=== PATIENT | male | born 1960 | race African-American/Black ===

== ENCOUNTER → 2017-05-14 | Outpatient (CLI) | payer MEDICAID ==
[2017-05-14 13:55] LABS: BASOPHILS # (AUTO) 0.1 X10^3/uL (0.0-0.1); BASOPHILS % (AUTO) 0.7 % (0.2-1.0); EOSINOPHILS # (AUTO) 0.1 x10^3/uL (0.0-0.2); EOSINOPHILS % (AUTO) 1.3 % (0.9-2.9); HEMATOCRIT 36.1 % (42.0-54.0); HEMOGLOBIN 12.4 g/dL (13.5-18.0); LYMPHOCYTES % (AUTO) 27.2 % (21.0-51.0); MEAN CORPUSCULAR HGB CONC 34.4 g/dL (33.0-35.0); MEAN CORPUSCULAR VOLUME 78.6 fL (80.0-100.0); MONOCYTES # (AUTO) 0.5 x10^3/uL (0.3-0.8); NEUTROPHILS # (AUTO) 4.8 x10^3/uL (2.2-4.8); NEUTROPHILS % (AUTO) 63.8 % (42.0-75.0); PLATELET COUNT 264 X10^3/uL (150.0-450.0); RED BLOOD COUNT 4.59 X10^6/uL (4.7-6.0); RED CELL DISTRIBUTION WIDTH 15.8 % (11.6-16.5); WHITE BLOOD COUNT 7.5 X10^3/uL (3.6-10.0)
--- NOTE | 2017-05-14 21:33 | RAD ---
PA and lateral Chest Indication: COPD Comparison: None available Findings: The trachea is midline. The cardiac silhouette is unremarkable. The lungs are clear without focal i nfiltrate or effusion. Multiple bilateral posterior healed rib fractures are noted. The there is a c hronic AC separation on the left with moderate osteoarthrosis of the right AC joint. IMPRESSION: 1. No acute cardiopulmonary abnormality. Reported By:
== END ==
LOC: LAB 13:17
PROVIDERS: ATTEND Nurse Practitioner Family
DX: Z79.899 Other long term (current) drug therapy (principal); J44.9 Chronic obstructive pulmonary disease, unspecified
CPT/HCPCS: 36415; 71020; 85025

== ENCOUNTER 2017-09-08 12:04 | Inpatient (IN) | payer MEDICAID ==
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
[2017-09-08] MEDS ORDERED: ATIVAN INJ 2 MG VIAL ONE (12:50)
[2017-09-08] MEDS ORDERED: ATIVAN INJ 2 MG VIAL IVP ONE (13:01)
[2017-09-08 13:11] LABS: BASOPHILS % (AUTO) 0.4 % (0.2-1.0); EOSINOPHILS # (AUTO) 0.2 x10^3/uL (0.0-0.2); HEMATOCRIT 38.1 % (42.0-54.0); HEMOGLOBIN 12.8 g/dL (13.5-18.0); LYMPHOCYTES # (AUTO) 2.3 X10^3/uL (1.3-2.9); LYMPHOCYTES % (AUTO) 23.1 % (21.0-51.0); MEAN CORPUSCULAR HEMOGLOBIN 27.7 pg (27.0-34.0); MEAN CORPUSCULAR HGB CONC 33.7 g/dL (33.0-35.0); MEAN CORPUSCULAR VOLUME 82.2 fL (80.0-100.0); MEAN PLATELET VOLUME 9.2 fL (7.4-11.0); MONOCYTES # (AUTO) 0.6 x10^3/uL (0.3-0.8); MONOCYTES % (AUTO) 6.2 % (0.0-13.0); NEUTROPHILS # (AUTO) 6.8 x10^3/uL (2.2-4.8); NEUTROPHILS % (AUTO) 68.3 % (42.0-75.0); PLATELET COUNT 266 X10^3/uL (150.0-450.0); RED BLOOD COUNT 4.64 X10^6/uL (4.7-6.0); RED CELL DISTRIBUTION WIDTH 14.8 % (11.6-16.5)
[2017-09-08 13:15] LABS: BILIRUBIN,URINE NEGATIVE (NEGATIVE); BLOOD/HEMOGLOBIN,URINE 4+ (NEGATIVE); GLUCOSE, URINE 1+ (NEGATIVE); KETONES,URINE 2+ (NEGATIVE); LEUKOCYTE ESTERASE ,URINE 3+ (NEGATIVE); NITRITES,URINE NEGATIVE (NEGATIVE); PROTEIN,URINE 3+ (NEGATIVE); UROBILINOGEN,URINE NORMAL (NORMAL)
[2017-09-08 13:16] LABS: COLOR,URINE YELLOW (YELLOW)
[2017-09-08 13:17] LABS: APPEARANCE,URINE HAZY (CLEAR)
[2017-09-08 13:25] LABS: BACTERIA,URINE 1+ /HPF (NEGATIVE); RBC,URINE TNTC /HPF (NEGATIVE); SQUAMOUS EPITHELIAL CELL,UR RARE /HPF (NEGATIVE)
[2017-09-08 13:26] LABS: YEAST,URINE FEW /HPF (NEGATIVE)
[2017-09-08 13:26] LABS: BLOOD UREA NITROGEN 17 mg/dL (7-18); CALCIUM 9.5 mg/dL (8.5-10.1); CARBON DIOXIDE 23.3 mmol/L (21-32); CHLORIDE 104 mmol/L (98-107); COR NA(FOR HYPERGLY) 145 mmol/L (136-145); CREATININE 1.18 mg/dL (0.70-1.30); SODIUM 143 mmol/L (136-145); TROPONIN I < 0.02 ng/mL (0-1.5); eGFR BLACK RACES > 60 (>60); eGFR NON BLACK RACES > 60 (>60)
--- NOTE | 2017-09-08 13:33 | CT ---
HISTORY: New onset seizure Study: CT head without contrast Comparison: None Technique: Axial noncontrast images with coronal and sagittal reformats. Dose reduction procedures we re used with mA/kv adjusted for body size. Findings: The ventricles are normal in size shape and position. There is some decreased attenuation in the elvira ventricular white matter suggestive of small vessel vascular disease. There is cortical atrophy prese nt. Old CVAs involve the frontal cortices and subcortical white matter bilaterally left greater than right. There is an old CVA in the left occipital region. There is no evidence for visible recent CVA, hemorrhage, mass lesion or extra-axial fluid collection. If acute CVA or extension of the patient's old CVA 's is a strong clinical consideration MRI with diffusion imaging is recommended for further e valuation. IMPRESSION: No acute intracranial abnormality Cortical atrophy Small vessel disease Multiple old infarcts as described above Reported By:
--- NOTE | 2017-09-08 13:34 | RAD ---
Examination: AP chest History: SOB, seizure Comparison 05/14/2017. Continued normal heart size with clear lungs and pleural spaces. Healed bilateral rib fracture deform ities. Small calcification adjacent to the left humeral head. Impression: No acute abnormality involving harder lungs. Healed rib fractures. Correlate for calcific peritendinitis left shoulder. Reported By:
[2017-09-08 13:39] LABS: ALANINE AMINOTRANSFERASE 17 Units/L (12-78); ALBUMIN 4.1 g/dL (3.4-5.0); ALKALINE PHOSPHATASE 89 Units/L (46-116); ASPARTATE AMINO TRANSFERASE 16 Units/L (15-37); CKMB % 0.6 % (<4); CREATINE KINASE 487 Units/L (39-308)
[2017-09-08] MEDS ORDERED: ROCEPHIN VIAL 1 GM 1 GM in NS 100 ML IV + SPIKE MINIBAG* 100 ML IV SCH (15:45)
[2017-09-08] MEDS ORDERED: ROCEPHIN VIAL 1 GM ONE (16:15)
[2017-09-08] MEDS ORDERED: NUBAIN INJ 200 MG VIAL MULTIDOSE ONE (16:16)
[2017-09-08] MEDS ORDERED: NS 100 ML IV 100 ML IV ONE (16:19)
[2017-09-08] MEDS: NS 1000 ML 1,000 ML IV SCH (16:19)
[2017-09-08 16:41] VITALS: BMI 23.6
[2017-09-08 20:06] LABS: CREATINE KINASE MB 3.1 ng/mL (0-4.0); TROPONIN I < 0.02 ng/mL (0-1.5)
[2017-09-08 20:11] LABS: CKMB % 0.3 % (<4); CREATINE KINASE 1149 Units/L (39-308)
[2017-09-09 02:13] LABS: CREATINE KINASE MB 2.8 ng/mL (0-4.0); TROPONIN I < 0.02 ng/mL (0-1.5)
[2017-09-09 02:49] LABS: CKMB % 0.2 % (<4); CREATINE KINASE 1606 Units/L (39-308)
[2017-09-09] MEDS: NS 1000 ML 1,000 ML IV SCH ×2 (04:44→18:22)
[2017-09-09 06:27] LABS: BASOPHILS # (AUTO) 0.1 X10^3/uL (0.0-0.1); BASOPHILS % (AUTO) 0.7 % (0.2-1.0); EOSINOPHILS # (AUTO) 0.2 x10^3/uL (0.0-0.2); HEMATOCRIT 34.1 % (42.0-54.0); HEMOGLOBIN 11.6 g/dL (13.5-18.0); LYMPHOCYTES % (AUTO) 29.7 % (21.0-51.0); MEAN CORPUSCULAR HEMOGLOBIN 27.6 pg (27.0-34.0); MEAN CORPUSCULAR VOLUME 81.2 fL (80.0-100.0); MONOCYTES # (AUTO) 0.7 x10^3/uL (0.3-0.8); MONOCYTES % (AUTO) 7.4 % (0.0-13.0); NEUTROPHILS % (AUTO) 60.2 % (42.0-75.0); PLATELET COUNT 231 X10^3/uL (150.0-450.0); RED CELL DISTRIBUTION WIDTH 14.7 % (11.6-16.5)
[2017-09-09 06:49] LABS: ALANINE AMINOTRANSFERASE 15 Units/L (12-78); ALBUMIN 3.3 g/dL (3.4-5.0); ALKALINE PHOSPHATASE 62 Units/L (46-116); ASPARTATE AMINO TRANSFERASE 17 Units/L (15-37); BLOOD UREA NITROGEN 10 mg/dL (7-18); CALCIUM 8.4 mg/dL (8.5-10.1); CARBON DIOXIDE 27.7 mmol/L (21-32); CHLORIDE 105 mmol/L (98-107); CHOL/HDL RATIO 4.3 (0.0-5.0); CHOLESTEROL 197 mg/dL (0-200); COR NA(FOR HYPERGLY) 144 mmol/L (136-145); CREATININE 0.91 mg/dL (0.70-1.30); HDL CHOLESTEROL 46 mg/dL (40-60); MAGNESIUM 1.6 mg/dL (1.7-2.9); SODIUM 142 mmol/L (136-145); TOTAL PROTEIN 6.8 g/dL (6.4-8.2); TRIGLYCERIDES 139 mg/dL (0-150); eGFR BLACK RACES > 60 (>60); eGFR NON BLACK RACES > 60 (>60)
[2017-09-09] MEDS ORDERED: K-RIDER 10 MEQ/NS 100 ML 10 MEQ/100 ML BAG IV PRN (07:00)
[2017-09-09] MEDS ORDERED: POTASSIUM CHLORIDE LIQ 20 MEQ UDC PO PRN (07:00)
[2017-09-09] MEDS ORDERED: POTASSIUM CHL 60 MEQ/NS 0.45% 500 ML IV PRN (07:00)
[2017-09-09] MEDS ORDERED: POTASSIUM CHL 40 MEQ/NS 0.45% 500 ML IV PRN (07:00)
[2017-09-09] MEDS: MAGNESIUM SULFATE 1 GM/100 mL PREMIX 1 GM/100 ML BAG IV PRN ×2 (07:42→08:36)
[2017-09-09] MEDS: ROCEPHIN IV SCH (10:30)
[2017-09-09] MEDS: D5W IV SCH (10:30)
[2017-09-09] MEDS ORDERED: HumaLOG SC SCH (11:30)
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
--- NOTE | 2017-09-09 13:34 | PCM.PROG ---
Progress Note - Progress Note for Day of Date: 09/09/17 - Subjective Subjective: patient is a 57-year-old black male who was an ER admission after presenting with new onset seizures. Since admission to ICU patient has had no reported seizure activity. Patient is alert and awake this morning. He denies any pain headache or dizziness. Plan to continue electrolyte replacement continue to monitor including neuro checks and cardiac monitoring. We'll consult Dr. Benito neurologist for evaluation of new onset seizure disorder. - Past Medical Family Social History Past Med/Fam/Surg Hx: No changes since H&P Allergies: Allergies No Known Drug Allergies Allergy (Verified 09/08/17 13:00) - Review of Systems ROS: No change since H&P - Vital Signs and I&O's Vital Signs: Temperature 97.9 F Pulse Rate [Apical] 86 Pulse Rate 16 Respiratory Rate 14 Blood Pressure [Right Arm] 170/85 Blood Pressure 156/80 O2 Sat by Pulse Oximetry 95 Intake and Output: Intake & Output 09/07/17 09/08/17 09/09/17 09/10/17 11:59 11:59 11:59 11:59 Intake Total 804 Output Total 1500 Balance -696 - Physical Exam Oriented: Person Eyes: Normal Ear: Normal Nose: Normal Throat: Normal Respiratory: Diminished Cardiovascular: Normal : Normal Auscultation: Bowel Sounds: Normal Tenderness: Normal Skin: Wound (STAGE I ULCERATION TO RIGHT STUMP) Musculoskeletal: Deformity Mood Description: Calm Speech Pattern: Clear - Laboratory and Diagnostics Result Diagrams: 09/09/17 05:30 09/09/17 05:30 Labs: 09/08/17 13:03 Urine,Catheterized Urine Culture - Preliminary Laboratory WBC 10.0 X10^3/uL (3.6-10.0) 09/09/17 05:30 RBC 4.20 X10^6/uL (4.7-6.0) L 09/09/17 05:30 Hgb 11.6 g/dL (13.5-18.0) L 09/09/17 05:30 Hct 34.1 % (42.0-54.0) L 09/09/17 05:30 MCV 81.2 fL (80.0-100.0) 09/09/17 05:30 MCH 27.6 pg (27.0-34.0) 09/09/17 05:30 MCHC 34.0 g/dL (33.0-35.0) 09/09/17 05:30 RDW 14.7 % (11.6-16.5) 09/09/17 05:30 Plt Count 231 X10^3/uL (150.0-450.0) 09/09/17 05:30 MPV 9.0 fL (7.4-11.0) 09/09/17 05:30 Neut % 60.2 % (42.0-75.0) 09/09/17 05:30 Lymph % 29.7 % (21.0-51.0) 09/09/17 05:30 [place] % 7.4 % (0.0-13.0) 09/09/17 05:30 Eos % 2.0 % (0.9-2.9) 09/09/17 05:30 Baso % 0.7 % (0.2-1.0) 09/09/17 05:30 Neut # 6.0 x10^3/uL (2.2-4.8) H 09/09/17 05:30 Lymph # 3.0 X10^3/uL (1.3-2.9) H 09/09/17 05:30 [place] # 0.7 x10^3/uL (0.3-0.8) 09/09/17 05:30 Eos # 0.2 x10^3/uL (0.0-0.2) 09/09/17 05:30 Baso # 0.1 X10^3/uL (0.0-0.1) 09/09/17 05:30 Absolute Nucleated RBC 0.1 /100WBC 09/09/17 05:30 INR Target Range - 09/09/17 05:30 INR 0.94 (0.8-1.3) 09/09/17 05:30 PTT 26.8 SECONDS (22.9-36.5) 09/09/17 05:30 PTT Comment - 09/09/17 05:30 Sodium 142 mmol/L (136-145) 09/09/17 05:30 Corrected Sodium 144 mmol/L (136-145) 09/09/17 05:30 Potassium 3.0 mmol/L (3.5-5.1) L* 09/09/17 05:30 Chloride 105 mmol/L (98-107) 09/09/17 05:30 Carbon Dioxide 27.7 mmol/L (21-32) 09/09/17 05:30 BUN 10 mg/dL (7-18) 09/09/17 05:30 Creatinine 0.91 mg/dL (0.70-1.30) 09/09/17 05:30 Est GFR (MDRD) Af Amer > 60 (>60) 09/09/17 05:30 Est GFR (MDRD) Non-Af > 60 (>60) 09/09/17 05:30 Glucose 180 mg/dL (65-99) H 09/09/17 05:30 POC Glucose (mg/dL) 239 mg/dL (65-99) H 09/09/17 11:17 Calcium 8.4 mg/dL (8.5-10.1) L 09/09/17 05:30 Corrected Calcium 9.0 mg/dL (8.5-10.1) 09/09/17 05:30 Magnesium 1.6 mg/dL (1.7-2.9) L 09/09/17 05:30 Total Bilirubin 0.30 mg/dL (0.2-1.0) 09/09/17 05:30 AST 17 Units/L (15-37) 09/09/17 05:30 ALT 15 Units/L (12-78) 09/09/17 05:30 Alkaline Phosphatase 62 Units/L (46-116) 09/09/17 05:30 Creatine Kinase 1606 Units/L (39-308) H 09/09/17 01:20 CK-MB (CK-2) 2.8 ng/mL (0-4.0) 09/09/17 01:20 CK/CKMB % Calc 0.2 % (<4) 09/09/17 01:20 Troponin I < 0.02 ng/mL (0-1.5) 09/09/17 01:20 Total Protein 6.8 g/dL (6.4-8.2) 09/09/17 05:30 Albumin 3.3 g/dL (3.4-5.0) L 09/09/17 05:30 Globulin 3.5 g/dL (2.5-4.5) 09/09/17 05:30 Albumin/Globulin Ratio 0.9 Ratio (1.1-2.1) L 09/09/17 05:30 Triglycerides 139 mg/dL (0-150) 09/09/17 05:30 Cholesterol 197 mg/dL (0-200) 09/09/17 05:30 LDL Cholesterol, Calc 123 mg/dL (0-100) H 09/09/17 05:30 HDL Cholesterol 46 mg/dL (40-60) 09/09/17 05:30 Cholesterol/HDL Ratio 4.3 (0.0-5.0) 09/09/17 05:30 Specimen Type Catherized urine 09/08/17 13:03 Urine Color Yellow (YELLOW) 09/08/17 13:03 Urine Appearance Hazy (CLEAR) 09/08/17 13:03 Urine pH 5.0 (5.0 - 8.0) 09/08/17 13:03 Ur Specific [place] 1.015 (1.000-1.030) 09/08/17 13:03 Urine Protein 3+ (NEGATIVE) 09/08/17 13:03 Urine Glucose (UA) 1+ (NEGATIVE) 09/08/17 13:03 Urine Ketones 2+ (NEGATIVE) 09/08/17 13:03 Urine Occult Blood 4+ (NEGATIVE) 09/08/17 13:03 Urine Nitrite Negative (NEGATIVE) 09/08/17 13:03 Urine Bilirubin Negative (NEGATIVE) 09/08/17 13:03 Urine Urobilinogen Normal (NORMAL) 09/08/17 13:03 Ur Leukocyte Esterase 3+ (NEGATIVE) 09/08/17 13:03 Urine RBC Tntc /HPF (NEGATIVE) 09/08/17 13:03 Urine WBC Tntc /HPF (NEGATIVE) 09/08/17 13:03 Ur Squamous Epith Cells Rare /HPF (NEGATIVE) 09/08/17 13:03 Urine Bacteria 1+ /HPF (NEGATIVE) 09/08/17 13:03 Urine Yeast Few /HPF (NEGATIVE) 09/08/17 13:03 Ur Culture Indicated? Yes/culture set up 09/08/17 13:03 Urine Opiates Screen Negative (NEG=<300) 09/08/17 13:03 Urine Methadone Screen Negative (NEG=<300) 09/08/17 13:03 Ur Barbiturates Screen Negative (NEG=<200) 09/08/17 13:03 Ur Phencyclidine Scrn Negative (NEG=<25) 09/08/17 13:03 Ur Amphetamines Screen Negative (NEG=<1000) 09/08/17 13:03 U Benzodiazepines Scrn Negative (NEG=<200) 09/08/17 13:03 Urine Cocaine Screen Negative (NEG=<300) 09/08/17 13:03 U Marijuana (THC) Screen Negative (NEG=<50) 09/08/17 13:03 - Plan (1) New onset seizure Status: Acute Plan: CT HEAD ON ADMISSION. CE AND EKG, ELECTROLYTE REPLACEMENT. IV HYDRATION IV ATBX FOR UTI. BLOOD SUGAR MONITORING. NEURO CHECKS, consult neurologist (2) UTI (urinary tract infection) Status: Acute Qualifiers: Urinary tract infection type: site unspecified Hematuria presence: with hematuria Qualified Code(s): N39.0 - Urinary tract infection, site not specified; R31.9 - Hematuria, unspecified; R31.9 - Hematuria, unspecified Plan: continue rocephin, culture pending (3) Hypertension Status: Acute (4) Diabetes Status: Acute
[2017-09-09] MEDS ORDERED: GLUCOPHAGE PO SCH (17:00)
[2017-09-09] MEDS ORDERED: GLUCOPHAGE ONE (17:18)
[2017-09-09] MEDS: HumuLIN R SUBCUT PRN ×2 (17:21→21:26)
[2017-09-09] MEDS: SNACK - Diabetic Appropriate PO SCH (21:27)
[2017-09-10] MEDS: NS 1000 ML 1,000 ML IV SCH ×3 (00:30→21:00)
[2017-09-10] MEDS ORDERED: GLUCOPHAGE ONE ×2 (05:52→17:15)
[2017-09-10 06:15] LABS: BASOPHILS % (AUTO) 0.4 % (0.2-1.0); EOSINOPHILS # (AUTO) 0.3 x10^3/uL (0.0-0.2); EOSINOPHILS % (AUTO) 2.9 % (0.9-2.9); HEMATOCRIT 35.2 % (42.0-54.0); HEMOGLOBIN 11.8 g/dL (13.5-18.0); LYMPHOCYTES # (AUTO) 2.6 X10^3/uL (1.3-2.9); LYMPHOCYTES % (AUTO) 29.8 % (21.0-51.0); MEAN CORPUSCULAR HEMOGLOBIN 27.3 pg (27.0-34.0); MEAN CORPUSCULAR HGB CONC 33.6 g/dL (33.0-35.0); MEAN CORPUSCULAR VOLUME 81.3 fL (80.0-100.0); MEAN PLATELET VOLUME 9.5 fL (7.4-11.0); MONOCYTES # (AUTO) 0.6 x10^3/uL (0.3-0.8); MONOCYTES % (AUTO) 6.4 % (0.0-13.0); NEUTROPHILS # (AUTO) 5.4 x10^3/uL (2.2-4.8); NEUTROPHILS % (AUTO) 60.5 % (42.0-75.0); PLATELET COUNT 243 X10^3/uL (150.0-450.0); RED BLOOD COUNT 4.33 X10^6/uL (4.7-6.0); RED CELL DISTRIBUTION WIDTH 14.7 % (11.6-16.5); WHITE BLOOD COUNT 8.8 X10^3/uL (3.6-10.0)
--- NOTE | 2017-09-10 06:36 | RAD ---
Examination: Portable AP chest History: SOB, seizure Comparison 09/08/2017 Findings: Continued normal heart size with clear lungs and pleural spaces. Left cervical rib incident ally observed. Impression: No interval change or acute abnormality. Reported By:
[2017-09-10 06:39] LABS: ALANINE AMINOTRANSFERASE 15 Units/L (12-78); ALBUMIN 3.3 g/dL (3.4-5.0); ALKALINE PHOSPHATASE 66 Units/L (46-116); ASPARTATE AMINO TRANSFERASE 16 Units/L (15-37); BLOOD UREA NITROGEN 12 mg/dL (7-18); CALCIUM 8.6 mg/dL (8.5-10.1); CARBON DIOXIDE 26.5 mmol/L (21-32); CHLORIDE 104 mmol/L (98-107); COR CA(FOR HYPOALB) 9.2 mg/dL (8.5-10.1); COR NA(FOR HYPERGLY) 142 mmol/L (136-145); CREATININE 0.87 mg/dL (0.70-1.30); SODIUM 140 mmol/L (136-145); TOTAL PROTEIN 6.9 g/dL (6.4-8.2); eGFR BLACK RACES > 60 (>60); eGFR NON BLACK RACES > 60 (>60)
[2017-09-10] MEDS: GLUCOPHAGE PO SCH ×2 (06:39→17:30)
[2017-09-10] MEDS: GLUCOTROL XL PO SCH (09:05)
[2017-09-10] MEDS: D5W IV SCH (09:05)
[2017-09-10] MEDS: ASPIRIN EC 81 MG PO SCH (09:05)
[2017-09-10] MEDS: ROCEPHIN IV SCH (09:05)
[2017-09-10] MEDS: COLACE CAP 100 MG PO SCH ×2 (11:59→21:30)
[2017-09-10] MEDS: HumuLIN R SUBCUT PRN ×3 (11:59→21:30)
--- NOTE | 2017-09-10 13:06 | PCM.PROG ---
Progress Note - Progress Note for Day of Date: 09/10/17 - Subjective Subjective: patient is a 57-year-old black male who was an ER admission after presenting with new onset seizures. Since admission to ICU patient has had no reported seizure activity. Patient is alert and awake this morning. He denies any pain headache or dizziness. Plan to continue electrolyte replacement continue to monitor including neuro checks and cardiac monitoring. Consult Dr. Benito neurologist for evaluation of new onset seizure disorder. Continue Iv atbx therapy for UTI, culture pending - Past Medical Family Social History Past Med/Fam/Surg Hx: No changes since H&P Allergies: Allergies No Known Drug Allergies Allergy (Verified 09/08/17 13:00) - Review of Systems ROS: No change since H&P - Vital Signs and I&O's Vital Signs: Temperature 98.5 F Pulse Rate [Apical] 84 Pulse Rate 16 Respiratory Rate 13 Blood Pressure [Right Arm] 148/83 Blood Pressure 156/80 O2 Sat by Pulse Oximetry 99 Intake and Output: Intake & Output 09/08/17 09/09/17 09/10/17 09/11/17 11:59 11:59 11:59 11:59 Intake Total 2104 2203 Output Total 3000 3910 Balance -896 -1707 - Physical Exam Oriented: Person Eyes: Normal Ear: Normal Nose: Normal Throat: Normal Respiratory: Diminished Cardiovascular: Normal : Normal Auscultation: Bowel Sounds: Normal Tenderness: Normal Skin: Wound (STAGE I ULCERATION TO RIGHT STUMP) Musculoskeletal: Deformity Mood Description: Calm Speech Pattern: Delayed - Laboratory and Diagnostics Result Diagrams: 09/10/17 05:24 09/10/17 05:24 Labs: 09/08/17 13:03 Urine,Catheterized Urine Culture - Preliminary Laboratory WBC 8.8 X10^3/uL (3.6-10.0) 09/10/17 05:24 RBC 4.33 X10^6/uL (4.7-6.0) L 09/10/17 05:24 Hgb 11.8 g/dL (13.5-18.0) L 09/10/17 05:24 Hct 35.2 % (42.0-54.0) L 09/10/17 05:24 MCV 81.3 fL (80.0-100.0) 09/10/17 05:24 MCH 27.3 pg (27.0-34.0) 09/10/17 05:24 MCHC 33.6 g/dL (33.0-35.0) 09/10/17 05:24 RDW 14.7 % (11.6-16.5) 09/10/17 05:24 Plt Count 243 X10^3/uL (150.0-450.0) 09/10/17 05:24 MPV 9.5 fL (7.4-11.0) 09/10/17 05:24 Neut % 60.5 % (42.0-75.0) 09/10/17 05:24 Lymph % 29.8 % (21.0-51.0) 09/10/17 05:24 [place] % 6.4 % (0.0-13.0) 09/10/17 05:24 Eos % 2.9 % (0.9-2.9) 09/10/17 05:24 Baso % 0.4 % (0.2-1.0) 09/10/17 05:24 Neut # 5.4 x10^3/uL (2.2-4.8) H 09/10/17 05:24 Lymph # 2.6 X10^3/uL (1.3-2.9) 09/10/17 05:24 [place] # 0.6 x10^3/uL (0.3-0.8) 09/10/17 05:24 Eos # 0.3 x10^3/uL (0.0-0.2) H 09/10/17 05:24 Baso # 0.0 X10^3/uL (0.0-0.1) 09/10/17 05:24 Absolute Nucleated RBC 0.0 /100WBC 09/10/17 05:24 INR Target Range - 09/09/17 05:30 INR 0.94 (0.8-1.3) 09/09/17 05:30 PTT 26.8 SECONDS (22.9-36.5) 09/09/17 05:30 PTT Comment - 09/09/17 05:30 Sodium 140 mmol/L (136-145) 09/10/17 05:24 Corrected Sodium 142 mmol/L (136-145) 09/10/17 05:24 Potassium 3.4 mmol/L (3.5-5.1) L 09/10/17 05:24 Chloride 104 mmol/L (98-107) 09/10/17 05:24 Carbon Dioxide 26.5 mmol/L (21-32) 09/10/17 05:24 BUN 12 mg/dL (7-18) 09/10/17 05:24 Creatinine 0.87 mg/dL (0.70-1.30) 09/10/17 05:24 Est GFR (MDRD) Af Amer > 60 (>60) 09/10/17 05:24 Est GFR (MDRD) Non-Af > 60 (>60) 09/10/17 05:24 Glucose 202 mg/dL (65-99) H 09/10/17 05:24 POC Glucose (mg/dL) 227 mg/dL (65-99) H 09/10/17 11:33 Calcium 8.6 mg/dL (8.5-10.1) 09/10/17 05:24 Corrected Calcium 9.2 mg/dL (8.5-10.1) 09/10/17 05:24 Magnesium 1.7 mg/dL (1.7-2.9) 09/10/17 05:18 Total Bilirubin 0.30 mg/dL (0.2-1.0) 09/10/17 05:24 AST 16 Units/L (15-37) 09/10/17 05:24 ALT 15 Units/L (12-78) 09/10/17 05:24 Alkaline Phosphatase 66 Units/L (46-116) 09/10/17 05:24 Creatine Kinase 1606 Units/L (39-308) H 09/09/17 01:20 CK-MB (CK-2) 2.8 ng/mL (0-4.0) 09/09/17 01:20 CK/CKMB % Calc 0.2 % (<4) 09/09/17 01:20 Troponin I < 0.02 ng/mL (0-1.5) 09/09/17 01:20 Total Protein 6.9 g/dL (6.4-8.2) 09/10/17 05:24 Albumin 3.3 g/dL (3.4-5.0) L 09/10/17 05:24 Globulin 3.6 g/dL (2.5-4.5) 09/10/17 05:24 Albumin/Globulin Ratio 0.9 Ratio (1.1-2.1) L 09/10/17 05:24 Triglycerides 139 mg/dL (0-150) 09/09/17 05:30 Cholesterol 197 mg/dL (0-200) 09/09/17 05:30 LDL Cholesterol, Calc 123 mg/dL (0-100) H 09/09/17 05:30 HDL Cholesterol 46 mg/dL (40-60) 09/09/17 05:30 Cholesterol/HDL Ratio 4.3 (0.0-5.0) 09/09/17 05:30 Specimen Type Catherized urine 09/08/17 13:03 Urine Color Yellow (YELLOW) 09/08/17 13:03 Urine Appearance Hazy (CLEAR) 09/08/17 13:03 Urine pH 5.0 (5.0 - 8.0) 09/08/17 13:03 Ur Specific [place] 1.015 (1.000-1.030) 09/08/17 13:03 Urine Protein 3+ (NEGATIVE) 09/08/17 13:03 Urine Glucose (UA) 1+ (NEGATIVE) 09/08/17 13:03 Urine Ketones 2+ (NEGATIVE) 09/08/17 13:03 Urine Occult Blood 4+ (NEGATIVE) 09/08/17 13:03 Urine Nitrite Negative (NEGATIVE) 09/08/17 13:03 Urine Bilirubin Negative (NEGATIVE) 09/08/17 13:03 Urine Urobilinogen Normal (NORMAL) 09/08/17 13:03 Ur Leukocyte Esterase 3+ (NEGATIVE) 09/08/17 13:03 Urine RBC Tntc /HPF (NEGATIVE) 09/08/17 13:03 Urine WBC Tntc /HPF (NEGATIVE) 09/08/17 13:03 Ur Squamous Epith Cells Rare /HPF (NEGATIVE) 09/08/17 13:03 Urine Bacteria 1+ /HPF (NEGATIVE) 09/08/17 13:03 Urine Yeast Few /HPF (NEGATIVE) 09/08/17 13:03 Ur Culture Indicated? Yes/culture set up 09/08/17 13:03 Urine Opiates Screen Negative (NEG=<300) 09/08/17 13:03 Urine Methadone Screen Negative (NEG=<300) 09/08/17 13:03 Ur Barbiturates Screen Negative (NEG=<200) 09/08/17 13:03 Ur Phencyclidine Scrn Negative (NEG=<25) 09/08/17 13:03 Ur Amphetamines Screen Negative (NEG=<1000) 09/08/17 13:03 U Benzodiazepines Scrn Negative (NEG=<200) 09/08/17 13:03 Urine Cocaine Screen Negative (NEG=<300) 09/08/17 13:03 U Marijuana (THC) Screen Negative (NEG=<50) 09/08/17 13:03 - Plan (1) New onset seizure Status: Acute Plan: CT HEAD ON ADMISSION. CE AND EKG ON ADMISSION, ELECTROLYTE REPLACEMENT. IV HYDRATION IV ATBX FOR UTI. BLOOD SUGAR MONITORING. NEURO CHECKS, consult neurologist (2) UTI (urinary tract infection) Status: Acute Qualifiers: Urinary tract infection type: site unspecified Hematuria presence: with hematuria Qualified Code(s): N39.0 - Urinary tract infection, site not specified; R31.9 - Hematuria, unspecified; R31.9 - Hematuria, unspecified Plan: continue rocephin, culture pending (3) Hypertension Status: Acute (4) Diabetes Status: Acute
[2017-09-10] MEDS: K-LYTE EFFERVESCENT PO PRN (17:29)
[2017-09-10] MEDS: MAG-OX TAB PO PRN (17:29)
[2017-09-10] MEDS: SNACK - Diabetic Appropriate PO SCH (20:00)
[2017-09-10] MEDS: MILK OF MAGNESIA PO SCH (21:30)
[2017-09-11] MEDS ORDERED: GLUCOPHAGE ONE ×2 (05:52→17:11)
[2017-09-11] MEDS: GLUCOPHAGE PO SCH ×2 (06:22→17:14)
[2017-09-11] MEDS: NS 1000 ML 1,000 ML IV SCH ×3 (06:23→20:30)
[2017-09-11 06:40] LABS: BASOPHILS % (AUTO) 0.6 % (0.2-1.0); EOSINOPHILS # (AUTO) 0.3 x10^3/uL (0.0-0.2); EOSINOPHILS % (AUTO) 3.5 % (0.9-2.9); HEMOGLOBIN 12.5 g/dL (13.5-18.0); LYMPHOCYTES # (AUTO) 2.8 X10^3/uL (1.3-2.9); LYMPHOCYTES % (AUTO) 32.2 % (21.0-51.0); MEAN CORPUSCULAR HEMOGLOBIN 27.5 pg (27.0-34.0); MEAN CORPUSCULAR HGB CONC 33.8 g/dL (33.0-35.0); MEAN CORPUSCULAR VOLUME 81.3 fL (80.0-100.0); MEAN PLATELET VOLUME 8.5 fL (7.4-11.0); MONOCYTES # (AUTO) 0.6 x10^3/uL (0.3-0.8); MONOCYTES % (AUTO) 6.5 % (0.0-13.0); NEUTROPHILS # (AUTO) 4.9 x10^3/uL (2.2-4.8); NEUTROPHILS % (AUTO) 57.2 % (42.0-75.0); PLATELET COUNT 223 X10^3/uL (150.0-450.0); RED BLOOD COUNT 4.55 X10^6/uL (4.7-6.0); RED CELL DISTRIBUTION WIDTH 14.7 % (11.6-16.5); WHITE BLOOD COUNT 8.6 X10^3/uL (3.6-10.0)
[2017-09-11 06:52] LABS: ALANINE AMINOTRANSFERASE 15 Units/L (12-78); ALBUMIN 3.4 g/dL (3.4-5.0); ALKALINE PHOSPHATASE 76 Units/L (46-116); ASPARTATE AMINO TRANSFERASE 14 Units/L (15-37); BLOOD UREA NITROGEN 9 mg/dL (7-18); CARBON DIOXIDE 27.7 mmol/L (21-32); CHLORIDE 105 mmol/L (98-107); COR NA(FOR HYPERGLY) 143 mmol/L (136-145); CREATININE 0.86 mg/dL (0.70-1.30); SODIUM 142 mmol/L (136-145); TOTAL PROTEIN 7.1 g/dL (6.4-8.2); eGFR BLACK RACES > 60 (>60); eGFR NON BLACK RACES > 60 (>60)
[2017-09-11] MEDS: GLUCOTROL XL PO SCH (08:53)
[2017-09-11] MEDS: D5W IV SCH (08:53)
[2017-09-11] MEDS: ROCEPHIN IV SCH (08:53)
[2017-09-11] MEDS: K-LYTE EFFERVESCENT PO PRN (08:54)
[2017-09-11] MEDS: ASPIRIN EC 81 MG PO SCH (08:54)
[2017-09-11] MEDS: MILK OF MAGNESIA PO SCH ×2 (08:54→21:38)
[2017-09-11] MEDS: MAG-OX TAB PO PRN (08:54)
[2017-09-11] MEDS ORDERED: CIPRO IV 400 MG PREMIX* 400 MG/200 ML IV.SOLN. IV SCH (09:00)
[2017-09-11] MEDS: HumuLIN R SUBCUT PRN ×3 (12:42→21:35)
--- NOTE | 2017-09-11 18:58 | PCM.PROG ---
Progress Note - Progress Note for Day of Date: 09/11/17 - Subjective Subjective: patient is a 57-year-old black male who was an ER admission after presenting with new onset seizures. Since admission to ICU patient has had no reported seizure activity. Patient is alert and awake this morning. He denies any pain headache or dizziness. Plan to continue electrolyte replacement continue to monitor including neuro checks and cardiac monitoring. Pt started on iv levaquin for UTI. discussed plans for Dc with pt and family - Past Medical Family Social History Past Med/Fam/Surg Hx: No changes since H&P Allergies: Allergies No Known Drug Allergies Allergy (Verified 09/08/17 13:00) - Review of Systems ROS: No change since H&P - Vital Signs and I&O's Vital Signs: Temperature 98.3 F Pulse Rate [Apical] 94 Pulse Rate 16 Respiratory Rate 22 Blood Pressure [Right Arm] 146/91 Blood Pressure 156/80 O2 Sat by Pulse Oximetry 98 Intake and Output: Intake & Output 09/09/17 09/10/17 09/11/17 09/12/17 11:59 11:59 11:59 11:59 Intake Total 2104 2203 2978 1637 Output Total 3000 3910 5600 2400 [facility] -[phone] - Physical Exam Oriented: Person Eyes: Normal Ear: Normal Nose: Normal Throat: Normal Respiratory: Diminished Cardiovascular: Normal : Normal Auscultation: Bowel Sounds: Normal Tenderness: Normal Skin: Wound (STAGE I ULCERATION TO RIGHT STUMP) Musculoskeletal: Deformity Mood Description: Calm Speech Pattern: Unclear - Laboratory and Diagnostics Result Diagrams: 09/11/17 06:20 09/11/17 06:20 Labs: 09/11/17 11:26 Leg - Left Gram Stain - Final 09/08/17 13:03 Urine,Catheterized Urine Culture - Final Strep Agalactiae - (Group B) Laboratory WBC 8.6 X10^3/uL (3.6-10.0) 09/11/17 06:20 RBC 4.55 X10^6/uL (4.7-6.0) L 09/11/17 06:20 Hgb 12.5 g/dL (13.5-18.0) L 09/11/17 06:20 Hct 37.0 % (42.0-54.0) L 09/11/17 06:20 MCV 81.3 fL (80.0-100.0) 09/11/17 06:20 MCH 27.5 pg (27.0-34.0) 09/11/17 06:20 MCHC 33.8 g/dL (33.0-35.0) 09/11/17 06:20 RDW 14.7 % (11.6-16.5) 09/11/17 06:20 Plt Count 223 X10^3/uL (150.0-450.0) 09/11/17 06:20 MPV 8.5 fL (7.4-11.0) 09/11/17 06:20 Neut % 57.2 % (42.0-75.0) 09/11/17 06:20 Lymph % 32.2 % (21.0-51.0) 09/11/17 06:20 [place] % 6.5 % (0.0-13.0) 09/11/17 06:20 Eos % 3.5 % (0.9-2.9) H 09/11/17 06:20 Baso % 0.6 % (0.2-1.0) 09/11/17 06:20 Neut # 4.9 x10^3/uL (2.2-4.8) H 09/11/17 06:20 Lymph # 2.8 X10^3/uL (1.3-2.9) 09/11/17 06:20 [place] # 0.6 x10^3/uL (0.3-0.8) 09/11/17 06:20 Eos # 0.3 x10^3/uL (0.0-0.2) H 09/11/17 06:20 Baso # 0.0 X10^3/uL (0.0-0.1) 09/11/17 06:20 Absolute Nucleated RBC 0.0 /100WBC 09/11/17 06:20 INR Target Range - 09/09/17 05:30 INR 0.94 (0.8-1.3) 09/09/17 05:30 PTT 26.8 SECONDS (22.9-36.5) 09/09/17 05:30 PTT Comment - 09/09/17 05:30 Sodium 142 mmol/L (136-145) 09/11/17 06:20 Corrected Sodium 143 mmol/L (136-145) 09/11/17 06:20 Potassium 3.6 mmol/L (3.5-5.1) 09/11/17 06:20 Chloride 105 mmol/L (98-107) 09/11/17 06:20 Carbon Dioxide 27.7 mmol/L (21-32) 09/11/17 06:20 BUN 9 mg/dL (7-18) 09/11/17 06:20 Creatinine 0.86 mg/dL (0.70-1.30) 09/11/17 06:20 Est GFR (MDRD) Af Amer > 60 (>60) 09/11/17 06:20 Est GFR (MDRD) Non-Af > 60 (>60) 09/11/17 06:20 Glucose 151 mg/dL (65-99) H 09/11/17 06:20 POC Glucose (mg/dL) 245 mg/dL (65-99) H 09/11/17 16:47 Calcium 9.0 mg/dL (8.5-10.1) 09/11/17 06:20 Corrected Calcium TNP 09/11/17 06:20 Magnesium 1.6 mg/dL (1.7-2.9) L 09/11/17 06:20 Total Bilirubin 0.30 mg/dL (0.2-1.0) 09/11/17 06:20 AST 14 Units/L (15-37) L 09/11/17 06:20 ALT 15 Units/L (12-78) 09/11/17 06:20 Alkaline Phosphatase 76 Units/L (46-116) 09/11/17 06:20 Creatine Kinase 1606 Units/L (39-308) H 09/09/17 01:20 CK-MB (CK-2) 2.8 ng/mL (0-4.0) 09/09/17 01:20 CK/CKMB % Calc 0.2 % (<4) 09/09/17 01:20 Troponin I < 0.02 ng/mL (0-1.5) 09/09/17 01:20 Total Protein 7.1 g/dL (6.4-8.2) 09/11/17 06:20 Albumin 3.4 g/dL (3.4-5.0) 09/11/17 06:20 Globulin 3.7 g/dL (2.5-4.5) 09/11/17 06:20 Albumin/Globulin Ratio 0.9 Ratio (1.1-2.1) L 09/11/17 06:20 Triglycerides 139 mg/dL (0-150) 09/09/17 05:30 Cholesterol 197 mg/dL (0-200) 09/09/17 05:30 LDL Cholesterol, Calc 123 mg/dL (0-100) H 09/09/17 05:30 HDL Cholesterol 46 mg/dL (40-60) 09/09/17 05:30 Cholesterol/HDL Ratio 4.3 (0.0-5.0) 09/09/17 05:30 Specimen Type Catherized urine 09/08/17 13:03 Urine Color Yellow (YELLOW) 09/08/17 13:03 Urine Appearance Hazy (CLEAR) 09/08/17 13:03 Urine pH 5.0 (5.0 - 8.0) 09/08/17 13:03 Ur Specific [place] 1.015 (1.000-1.030) 09/08/17 13:03 Urine Protein 3+ (NEGATIVE) 09/08/17 13:03 Urine Glucose (UA) 1+ (NEGATIVE) 09/08/17 13:03 Urine Ketones 2+ (NEGATIVE) 09/08/17 13:03 Urine Occult Blood 4+ (NEGATIVE) 09/08/17 13:03 Urine Nitrite Negative (NEGATIVE) 09/08/17 13:03 Urine Bilirubin Negative (NEGATIVE) 09/08/17 13:03 Urine Urobilinogen Normal (NORMAL) 09/08/17 13:03 Ur Leukocyte Esterase 3+ (NEGATIVE) 09/08/17 13:03 Urine RBC Tntc /HPF (NEGATIVE) 09/08/17 13:03 Urine WBC Tntc /HPF (NEGATIVE) 09/08/17 13:03 Ur Squamous Epith Cells Rare /HPF (NEGATIVE) 09/08/17 13:03 Urine Bacteria 1+ /HPF (NEGATIVE) 09/08/17 13:03 Urine Yeast Few /HPF (NEGATIVE) 09/08/17 13:03 Ur Culture Indicated? Yes/culture set up 09/08/17 13:03 Urine Opiates Screen Negative (NEG=<300) 09/08/17 13:03 Urine Methadone Screen Negative (NEG=<300) 09/08/17 13:03 Ur Barbiturates Screen Negative (NEG=<200) 09/08/17 13:03 Ur Phencyclidine Scrn Negative (NEG=<25) 09/08/17 13:03 Ur Amphetamines Screen Negative (NEG=<1000) 09/08/17 13:03 U Benzodiazepines Scrn Negative (NEG=<200) 09/08/17 13:03 Urine Cocaine Screen Negative (NEG=<300) 09/08/17 13:03 U Marijuana (THC) Screen Negative (NEG=<50) 09/08/17 13:03 - Plan (1) New onset seizure Status: Acute Plan: CT HEAD ON ADMISSION. CE AND EKG ON ADMISSION, ELECTROLYTE REPLACEMENT. IV HYDRATION IV ATBX FOR UTI. BLOOD SUGAR MONITORING. 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
[2017-09-11] MEDS: SNACK - Diabetic Appropriate PO SCH (20:00)
[2017-09-11] MEDS: LEVAQUIN PREMIX IV 500 MG 500 MG/100 ML BAG IV SCH (21:37)
[2017-09-11] MEDS: COLACE CAP 100 MG PO SCH (21:38)
[2017-09-12] MEDS ORDERED: GLUCOPHAGE ONE (05:29)
[2017-09-12] MEDS: GLUCOPHAGE PO SCH (06:03)
[2017-09-12 06:31] LABS: BASOPHILS # (AUTO) 0.1 X10^3/uL (0.0-0.1); BASOPHILS % (AUTO) 0.7 % (0.2-1.0); EOSINOPHILS # (AUTO) 0.3 x10^3/uL (0.0-0.2); EOSINOPHILS % (AUTO) 3.2 % (0.9-2.9); HEMATOCRIT 35.6 % (42.0-54.0); HEMOGLOBIN 12.1 g/dL (13.5-18.0); LYMPHOCYTES # (AUTO) 2.6 X10^3/uL (1.3-2.9); LYMPHOCYTES % (AUTO) 28.4 % (21.0-51.0); MEAN CORPUSCULAR HEMOGLOBIN 27.7 pg (27.0-34.0); MEAN CORPUSCULAR HGB CONC 34.1 g/dL (33.0-35.0); MEAN CORPUSCULAR VOLUME 81.1 fL (80.0-100.0); MEAN PLATELET VOLUME 9.4 fL (7.4-11.0); MONOCYTES # (AUTO) 0.7 x10^3/uL (0.3-0.8); MONOCYTES % (AUTO) 7.2 % (0.0-13.0); NEUTROPHILS # (AUTO) 5.6 x10^3/uL (2.2-4.8); NEUTROPHILS % (AUTO) 60.5 % (42.0-75.0); PLATELET COUNT 220 X10^3/uL (150.0-450.0); RED BLOOD COUNT 4.39 X10^6/uL (4.7-6.0); RED CELL DISTRIBUTION WIDTH 14.6 % (11.6-16.5); WHITE BLOOD COUNT 9.2 X10^3/uL (3.6-10.0)
[2017-09-12 07:14] LABS: ALANINE AMINOTRANSFERASE 14 Units/L (12-78); ALBUMIN 3.3 g/dL (3.4-5.0); ALKALINE PHOSPHATASE 70 Units/L (46-116); ASPARTATE AMINO TRANSFERASE 13 Units/L (15-37); BLOOD UREA NITROGEN 11 mg/dL (7-18); CALCIUM 8.9 mg/dL (8.5-10.1); CARBON DIOXIDE 26.8 mmol/L (21-32); CHLORIDE 104 mmol/L (98-107); COR CA(FOR HYPOALB) 9.5 mg/dL (8.5-10.1); COR NA(FOR HYPERGLY) 142 mmol/L (136-145); CREATININE 0.91 mg/dL (0.70-1.30); MAGNESIUM 1.5 mg/dL (1.7-2.9); SODIUM 140 mmol/L (136-145); eGFR BLACK RACES > 60 (>60); eGFR NON BLACK RACES > 60 (>60)
[2017-09-12] MEDS: D5W IV SCH (08:40)
[2017-09-12] MEDS: LEVAQUIN PREMIX IV 500 MG 500 MG/100 ML BAG IV SCH (08:40)
[2017-09-12] MEDS: ROCEPHIN IV SCH (08:40)
[2017-09-12] MEDS: MILK OF MAGNESIA PO SCH (08:41)
[2017-09-12] MEDS: ASPIRIN EC 81 MG PO SCH (08:41)
[2017-09-12] MEDS: GLUCOTROL XL PO SCH (08:41)
[2017-09-12] MEDS: HumuLIN R SUBCUT PRN (12:21)
[2017-09-12 14:03] VITALS: BP 151/78
== END 2017-09-12 13:19 | disposition home health service (06) | DRG 690 ==
LOC: ER 12:13 → ICU 15:43 → OBSVTOIN 09-09 08:00
PROVIDERS: ADMIT Internal Medicine; ATTEND Internal Medicine
DX: N39.0 Urinary tract infection, site not specified (principal); G40.89 Other seizures; R94.31 Abnormal electrocardiogram [ECG] [EKG]; I10 Essential (primary) hypertension; E11.65 Type 2 diabetes mellitus with hyperglycemia; R31.9 Hematuria, unspecified; B95.1 Streptococcus, group B, as the cause of diseases classified elsewhere; L89.891 Pressure ulcer of other site, stage 1; E87.8 Other disorders of electrolyte and fluid balance, not elsewhere classified; B95.62 Methicillin resistant Staphylococcus aureus infection as the cause of diseases classified elsewhere
CPT/HCPCS: 36415; 51702; 70450; 71045; 80053; 80061; 80307; 81001; 82550; 82553; 83735; 84132; 84484; 85025; 85610; 85730; 87070; 87075; 87077; 87086; 87088; 87186; 87205; 93005; 93010; 96365; 96374; 99284; A4222; G0378; G0434; J0696; J0744; J1815; J1956; J2060

== ENCOUNTER 2017-10-26 14:08 | Inpatient (IN) | payer MEDICAID ==
--- NOTE | 2017-10-26 14:13 | DR.HYPOGLY ---
HPI - Time Seen Time seen: 14:15 - HPI Comment HPI Comment: HOME HEALTH NURSE CALL EMS TO TRANSPORT PATIENT TO ED. HIS FINGER IS INFECTED AND DRAINING. GLUCOSE IS HIGH, PATIENT SAID HE IS WEAK AND DOING FEEL GOOD. FEVER AT HOME. - Complaint Chief Complaint Doctors Comments: ELEVATED BLOOD GLUCOSE. LEFT 4TH FINFER INFECTED. ON ANTIBIOTICS ALREADY. - Nurses notes reviewed Nurses Notes Review: Yes - Source History Provided: Patient - Mode of Arrival Mode of Arrival: Stretcher - Timing Came on: Suddenly - Duration Duration: Constant Duration: Days - Context [place]: Confused Symptoms: Confusion, Generalized weakness History of: Diabetes - Associated signs and symptoms Associated signs and symptoms: Chest pain PMH - PMH Past Medical History: Arthritis, Diabetes, Hypertension Past Surgical History: Yes Surgical History: Abdominal Surgery, Ortho Surgery - Family History Family Medical History: Diabetes Mellitus, Cancer - Social History Do you use any recreational Drugs:: No ROS - Review of Systems Constitutional: Fever (AT HOME) Eyes: Other (BLINDNESS) ENTM: negative: Ear Pain, Nose Discharge, Nose Congestion, Throat Pain Respiratoy: Non-Productive Cough, Short of Breath. negative: Wheezing, Hemoptysis Cardiovascular: Chest Pain Gastrointestinal/Abdominal: Nausea Genitourinary: Frequency Neurological: Headache, Weakness, Dizziness Musculoskeletal: Muscle Pain, Other (LT AKA, RT BKA) Integumentary: Dryness Hematologic/Lymphatic: No Symptoms Reported Endocrine: Increased Urine. negative: Flushing All Other Systems: Reviewed and Negative PE - Vital Signs Vitals: Temperature 99.8 F Pulse Rate 97 Respiratory Rate 16 Blood Pressure [Right Arm] 151/78 Blood Pressure 144/74 O2 Sat by Pulse Oximetry 98 - General Limitations: Altered Mental Status - Eyes Eye exam: PERRL. negative: Scleral Icterus, Conjunctival Injection Pupils: Regular, Round: Left (LEFT EYE BLINDNESS) Sclera/Conjunctival: Normal Inspection: Bilateral - ENT ENT Exam: Normal Oropharynx, Normal External Ear Exam, TM's Normal Bilaterally Nose Exam: Normal Nose Exam Mouth Exam: Normal Inspection Throat Exam: Normal Inspection - Neck Neck Exam: Trachea Midline - Chest Chest Inspection: Symmetric Chest Wall Rise - Respiratory Respiratory Exam: Respiratory Distress Respiratory Exam: Bilateral Wheezing, Bilateral Rhonchi, Upper Rhonchi, Lower Wheezing, Lower Rhonchi - Cardiovascular Cardiovascular Exam: Regular Rate, Normal Rhythm, Normal Heart Sounds - Abdominal Exam Abdominal Exam: Normal Bowel Sounds, Soft. negative: Tenderness - Extremities Extremities Exam: Other (BKA RT AND AKA LT.) - Back Back Exam: Tenderness - Neurologic Neurological Exam: Alert, Other (CONFUSE.) Speech: Other (SPEECH SLOW) Cranial Nerve Exam: EOM Function (II, III, IV, ): Normal, Gag reflex (XI): Normal - Psychiatric Psychiatric Exam: Anxious - Skin Skin Exam: Dry MDM - Additional information Additional Information Obtained From: Family (INFECTED FINGER, CELLULITIS, INFECTED ARTHRITIS) - Differential diagnosis Differential diagnosis: Sepsis Course - Treatment Treatment: SEE ORDERS - Consultation Consultation Comments: DISCUSS PATIENT WITH DR. SNYDER. HE WILL ADMIT PATIENT. - Education/Counseling Education/Counseling: Patient, Family, Education Educated On: Treatment, Diagnosis ROR - Labs Reviewed Laboratory Results Reviewed?: Yes Result Diagrams: 10/27/17 04:35 10/27/17 04:35 Laboratory: WBC 6.6 X10^3/uL (3.6-10.0) 10/27/17 04:35 RBC 4.08 X10^6/uL (4.7-6.0) L 10/27/17 04:35 Hgb 11.1 g/dL (13.5-18.0) L 10/27/17 04:35 Hct 33.4 % (42.0-54.0) L 10/27/17 04:35 MCV 81.9 fL (80.0-100.0) 10/27/17 04:35 MCH 27.3 pg (27.0-34.0) 10/27/17 04:35 MCHC 33.4 g/dL (33.0-35.0) 10/27/17 04:35 RDW 14.3 % (11.6-16.5) 10/27/17 04:35 Plt Count 216 X10^3/uL (150.0-450.0) 10/27/17 04:35 MPV 8.7 fL (7.4-11.0) 10/27/17 04:35 Neut % 66.1 % (42.0-75.0) 10/27/17 04:35 Lymph % 18.3 % (21.0-51.0) L 10/27/17 04:35 [place] % 9.6 % (0.0-13.0) 10/27/17 04:35 Eos % 5.3 % (0.9-2.9) H 10/27/17 04:35 Baso % 0.7 % (0.2-1.0) 10/27/17 04:35 Neut # 4.3 x10^3/uL (2.2-4.8) 10/27/17 04:35 Lymph # 1.2 X10^3/uL (1.3-2.9) L 10/27/17 04:35 [place] # 0.6 x10^3/uL (0.3-0.8) 10/27/17 04:35 Eos # 0.3 x10^3/uL (0.0-0.2) H 10/27/17 04:35 Baso # 0.0 X10^3/uL (0.0-0.1) 10/27/17 04:35 Absolute Nucleated RBC 0.1 /100WBC 10/27/17 04:35 INR Target Range - 10/27/17 04:35 INR 0.97 (0.8-1.3) 10/27/17 04:35 PTT 29.9 SECONDS (22.9-36.5) 10/27/17 04:35 PTT Comment - 10/27/17 04:35 Sodium 138 mmol/L (136-145) 10/27/17 04:35 Corrected Sodium 141 mmol/L (136-145) 10/27/17 04:35 Potassium 4.1 mmol/L (3.5-5.1) 10/27/17 04:35 Chloride 103 mmol/L (98-107) 10/27/17 04:35 Carbon Dioxide 25.8 mmol/L (21-32) 10/27/17 04:35 BUN 13 mg/dL (7-18) 10/27/17 04:35 Creatinine 1.13 mg/dL (0.70-1.30) 10/27/17 04:35 Est GFR (MDRD) Af Amer > 60 (>60) 10/27/17 04:35 Est GFR (MDRD) Non-Af > 60 (>60) 10/27/17 04:35 Glucose 213 mg/dL (65-99) H 10/27/17 04:35 POC Glucose (mg/dL) 171 mg/dL (65-99) H 10/27/17 05:28 Lactic Acid 2.7 mmol/L (0.4-2.0) H 10/26/17 11:45 Calcium 8.3 mg/dL (8.5-10.1) L 10/27/17 04:35 Corrected Calcium 9.1 mg/dL (8.5-10.1) 10/27/17 04:35 Magnesium 1.5 mg/dL (1.7-2.9) L 10/27/17 04:35 Total Bilirubin 0.20 mg/dL (0.2-1.0) 10/27/17 04:35 AST 12 Units/L (15-37) L 10/27/17 04:35 ALT 14 Units/L (12-78) 10/27/17 04:35 Alkaline Phosphatase 82 Units/L (46-116) 10/27/17 04:35 Creatine Kinase 205 Units/L (39-308) 10/27/17 00:20 CK-MB (CK-2) 1.9 ng/mL (0-4.0) 10/27/17 00:20 CK/CKMB % Calc 0.9 % (<4) 10/27/17 00:20 Troponin I < 0.02 ng/mL (0-1.5) 10/27/17 00:20 C-Reactive Protein 21.50 mg/L (0-3.0) H 10/26/17 11:45 Total Protein 6.9 g/dL (6.4-8.2) 10/27/17 04:35 Albumin 3.0 g/dL (3.4-5.0) L 10/27/17 04:35 Globulin 3.9 g/dL (2.5-4.5) 10/27/17 04:35 Albumin/Globulin Ratio 0.8 Ratio (1.1-2.1) L 10/27/17 04:35 Specimen Type Clean catch urine 10/26/17 14:58 Urine Color Yellow (YELLOW) 10/26/17 14:58 Urine Appearance Clear (CLEAR) 10/26/17 14:58 Urine pH 5.0 (5.0 - 8.0) 10/26/17 14:58 Ur Specific [place] 1.015 (1.000-1.030) 10/26/17 14:58 Urine Protein 1+ (NEGATIVE) 10/26/17 14:58 Urine Glucose (UA) 4+ (NEGATIVE) 10/26/17 14:58 Urine Ketones Negative (NEGATIVE) 10/26/17 14:58 Urine Occult Blood 2+ (NEGATIVE) 10/26/17 14:58 Urine Nitrite Negative (NEGATIVE) 10/26/17 14:58 Urine Bilirubin Negative (NEGATIVE) 10/26/17 14:58 Urine Urobilinogen Normal (NORMAL) 10/26/17 14:58 Ur Leukocyte Esterase Negative (NEGATIVE) 10/26/17 14:58 Urine RBC 0 - 2 /HPF (NONE SEEN) 10/26/17 14:58 Urine WBC None seen /HPF (NONE SEEN) 10/26/17 14:58 Ur Squamous Epith Cells Rare /HPF (NEGATIVE) 10/26/17 14:58 Amorphous Sediment Trace /HPF (NEGATIVE) 10/26/17 14:58 Urine Bacteria Negative /HPF (NEGATIVE) 10/26/17 14:58 Ur Culture Indicated? No/not indicated 10/26/17 14:58 Acetone, Semi-Quant Negative (NEGATIVE) 10/26/17 14:24 - XRAY XRAY Interpreted by: Radiologist XRAY Findings: REPORT DISCUSS WITH PATIENT. - EKG Rhythm: NSR (EKG NOTED.) - Diagnosis Discharge Problem: Cellulitis, Sepsis Septic arthritis Qualifiers: Septic arthritis location: hand Septic arthritis organism: due to unspecified organism Laterality: left Qualified Code(s): M00.9 - Pyogenic arthritis, unspecified - Discharge Plan Disposition: ADMITTED INPATIENT Condition: Stable - Follow ups/Referrals - Instructions
[2017-10-26 14:57] LABS: BASOPHILS # (AUTO) 0.1 X10^3/uL (0.0-0.1); BASOPHILS % (AUTO) 0.8 % (0.2-1.0); EOSINOPHILS # (AUTO) 0.4 x10^3/uL (0.0-0.2); EOSINOPHILS % (AUTO) 4.8 % (0.9-2.9); HEMATOCRIT 36.3 % (42.0-54.0); HEMOGLOBIN 12.1 g/dL (13.5-18.0); LYMPHOCYTES # (AUTO) 2.2 X10^3/uL (1.3-2.9); LYMPHOCYTES % (AUTO) 26.8 % (21.0-51.0); MEAN CORPUSCULAR HEMOGLOBIN 27.2 pg (27.0-34.0); MEAN CORPUSCULAR HGB CONC 33.3 g/dL (33.0-35.0); MEAN CORPUSCULAR VOLUME 81.6 fL (80.0-100.0); MEAN PLATELET VOLUME 8.3 fL (7.4-11.0); MONOCYTES # (AUTO) 0.6 x10^3/uL (0.3-0.8); MONOCYTES % (AUTO) 7.4 % (0.0-13.0); NEUTROPHILS # (AUTO) 4.9 x10^3/uL (2.2-4.8); NEUTROPHILS % (AUTO) 60.2 % (42.0-75.0); PLATELET COUNT 251 X10^3/uL (150.0-450.0); RED BLOOD COUNT 4.45 X10^6/uL (4.7-6.0); RED CELL DISTRIBUTION WIDTH 14.4 % (11.6-16.5); WHITE BLOOD COUNT 8.2 X10^3/uL (3.6-10.0)
[2017-10-26 15:09] LABS: BILIRUBIN,URINE NEGATIVE (NEGATIVE); BLOOD/HEMOGLOBIN,URINE 2+ (NEGATIVE); GLUCOSE, URINE 4+ (NEGATIVE); KETONES,URINE NEGATIVE (NEGATIVE); LEUKOCYTE ESTERASE ,URINE NEGATIVE (NEGATIVE); NITRITES,URINE NEGATIVE (NEGATIVE); PROTEIN,URINE 1+ (NEGATIVE); UROBILINOGEN,URINE NORMAL (NORMAL)
[2017-10-26 15:12] LABS: LACTIC ACID 2.7 mmol/L (0.4-2.0)
[2017-10-26 15:15] LABS: BLOOD UREA NITROGEN 15 mg/dL (7-18); CALCIUM 9.3 mg/dL (8.5-10.1); CARBON DIOXIDE 26.5 mmol/L (21-32); CHLORIDE 101 mmol/L (98-107); COR NA(FOR HYPERGLY) 142 mmol/L (136-145); CREATININE 1.47 mg/dL (0.70-1.30); SODIUM 139 mmol/L (136-145); TROPONIN I < 0.02 ng/mL (0-1.5); eGFR BLACK RACES > 60 (>60); eGFR NON BLACK RACES 53 (>60)
[2017-10-26 15:17] LABS: ALANINE AMINOTRANSFERASE 16 Units/L (12-78); ALBUMIN 3.6 g/dL (3.4-5.0); ALKALINE PHOSPHATASE 91 Units/L (46-116); ASPARTATE AMINO TRANSFERASE 10 Units/L (15-37); CKMB % 0.8 % (<4); CREATINE KINASE 191 Units/L (39-308); CREATINE KINASE MB 1.6 ng/mL (0-4.0); TOTAL PROTEIN 8.1 g/dL (6.4-8.2)
[2017-10-26] MEDS ORDERED: NS 1000 ML 1,000 ML IV ONE (15:21)
[2017-10-26] MEDS ORDERED: NS 1000 ML 1,000 ML ONE (15:25)
--- NOTE | 2017-10-26 15:25 | RAD ---
HISTORY: Shortness of breath Study: Single-view chest Comparison: 09/10/2017 Findings: The trachea is midline. The cardiac silhouette is unremarkable. The lungs are clear without focal i nfiltrate or effusion. The bony thorax is unremarkable. IMPRESSION: 1. No acute cardiopulmonary disease. Reported By:
[2017-10-26 15:26] LABS: APPEARANCE,URINE CLEAR (CLEAR); COLOR,URINE YELLOW (YELLOW)
--- NOTE | 2017-10-26 15:33 | RAD ---
HISTORY: Left hand Study: Three views left hand Comparison: None Findings: No acute cortical disruption or dislocation is identified. The soft tissues appear unremarkable. Th e carpal bones appear aligned without evidence for fracture. IMPRESSION: 1. Negative exam. Reported By:
[2017-10-26 15:35] LABS: AMORPHOUS SEDIMENT,UR TRACE /HPF (NEGATIVE); BACTERIA,URINE NEGATIVE /HPF (NEGATIVE); RBC,URINE 0 - 2 /HPF (NONE SEEN); SQUAMOUS EPITHELIAL CELL,UR RARE /HPF (NEGATIVE)
[2017-10-26] MEDS ORDERED: ZOSYN VIAL 3.375 GM 3.375 GM in NS 100 ML IV + SPIKE MINIBAG* 100 ML IV ONE (15:50)
[2017-10-26] MEDS ORDERED: ZOSYN VIAL 3.375 GM IV ONE (15:59)
[2017-10-26] MEDS ORDERED: NS 100 ML IV + SPIKE MINIBAG* 100 ML IV ONE (15:59)
[2017-10-26] MEDS: VANCOMYCIN HCL 1 GM VIAL 1 GM in D5W 250 ML IV 250 ML IV SCH ×2 (18:32→21:19)
[2017-10-26] MEDS: LEVAQUIN PREMIX IV 750 MG 750 MG/150 ML BAG IV SCH (18:35)
[2017-10-26] MEDS: NS 1000 ML 1,000 ML IV SCH (18:35)
[2017-10-26 19:13] LABS: CKMB % 0.8 % (<4); CREATINE KINASE 233 Units/L (39-308); CREATINE KINASE MB 1.8 ng/mL (0-4.0); TROPONIN I < 0.02 ng/mL (0-1.5)
[2017-10-27 01:31] LABS: CKMB % 0.9 % (<4); CREATINE KINASE 205 Units/L (39-308); CREATINE KINASE MB 1.9 ng/mL (0-4.0); TROPONIN I < 0.02 ng/mL (0-1.5)
[2017-10-27] MEDS: NS 1000 ML 1,000 ML IV SCH ×3 (03:00→17:35)
[2017-10-27 05:25] LABS: BASOPHILS % (AUTO) 0.7 % (0.2-1.0); EOSINOPHILS # (AUTO) 0.3 x10^3/uL (0.0-0.2); EOSINOPHILS % (AUTO) 5.3 % (0.9-2.9); HEMATOCRIT 33.4 % (42.0-54.0); HEMOGLOBIN 11.1 g/dL (13.5-18.0); LYMPHOCYTES # (AUTO) 1.2 X10^3/uL (1.3-2.9); LYMPHOCYTES % (AUTO) 18.3 % (21.0-51.0); MEAN CORPUSCULAR HEMOGLOBIN 27.3 pg (27.0-34.0); MEAN CORPUSCULAR HGB CONC 33.4 g/dL (33.0-35.0); MEAN CORPUSCULAR VOLUME 81.9 fL (80.0-100.0); MEAN PLATELET VOLUME 8.7 fL (7.4-11.0); MONOCYTES # (AUTO) 0.6 x10^3/uL (0.3-0.8); MONOCYTES % (AUTO) 9.6 % (0.0-13.0); NEUTROPHILS # (AUTO) 4.3 x10^3/uL (2.2-4.8); NEUTROPHILS % (AUTO) 66.1 % (42.0-75.0); PLATELET COUNT 216 X10^3/uL (150.0-450.0); RED BLOOD COUNT 4.08 X10^6/uL (4.7-6.0); RED CELL DISTRIBUTION WIDTH 14.3 % (11.6-16.5); WHITE BLOOD COUNT 6.6 X10^3/uL (3.6-10.0)
[2017-10-27 05:31] LABS: ALANINE AMINOTRANSFERASE 14 Units/L (12-78); ALKALINE PHOSPHATASE 82 Units/L (46-116); ASPARTATE AMINO TRANSFERASE 12 Units/L (15-37); BLOOD UREA NITROGEN 13 mg/dL (7-18); CALCIUM 8.3 mg/dL (8.5-10.1); CARBON DIOXIDE 25.8 mmol/L (21-32); CHLORIDE 103 mmol/L (98-107); COR CA(FOR HYPOALB) 9.1 mg/dL (8.5-10.1); COR NA(FOR HYPERGLY) 141 mmol/L (136-145); CREATININE 1.13 mg/dL (0.70-1.30); MAGNESIUM 1.5 mg/dL (1.7-2.9); SODIUM 138 mmol/L (136-145); TOTAL PROTEIN 6.9 g/dL (6.4-8.2); eGFR BLACK RACES > 60 (>60); eGFR NON BLACK RACES > 60 (>60)
[2017-10-27] MEDS: LEVAQUIN PREMIX IV 750 MG 750 MG/150 ML BAG IV SCH (09:18)
[2017-10-27] MEDS: VANCOMYCIN HCL 1 GM VIAL 1 GM in D5W 250 ML IV 250 ML IV SCH ×2 (09:18→21:22)
[2017-10-27] MEDS: MAGNESIUM SULFATE 1 GM/100 mL PREMIX 1 GM/100 ML BAG IV PRN ×2 (12:01→13:53)
[2017-10-27] MEDS: HumuLIN R SUBCUT PRN (12:02)
[2017-10-27] MEDS ORDERED: TYLENOL 325 MG TAB PO PRN (15:35)
[2017-10-27] MEDS ORDERED: MARCAINE 0.25% INJ ONE (16:05)
[2017-10-27] MEDS ORDERED: XYLOCAINE 1 % (PLAIN) ONE (16:05)
[2017-10-27] MEDS ORDERED: BACTROBAN OINT ONE (16:10)
[2017-10-27] MEDS ORDERED: BACITRACIN VIAL ONE (16:10)
--- NOTE | 2017-10-27 16:20 | DR.CONSULT ---
Consult - Consultation for Day of: Date: 10/27/17 - Chief Complaint Chief Complaint: left 4th finger dorsum abscerss. KCO dm, poorly controlled. fever . pt legally blind. draining from the rt hand - Allergies Allergies/Adverse Reactions: Allergies Allergy/AdvReac Type Severity Reaction Status Date / Time No Known Drug Allergies Allergy Verified 09/08/17 13:00 - Past Medical History Past Medical History: Arthritis, Diabetes, Hypertension Additional Medical History: BLINDNESS - Past Surgical History Surgical History: Abdominal Surgery, Ortho Surgery - Family History Family Medical History: Diabetes Mellitus, Cancer - Social History Does patient currently use any type of tobacco product: No Have you used tobacco products in the last 12 months: No Type of Tobacco Use: None How many years tobacco product used: 30 Does any household member use tobacco: No Alcohol Use: None Drug Use: None - Medications Home Medications: Diphenhydramine HCl [Sleep Aid] 25 mg PO Q4HR PRN 10/26/17 [History Confirmed ] Simvastatin 20 mg PO DAILY 10/26/17 [History Confirmed 10/26/17] Sulfamethoxazole/Trimethoprim [Sulfamethoxazole-Tmp Ds Tablet] 1 tab PO BID 12/10 [History Confirmed 10/26/17] - Physical Exam Vital Signs: Temperature 98.1 F Pulse Rate [Right Brachial] 89 Pulse Rate 97 Respiratory Rate 20 Blood Pressure [Right Arm] 151/86 Blood Pressure 144/74 O2 Sat by Pulse Oximetry 100 Musculoskeletal: Left, Hand (swelling redness draining left sorsum 4th finger.xr noraml.) - Plan Plan: I AND D left hand 4th finger.
--- NOTE | 2017-10-27 17:51 | DR.H&P ---
H&P - History & Physical for Day of: H&P Date: 10/26/17 - Chief Complaint Chief Complaint: l 4th finger pain, redness, draining - Allergies Allergies/Adverse Reactions: Allergies Allergy/AdvReac Type Severity Reaction Status Date / Time No Known Drug Allergies Allergy Verified 09/08/17 13:00 - History of Present Illness History of Present Illness: 57 BM ADMITTED FROM ER WITH ABSCESS AND CELLULITIS TO LEFT 4TH FINGER. PT HAS PMH OF DM, HTN, BLINDNESS AND BILATERAL LOWER AMPUATIONS. PT'S SISTER, LACE CUTTER, STATES PT HAS SPIDER BITE OCCURRED ON FRIDAY OF LAST WEEK. PT HAD ABSCESS FORMATION WITH RUPTURE YESTERDAY. PT HAS HAD FEVER PRIOR TO ADMISSION - Past Medical History Past Medical History: Arthritis, Diabetes, Hypertension Additional Medical History: BLINDNESS - Past Surgical History Surgical History: Abdominal Surgery, Ortho Surgery - Family History Family Medical History: Diabetes Mellitus, Cancer - Social History Does patient currently use any type of tobacco product: No Have you used tobacco products in the last 12 months: No Type of Tobacco Use: None How many years tobacco product used: 30 Does any household member use tobacco: No Alcohol Use: None Drug Use: None - Medications Home Medications: Diphenhydramine HCl [Sleep Aid] 25 mg PO Q4HR PRN 10/26/17 [History Confirmed ] Simvastatin 20 mg PO DAILY 10/26/17 [History Confirmed 10/26/17] Sulfamethoxazole/Trimethoprim [Sulfamethoxazole-Tmp Ds Tablet] 1 tab PO BID 12/10 [History Confirmed 10/26/17] - Review of Systems Constitutional: Fever, Chills, Weakness Eyes: No Symptoms Reported ENT: No Symptoms Reported Respiratory: No Symptoms Reported Cardiovascular: No Symptoms Reported Gastrointestinal: Nausea Genitourinary: Frequency Musculoskeletal: Back Pain, Hand Pain Skin: Wound Neurological: No Symptoms Reported - Physical Exam Vital Signs: Temperature 98.1 F Pulse Rate [Right Brachial] 89 Pulse Rate 97 Respiratory Rate 20 Blood Pressure [Right Arm] 151/86 Blood Pressure 144/74 O2 Sat by Pulse Oximetry 100 Oriented: Person Eyes: Other (CHRONIC BLINDNESS) Ear: Normal, Left Throat: Normal Respiratory: RLL Diminished, LLL Diminished Cardiovascular: Normal : Normal Auscultation: Bowel Sounds: Normal Palpation: Normal Tenderness: Normal Skin: Red, Tender, Hot, Wound (LEFT 4TH FINGER) Musculoskeletal: Left, Hand, Deformity Psychiatric: Normal Mood Description: Calm Speech Pattern: Clear, Appropriate - Assessment/Plan (1) Cellulitis Status: Acute Plan: ADMIT, BLOOD AND WOUND CULTURES. IV ATBX, IV HYDRATION. ORTHO CONSULT, PAIN CONTROL. BLOOD SUGAR MONITORING (2) Septic arthritis Qualifiers: Septic arthritis location: hand Septic arthritis organism: due to unspecified organism Laterality: left Qualified Code(s): M00.9 - Pyogenic arthritis, unspecified Status: Acute (3) Diabetes Status: Acute (4) Hypertension Status: Acute
--- NOTE | 2017-10-27 17:58 | PCM.PROG ---
Progress Note - Progress Note for Day of Date: 10/27/17 - Subjective Subjective: 57 BM ADMITTED ONE DAY AGO WITH CELLULITIS WITH ABSCESS FORMATION TO LEFT 4TH FINGER, CONTULTED BY DR HOBBS, PLAN FOR I & D. CONTINUE IV ATBX, PAIN CONTROL. BLOOD PRESSURE AND BLOOD SUGAR MONITORING - Past Medical Family Social History Past Med/Fam/Surg Hx: No changes since H&P Allergies: Allergies No Known Drug Allergies Allergy (Verified 09/08/17 13:00) - Review of Systems ROS: No change since H&P - Vital Signs and I&O's Vital Signs: Temperature 98.1 F Pulse Rate [Right Brachial] 89 Pulse Rate 97 Respiratory Rate 20 Blood Pressure [Right Arm] 151/86 Blood Pressure 144/74 O2 Sat by Pulse Oximetry 100 Intake and Output: Intake & Output 10/25/17 10/26/17 10/27/17 10/28/17 11:59 11:59 11:59 11:59 Intake Total 1035 1396 Output Total 1500 2450 Balance -465 -1054 - Physical Exam Oriented: Person Eyes: Other (CHRONIC BLINDNESS) Ear: Normal, Left Throat: Normal Respiratory: Normal Cardiovascular: Normal : Normal Auscultation: Bowel Sounds: Normal Tenderness: Normal Skin: Red, Tender, Hot, Wound (LEFT 4TH FINGER) Musculoskeletal: Left, Hand, Deformity Psychiatric: Normal Mood Description: Calm Speech Pattern: Clear, Appropriate - Laboratory and Diagnostics Result Diagrams: 10/27/17 04:35 10/27/17 04:35 Labs: 10/27/17 16:46 Finger - Left Ring Gram Stain - Final 10/26/17 11:45 Finger - Left Ring Gram Stain - Final 10/26/17 11:45 Finger - Left Ring Wound Culture - Preliminary Laboratory WBC 6.6 X10^3/uL (3.6-10.0) 10/27/17 04:35 RBC 4.08 X10^6/uL (4.7-6.0) L 10/27/17 04:35 Hgb 11.1 g/dL (13.5-18.0) L 10/27/17 04:35 Hct 33.4 % (42.0-54.0) L 10/27/17 04:35 MCV 81.9 fL (80.0-100.0) 10/27/17 04:35 MCH 27.3 pg (27.0-34.0) 10/27/17 04:35 MCHC 33.4 g/dL (33.0-35.0) 10/27/17 04:35 RDW 14.3 % (11.6-16.5) 10/27/17 04:35 Plt Count 216 X10^3/uL (150.0-450.0) 10/27/17 04:35 MPV 8.7 fL (7.4-11.0) 10/27/17 04:35 Neut % 66.1 % (42.0-75.0) 10/27/17 04:35 Lymph % 18.3 % (21.0-51.0) L 10/27/17 04:35 [place] % 9.6 % (0.0-13.0) 10/27/17 04:35 Eos % 5.3 % (0.9-2.9) H 10/27/17 04:35 Baso % 0.7 % (0.2-1.0) 10/27/17 04:35 Neut # 4.3 x10^3/uL (2.2-4.8) 10/27/17 04:35 Lymph # 1.2 X10^3/uL (1.3-2.9) L 10/27/17 04:35 [place] # 0.6 x10^3/uL (0.3-0.8) 10/27/17 04:35 Eos # 0.3 x10^3/uL (0.0-0.2) H 10/27/17 04:35 Baso # 0.0 X10^3/uL (0.0-0.1) 10/27/17 04:35 Absolute Nucleated RBC 0.1 /100WBC 10/27/17 04:35 INR Target Range - 10/27/17 04:35 INR 0.97 (0.8-1.3) 10/27/17 04:35 PTT 29.9 SECONDS (22.9-36.5) 10/27/17 04:35 PTT Comment - 10/27/17 04:35 Sodium 138 mmol/L (136-145) 10/27/17 04:35 Corrected Sodium 141 mmol/L (136-145) 10/27/17 04:35 Potassium 4.1 mmol/L (3.5-5.1) 10/27/17 04:35 Chloride 103 mmol/L (98-107) 10/27/17 04:35 Carbon Dioxide 25.8 mmol/L (21-32) 10/27/17 04:35 BUN 13 mg/dL (7-18) 10/27/17 04:35 Creatinine 1.13 mg/dL (0.70-1.30) 10/27/17 04:35 Est GFR (MDRD) Af Amer > 60 (>60) 10/27/17 04:35 Est GFR (MDRD) Non-Af > 60 (>60) 10/27/17 04:35 Glucose 213 mg/dL (65-99) H 10/27/17 04:35 POC Glucose (mg/dL) 154 mg/dL (65-99) H 10/27/17 16:53 Lactic Acid 2.7 mmol/L (0.4-2.0) H 10/26/17 11:45 Calcium 8.3 mg/dL (8.5-10.1) L 10/27/17 04:35 Corrected Calcium 9.1 mg/dL (8.5-10.1) 10/27/17 04:35 Magnesium 1.5 mg/dL (1.7-2.9) L 10/27/17 04:35 Total Bilirubin 0.20 mg/dL (0.2-1.0) 10/27/17 04:35 AST 12 Units/L (15-37) L 10/27/17 04:35 ALT 14 Units/L (12-78) 10/27/17 04:35 Alkaline Phosphatase 82 Units/L (46-116) 10/27/17 04:35 Creatine Kinase 205 Units/L (39-308) 10/27/17 00:20 CK-MB (CK-2) 1.9 ng/mL (0-4.0) 10/27/17 00:20 CK/CKMB % Calc 0.9 % (<4) 10/27/17 00:20 Troponin I < 0.02 ng/mL (0-1.5) 10/27/17 00:20 C-Reactive Protein 21.50 mg/L (0-3.0) H 10/26/17 11:45 Total Protein 6.9 g/dL (6.4-8.2) 10/27/17 04:35 Albumin 3.0 g/dL (3.4-5.0) L 10/27/17 04:35 Globulin 3.9 g/dL (2.5-4.5) 10/27/17 04:35 Albumin/Globulin Ratio 0.8 Ratio (1.1-2.1) L 10/27/17 04:35 Specimen Type Clean catch urine 10/26/17 14:58 Urine Color Yellow (YELLOW) 10/26/17 14:58 Urine Appearance Clear (CLEAR) 10/26/17 14:58 Urine pH 5.0 (5.0 - 8.0) 10/26/17 14:58 Ur Specific [place] 1.015 (1.000-1.030) 10/26/17 14:58 Urine Protein 1+ (NEGATIVE) 10/26/17 14:58 Urine Glucose (UA) 4+ (NEGATIVE) 10/26/17 14:58 Urine Ketones Negative (NEGATIVE) 10/26/17 14:58 Urine Occult Blood 2+ (NEGATIVE) 10/26/17 14:58 Urine Nitrite Negative (NEGATIVE) 10/26/17 14:58 Urine Bilirubin Negative (NEGATIVE) 10/26/17 14:58 Urine Urobilinogen Normal (NORMAL) 10/26/17 14:58 Ur Leukocyte Esterase Negative (NEGATIVE) 10/26/17 14:58 Urine RBC 0 - 2 /HPF (NONE SEEN) 10/26/17 14:58 Urine WBC None seen /HPF (NONE SEEN) 10/26/17 14:58 Ur Squamous Epith Cells Rare /HPF (NEGATIVE) 10/26/17 14:58 Amorphous Sediment Trace /HPF (NEGATIVE) 10/26/17 14:58 Urine Bacteria Negative /HPF (NEGATIVE) 10/26/17 14:58 Ur Culture Indicated? No/not indicated 10/26/17 14:58 Acetone, Semi-Quant Negative (NEGATIVE) 10/26/17 14:24 - Plan (1) Cellulitis Status: Acute Plan: BLOOD AND WOUND CULTURES COLLECTED ON ADMISSION. IV ATBX, IV HYDRATION. ORTHO CONSULT, PAIN CONTROL. BLOOD SUGAR MONITORING (2) Septic arthritis Status: Acute Qualifiers: Septic arthritis location: hand Septic arthritis organism: due to unspecified organism Laterality: left Qualified Code(s): M00.9 - Pyogenic arthritis, unspecified (3) Diabetes Status: Acute (4) Hypertension Status: Acute
[2017-10-27] MEDS: LANTUS SC SCH (21:23)
[2017-10-27] MEDS: SNACK - Diabetic Appropriate PO SCH (21:24)
[2017-10-28 05:35] LABS: BASOPHILS # (AUTO) 0.1 X10^3/uL (0.0-0.1); BASOPHILS % (AUTO) 0.7 % (0.2-1.0); EOSINOPHILS # (AUTO) 0.3 x10^3/uL (0.0-0.2); EOSINOPHILS % (AUTO) 4.6 % (0.9-2.9); HEMATOCRIT 34.7 % (42.0-54.0); HEMOGLOBIN 11.6 g/dL (13.5-18.0); LYMPHOCYTES # (AUTO) 1.9 X10^3/uL (1.3-2.9); LYMPHOCYTES % (AUTO) 26.4 % (21.0-51.0); MEAN CORPUSCULAR HEMOGLOBIN 27.2 pg (27.0-34.0); MEAN CORPUSCULAR HGB CONC 33.5 g/dL (33.0-35.0); MEAN CORPUSCULAR VOLUME 81.2 fL (80.0-100.0); MONOCYTES # (AUTO) 0.8 x10^3/uL (0.3-0.8); NEUTROPHILS # (AUTO) 4.2 x10^3/uL (2.2-4.8); NEUTROPHILS % (AUTO) 57.3 % (42.0-75.0); PLATELET COUNT 260 X10^3/uL (150.0-450.0); RED BLOOD COUNT 4.27 X10^6/uL (4.7-6.0); RED CELL DISTRIBUTION WIDTH 14.4 % (11.6-16.5); WHITE BLOOD COUNT 7.3 X10^3/uL (3.6-10.0)
[2017-10-28 05:49] LABS: ALANINE AMINOTRANSFERASE 16 Units/L (12-78); ALBUMIN 3.5 g/dL (3.4-5.0); ALKALINE PHOSPHATASE 82 Units/L (46-116); ASPARTATE AMINO TRANSFERASE 12 Units/L (15-37); BLOOD UREA NITROGEN 12 mg/dL (7-18); CALCIUM 8.7 mg/dL (8.5-10.1); CARBON DIOXIDE 26.1 mmol/L (21-32); CHLORIDE 100 mmol/L (98-107); COR NA(FOR HYPERGLY) 141 mmol/L (136-145); CREATININE 1.15 mg/dL (0.70-1.30); MAGNESIUM 1.8 mg/dL (1.7-2.9); SODIUM 137 mmol/L (136-145); eGFR BLACK RACES > 60 (>60); eGFR NON BLACK RACES > 60 (>60)
[2017-10-28] MEDS: NS 1000 ML 1,000 ML IV SCH ×3 (05:49→20:02)
[2017-10-28] MEDS: HumuLIN R SUBCUT PRN ×2 (05:56→16:28)
[2017-10-28 09:05] LABS: CREATININE 1.15 mg/dL (0.70-1.30); VANCOMYCIN,TROUGH 9.9 ug/mL (15-20)
[2017-10-28] MEDS: ZOCOR TAB 20 MG PO SCH (11:51)
[2017-10-28] MEDS: LEVAQUIN PREMIX IV 750 MG 750 MG/150 ML BAG IV SCH (11:52)
[2017-10-28] MEDS: VANCOMYCIN HCL 1 GM VIAL 1 GM in D5W 250 ML IV 250 ML IV SCH (11:53)
--- NOTE | 2017-10-28 13:34 | PCM.PROG ---
Progress Note - Subjective Subjective: patient is 1st postoperative day LEFT ring finger abscess I and D. He is a known case of diabetes mellitus with complications, bilateral lower below-knee amputation and blindness. History of spider bite leading to abscess. Drained yesterday, mike pus. No signs of septic arthritis of the hand. Culture and sensitivity preliminary growth of coagulase positive staph. Nurse having issues starting in new IV line for him. No fever, dressing socket or excessive pain. - Past Medical Family Social History Past Med/Fam/Surg Hx: No changes since H&P Allergies: Allergies No Known Drug Allergies Allergy (Verified 09/08/17 13:00) - Review of Systems ROS: No change since H&P - Vital Signs and I&O's Vital Signs: Temperature 98.4 F Pulse Rate [Right Brachial] 90 Pulse Rate 97 Respiratory Rate 18 Blood Pressure [Right Arm] 127/74 Blood Pressure 144/74 O2 Sat by Pulse Oximetry 99 Intake and Output: Intake & Output 10/26/17 10/27/17 10/28/17 10/29/17 11:59 11:59 11:59 11:59 Intake Total 1035 2656 Output Total 1500 5175 Balance -465 -1132 - Physical Exam Oriented: Person Eyes: Other (CHRONIC BLINDNESS) Ear: Normal, Left Throat: Normal Respiratory: Normal Cardiovascular: Normal : Normal Auscultation: Bowel Sounds: Normal Tenderness: Normal Skin: Red, Tender, Hot, Wound (LEFT 4TH FINGER) Musculoskeletal: Left, Hand, Deformity Psychiatric: Normal Mood Description: Calm Speech Pattern: Clear, Appropriate - Laboratory and Diagnostics Result Diagrams: 10/28/17 04:30 10/28/17 08:35 Labs: 10/27/17 16:46 Finger - Left Ring Gram Stain - Final 10/27/17 16:46 Finger - Left Ring Wound Culture - Preliminary 10/26/17 11:45 Finger - Left Ring Gram Stain - Final 10/26/17 11:45 Finger - Left Ring Wound Culture - Final Methicillin Resis Staph Aureus 10/26/17 14:55 Blood Blood Culture - Preliminary 10/26/17 11:45 Blood Blood Culture - Preliminary Laboratory WBC 7.3 X10^3/uL (3.6-10.0) 10/28/17 04:30 RBC 4.27 X10^6/uL (4.7-6.0) L 10/28/17 04:30 Hgb 11.6 g/dL (13.5-18.0) L 10/28/17 04:30 Hct 34.7 % (42.0-54.0) L 10/28/17 04:30 MCV 81.2 fL (80.0-100.0) 10/28/17 04:30 MCH 27.2 pg (27.0-34.0) 10/28/17 04:30 MCHC 33.5 g/dL (33.0-35.0) 10/28/17 04:30 RDW 14.4 % (11.6-16.5) 10/28/17 04:30 Plt Count 260 X10^3/uL (150.0-450.0) 10/28/17 04:30 MPV 9.0 fL (7.4-11.0) 10/28/17 04:30 Neut % 57.3 % (42.0-75.0) 10/28/17 04:30 Lymph % 26.4 % (21.0-51.0) 10/28/17 04:30 [place] % 11.0 % (0.0-13.0) 10/28/17 04:30 Eos % 4.6 % (0.9-2.9) H 10/28/17 04:30 Baso % 0.7 % (0.2-1.0) 10/28/17 04:30 Neut # 4.2 x10^3/uL (2.2-4.8) 10/28/17 04:30 Lymph # 1.9 X10^3/uL (1.3-2.9) 10/28/17 04:30 [place] # 0.8 x10^3/uL (0.3-0.8) 10/28/17 04:30 Eos # 0.3 x10^3/uL (0.0-0.2) H 10/28/17 04:30 Baso # 0.1 X10^3/uL (0.0-0.1) 10/28/17 04:30 Absolute Nucleated RBC 0.0 /100WBC 10/28/17 04:30 INR Target Range - 10/27/17 04:35 INR 0.97 (0.8-1.3) 10/27/17 04:35 PTT 29.9 SECONDS (22.9-36.5) 10/27/17 04:35 PTT Comment - 10/27/17 04:35 Sodium 137 mmol/L (136-145) 10/28/17 04:30 Corrected Sodium 141 mmol/L (136-145) 10/28/17 04:30 Potassium 3.9 mmol/L (3.5-5.1) 10/28/17 04:30 Chloride 100 mmol/L (98-107) 10/28/17 04:30 Carbon Dioxide 26.1 mmol/L (21-32) 10/28/17 04:30 BUN 12 mg/dL (7-18) 10/28/17 04:30 Creatinine 1.15 mg/dL (0.70-1.30) 10/28/17 08:35 Est GFR (MDRD) Af Amer > 60 (>60) 10/28/17 04:30 Est GFR (MDRD) Non-Af > 60 (>60) 10/28/17 04:30 Glucose 271 mg/dL (65-99) H 10/28/17 04:30 POC Glucose (mg/dL) 244 mg/dL (65-99) H 10/28/17 11:07 Lactic Acid 2.7 mmol/L (0.4-2.0) H 10/26/17 11:45 Calcium 8.7 mg/dL (8.5-10.1) 10/28/17 04:30 Corrected Calcium TNP 10/28/17 04:30 Magnesium 1.8 mg/dL (1.7-2.9) 10/28/17 04:30 Total Bilirubin 0.20 mg/dL (0.2-1.0) 10/28/17 04:30 AST 12 Units/L (15-37) L 10/28/17 04:30 ALT 16 Units/L (12-78) 10/28/17 04:30 Alkaline Phosphatase 82 Units/L (46-116) 10/28/17 04:30 Creatine Kinase 205 Units/L (39-308) 10/27/17 00:20 CK-MB (CK-2) 1.9 ng/mL (0-4.0) 10/27/17 00:20 CK/CKMB % Calc 0.9 % (<4) 10/27/17 00:20 Troponin I < 0.02 ng/mL (0-1.5) 10/27/17 00:20 C-Reactive Protein 21.50 mg/L (0-3.0) H 10/26/17 11:45 Total Protein 8.0 g/dL (6.4-8.2) 10/28/17 04:30 Albumin 3.5 g/dL (3.4-5.0) 10/28/17 04:30 Globulin 4.5 g/dL (2.5-4.5) 10/28/17 04:30 Albumin/Globulin Ratio 0.8 Ratio (1.1-2.1) L 10/28/17 04:30 Specimen Type Clean catch urine 10/26/17 14:58 Urine Color Yellow (YELLOW) 10/26/17 14:58 Urine Appearance Clear (CLEAR) 10/26/17 14:58 Urine pH 5.0 (5.0 - 8.0) 10/26/17 14:58 Ur Specific [place] 1.015 (1.000-1.030) 10/26/17 14:58 Urine Protein 1+ (NEGATIVE) 10/26/17 14:58 Urine Glucose (UA) 4+ (NEGATIVE) 10/26/17 14:58 Urine Ketones Negative (NEGATIVE) 10/26/17 14:58 Urine Occult Blood 2+ (NEGATIVE) 10/26/17 14:58 Urine Nitrite Negative (NEGATIVE) 10/26/17 14:58 Urine Bilirubin Negative (NEGATIVE) 10/26/17 14:58 Urine Urobilinogen Normal (NORMAL) 10/26/17 14:58 Ur Leukocyte Esterase Negative (NEGATIVE) 10/26/17 14:58 Urine RBC 0 - 2 /HPF (NONE SEEN) 10/26/17 14:58 Urine WBC None seen /HPF (NONE SEEN) 10/26/17 14:58 Ur Squamous Epith Cells Rare /HPF (NEGATIVE) 10/26/17 14:58 Amorphous Sediment Trace /HPF (NEGATIVE) 10/26/17 14:58 Urine Bacteria Negative /HPF (NEGATIVE) 10/26/17 14:58 Ur Culture Indicated? No/not indicated 10/26/17 14:58 Vancomycin Trough 9.9 ug/mL (15-20) L 10/28/17 08:35 Acetone, Semi-Quant Negative (NEGATIVE) 10/26/17 14:24 - Plan (1) Abscess of dorsum of left hand Status: Acute Plan: it has been drained. Currently culture shows coagulase positive staph. Plan #1 dressing change today. #2 start him on by mouth antibiotic, KEFLEX 500 mg every 8. #3 follow-up in my office as advised on Friday. #4 advised to contact my office earlier in case of any issues. #5 follow-up with primary care as advised for his medical care
[2017-10-28] MEDS: BACTRIM DS TAB PO SCH ×2 (16:27→21:25)
[2017-10-28] MEDS: SNACK - Diabetic Appropriate PO SCH (21:00)
[2017-10-28] MEDS: LANTUS SC SCH (21:26)
[2017-10-29] MEDS: NS 1000 ML 1,000 ML IV SCH ×2 (02:05→12:45)
[2017-10-29] MEDS: HumuLIN R SUBCUT PRN ×2 (05:52→12:44)
[2017-10-29 06:46] VITALS: BMI 50.6
[2017-10-29 06:48] LABS: BASOPHILS # (AUTO) 0.1 X10^3/uL (0.0-0.1); BASOPHILS % (AUTO) 0.8 % (0.2-1.0); EOSINOPHILS # (AUTO) 0.4 x10^3/uL (0.0-0.2); EOSINOPHILS % (AUTO) 5.5 % (0.9-2.9); HEMATOCRIT 36.9 % (42.0-54.0); HEMOGLOBIN 12.5 g/dL (13.5-18.0); LYMPHOCYTES # (AUTO) 2.5 X10^3/uL (1.3-2.9); LYMPHOCYTES % (AUTO) 32.4 % (21.0-51.0); MEAN CORPUSCULAR HEMOGLOBIN 27.3 pg (27.0-34.0); MEAN CORPUSCULAR HGB CONC 33.9 g/dL (33.0-35.0); MEAN CORPUSCULAR VOLUME 80.5 fL (80.0-100.0); MEAN PLATELET VOLUME 8.2 fL (7.4-11.0); MONOCYTES # (AUTO) 0.9 x10^3/uL (0.3-0.8); MONOCYTES % (AUTO) 11.4 % (0.0-13.0); NEUTROPHILS # (AUTO) 3.8 x10^3/uL (2.2-4.8); NEUTROPHILS % (AUTO) 49.9 % (42.0-75.0); PLATELET COUNT 259 X10^3/uL (150.0-450.0); RED BLOOD COUNT 4.59 X10^6/uL (4.7-6.0); RED CELL DISTRIBUTION WIDTH 14.2 % (11.6-16.5); WHITE BLOOD COUNT 7.6 X10^3/uL (3.6-10.0)
[2017-10-29 07:01] LABS: ALANINE AMINOTRANSFERASE 17 Units/L (12-78); ALBUMIN 3.6 g/dL (3.4-5.0); ALKALINE PHOSPHATASE 80 Units/L (46-116); ASPARTATE AMINO TRANSFERASE 12 Units/L (15-37); BLOOD UREA NITROGEN 13 mg/dL (7-18); CALCIUM 8.8 mg/dL (8.5-10.1); CARBON DIOXIDE 25.7 mmol/L (21-32); CHLORIDE 99 mmol/L (98-107); COR NA(FOR HYPERGLY) 138 mmol/L (136-145); CREATININE 1.18 mg/dL (0.70-1.30); SODIUM 135 mmol/L (136-145); TOTAL PROTEIN 8.1 g/dL (6.4-8.2); eGFR BLACK RACES > 60 (>60); eGFR NON BLACK RACES > 60 (>60)
[2017-10-29 07:56] VITALS: BP 127/77
[2017-10-29] MEDS: ZOCOR TAB 20 MG PO SCH (09:34)
[2017-10-29] MEDS: BACTRIM DS TAB PO SCH (09:34)
== END 2017-10-29 15:05 | disposition home or self-care (01) | DRG 603 ==
LOC: ER 14:10 → MED/SURG 17:30
PROVIDERS: ADMIT Internal Medicine; ATTEND Internal Medicine
PROC: 0J9K0ZX Drainage of Left Hand Subcutaneous Tissue and Fascia, Open Approach, Diagnostic (ICD-10-PCS; principal; 2017-10-27)
DX: L02.512 Cutaneous abscess of left hand (principal); L03.012 Cellulitis of left finger; M00.9 Pyogenic arthritis, unspecified; R94.31 Abnormal electrocardiogram [ECG] [EKG]; E11.65 Type 2 diabetes mellitus with hyperglycemia; I10 Essential (primary) hypertension; H54.8 Legal blindness, as defined in USA; Z89.512 Acquired absence of left leg below knee; Z89.511 Acquired absence of right leg below knee; N39.0 Urinary tract infection, site not specified
CPT/HCPCS: 36415; 71045; 73130; 80053; 80202; 81001; 82009; 82550; 82553; 82565; 83605; 83735; 84484; 85025; 85610; 85730; 86140; 87040; 87070; 87075; 87077; 87186; 87205; 93005; 93010; 94760; 96365; 96374; 99221; 99284; A4222; S0020; J1815; J1956; J2001; J2543; J3370

== ENCOUNTER 2017-11-09 15:41 | Emergency (ER) | payer MEDICAID ==
[2017-11-09 15:51] VITALS: BP 143/72; BMI 32.3
--- NOTE | 2017-11-09 16:14 | DR.GENAD ---
HPI - PCP Primary Care Physician: KATHY - HPI Comment HPI Comment: PATIENT IS A DIABETIC WITH LEFT MIDDLE FINGER INFECTION, RECENTLY IN HOSPITAL NOW TAKING MEDS AT HOME IS NOTED TO HAVE BLISTER ON LT HAND AND FINGER WHERE BANDAGE WAS APPLIED. NO DRAINAGE. NO INCREASING REDNESS. - Complaint/Symptoms Chief Complaint Doctors Comments: BLISTER LT LAT HAND AND PINKY FINGER AND ALSO BASE LT INDEX FINGER NOTED TODAY. Chief Complaint:: SISTER STATES," VISITING NURSE WITH [facility] TOLD THEM TO COME TO ER DUE TO PT HAVING STAFF IN LEFT HAND AND IT IS CONTAGIOUS AND SPREADING" KATHY FOOD PROCESSING SCIENTIST FOLLOW UP ON FRIDAY AND FOLLOWED UP FRIDAY. BOTH STATED IMPROVMENT. SISTER NOTICED TODAY WHEN DRESSING CAME OFF THAT BLISTERS ARE ON OUTSIDE OF PINKY AND ON OUTSIDE OF FIRST FINGER NUCKLE. - Nurses notes reviewed Nurses Notes Review: Yes - Source History Provided: Patient, Family Member - Mode of Arrival Mode of Arrival: EMS - Timing Onset of Chief Complaint: 11/09/17 Came on: Suddenly - Duration Duration: Constant Duration: Days - Severity Severity: Moderate PMH - PMH Past Medical History: Yes Past Medical History: Angina, Arthritis, COPD, Diabetes, GERD, Hypertension, Seizures Past Surgical History: Yes Surgical History: Ortho Surgery Past Surgical History Comment: LEFT ABOVE KNEE AMPUTATION AND RIGHT BELOW KNEE AMPUTATION - Family History History of Family Medical Conditions: Yes Family Medical History: Diabetes Mellitus, Cancer - Social History Does any household member use tobacco: No Alcohol Use: None Do you use any recreational Drugs:: No Lives With: Family Lives Where: Home - infectious screening In the last 2 months have you had wt loss of >10#?: NO Have you had fever, night sweats or hemotysis?: No Have you traveled outside the country in the last 6 months?: No Isolation: Standard ROS - Review of Systems Constitutional: No Symptoms Reported Eyes: No Symptoms Reported ENTM: No Symptoms Reported Respiratoy: No Symptoms Reported Cardiovascular: No Symptoms Reported Gastrointestinal/Abdominal: No Symptoms Reported Genitourinary: No Symptoms Reported Neurological: No Symptoms Reported Musculoskeletal: Muscle Pain, Other (BILAT AMPUTEE, LAKA AND RBKA.) Integumentary: No Symptoms Reported, Other (BLISTER LAT LT HAND AND FINGER AND BASE LT INDEX FINGER.) Hematologic/Lymphatic: No Symptoms Reported Endocrine: negative: Flushing, Increased Thirst, Increased Urine All Other Systems: Reviewed and Negative PE - Vital Signs Vitals: Pulse Rate 94 Respiratory Rate 22 Blood Pressure [Right Arm] 127/77 Blood Pressure 143/72 O2 Sat by Pulse Oximetry 98 - General Limitations: No Limitations General Appearance: Alert - Head Head Exam: Normal Inspection - Eyes Eye exam: Normal Appearance - ENT ENT Exam: Normal External Ear Exam External Ear Exam: Normal External Inspection TM/Canal Exam: Bilateral Normal Nose Exam: Normal Nose Exam Mouth Exam: Normal Inspection Throat Exam: Normal Inspection - Neck Neck Exam: Trachea Midline - Chest Chest Inspection: Symmetric Chest Wall Rise - Respiratory Respiratory Exam: Normal Lung Sounds Bilat Respiratory Exam: Bilateral Clear to Auscultation - Cardiovascular Cardiovascular Exam: Regular Rate, Normal Rhythm, Normal Heart Sounds - Abdominal Exam Abdominal Exam: Normal Inspection - Extremities Extremities Exam: Tenderness (LT MIDDLE INFECTION THAT IS RESOLVING. BILATERA ABPUTATION/LAKA AND RBKA) - Back Back Exam: Paraspinal Tenderness - Neurologic Neurological Exam: Alert, Oriented X3 - Psychiatric Psychiatric Exam: Normal Affect, Normal Mood - Skin Skin Exam: Erythema, Other (LT HAND BLISTER 2 OF THEN LATERAL LT HAND. ANOTHER SMALL BLISTER ONBASE OF INDEX FINFER.) MDM - Additional Information Additional Information Obtained From: Family - Differential Diagnosis Differential Diagnosis: BLISTER LEFT HAND. FINGER INFECTION LEFT HAND. Course - Treatment Treatment: SEE FLORENTIN. - Education/Counseling Education/Counseling: Patient, Family, Education Educated On: Diagnosis, Needs for Follow Up ROR - Labs Reviewed Laboratory Results Reviewed?: Yes Result Diagrams: 11/09/17 16:40 11/09/17 16:40 Laboratory: WBC 11.0 X10^3/uL (3.6-10.0) H 11/09/17 16:40 RBC 4.43 X10^6/uL (4.7-6.0) L 11/09/17 16:40 Hgb 12.2 g/dL (13.5-18.0) L 11/09/17 16:40 Hct 36.0 % (42.0-54.0) L 11/09/17 16:40 MCV 81.3 fL (80.0-100.0) 11/09/17 16:40 MCH 27.5 pg (27.0-34.0) 11/09/17 16:40 MCHC 33.8 g/dL (33.0-35.0) 11/09/17 16:40 RDW 14.7 % (11.6-16.5) 11/09/17 16:40 Plt Count 289 X10^3/uL (150.0-450.0) 11/09/17 16:40 MPV 8.5 fL (7.4-11.0) 11/09/17 16:40 Neut % (Auto) 63.8 % (42.0-75.0) 11/09/17 16:40 Lymph % (Auto) 25.0 % (21.0-51.0) 11/09/17 16:40 [place] % (Auto) 6.1 % (0.0-13.0) 11/09/17 16:40 Eos % (Auto) 4.4 % (0.9-2.9) H 11/09/17 16:40 Baso % (Auto) 0.7 % (0.2-1.0) 11/09/17 16:40 Neut # (Auto) 7.0 x10^3/uL (2.2-4.8) H 11/09/17 16:40 Lymph # (Auto) 2.7 X10^3/uL (1.3-2.9) 11/09/17 16:40 [place] # (Auto) 0.7 x10^3/uL (0.3-0.8) 11/09/17 16:40 Eos # (Auto) 0.5 x10^3/uL (0.0-0.2) H 11/09/17 16:40 Baso # (Auto) 0.1 X10^3/uL (0.0-0.1) 11/09/17 16:40 Absolute Nucleated RBC 0.0 /100WBC 11/09/17 16:40 Sodium 138 mmol/L (136-145) 11/09/17 16:40 Corrected Sodium 141 mmol/L (136-145) 11/09/17 16:40 Potassium 4.1 mmol/L (3.5-5.1) 11/09/17 16:40 Chloride 100 mmol/L (98-107) 11/09/17 16:40 Carbon Dioxide 28.4 mmol/L (21-32) 11/09/17 16:40 BUN 19 mg/dL (7-18) H 11/09/17 16:40 Creatinine 1.29 mg/dL (0.70-1.30) 11/09/17 16:40 Est GFR (MDRD) Af Amer > 60 (>60) 11/09/17 16:40 Est GFR (MDRD) Non-Af > 60 (>60) 11/09/17 16:40 Glucose 225 mg/dL (65-99) H 11/09/17 16:40 Calcium 8.9 mg/dL (8.5-10.1) 11/09/17 16:40 Corrected Calcium TNP 11/09/17 16:40 Total Bilirubin 0.20 mg/dL (0.2-1.0) 11/09/17 16:40 AST 10 Units/L (15-37) L 11/09/17 16:40 ALT 19 Units/L (12-78) 11/09/17 16:40 Alkaline Phosphatase 101 Units/L (46-116) 11/09/17 16:40 Total Protein 8.2 g/dL (6.4-8.2) 11/09/17 16:40 Albumin 3.9 g/dL (3.4-5.0) 11/09/17 16:40 Globulin 4.3 g/dL (2.5-4.5) 11/09/17 16:40 Albumin/Globulin Ratio 0.9 Ratio (1.1-2.1) L 11/09/17 16:40 - XRAY XRAY Interpreted by: Radiologist XRAY Findings: REPORT DISCUSS WITH PATIENT AND FAMILY. - Diagnosis Discharge Problem: Finger infection Blister of left hand Qualifiers: Encounter type: initial encounter Qualified Code(s): S60.522A - Blister ( nonthermal) of left hand, initial encounter Blister of hand excluding fingers Qualifiers: Encounter type: initial encounter Laterality: left Qualified Code(s): S60.522A - Blister (nonthermal) of left hand, initial encounter - Discharge Plan Disposition: 01 HOME, SELF-CARE Condition: Stable - Follow ups/Referrals Follow ups/Referrals: JAMEE BRENNAN [Primary Care Provider] - 3 days - Instructions Instructions: Blisters, Adult, Fingertip Infection Additional Instructions: RETURN TO ED IF WORSE. CONTINUE WITH MED AT HOME.
--- NOTE | 2017-11-09 16:34 | RAD ---
History: Left hand swelling and infection. Exam: 3 view series of the left hand. Comparison: 10/26/2017. Findings: There is diffuse soft tissue swelling of the left hand without evidence for acute fracture, subluxati on, or dislocation. No unexpected radiopaque foreign bodies are seen in the field of view, either. No other bony or soft tissue injuries / abnormalities are observed. Vascular atherosclerosis observed. First MCP joint osteoarthritis and [id number] IP joint osteoarthritis without erosive features. Old ulnar styloid process fracture also observed. Impression: No lytic bony lesion appreciated to suggest osteomyelitis from radiographically. Soft tis robert swelling and edema of the left hand without evidence for an acute fracture, subluxation, dislocat ion, or radiopaque foreign body. Vascular atherosclerosis observed. First MCP joint osteoarthritis an d [id number] IP joint osteoarthritis without erosive features. Old ulnar styloid process fractu re also observed. Reported By:
[2017-11-09 16:49] LABS: BASOPHILS # (AUTO) 0.1 X10^3/uL (0.0-0.1); BASOPHILS % (AUTO) 0.7 % (0.2-1.0); EOSINOPHILS # (AUTO) 0.5 x10^3/uL (0.0-0.2); EOSINOPHILS % (AUTO) 4.4 % (0.9-2.9); HEMOGLOBIN 12.2 g/dL (13.5-18.0); LYMPHOCYTES # (AUTO) 2.7 X10^3/uL (1.3-2.9); MEAN CORPUSCULAR HEMOGLOBIN 27.5 pg (27.0-34.0); MEAN CORPUSCULAR HGB CONC 33.8 g/dL (33.0-35.0); MEAN CORPUSCULAR VOLUME 81.3 fL (80.0-100.0); MEAN PLATELET VOLUME 8.5 fL (7.4-11.0); MONOCYTES # (AUTO) 0.7 x10^3/uL (0.3-0.8); MONOCYTES % (AUTO) 6.1 % (0.0-13.0); NEUTROPHILS % (AUTO) 63.8 % (42.0-75.0); PLATELET COUNT 289 X10^3/uL (150.0-450.0); RED BLOOD COUNT 4.43 X10^6/uL (4.7-6.0); RED CELL DISTRIBUTION WIDTH 14.7 % (11.6-16.5)
[2017-11-09 17:00] LABS: ALANINE AMINOTRANSFERASE 19 Units/L (12-78); ALBUMIN 3.9 g/dL (3.4-5.0); ALKALINE PHOSPHATASE 101 Units/L (46-116); ASPARTATE AMINO TRANSFERASE 10 Units/L (15-37); BLOOD UREA NITROGEN 19 mg/dL (7-18); CALCIUM 8.9 mg/dL (8.5-10.1); CARBON DIOXIDE 28.4 mmol/L (21-32); CHLORIDE 100 mmol/L (98-107); COR NA(FOR HYPERGLY) 141 mmol/L (136-145); CREATININE 1.29 mg/dL (0.70-1.30); SODIUM 138 mmol/L (136-145); TOTAL PROTEIN 8.2 g/dL (6.4-8.2); eGFR BLACK RACES > 60 (>60); eGFR NON BLACK RACES > 60 (>60)
== END 2017-11-09 17:44 | disposition home or self-care (01) ==
LOC: ER 15:44
DX: S60.522A Blister (nonthermal) of left hand, initial encounter (principal); L08.9 Local infection of the skin and subcutaneous tissue, unspecified; Y33.XXXA Other specified events, undetermined intent, initial encounter
CPT/HCPCS: 36415; 73130; 80053; 85025; 99282; 99283; 99284

== ENCOUNTER 2018-06-08 13:28 | Inpatient (IN) ==
[2018-06-08] MEDS ORDERED: PHARMACY CONSULT - VANCOMYCIN XX SCH (14:00)
--- NOTE | 2018-06-08 14:45 | DR.H&P ---
H&P - History & Physical for Day of: H&P Date: 06/08/18 - Chief Complaint Chief Complaint: RIGHT ELBOW PAIN, REDNESS, SWELLING, FEVER - History of Present Illness History of Present Illness: 57 BM DIRECT ADMIT FROM DR CRENSHAW OFFICE AFTER [place] ESENTING WITH CO RIGHT ELBOW PAIN, REDNESS AND SWELLING, CELLULITIS. PT WAS SEEN IN ER ON 06/07 STARTED ON BACTRIM. PT CO INCREASED PAIN AND SWELLING. PT HAS PMH OF HTN, DM, OA, BLINDNESS, RENAL INSUFFICIENCY. PT ADMITTED FOR TREATMENT OF CELLULITIS. - Past Medical History Past Medical History: Angina, Hypertension, Diabetes, Seizures, COPD, GERD, Arthritis Additional Medical History: BLINDNESS - Past Surgical History Surgical History: Ortho Surgery - Family History Family Medical History: Diabetes Mellitus, Cancer - Social History Does patient currently use any type of tobacco product: No Have you used tobacco products in the last 12 months: No Type of Tobacco Use: None Does any household member use tobacco: No Alcohol Use: None Drug Use: None - Medications Home Medications: No Known Drug Allergies Allergy (Verified 06/07/18 15:20) - Review of Systems Constitutional: Fever Eyes: Vision Change (CHRONIC BLINDNESS) ENT: No Symptoms Reported Respiratory: No Symptoms Reported Cardiovascular: No Symptoms Reported Gastrointestinal: Nausea Genitourinary: No Symptoms Reported Musculoskeletal: Shoulder Pain, Arm Pain Skin: Rash (REDNESS RIGHT ELBOW) Neurological: No Symptoms Reported - Physical Exam Vital Signs: Blood Pressure [Left Arm] 139/77 Blood Pressure [Right Arm] 127/77 Blood Pressure 139/77 Oriented: Normal Eyes: Blurred Vision (CHRONIC BLINDNESS) Ear: Normal Nose: Normal Throat: Normal Respiratory: RLL Diminished, LLL Diminished Cardiovascular: Normal : Normal Auscultation: Bowel Sounds: Normal Palpation: Normal Tenderness: Normal Skin: Red (localized to right elbow), Tender, Hot Musculoskeletal: Right, Elbow, Swelling, Tender, Deformity Psychiatric: Anxiety Affect: Anxious Speech Pattern: Clear, Appropriate - Assessment/Plan (1) Cellulitis Status: Acute Plan: ADMIT, BLOOD CULTURES. IV VANCOMYCIN, BP AND BLOOD SUGAR CONTROL. SSI, CT RIGHT ELBOW. CONFIRM HOME MEDS (2) Joint effusion of elbow Qualifiers: Laterality: right Qualified Code(s): M25.421 - Effusion, right elbow Status: Acute (3) Diabetes Status: Acute (4) Hypertension Status: Acute - Allergies Allergies/Adverse Reactions: Allergies Allergy/AdvReac Type Severity Reaction Status Date / Time No Known Drug Allergies Allergy Verified 06/07/18 15:20
[2018-06-08 14:51] LABS: BASOPHILS # (AUTO) 0.1 X10^3/uL (0.0-0.1); BASOPHILS % (AUTO) 0.6 % (0.2-1.0); EOSINOPHILS # (AUTO) 0.2 x10^3/uL (0.0-0.2); EOSINOPHILS % (AUTO) 1.4 % (0.9-2.9); HEMATOCRIT 32.7 % (42.0-54.0); HEMOGLOBIN 10.9 g/dL (13.5-18.0); LYMPHOCYTES # (AUTO) 2.3 X10^3/uL (1.3-2.9); LYMPHOCYTES % (AUTO) 17.3 % (21.0-51.0); MEAN CORPUSCULAR HEMOGLOBIN 27.4 pg (27.0-34.0); MEAN CORPUSCULAR HGB CONC 33.3 g/dL (33.0-35.0); MEAN CORPUSCULAR VOLUME 82.2 fL (80.0-100.0); MEAN PLATELET VOLUME 7.8 fL (7.4-11.0); MONOCYTES % (AUTO) 7.6 % (0.0-13.0); NEUTROPHILS # (AUTO) 9.7 x10^3/uL (2.2-4.8); NEUTROPHILS % (AUTO) 73.1 % (42.0-75.0); PLATELET COUNT 375 X10^3/uL (150.0-450.0); RED BLOOD COUNT 3.98 X10^6/uL (4.7-6.0); RED CELL DISTRIBUTION WIDTH 14.6 % (11.6-16.5); WHITE BLOOD COUNT 13.3 X10^3/uL (3.6-10.0)
[2018-06-08 15:04] LABS: ALANINE AMINOTRANSFERASE 17 Units/L (12-78); ALBUMIN 3.1 g/dL (3.4-5.0); ALKALINE PHOSPHATASE 125 Units/L (46-116); ASPARTATE AMINO TRANSFERASE 14 Units/L (15-37); BLOOD UREA NITROGEN 14 mg/dL (7-18); CALCIUM 9.5 mg/dL (8.5-10.1); CARBON DIOXIDE 29.6 mmol/L (21-32); CHLORIDE 95 mmol/L (98-107); COR CA(FOR HYPOALB) 10.2 mg/dL (8.5-10.1); COR NA(FOR HYPERGLY) 137 mmol/L (136-145); CREATININE 1.17 mg/dL (0.70-1.30); SODIUM 135 mmol/L (136-145); TOTAL PROTEIN 9.1 g/dL (6.4-8.2); eGFR NON BLACK RACES > 60 (>60)
[2018-06-08 15:42] LABS: ERYTHROCYTE SEDIMENTATION RATE 98 MM/HOUR (0-15)
--- NOTE | 2018-06-08 16:21 | RAD ---
HISTORY: Pain and swelling to right elbow. Study: Portable chest. Comparison: Chest x-ray dated October 26, 2017. Findings: The trachea is midline. The cardiac silhouette is unremarkable. No obvious focal consolidation, ple ural effusion, or pneumothorax. Stable appearance of remote bilateral rib fractures. Remaining osseo us structures appear intact. IMPRESSION: No acute cardiopulmonary disease. Reported By:
[2018-06-08 17:03] VITALS: BMI 24.3
--- NOTE | 2018-06-08 17:04 | CT ---
Indication: Right elbow pain and swelling, questionable cellulitis Exam: CT right elbow without contrast. Technique: Axial spiral images were obtained from the distal humerus through the proximal forearm wit hout contrast. Coronal and sagittal reconstructions were performed. Automated does control was utiliz ed. Findings: The visualized distal humerus is intact. The radius and ulna are intact. No fracture or dis location is seen. There is moderate stranding and edema in the soft tissues around the distal humerus which is more prominent posteriorly extends into the proximal forearm . There is ill-defined hypoden sity posterior to the distal humerus and extending around the elbow posteriorly with the margins not well delineated . There are some punctate air collections scattered in hypodensity. No calcifications are seen in the joint and there is no significant joint effusion. Impression: Limited exam to due to the lack of IV contrast. Moderate cellulitis or edema along the distal humerus extending posteriorly around the elbow with mod erate phlegmonous inflammatory changes posterior to the elbow . There are some punctate air collectio ns scattered in the area which could be due an early abscess vs anaerobic infection or possible recen t surgical I and D of the area . Recommend clinical correlation and surgical follow-up. No acute bony abnormality seen. Reported By:
--- NOTE | 2018-06-08 18:41 | RAD ---
Indication: Line placement Exam: Portable chest Comparison: 06/08/2018 Findings: The heart is normal. The pulmonary vessels are normal. There is a left central line in plac e the tip in the distal superior vena cava. No consolidation or effusion is seen and there is no pneu mothorax. There several old rib fractures bilaterally which are unchanged. Impression: Status post left central line placement in good position . Stable chest with no acute abnormality seen. Reported By:
[2018-06-08] MEDS: PEPCID 20 MG IV PREMIX* 20 MG/50 ML BAG IV SCH (19:06)
[2018-06-08] MEDS: NS 1000 ML 1,000 ML IV SCH (19:06)
[2018-06-08 19:12] LABS: BILIRUBIN,URINE NEGATIVE (NEGATIVE); BLOOD/HEMOGLOBIN,URINE 4+ (NEGATIVE); GLUCOSE, URINE NEGATIVE (NEGATIVE); KETONES,URINE NEGATIVE (NEGATIVE); LEUKOCYTE ESTERASE ,URINE 3+ (NEGATIVE); NITRITES,URINE NEGATIVE (NEGATIVE); PH,URINE 6.5 (5.0 - 8.0); PROTEIN,URINE 2+ (NEGATIVE); UROBILINOGEN,URINE NORMAL (NORMAL)
[2018-06-08 19:19] LABS: APPEARANCE,URINE HAZY (CLEAR); COLOR,URINE YELLOW (YELLOW)
[2018-06-08 19:20] LABS: BACTERIA,URINE 2+ /HPF (NEGATIVE); SQUAMOUS EPITHELIAL CELL,UR RARE /HPF (NEGATIVE); YEAST,URINE MODERATE /HPF (NEGATIVE)
[2018-06-08] MEDS: COLACE CAP 100 MG PO SCH (20:18)
[2018-06-08] MEDS: SNACK - Diabetic Appropriate PO SCH (20:18)
[2018-06-08] MEDS: VANCOMYCIN 1 GRAM PREMIX (ADDVANTAGE) 250 ML IV SCH (20:19)
[2018-06-08] MEDS: HumuLIN R SUBCUT PRN (20:19)
[2018-06-09 05:42] LABS: BASOPHILS % (AUTO) 0.5 % (0.2-1.0); EOSINOPHILS # (AUTO) 0.2 x10^3/uL (0.0-0.2); HEMATOCRIT 31.5 % (42.0-54.0); HEMOGLOBIN 10.5 g/dL (13.5-18.0); LYMPHOCYTES # (AUTO) 1.3 X10^3/uL (1.3-2.9); LYMPHOCYTES % (AUTO) 14.1 % (21.0-51.0); MEAN CORPUSCULAR HEMOGLOBIN 27.2 pg (27.0-34.0); MEAN CORPUSCULAR HGB CONC 33.2 g/dL (33.0-35.0); MEAN CORPUSCULAR VOLUME 81.9 fL (80.0-100.0); MEAN PLATELET VOLUME 8.1 fL (7.4-11.0); MONOCYTES # (AUTO) 0.5 x10^3/uL (0.3-0.8); MONOCYTES % (AUTO) 5.8 % (0.0-13.0); NEUTROPHILS # (AUTO) 7.2 x10^3/uL (2.2-4.8); NEUTROPHILS % (AUTO) 77.6 % (42.0-75.0); PLATELET COUNT 369 X10^3/uL (150.0-450.0); RED BLOOD COUNT 3.84 X10^6/uL (4.7-6.0); RED CELL DISTRIBUTION WIDTH 14.6 % (11.6-16.5); WHITE BLOOD COUNT 9.3 X10^3/uL (3.6-10.0)
[2018-06-09] MEDS: NS 1000 ML 1,000 ML IV SCH ×2 (05:43→18:47)
[2018-06-09] MEDS: HumuLIN R SUBCUT PRN ×4 (05:43→21:10)
[2018-06-09 05:57] LABS: ALANINE AMINOTRANSFERASE 17 Units/L (12-78); ALBUMIN 2.6 g/dL (3.4-5.0); ALKALINE PHOSPHATASE 112 Units/L (46-116); ASPARTATE AMINO TRANSFERASE 16 Units/L (15-37); BLOOD UREA NITROGEN 13 mg/dL (7-18); CARBON DIOXIDE 26.4 mmol/L (21-32); CHLORIDE 101 mmol/L (98-107); COR CA(FOR HYPOALB) 10.1 mg/dL (8.5-10.1); COR NA(FOR HYPERGLY) 140 mmol/L (136-145); SODIUM 137 mmol/L (136-145); eGFR NON BLACK RACES > 60 (>60)
[2018-06-09] MEDS: PEPCID 20 MG IV PREMIX* 20 MG/50 ML BAG IV SCH (09:03)
[2018-06-09] MEDS: VANCOMYCIN 1 GRAM PREMIX (ADDVANTAGE) 250 ML IV SCH ×2 (09:44→21:10)
--- NOTE | 2018-06-09 17:19 | PCM.PROG ---
Progress Note - Progress Note for Day of Date of Exam: 06/09/18 - Subjective Subjective: 57 BM ADMITTED ON 06/08 WITH RIGHT ELBOW CELLULITIS. PT CURRENTLY ON IV VANCOMYCIN, CT SUGGESTS ABSCESS FORMATION, CONSULTED DR PICKERING FOR POSSIBLE I & D. PT CURRENTLY ON PO PAIN CONTROL, WILL REPEAT AM LABS, CONTINUE BS CONTROL - Past Medical Family Social History Past Med/Fam/Surg Hx: No changes since H&P Allergies: Allergies No Known Drug Allergies Allergy (Verified 06/07/18 15:20) - Review of Systems ROS: No change since H&P - Vital Signs and I&O's Vital Signs: Temperature 97.6 F Pulse Rate [Left Brachial] 72 Respiratory Rate 20 Blood Pressure [Left Arm] 133/63 Blood Pressure [Right Arm] 127/77 Blood Pressure 139/77 O2 Sat by Pulse Oximetry 96 Intake and Output: Intake & Output 06/07/18 06/08/18 06/09/18 06/10/18 11:59 11:59 11:59 11:59 Intake Total 950 / 950 740 / 740 Output Total 1400 / 1400 1000 / 1000 Balance -450 / -450 -260 / -260 - Physical Exam Oriented: Normal Eyes: Blurred Vision (CHRONIC BLINDNESS) Ear: Normal Nose: Normal Throat: Normal Respiratory: Diminished Cardiovascular: Normal : Normal Auscultation: Bowel Sounds: Normal Tenderness: Normal Skin: Red (localized to right elbow), Tender, Hot Musculoskeletal: Right, Elbow, Swelling, Tender, Deformity Psychiatric: Anxiety Affect: Anxious Speech Pattern: Delayed - Laboratory and Diagnostics Result Diagrams: 06/09/18 05:05 06/09/18 05:05 Labs: 06/08/18 19:03 Urine,Clean Catch Urine Culture - Preliminary Laboratory WBC 9.3 X10^3/uL (3.6-10.0) 06/09/18 05:05 RBC 3.84 X10^6/uL (4.7-6.0) L 06/09/18 05:05 Hgb 10.5 g/dL (13.5-18.0) L 06/09/18 05:05 Hct 31.5 % (42.0-54.0) L 06/09/18 05:05 MCV 81.9 fL (80.0-100.0) 06/09/18 05:05 MCH 27.2 pg (27.0-34.0) 06/09/18 05:05 MCHC 33.2 g/dL (33.0-35.0) 06/09/18 05:05 RDW 14.6 % (11.6-16.5) 06/09/18 05:05 Plt Count 369 X10^3/uL (150.0-450.0) 06/09/18 05:05 MPV 8.1 fL (7.4-11.0) 06/09/18 05:05 Neut % (Auto) 77.6 % (42.0-75.0) H 06/09/18 05:05 Lymph % (Auto) 14.1 % (21.0-51.0) L 06/09/18 05:05 [place] % (Auto) 5.8 % (0.0-13.0) 06/09/18 05:05 Eos % (Auto) 2.0 % (0.9-2.9) 06/09/18 05:05 Baso % (Auto) 0.5 % (0.2-1.0) 06/09/18 05:05 Neut # (Auto) 7.2 x10^3/uL (2.2-4.8) H 06/09/18 05:05 Lymph # (Auto) 1.3 X10^3/uL (1.3-2.9) 06/09/18 05:05 [place] # (Auto) 0.5 x10^3/uL (0.3-0.8) 06/09/18 05:05 Eos # (Auto) 0.2 x10^3/uL (0.0-0.2) 06/09/18 05:05 Baso # (Auto) 0.0 X10^3/uL (0.0-0.1) 06/09/18 05:05 Absolute Nucleated RBC 0.0 /100WBC 06/09/18 05:05 ESR 98 MM/HOUR (0-15) H 06/08/18 14:37 Sodium 137 mmol/L (136-145) 06/09/18 05:05 Corrected Sodium 140 mmol/L (136-145) 06/09/18 05:05 Potassium 4.3 mmol/L (3.5-5.1) 06/09/18 05:05 Chloride 101 mmol/L (98-107) 06/09/18 05:05 Carbon Dioxide 26.4 mmol/L (21-32) 06/09/18 05:05 BUN 13 mg/dL (7-18) 06/09/18 05:05 Creatinine 1.20 mg/dL (0.70-1.30) 06/09/18 05:05 Est GFR (MDRD) Af Amer > 60 (>60) 06/09/18 05:05 Est GFR (MDRD) Non-Af > 60 (>60) 06/09/18 05:05 Glucose 218 mg/dL (65-99) H 06/09/18 05:05 POC Glucose (mg/dL) 249 mg/dL (65-99) H 06/09/18 16:59 Calcium 9.0 mg/dL (8.5-10.1) 06/09/18 05:05 Corrected Calcium 10.1 mg/dL (8.5-10.1) 06/09/18 05:05 Total Bilirubin 0.30 mg/dL (0.2-1.0) 06/09/18 05:05 AST 16 Units/L (15-37) 06/09/18 05:05 ALT 17 Units/L (12-78) 06/09/18 05:05 Alkaline Phosphatase 112 Units/L (46-116) 06/09/18 05:05 C-Reactive Protein 128.80 mg/L (0-3.0) H 06/08/18 14:37 Total Protein 8.0 g/dL (6.4-8.2) 06/09/18 05:05 Albumin 2.6 g/dL (3.4-5.0) L 06/09/18 05:05 Globulin 5.4 g/dL (2.5-4.5) H 06/09/18 05:05 Albumin/Globulin Ratio 0.5 Ratio (1.1-2.1) L 06/09/18 05:05 Specimen Type Clean catch urine 06/08/18 19:03 Urine Color Yellow (YELLOW) 06/08/18 19:03 Urine Appearance Hazy (CLEAR) 06/08/18 19:03 Urine pH 6.5 (5.0 - 8.0) 06/08/18 19:03 Ur Specific [place] 1.010 (1.000-1.030) 06/08/18 19: Urine Protein 2+ (NEGATIVE) 06/08/18 19: Urine Glucose (UA) Negative (NEGATIVE) 06/08/18 19: Urine Ketones Negative (NEGATIVE) 06/08/18 19: Urine Occult Blood 4+ (NEGATIVE) 06/08/18 19: Urine Nitrite Negative (NEGATIVE) 06/08/18 19: Urine Bilirubin Negative (NEGATIVE) 06/08/18 19: Urine Urobilinogen Normal (NORMAL) 06/08/18 19: Ur Leukocyte Esterase 3+ (NEGATIVE) 06/08/18 19: Urine RBC 5-10 /HPF (NONE SEEN) 06/08/18 19: Urine WBC 30-50 /HPF (NONE SEEN) 06/08/18 19: Ur Squamous Epith Cells Rare /HPF (NEGATIVE) 06/08/18 19: Urine Bacteria 2+ /HPF (NEGATIVE) 06/08/18 19: Urine Yeast Moderate /HPF (NEGATIVE) 06/08/18 19: Ur Culture Indicated? Yes/culture set up 06/08/18 19:03 - Plan (1) Cellulitis Status: Acute Plan: BLOOD CULTURES ON ADMISSION. IV VANCOMYCIN, BP AND BLOOD SUGAR CONTROL. SSI, CT RIGHT ELBOW ON ADMISSION, SURGICAL CONSULT (2) Joint effusion of elbow Status: Acute Qualifiers: Laterality: right Qualified Code(s): M25.421 - Effusion, right elbow (3) Diabetes Status: Acute (4) Hypertension Status: Acute
[2018-06-09] MEDS: ASPIRIN EC 81 MG PO SCH (17:39)
[2018-06-09] MEDS: GLUCOTROL XL PO SCH (17:40)
[2018-06-09] MEDS: SNACK - Diabetic Appropriate PO SCH ×2 (21:00)
[2018-06-09] MEDS: COLACE CAP 100 MG PO SCH (21:10)
--- NOTE | 2018-06-10 05:20 | ED.ABDFE ---
PMH PMH Past Medical History: Angina, Arthritis, COPD, Diabetes, GERD, Hypertension and Seizures Surgical History: Ortho Surgery Family History Family Medical History: Diabetes Mellitus and Cancer Social History Does patient currently use any type of tobacco product: No Have you used tobacco products in the last 12 months: No Type of Tobacco Use: None Does any household member use tobacco: No Alcohol Use: None Do you use any recreational Drugs:: No Lives With: Alone Lives Where: Home infectious screening Have you traveled outside the country in the last 6 months?: No Isolation: Standard PE Vital Signs Vitals: Temperature 98.4 F Pulse Rate [Left Brachial] 86 Respiratory Rate 18 Blood Pressure [Left Arm] 142/76 Blood Pressure [Right Arm] 127/77 Blood Pressure 139/77 O2 Sat by Pulse Oximetry 96 ROR Labs Reviewed Result Diagrams: 06/13/18 05:45 06/13/18 05:45 Laboratory: 06/10/18 13:29 Surgery Gram Stain - Final 06/10/18 13:29 Surgery Wound Culture - Preliminary 06/08/18 15:09 Blood Blood Culture - Preliminary 06/08/18 14:37 Blood Blood Culture - Preliminary 06/08/18 19:03 Urine,Clean Catch Urine Culture - Final WBC 10.6 X10^3/uL (3.6-10.0) H 06/13/18 05:45 RBC 3.56 X10^6/uL (4.7-6.0) L 06/13/18 05:45 Hgb 9.7 g/dL (13.5-18.0) L 06/13/18 05:45 Hct 29.0 % (42.0-54.0) L 06/13/18 05:45 MCV 81.5 fL (80.0-100.0) 06/13/18 05:45 MCH 27.3 pg (27.0-34.0) 06/13/18 05:45 MCHC 33.5 g/dL (33.0-35.0) 06/13/18 05:45 RDW 14.3 % (11.6-16.5) 06/13/18 05:45 Plt Count 427 X10^3/uL (150.0-450.0) 06/13/18 05:45 MPV 7.9 fL (7.4-11.0) 06/13/18 05:45 Neut % (Auto) 61.0 % (42.0-75.0) 06/13/18 05:45 Lymph % (Auto) 29.4 % (21.0-51.0) 06/13/18 05:45 [place] % (Auto) 6.6 % (0.0-13.0) 06/13/18 05:45 Eos % (Auto) 2.4 % (0.9-2.9) 06/13/18 05:45 Baso % (Auto) 0.6 % (0.2-1.0) 06/13/18 05:45 Neut # (Auto) 6.5 x10^3/uL (2.2-4.8) H 06/13/18 05:45 Lymph # (Auto) 3.1 X10^3/uL (1.3-2.9) H 06/13/18 05:45 [place] # (Auto) 0.7 x10^3/uL (0.3-0.8) 06/13/18 05:45 Eos # (Auto) 0.3 x10^3/uL (0.0-0.2) H 06/13/18 05:45 Baso # (Auto) 0.1 X10^3/uL (0.0-0.1) 06/13/18 05:45 Absolute Nucleated RBC 0.0 /100WBC 06/13/18 05:45 ESR 98 MM/HOUR (0-15) H 06/08/18 14:37 Sodium 141 mmol/L (136-145) 06/13/18 05:45 Corrected Sodium 144 mmol/L (136-145) 06/13/18 05:45 Potassium 4.4 mmol/L (3.5-5.1) 06/13/18 05:45 Chloride 103 mmol/L (98-107) 06/13/18 05:45 Carbon Dioxide 28.8 mmol/L (21-32) 06/13/18 05:45 BUN 11 mg/dL (7-18) 06/13/18 05:45 Creatinine 1.03 mg/dL (0.70-1.30) 06/13/18 05:45 Est GFR (MDRD) Af Amer > 60 (>60) 06/13/18 05:45 Est GFR (MDRD) Non-Af > 60 (>60) 06/13/18 05:45 Glucose 224 mg/dL (65-99) H 06/13/18 05:45 POC Glucose (mg/dL) 151 mg/dL (65-99) H 06/13/18 11:26 Uric Acid 4.7 mg/dL (3.5-7.2) 06/09/18 17:29 Calcium 8.7 mg/dL (8.5-10.1) 06/13/18 05:45 Corrected Calcium 9.9 mg/dL (8.5-10.1) 06/13/18 05:45 Total Bilirubin 0.20 mg/dL (0.2-1.0) 06/13/18 05:45 AST 16 Units/L (15-37) 06/13/18 05:45 ALT 22 Units/L (12-78) 06/13/18 05:45 Alkaline Phosphatase 112 Units/L (46-116) 06/13/18 05:45 C-Reactive Protein 128.80 mg/L (0-3.0) H 06/08/18 14:37 Total Protein 8.0 g/dL (6.4-8.2) 06/13/18 05:45 Albumin 2.5 g/dL (3.4-5.0) L 06/13/18 05:45 Globulin 5.5 g/dL (2.5-4.5) H 06/13/18 05:45 Albumin/Globulin Ratio 0.5 Ratio (1.1-2.1) L 06/13/18 05:45 Specimen Type Clean catch urine 06/08/18 19:03 Urine Color Yellow (YELLOW) 06/08/18 19:03 Urine Appearance Hazy (CLEAR) 06/08/18 19:03 Urine pH 6.5 (5.0 - 8.0) 06/08/18 19:03 Ur Specific [place] 1.010 (1.000-1.030) 06/08/18 19:03 Urine Protein 2+ (NEGATIVE) 06/08/18 19:03 Urine Glucose (UA) Negative (NEGATIVE) 06/08/18 19:03 Urine Ketones Negative (NEGATIVE) 06/08/18 19:03 Urine Occult Blood 4+ (NEGATIVE) 06/08/18 19: Urine Nitrite Negative (NEGATIVE) 06/08/18 19:03 Urine Bilirubin Negative (NEGATIVE) 06/08/18 19:03 Urine Urobilinogen Normal (NORMAL) 06/08/18 19:03 Ur Leukocyte Esterase 3+ (NEGATIVE) 06/08/18 19:03 Urine RBC 5-10 /HPF (NONE SEEN) 06/08/18 19:03 Urine WBC 30-50 /HPF (NONE SEEN) 06/08/18 19:03 Ur Squamous Epith Cells Rare /HPF (NEGATIVE) 06/08/18 19:03 Urine Bacteria 2+ /HPF (NEGATIVE) 06/08/18 19:03 Urine Yeast Moderate /HPF (NEGATIVE) 06/08/18 19:03 Ur Culture Indicated? Yes/culture set up 06/08/18 19:03 Vancomycin Trough 14.6 ug/mL (15-20) L 06/12/18 05:33 EKG Rhythm: Afib Block: 1
[2018-06-10 06:20] LABS: BASOPHILS # (AUTO) 0.1 X10^3/uL (0.0-0.1); BASOPHILS % (AUTO) 0.7 % (0.2-1.0); EOSINOPHILS # (AUTO) 0.3 x10^3/uL (0.0-0.2); EOSINOPHILS % (AUTO) 2.4 % (0.9-2.9); HEMATOCRIT 31.2 % (42.0-54.0); HEMOGLOBIN 10.3 g/dL (13.5-18.0); LYMPHOCYTES # (AUTO) 2.5 X10^3/uL (1.3-2.9); LYMPHOCYTES % (AUTO) 21.6 % (21.0-51.0); MEAN CORPUSCULAR HEMOGLOBIN 27.3 pg (27.0-34.0); MEAN CORPUSCULAR VOLUME 82.8 fL (80.0-100.0); MEAN PLATELET VOLUME 8.2 fL (7.4-11.0); MONOCYTES # (AUTO) 0.9 x10^3/uL (0.3-0.8); MONOCYTES % (AUTO) 7.3 % (0.0-13.0); PLATELET COUNT 396 X10^3/uL (150.0-450.0); RED BLOOD COUNT 3.77 X10^6/uL (4.7-6.0); RED CELL DISTRIBUTION WIDTH 14.1 % (11.6-16.5); WHITE BLOOD COUNT 11.8 X10^3/uL (3.6-10.0)
[2018-06-10 06:47] LABS: ALANINE AMINOTRANSFERASE 17 Units/L (12-78); ALBUMIN 2.6 g/dL (3.4-5.0); ALKALINE PHOSPHATASE 110 Units/L (46-116); ASPARTATE AMINO TRANSFERASE 15 Units/L (15-37); BLOOD UREA NITROGEN 12 mg/dL (7-18); CALCIUM 9.5 mg/dL (8.5-10.1); CARBON DIOXIDE 28.1 mmol/L (21-32); CHLORIDE 105 mmol/L (98-107); COR CA(FOR HYPOALB) 10.6 mg/dL (8.5-10.1); COR NA(FOR HYPERGLY) 145 mmol/L (136-145); CREATININE 1.28 mg/dL (0.70-1.30); SODIUM 144 mmol/L (136-145); TOTAL PROTEIN 8.1 g/dL (6.4-8.2); eGFR NON BLACK RACES > 60 (>60)
[2018-06-10] MEDS ORDERED: PHARMACY COMMENT IV NR (08:30)
[2018-06-10] MEDS: GLUCOTROL XL PO SCH ×2 (09:16→17:29)
[2018-06-10] MEDS: ASPIRIN EC 81 MG PO SCH (09:16)
[2018-06-10] MEDS: PEPCID 20 MG IV PREMIX* 20 MG/50 ML BAG IV SCH (09:17)
[2018-06-10] MEDS: ZOCOR TAB 20 MG PO SCH (09:21)
[2018-06-10 09:23] LABS: CREATININE 1.01 mg/dL (0.70-1.30); VANCOMYCIN,TROUGH 11.8 ug/mL (15-20)
[2018-06-10] MEDS: VANCOMYCIN 1 GRAM PREMIX (ADDVANTAGE) 250 ML IV SCH ×2 (11:07→20:15)
[2018-06-10] MEDS ORDERED: BACITRACIN VIAL ONE (12:16)
[2018-06-10] MEDS ORDERED: NS 1000 ML 1,000 ML ONE (12:20)
[2018-06-10] MEDS ORDERED: XYLOCAINE 2 % (PLAIN) ONE (12:21)
[2018-06-10] MEDS ORDERED: FENTANYL INJ 100 mcg ONE (12:21)
--- NOTE | 2018-06-10 13:45 | PCM.PROG ---
Progress Note - Progress Note for Day of Date of Exam: 06/10/18 - Subjective Subjective: 57 BM ADMITTED ON 06/08 WITH RIGHT ELBOW CELLULITIS. PT CURRENTLY ON IV VANCOMYCIN, CT SUGGESTS ABSCESS FORMATION, CONSULTED DR PICKERING FOR I & D, NPO FOR PROCEDURE THIS AM. PT HAD DIFFUSE LOCALIZED REDNESS TO RIGHT ELBOW WITH TENDERNESS AND LIMITED MOBILITY. PT CURRENTLY ON PO PAIN CONTROL, WILL REPEAT AM LABS, CONTINUE BS CONTROL - Past Medical Family Social History Past Med/Fam/Surg Hx: No changes since H&P Allergies: Allergies No Known Drug Allergies Allergy (Verified 06/07/18 15:20) - Review of Systems ROS: No change since H&P - Vital Signs and I&O's Vital Signs: Temperature 98.9 F Pulse Rate [Left Brachial] 93 Respiratory Rate 18 Blood Pressure [Left Arm] 119/73 Blood Pressure [Right Arm] 127/77 Blood Pressure 139/77 O2 Sat by Pulse Oximetry 94 Intake and Output: Intake & Output 06/08/18 06/09/18 06/10/18 06/11/18 11:59 11:59 11:59 11:59 Intake Total 950 / 950 2455 / 2455 350 / 350 Output Total 1400 / 1400 2500 / 2500 300 / 300 Balance -450 / -450 -45 / -45 50 / 50 - Physical Exam Oriented: Normal Eyes: Blurred Vision (CHRONIC BLINDNESS) Ear: Normal Nose: Normal Throat: Normal Respiratory: Diminished Cardiovascular: Normal : Normal Auscultation: Bowel Sounds: Normal Tenderness: Normal Skin: Red (localized to right elbow), Tender, Hot Musculoskeletal: Right, Elbow, Swelling, Tender, Deformity Psychiatric: Anxiety Affect: Anxious Speech Pattern: Delayed - Laboratory and Diagnostics Result Diagrams: 06/10/18 05:56 06/10/18 08:43 Labs: 06/08/18 15:09 Blood Blood Culture - Preliminary 06/08/18 14:37 Blood Blood Culture - Preliminary 06/08/18 19:03 Urine,Clean Catch Urine Culture - Final Laboratory WBC 11.8 X10^3/uL (3.6-10.0) H 06/10/18 05:56 RBC 3.77 X10^6/uL (4.7-6.0) L 06/10/18 05:56 Hgb 10.3 g/dL (13.5-18.0) L 06/10/18 05:56 Hct 31.2 % (42.0-54.0) L 06/10/18 05:56 MCV 82.8 fL (80.0-100.0) 06/10/18 05:56 MCH 27.3 pg (27.0-34.0) 06/10/18 05:56 MCHC 33.0 g/dL (33.0-35.0) 06/10/18 05:56 RDW 14.1 % (11.6-16.5) 06/10/18 05:56 Plt Count 396 X10^3/uL (150.0-450.0) 06/10/18 05:56 MPV 8.2 fL (7.4-11.0) 06/10/18 05:56 Neut % (Auto) 68.0 % (42.0-75.0) 06/10/18 05:56 Lymph % (Auto) 21.6 % (21.0-51.0) 06/10/18 05:56 [place] % (Auto) 7.3 % (0.0-13.0) 06/10/18 05:56 Eos % (Auto) 2.4 % (0.9-2.9) 06/10/18 05:56 Baso % (Auto) 0.7 % (0.2-1.0) 06/10/18 05:56 Neut # (Auto) 8.0 x10^3/uL (2.2-4.8) H 06/10/18 05:56 Lymph # (Auto) 2.5 X10^3/uL (1.3-2.9) 06/10/18 05:56 [place] # (Auto) 0.9 x10^3/uL (0.3-0.8) H 06/10/18 05:56 Eos # (Auto) 0.3 x10^3/uL (0.0-0.2) H 06/10/18 05:56 Baso # (Auto) 0.1 X10^3/uL (0.0-0.1) 06/10/18 05:56 Absolute Nucleated RBC 0.1 /100WBC 06/10/18 05:56 ESR 98 MM/HOUR (0-15) H 06/08/18 14:37 Sodium 144 mmol/L (136-145) 06/10/18 05:56 Corrected Sodium 145 mmol/L (136-145) 06/10/18 05:56 Potassium 5.2 mmol/L (3.5-5.1) H 06/10/18 05:56 Chloride 105 mmol/L (98-107) 06/10/18 05:56 Carbon Dioxide 28.1 mmol/L (21-32) 06/10/18 05:56 BUN 12 mg/dL (7-18) 06/10/18 05:56 Creatinine 1.01 mg/dL (0.70-1.30) 06/10/18 08:43 Est GFR (MDRD) Af Amer > 60 (>60) 06/10/18 05:56 Est GFR (MDRD) Non-Af > 60 (>60) 06/10/18 05:56 Glucose 135 mg/dL (65-99) H 06/10/18 05:56 POC Glucose (mg/dL) 188 mg/dL (65-99) H 06/10/18 11:28 Uric Acid 4.7 mg/dL (3.5-7.2) 06/09/18 17:29 Calcium 9.5 mg/dL (8.5-10.1) 06/10/18 05:56 Corrected Calcium 10.6 mg/dL (8.5-10.1) H 06/10/18 05:56 Total Bilirubin 0.30 mg/dL (0.2-1.0) 06/10/18 05:56 AST 15 Units/L (15-37) 06/10/18 05:56 ALT 17 Units/L (12-78) 06/10/18 05:56 Alkaline Phosphatase 110 Units/L (46-116) 06/10/18 05:56 C-Reactive Protein 128.80 mg/L (0-3.0) H 06/08/18 14:37 Total Protein 8.1 g/dL (6.4-8.2) 06/10/18 05:56 Albumin 2.6 g/dL (3.4-5.0) L 06/10/18 05:56 Globulin 5.5 g/dL (2.5-4.5) H 06/10/18 05:56 Albumin/Globulin Ratio 0.5 Ratio (1.1-2.1) L 06/10/18 05:56 Specimen Type Clean catch urine 06/08/18 19:03 Urine Color Yellow (YELLOW) 06/08/18 19: Urine Appearance Hazy (CLEAR) 06/08/18 19:03 Urine pH 6.5 (5.0 - 8.0) 06/08/18 19:03 Ur Specific [place] 1.010 (1.000-1.030) 06/08/18 19:03 Urine Protein 2+ (NEGATIVE) 06/08/18 19: Urine Glucose (UA) Negative (NEGATIVE) 06/08/18 19: Urine Ketones Negative (NEGATIVE) 06/08/18 19:03 Urine Occult Blood 4+ (NEGATIVE) 06/08/18 19: Urine Nitrite Negative (NEGATIVE) 06/08/18 19: Urine Bilirubin Negative (NEGATIVE) 06/08/18 19: Urine Urobilinogen Normal (NORMAL) 06/08/18 19:03 Ur Leukocyte Esterase 3+ (NEGATIVE) 06/08/18 19:03 Urine RBC 5-10 /HPF (NONE SEEN) 06/08/18 19:03 Urine WBC 30-50 /HPF (NONE SEEN) 06/08/18 19:03 Ur Squamous Epith Cells Rare /HPF (NEGATIVE) 06/08/18 19:03 Urine Bacteria 2+ /HPF (NEGATIVE) 06/08/18 19:03 Urine Yeast Moderate /HPF (NEGATIVE) 06/08/18 19:03 Ur Culture Indicated? Yes/culture set up 06/08/18 19:03 Vancomycin Trough 11.8 ug/mL (15-20) L 06/10/18 08:43 - Plan (1) Cellulitis Status: Acute Plan: BLOOD CULTURES ON ADMISSION. IV VANCOMYCIN, BP AND BLOOD SUGAR CONTROL. SSI, CT RIGHT ELBOW ON ADMISSION, SURGICAL CONSULT (2) Joint effusion of elbow Status: Acute Qualifiers: Laterality: right Qualified Code(s): M25.421 - Effusion, right elbow (3) Diabetes Status: Acute (4) Hypertension Status: Acute
[2018-06-10] MEDS ORDERED: DIPRIVAN VIAL ONE (16:04)
[2018-06-10] MEDS ORDERED: VERSED ONE (16:04)
[2018-06-10] MEDS: HumuLIN R SUBCUT PRN ×2 (17:25→21:49)
[2018-06-10] MEDS: COLACE CAP 100 MG PO SCH (20:15)
[2018-06-10] MEDS: SNACK - Diabetic Appropriate PO SCH ×2 (21:48)
[2018-06-11] MEDS: HumuLIN R SUBCUT PRN ×3 (05:54→23:05)
[2018-06-11 06:26] LABS: BASOPHILS % (AUTO) 0.4 % (0.2-1.0); EOSINOPHILS # (AUTO) 0.2 x10^3/uL (0.0-0.2); EOSINOPHILS % (AUTO) 2.4 % (0.9-2.9); HEMATOCRIT 30.5 % (42.0-54.0); HEMOGLOBIN 10.2 g/dL (13.5-18.0); LYMPHOCYTES # (AUTO) 2.1 X10^3/uL (1.3-2.9); LYMPHOCYTES % (AUTO) 22.5 % (21.0-51.0); MEAN CORPUSCULAR HEMOGLOBIN 27.4 pg (27.0-34.0); MEAN CORPUSCULAR HGB CONC 33.4 g/dL (33.0-35.0); MEAN CORPUSCULAR VOLUME 82.2 fL (80.0-100.0); MEAN PLATELET VOLUME 8.2 fL (7.4-11.0); MONOCYTES # (AUTO) 0.6 x10^3/uL (0.3-0.8); NEUTROPHILS # (AUTO) 6.5 x10^3/uL (2.2-4.8); NEUTROPHILS % (AUTO) 68.7 % (42.0-75.0); PLATELET COUNT 430 X10^3/uL (150.0-450.0); RED BLOOD COUNT 3.71 X10^6/uL (4.7-6.0); RED CELL DISTRIBUTION WIDTH 14.5 % (11.6-16.5); WHITE BLOOD COUNT 9.4 X10^3/uL (3.6-10.0)
[2018-06-11 06:32] LABS: ALANINE AMINOTRANSFERASE 19 Units/L (12-78); ALBUMIN 2.5 g/dL (3.4-5.0); ALKALINE PHOSPHATASE 109 Units/L (46-116); ASPARTATE AMINO TRANSFERASE 15 Units/L (15-37); BLOOD UREA NITROGEN 9 mg/dL (7-18); CHLORIDE 102 mmol/L (98-107); COR CA(FOR HYPOALB) 10.2 mg/dL (8.5-10.1); COR NA(FOR HYPERGLY) 140 mmol/L (136-145); CREATININE 0.99 mg/dL (0.70-1.30); SODIUM 138 mmol/L (136-145); TOTAL PROTEIN 8.1 g/dL (6.4-8.2); eGFR NON BLACK RACES > 60 (>60)
[2018-06-11] MEDS: VANCOMYCIN 1 GRAM PREMIX (ADDVANTAGE) 250 ML IV SCH ×2 (08:19→20:15)
[2018-06-11] MEDS: PEPCID 20 MG IV PREMIX* 20 MG/50 ML BAG IV SCH (08:19)
[2018-06-11] MEDS: ZOCOR TAB 20 MG PO SCH (08:21)
[2018-06-11] MEDS: ASPIRIN EC 81 MG PO SCH (08:21)
[2018-06-11] MEDS: GLUCOTROL XL PO SCH (08:21)
[2018-06-11] MEDS: PERCOCET TAB 5/325 MG PO PRN ×2 (09:57→20:15)
[2018-06-11] MEDS: NS 1000 ML 1,000 ML IV SCH ×2 (11:41)
[2018-06-11] MEDS: SNACK - Diabetic Appropriate PO SCH ×2 (20:00)
[2018-06-11] MEDS: COLACE CAP 100 MG PO SCH (20:16)
[2018-06-11] MEDS ORDERED: PHARMACY COMMENT IV NR (20:30)
[2018-06-12] MEDS: NS 1000 ML 1,000 ML IV SCH ×3 (04:10→17:43)
[2018-06-12] MEDS: HumuLIN R SUBCUT PRN ×4 (05:52→22:00)
[2018-06-12 05:53] LABS: BASOPHILS # (AUTO) 0.1 X10^3/uL (0.0-0.1); BASOPHILS % (AUTO) 0.7 % (0.2-1.0); EOSINOPHILS # (AUTO) 0.3 x10^3/uL (0.0-0.2); EOSINOPHILS % (AUTO) 2.7 % (0.9-2.9); HEMATOCRIT 29.8 % (42.0-54.0); LYMPHOCYTES # (AUTO) 2.2 X10^3/uL (1.3-2.9); LYMPHOCYTES % (AUTO) 21.8 % (21.0-51.0); MEAN CORPUSCULAR HEMOGLOBIN 27.7 pg (27.0-34.0); MEAN CORPUSCULAR HGB CONC 33.6 g/dL (33.0-35.0); MEAN CORPUSCULAR VOLUME 82.2 fL (80.0-100.0); MEAN PLATELET VOLUME 7.8 fL (7.4-11.0); MONOCYTES # (AUTO) 0.6 x10^3/uL (0.3-0.8); MONOCYTES % (AUTO) 6.2 % (0.0-13.0); NEUTROPHILS # (AUTO) 6.9 x10^3/uL (2.2-4.8); NEUTROPHILS % (AUTO) 68.6 % (42.0-75.0); PLATELET COUNT 423 X10^3/uL (150.0-450.0); RED BLOOD COUNT 3.63 X10^6/uL (4.7-6.0); RED CELL DISTRIBUTION WIDTH 14.3 % (11.6-16.5)
[2018-06-12 05:58] LABS: CREATININE 1.07 mg/dL (0.70-1.30); VANCOMYCIN,TROUGH 14.6 ug/mL (15-20)
[2018-06-12 06:05] LABS: ALANINE AMINOTRANSFERASE 19 Units/L (12-78); ALBUMIN 2.5 g/dL (3.4-5.0); ALKALINE PHOSPHATASE 107 Units/L (46-116); ASPARTATE AMINO TRANSFERASE 14 Units/L (15-37); BLOOD UREA NITROGEN 11 mg/dL (7-18); CALCIUM 8.6 mg/dL (8.5-10.1); CARBON DIOXIDE 27.7 mmol/L (21-32); CHLORIDE 103 mmol/L (98-107); COR CA(FOR HYPOALB) 9.8 mg/dL (8.5-10.1); COR NA(FOR HYPERGLY) 142 mmol/L (136-145); SODIUM 140 mmol/L (136-145); eGFR NON BLACK RACES > 60 (>60)
[2018-06-12] MEDS: PERCOCET TAB 5/325 MG PO PRN ×2 (07:33→20:45)
[2018-06-12] MEDS: GLUCOTROL XL PO SCH (09:13)
[2018-06-12] MEDS: PEPCID 20 MG IV PREMIX* 20 MG/50 ML BAG IV SCH (09:13)
[2018-06-12] MEDS: VANCOMYCIN 1 GRAM PREMIX (ADDVANTAGE) 250 ML IV SCH ×2 (09:13→22:00)
[2018-06-12] MEDS: ZOCOR TAB 20 MG PO SCH (09:13)
[2018-06-12] MEDS: ASPIRIN EC 81 MG PO SCH (09:13)
--- NOTE | 2018-06-12 10:38 | DR.PROGNOT ---
Hospital Progress Notes - Progress Note for Day of: Progress Note Date: 06/12/18 - Chief Complaint Chief Complaint: minimal drainage from incision site . pain is less ,. last culture : Gm+ Cocci - Past Medical Family Social History Past Med/Fam/Surg Hx: No changes since H&P Allergies: Allergies No Known Drug Allergies Allergy (Verified 06/07/18 15:20) - Review Of Systems ROS: No change since H&P - Vital Signs Vital Signs: Temperature 98.6 F Pulse Rate [Left Brachial] 92 Respiratory Rate 18 Blood Pressure [Left Arm] 134/71 Blood Pressure [Right Arm] 127/77 Blood Pressure 139/77 O2 Sat by Pulse Oximetry 99 - Physical Exam Oriented: Normal Eyes: Blurred Vision (CHRONIC BLINDNESS) Ear: Normal Nose: Normal Throat: Normal Respiratory: Diminished Cardiovascular: Normal : Normal GI:Auscultation: Normal GI:Palpation: Normal GI: Tenderness: Normal Skin: Red (moderate erythema to Rt elbow and mild cellulitis ..distal pulses + ), Tender, Hot Musculoskeletal: Right, Elbow, Swelling, Tender, Deformity Psychiatric: Anxiety Affect: Anxious Speech Pattern: Delayed - Laboratory and Diagnostics Result Diagrams: 06/12/18 05:33 06/12/18 05:33 Labs: 06/10/18 13:29 Surgery Gram Stain - Final 06/10/18 13:29 Surgery Wound Culture - Preliminary 06/08/18 15:09 Blood Blood Culture - Preliminary 06/08/18 14:37 Blood Blood Culture - Preliminary 06/08/18 19:03 Urine,Clean Catch Urine Culture - Final Laboratory WBC 10.0 X10^3/uL (3.6-10.0) 06/12/18 05:33 RBC 3.63 X10^6/uL (4.7-6.0) L 06/12/18 05:33 Hgb 10.0 g/dL (13.5-18.0) L 06/12/18 05:33 Hct 29.8 % (42.0-54.0) L 06/12/18 05:33 MCV 82.2 fL (80.0-100.0) 06/12/18 05:33 MCH 27.7 pg (27.0-34.0) 06/12/18 05:33 MCHC 33.6 g/dL (33.0-35.0) 06/12/18 05:33 RDW 14.3 % (11.6-16.5) 06/12/18 05:33 Plt Count 423 X10^3/uL (150.0-450.0) 06/12/18 05:33 MPV 7.8 fL (7.4-11.0) 06/12/18 05:33 Neut % (Auto) 68.6 % (42.0-75.0) 06/12/18 05:33 Lymph % (Auto) 21.8 % (21.0-51.0) 06/12/18 05:33 [place] % (Auto) 6.2 % (0.0-13.0) 06/12/18 05:33 Eos % (Auto) 2.7 % (0.9-2.9) 06/12/18 05:33 Baso % (Auto) 0.7 % (0.2-1.0) 06/12/18 05:33 Neut # (Auto) 6.9 x10^3/uL (2.2-4.8) H 06/12/18 05:33 Lymph # (Auto) 2.2 X10^3/uL (1.3-2.9) 06/12/18 05:33 [place] # (Auto) 0.6 x10^3/uL (0.3-0.8) 06/12/18 05:33 Eos # (Auto) 0.3 x10^3/uL (0.0-0.2) H 06/12/18 05:33 Baso # (Auto) 0.1 X10^3/uL (0.0-0.1) 06/12/18 05:33 Absolute Nucleated RBC 0.0 /100WBC 06/12/18 05:33 ESR 98 MM/HOUR (0-15) H 06/08/18 14:37 Sodium 140 mmol/L (136-145) 06/12/18 05:33 Corrected Sodium 142 mmol/L (136-145) 06/12/18 05:33 Potassium 4.4 mmol/L (3.5-5.1) 06/12/18 05:33 Chloride 103 mmol/L (98-107) 06/12/18 05:33 Carbon Dioxide 27.7 mmol/L (21-32) 06/12/18 05:33 BUN 11 mg/dL (7-18) 06/12/18 05:33 Creatinine 1.10 mg/dL (0.70-1.30) 06/12/18 05:33 Est GFR (MDRD) Af Amer > 60 (>60) 06/12/18 05:33 Est GFR (MDRD) Non-Af > 60 (>60) 06/12/18 05:33 Glucose 175 mg/dL (65-99) H 06/12/18 05:33 POC Glucose (mg/dL) 170 mg/dL (65-99) H 06/12/18 05:38 Uric Acid 4.7 mg/dL (3.5-7.2) 06/09/18 17:29 Calcium 8.6 mg/dL (8.5-10.1) 06/12/18 05:33 Corrected Calcium 9.8 mg/dL (8.5-10.1) 06/12/18 05:33 Total Bilirubin 0.20 mg/dL (0.2-1.0) 06/12/18 05:33 AST 14 Units/L (15-37) L 06/12/18 05:33 ALT 19 Units/L (12-78) 06/12/18 05:33 Alkaline Phosphatase 107 Units/L (46-116) 06/12/18 05:33 C-Reactive Protein 128.80 mg/L (0-3.0) H 06/08/18 14:37 Total Protein 8.0 g/dL (6.4-8.2) 06/12/18 05:33 Albumin 2.5 g/dL (3.4-5.0) L 06/12/18 05:33 Globulin 5.5 g/dL (2.5-4.5) H 06/12/18 05:33 Albumin/Globulin Ratio 0.5 Ratio (1.1-2.1) L 06/12/18 05:33 Specimen Type Clean catch urine 06/08/18 19:03 Urine Color Yellow (YELLOW) 06/08/18 19:03 Urine Appearance Hazy (CLEAR) 06/08/18 19:03 Urine pH 6.5 (5.0 - 8.0) 06/08/18 19:03 Ur Specific [place] 1.010 (1.000-1.030) 06/08/18 19:03 Urine Protein 2+ (NEGATIVE) 06/08/18 19:03 Urine Glucose (UA) Negative (NEGATIVE) 06/08/18 19:03 Urine Ketones Negative (NEGATIVE) 06/08/18 19:03 Urine Occult Blood 4+ (NEGATIVE) 06/08/18 19:03 Urine Nitrite Negative (NEGATIVE) 06/08/18 19:03 Urine Bilirubin Negative (NEGATIVE) 06/08/18 19:03 Urine Urobilinogen Normal (NORMAL) 06/08/18 19:03 Ur Leukocyte Esterase 3+ (NEGATIVE) 06/08/18 19:03 Urine RBC 5-10 /HPF (NONE SEEN) 06/08/18 19:03 Urine WBC 30-50 /HPF (NONE SEEN) 06/08/18 19:03 Ur Squamous Epith Cells Rare /HPF (NEGATIVE) 06/08/18 19:03 Urine Bacteria 2+ /HPF (NEGATIVE) 06/08/18 19:03 Urine Yeast Moderate /HPF (NEGATIVE) 06/08/18 19:03 Ur Culture Indicated? Yes/culture set up 06/08/18 19:03 Vancomycin Trough 14.6 ug/mL (15-20) L 06/12/18 05:33 - Assessment and Plan 1: abscess with cellulitis Rt elbow . DM.. same local care , IV ATB pending final C&S and Diabetic control..
--- NOTE | 2018-06-12 13:57 | PCM.PROG ---
Progress Note - Progress Note for Day of Date of Exam: 06/11/18 - Subjective Subjective: 57 BM ADMITTED ON 06/08 WITH RIGHT ELBOW CELLULITIS. PT CURRENTLY ON IV VANCOMYCIN, CT SUGGESTS ABSCESS FORMATION, CONSULTED DR PIKCERING FOR I & D ON 06/10. CULTURE PENDING PT CURRENTLY ON PO PAIN CONTROL, WILL REPEAT AM LABS, CONTINUE BS CONTROL - Past Medical Family Social History Past Med/Fam/Surg Hx: No changes since H&P Allergies: Allergies No Known Drug Allergies Allergy (Verified 06/07/18 15:20) - Review of Systems ROS: No change since H&P - Vital Signs and I&O's Vital Signs: Temperature 97.7 F Pulse Rate [Left Brachial] 79 Respiratory Rate 18 Blood Pressure [Left Arm] 134/68 Blood Pressure [Right Arm] 127/77 Blood Pressure 139/77 O2 Sat by Pulse Oximetry 94 Intake and Output: Intake & Output 06/10/18 06/11/18 06/12/18 06/13/18 11:59 11:59 11:59 11:59 Intake Total 2455 / 2455 910 / 910 1920 / 1920 Output Total 2500 / 2500 2024 / 2024 2475 / 2475 Balance -45 / -45 -1115 / -1115 -555 / -555 - Physical Exam Oriented: Normal Eyes: Blurred Vision (CHRONIC BLINDNESS) Ear: Normal Nose: Normal Throat: Normal Respiratory: Diminished Cardiovascular: Normal : Normal Auscultation: Bowel Sounds: Normal Tenderness: Normal Skin: Red (moderate erythema to Rt elbow and mild cellulitis ..distal pulses + ), Tender, Hot Musculoskeletal: Right, Elbow, Swelling, Tender, Deformity Psychiatric: Anxiety Affect: Anxious Speech Pattern: Delayed - Laboratory and Diagnostics Result Diagrams: 06/12/18 05:33 06/12/18 05:33 Labs: 06/10/18 13:29 Surgery Gram Stain - Final 06/10/18 13:29 Surgery Wound Culture - Preliminary 06/08/18 15:09 Blood Blood Culture - Preliminary 06/08/18 14:37 Blood Blood Culture - Preliminary 06/08/18 19:03 Urine,Clean Catch Urine Culture - Final Laboratory WBC 10.0 X10^3/uL (3.6-10.0) 06/12/18 05:33 RBC 3.63 X10^6/uL (4.7-6.0) L 06/12/18 05:33 Hgb 10.0 g/dL (13.5-18.0) L 06/12/18 05:33 Hct 29.8 % (42.0-54.0) L 06/12/18 05:33 MCV 82.2 fL (80.0-100.0) 06/12/18 05:33 MCH 27.7 pg (27.0-34.0) 06/12/18 05:33 MCHC 33.6 g/dL (33.0-35.0) 06/12/18 05:33 RDW 14.3 % (11.6-16.5) 06/12/18 05:33 Plt Count 423 X10^3/uL (150.0-450.0) 06/12/18 05:33 MPV 7.8 fL (7.4-11.0) 06/12/18 05:33 Neut % (Auto) 68.6 % (42.0-75.0) 06/12/18 05:33 Lymph % (Auto) 21.8 % (21.0-51.0) 06/12/18 05:33 [place] % (Auto) 6.2 % (0.0-13.0) 06/12/18 05:33 Eos % (Auto) 2.7 % (0.9-2.9) 06/12/18 05:33 Baso % (Auto) 0.7 % (0.2-1.0) 06/12/18 05:33 Neut # (Auto) 6.9 x10^3/uL (2.2-4.8) H 06/12/18 05:33 Lymph # (Auto) 2.2 X10^3/uL (1.3-2.9) 06/12/18 05:33 [place] # (Auto) 0.6 x10^3/uL (0.3-0.8) 06/12/18 05:33 Eos # (Auto) 0.3 x10^3/uL (0.0-0.2) H 06/12/18 05:33 Baso # (Auto) 0.1 X10^3/uL (0.0-0.1) 06/12/18 05:33 Absolute Nucleated RBC 0.0 /100WBC 06/12/18 05:33 ESR 98 MM/HOUR (0-15) H 06/08/18 14:37 Sodium 140 mmol/L (136-145) 06/12/18 05:33 Corrected Sodium 142 mmol/L (136-145) 06/12/18 05:33 Potassium 4.4 mmol/L (3.5-5.1) 06/12/18 05:33 Chloride 103 mmol/L (98-107) 06/12/18 05:33 Carbon Dioxide 27.7 mmol/L (21-32) 06/12/18 05:33 BUN 11 mg/dL (7-18) 06/12/18 05:33 Creatinine 1.10 mg/dL (0.70-1.30) 06/12/18 05:33 Est GFR (MDRD) Af Amer > 60 (>60) 06/12/18 05:33 Est GFR (MDRD) Non-Af > 60 (>60) 06/12/18 05:33 Glucose 175 mg/dL (65-99) H 06/12/18 05:33 POC Glucose (mg/dL) 291 mg/dL (65-99) H 06/12/18 11:42 Uric Acid 4.7 mg/dL (3.5-7.2) 06/09/18 17:29 Calcium 8.6 mg/dL (8.5-10.1) 06/12/18 05:33 Corrected Calcium 9.8 mg/dL (8.5-10.1) 06/12/18 05:33 Total Bilirubin 0.20 mg/dL (0.2-1.0) 06/12/18 05:33 AST 14 Units/L (15-37) L 06/12/18 05:33 ALT 19 Units/L (12-78) 06/12/18 05:33 Alkaline Phosphatase 107 Units/L (46-116) 06/12/18 05:33 C-Reactive Protein 128.80 mg/L (0-3.0) H 06/08/18 14:37 Total Protein 8.0 g/dL (6.4-8.2) 06/12/18 05:33 Albumin 2.5 g/dL (3.4-5.0) L 06/12/18 05:33 Globulin 5.5 g/dL (2.5-4.5) H 06/12/18 05:33 Albumin/Globulin Ratio 0.5 Ratio (1.1-2.1) L 06/12/18 05:33 Specimen Type Clean catch urine 06/08/18 19:03 Urine Color Yellow (YELLOW) 06/08/18 19:03 Urine Appearance Hazy (CLEAR) 06/08/18 19:03 Urine pH 6.5 (5.0 - 8.0) 06/08/18 19:03 Ur Specific [place] 1.010 (1.000-1.030) 06/08/18 19:03 Urine Protein 2+ (NEGATIVE) 06/08/18 19:03 Urine Glucose (UA) Negative (NEGATIVE) 06/08/18 19: Urine Ketones Negative (NEGATIVE) 06/08/18 19: Urine Occult Blood 4+ (NEGATIVE) 06/08/18 19:03 Urine Nitrite Negative (NEGATIVE) 06/08/18 19:03 Urine Bilirubin Negative (NEGATIVE) 06/08/18 19: Urine Urobilinogen Normal (NORMAL) 06/08/18 19:03 Ur Leukocyte Esterase 3+ (NEGATIVE) 06/08/18 19:03 Urine RBC 5-10 /HPF (NONE SEEN) 06/08/18 19:03 Urine WBC 30-50 /HPF (NONE SEEN) 06/08/18 19:03 Ur Squamous Epith Cells Rare /HPF (NEGATIVE) 06/08/18 19:03 Urine Bacteria 2+ /HPF (NEGATIVE) 06/08/18 19:03 Urine Yeast Moderate /HPF (NEGATIVE) 06/08/18 19:03 Ur Culture Indicated? Yes/culture set up 06/08/18 19: Vancomycin Trough 14.6 ug/mL (15-20) L 06/12/18 05:33 - Plan (1) Cellulitis Status: Acute Plan: BLOOD CULTURES ON ADMISSION. IV VANCOMYCIN, BP AND BLOOD SUGAR CONTROL. SSI, CT RIGHT ELBOW ON ADMISSION, POST OP WOUND CARE (2) Joint effusion of elbow Status: Acute Qualifiers: Laterality: right Qualified Code(s): M25.421 - Effusion, right elbow (3) Diabetes Status: Acute (4) Hypertension Status: Acute
--- NOTE | 2018-06-12 13:59 | PCM.PROG ---
Progress Note - Progress Note for Day of Date of Exam: 06/12/18 - Subjective Subjective: 57 BM ADMITTED ON 06/08 WITH RIGHT ELBOW CELLULITIS. PT CURRENTLY ON IV VANCOMYCIN, CT SUGGESTS ABSCESS FORMATION, CONSULTED DR PICKERING FOR I & D ON 06/10. CULTURE +MRSA. PT CURRENTLY ON PO PAIN CONTROL, WILL REPEAT AM LABS, CONTINUE BS CONTROL - Past Medical Family Social History Past Med/Fam/Surg Hx: No changes since H&P Allergies: Allergies No Known Drug Allergies Allergy (Verified 06/07/18 15:20) - Review of Systems ROS: No change since H&P - Vital Signs and I&O's Vital Signs: Temperature 97.7 F Pulse Rate [Left Brachial] 79 Respiratory Rate 18 Blood Pressure [Left Arm] 134/68 Blood Pressure [Right Arm] 127/77 Blood Pressure 139/77 O2 Sat by Pulse Oximetry 94 Intake and Output: Intake & Output 06/10/18 06/11/18 06/12/18 06/13/18 11:59 11:59 11:59 11:59 Intake Total 2455 / 2455 910 / 910 1920 / 1920 Output Total 2500 / 2500 2024 / 2024 2475 / 2475 Balance -45 / -45 -1115 / -1115 -555 / -555 - Physical Exam Oriented: Normal Eyes: Blurred Vision (CHRONIC BLINDNESS) Ear: Normal Nose: Normal Throat: Normal Respiratory: Diminished Cardiovascular: Normal : Normal Auscultation: Bowel Sounds: Normal Tenderness: Normal Skin: Red (moderate erythema to Rt elbow and mild cellulitis ..distal pulses + ), Tender, Hot Musculoskeletal: Right, Elbow, Swelling, Tender, Deformity Psychiatric: Anxiety Affect: Anxious Speech Pattern: Delayed - Laboratory and Diagnostics Result Diagrams: 06/12/18 05:33 06/12/18 05:33 Labs: 06/10/18 13:29 Surgery Gram Stain - Final 06/10/18 13:29 Surgery Wound Culture - Preliminary 06/08/18 15:09 Blood Blood Culture - Preliminary 06/08/18 14:37 Blood Blood Culture - Preliminary 06/08/18 19:03 Urine,Clean Catch Urine Culture - Final Laboratory WBC 10.0 X10^3/uL (3.6-10.0) 06/12/18 05:33 RBC 3.63 X10^6/uL (4.7-6.0) L 06/12/18 05:33 Hgb 10.0 g/dL (13.5-18.0) L 06/12/18 05:33 Hct 29.8 % (42.0-54.0) L 06/12/18 05:33 MCV 82.2 fL (80.0-100.0) 06/12/18 05:33 MCH 27.7 pg (27.0-34.0) 06/12/18 05:33 MCHC 33.6 g/dL (33.0-35.0) 06/12/18 05:33 RDW 14.3 % (11.6-16.5) 06/12/18 05:33 Plt Count 423 X10^3/uL (150.0-450.0) 06/12/18 05:33 MPV 7.8 fL (7.4-11.0) 06/12/18 05:33 Neut % (Auto) 68.6 % (42.0-75.0) 06/12/18 05:33 Lymph % (Auto) 21.8 % (21.0-51.0) 06/12/18 05:33 [place] % (Auto) 6.2 % (0.0-13.0) 06/12/18 05:33 Eos % (Auto) 2.7 % (0.9-2.9) 06/12/18 05:33 Baso % (Auto) 0.7 % (0.2-1.0) 06/12/18 05:33 Neut # (Auto) 6.9 x10^3/uL (2.2-4.8) H 06/12/18 05:33 Lymph # (Auto) 2.2 X10^3/uL (1.3-2.9) 06/12/18 05:33 [place] # (Auto) 0.6 x10^3/uL (0.3-0.8) 06/12/18 05:33 Eos # (Auto) 0.3 x10^3/uL (0.0-0.2) H 06/12/18 05:33 Baso # (Auto) 0.1 X10^3/uL (0.0-0.1) 06/12/18 05:33 Absolute Nucleated RBC 0.0 /100WBC 06/12/18 05:33 ESR 98 MM/HOUR (0-15) H 06/08/18 14:37 Sodium 140 mmol/L (136-145) 06/12/18 05:33 Corrected Sodium 142 mmol/L (136-145) 06/12/18 05:33 Potassium 4.4 mmol/L (3.5-5.1) 06/12/18 05:33 Chloride 103 mmol/L (98-107) 06/12/18 05:33 Carbon Dioxide 27.7 mmol/L (21-32) 06/12/18 05:33 BUN 11 mg/dL (7-18) 06/12/18 05:33 Creatinine 1.10 mg/dL (0.70-1.30) 06/12/18 05:33 Est GFR (MDRD) Af Amer > 60 (>60) 06/12/18 05:33 Est GFR (MDRD) Non-Af > 60 (>60) 06/12/18 05:33 Glucose 175 mg/dL (65-99) H 06/12/18 05:33 POC Glucose (mg/dL) 291 mg/dL (65-99) H 06/12/18 11:42 Uric Acid 4.7 mg/dL (3.5-7.2) 06/09/18 17:29 Calcium 8.6 mg/dL (8.5-10.1) 06/12/18 05:33 Corrected Calcium 9.8 mg/dL (8.5-10.1) 06/12/18 05:33 Total Bilirubin 0.20 mg/dL (0.2-1.0) 06/12/18 05:33 AST 14 Units/L (15-37) L 06/12/18 05:33 ALT 19 Units/L (12-78) 06/12/18 05:33 Alkaline Phosphatase 107 Units/L (46-116) 06/12/18 05:33 C-Reactive Protein 128.80 mg/L (0-3.0) H 06/08/18 14:37 Total Protein 8.0 g/dL (6.4-8.2) 06/12/18 05:33 Albumin 2.5 g/dL (3.4-5.0) L 06/12/18 05:33 Globulin 5.5 g/dL (2.5-4.5) H 06/12/18 05:33 Albumin/Globulin Ratio 0.5 Ratio (1.1-2.1) L 06/12/18 05:33 Specimen Type Clean catch urine 06/08/18 19:03 Urine Color Yellow (YELLOW) 06/08/18 19: Urine Appearance Hazy (CLEAR) 06/08/18 19:03 Urine pH 6.5 (5.0 - 8.0) 06/08/18 19:03 Ur Specific [place] 1.010 (1.000-1.030) 06/08/18 19:03 Urine Protein 2+ (NEGATIVE) 06/08/18 19: Urine Glucose (UA) Negative (NEGATIVE) 06/08/18 19: Urine Ketones Negative (NEGATIVE) 06/08/18 19: Urine Occult Blood 4+ (NEGATIVE) 06/08/18 19: Urine Nitrite Negative (NEGATIVE) 06/08/18 19: Urine Bilirubin Negative (NEGATIVE) 06/08/18 19: Urine Urobilinogen Normal (NORMAL) 06/08/18 19: Ur Leukocyte Esterase 3+ (NEGATIVE) 06/08/18 19:03 Urine RBC 5-10 /HPF (NONE SEEN) 06/08/18 19:03 Urine WBC 30-50 /HPF (NONE SEEN) 06/08/18 19:03 Ur Squamous Epith Cells Rare /HPF (NEGATIVE) 06/08/18 19:03 Urine Bacteria 2+ /HPF (NEGATIVE) 06/08/18 19:03 Urine Yeast Moderate /HPF (NEGATIVE) 06/08/18 19:03 Ur Culture Indicated? Yes/culture set up 06/08/18 19: Vancomycin Trough 14.6 ug/mL (15-20) L 06/12/18 05:33 - Plan (1) Cellulitis Status: Acute Plan: BLOOD CULTURES ON ADMISSION. IV VANCOMYCIN, BP AND BLOOD SUGAR CONTROL. SSI, CT RIGHT ELBOW ON ADMISSION, POST OP WOUND CARE. MRSA POSITIVE WOUND CULTURE, CONTRACT PRECAUTIONS (2) Joint effusion of elbow Status: Acute Qualifiers: Laterality: right Qualified Code(s): M25.421 - Effusion, right elbow (3) Diabetes Status: Acute (4) Hypertension Status: Acute
[2018-06-12] MEDS: DIFLUCAN PO SCH (15:17)
[2018-06-12] MEDS: COLACE CAP 100 MG PO SCH (20:45)
[2018-06-12] MEDS: SNACK - Diabetic Appropriate PO SCH ×2 (21:00→23:13)
[2018-06-13 06:36] LABS: BASOPHILS # (AUTO) 0.1 X10^3/uL (0.0-0.1); BASOPHILS % (AUTO) 0.6 % (0.2-1.0); EOSINOPHILS # (AUTO) 0.3 x10^3/uL (0.0-0.2); EOSINOPHILS % (AUTO) 2.4 % (0.9-2.9); HEMOGLOBIN 9.7 g/dL (13.5-18.0); LYMPHOCYTES # (AUTO) 3.1 X10^3/uL (1.3-2.9); LYMPHOCYTES % (AUTO) 29.4 % (21.0-51.0); MEAN CORPUSCULAR HEMOGLOBIN 27.3 pg (27.0-34.0); MEAN CORPUSCULAR HGB CONC 33.5 g/dL (33.0-35.0); MEAN CORPUSCULAR VOLUME 81.5 fL (80.0-100.0); MEAN PLATELET VOLUME 7.9 fL (7.4-11.0); MONOCYTES # (AUTO) 0.7 x10^3/uL (0.3-0.8); MONOCYTES % (AUTO) 6.6 % (0.0-13.0); NEUTROPHILS # (AUTO) 6.5 x10^3/uL (2.2-4.8); PLATELET COUNT 427 X10^3/uL (150.0-450.0); RED BLOOD COUNT 3.56 X10^6/uL (4.7-6.0); RED CELL DISTRIBUTION WIDTH 14.3 % (11.6-16.5); WHITE BLOOD COUNT 10.6 X10^3/uL (3.6-10.0)
[2018-06-13] MEDS: NS 1000 ML 1,000 ML IV SCH ×2 (07:01→19:30)
[2018-06-13] MEDS: HumuLIN R SUBCUT PRN ×2 (07:01→17:27)
[2018-06-13 07:06] LABS: ALANINE AMINOTRANSFERASE 22 Units/L (12-78); ALBUMIN 2.5 g/dL (3.4-5.0); ALKALINE PHOSPHATASE 112 Units/L (46-116); ASPARTATE AMINO TRANSFERASE 16 Units/L (15-37); BLOOD UREA NITROGEN 11 mg/dL (7-18); CALCIUM 8.7 mg/dL (8.5-10.1); CARBON DIOXIDE 28.8 mmol/L (21-32); CHLORIDE 103 mmol/L (98-107); COR CA(FOR HYPOALB) 9.9 mg/dL (8.5-10.1); COR NA(FOR HYPERGLY) 144 mmol/L (136-145); CREATININE 1.03 mg/dL (0.70-1.30); SODIUM 141 mmol/L (136-145); eGFR NON BLACK RACES > 60 (>60)
[2018-06-13] MEDS: PEPCID 20 MG IV PREMIX* 20 MG/50 ML BAG IV SCH (09:56)
[2018-06-13] MEDS: VANCOMYCIN 1 GRAM PREMIX (ADDVANTAGE) 250 ML IV SCH ×2 (09:56→22:17)
[2018-06-13] MEDS: ASPIRIN EC 81 MG PO SCH (09:57)
[2018-06-13] MEDS: GLUCOTROL XL PO SCH (09:57)
[2018-06-13] MEDS: ZOCOR TAB 20 MG PO SCH (09:57)
[2018-06-13] MEDS: DIFLUCAN PO SCH (09:57)
[2018-06-13] MEDS: LEVEMIR SC SCH ×2 (13:59→22:16)
[2018-06-13 19:30] LABS: CREATININE 1.1 mg/dL (0.70-1.30); VANCOMYCIN,TROUGH 14.1 ug/mL (15-20)
[2018-06-13] MEDS: SNACK - Diabetic Appropriate PO SCH (22:17)
[2018-06-13] MEDS: COLACE CAP 100 MG PO SCH (22:17)
[2018-06-14 06:24] LABS: BASOPHILS # (AUTO) 0.1 X10^3/uL (0.0-0.1); BASOPHILS % (AUTO) 0.6 % (0.2-1.0); EOSINOPHILS # (AUTO) 0.2 x10^3/uL (0.0-0.2); EOSINOPHILS % (AUTO) 2.5 % (0.9-2.9); HEMATOCRIT 28.7 % (42.0-54.0); HEMOGLOBIN 9.9 g/dL (13.5-18.0); LYMPHOCYTES # (AUTO) 2.4 X10^3/uL (1.3-2.9); LYMPHOCYTES % (AUTO) 26.5 % (21.0-51.0); MEAN CORPUSCULAR HEMOGLOBIN 27.8 pg (27.0-34.0); MEAN CORPUSCULAR HGB CONC 34.5 g/dL (33.0-35.0); MEAN CORPUSCULAR VOLUME 80.5 fL (80.0-100.0); MEAN PLATELET VOLUME 7.6 fL (7.4-11.0); MONOCYTES # (AUTO) 0.5 x10^3/uL (0.3-0.8); MONOCYTES % (AUTO) 5.7 % (0.0-13.0); NEUTROPHILS # (AUTO) 5.9 x10^3/uL (2.2-4.8); NEUTROPHILS % (AUTO) 64.7 % (42.0-75.0); PLATELET COUNT 449 X10^3/uL (150.0-450.0); RED BLOOD COUNT 3.56 X10^6/uL (4.7-6.0); RED CELL DISTRIBUTION WIDTH 14.3 % (11.6-16.5)
[2018-06-14 06:41] LABS: ASPARTATE AMINO TRANSFERASE 15 Units/L (15-37); CHLORIDE 103 mmol/L (98-107); TOTAL PROTEIN 8.1 g/dL (6.4-8.2); eGFR NON BLACK RACES > 60 (>60)
[2018-06-14] MEDS: NS 1000 ML 1,000 ML IV SCH ×3 (06:53→17:01)
[2018-06-14 07:06] LABS: ALANINE AMINOTRANSFERASE 22 Units/L (12-78); ALBUMIN 2.6 g/dL (3.4-5.0); ALKALINE PHOSPHATASE 99 Units/L (46-116); BLOOD UREA NITROGEN 12 mg/dL (7-18); CALCIUM 8.8 mg/dL (8.5-10.1); CARBON DIOXIDE 26.4 mmol/L (21-32); COR CA(FOR HYPOALB) 9.9 mg/dL (8.5-10.1); COR NA(FOR HYPERGLY) 141 mmol/L (136-145); CREATININE 1.12 mg/dL (0.70-1.30); SODIUM 140 mmol/L (136-145)
[2018-06-14] MEDS: PEPCID 20 MG IV PREMIX* 20 MG/50 ML BAG IV SCH (08:08)
[2018-06-14] MEDS: DIFLUCAN PO SCH (08:10)
[2018-06-14] MEDS: GLUCOTROL XL PO SCH (08:10)
[2018-06-14] MEDS: VANCOMYCIN 1 GRAM PREMIX (ADDVANTAGE) 250 ML IV SCH ×2 (08:10→21:27)
[2018-06-14] MEDS: ASPIRIN EC 81 MG PO SCH (08:10)
[2018-06-14] MEDS: LEVEMIR SC SCH ×2 (08:11→21:27)
[2018-06-14] MEDS: ZOCOR TAB 20 MG PO SCH (08:11)
--- NOTE | 2018-06-14 19:04 | PCM.PROG ---
Progress Note - Progress Note for Day of Date of Exam: 06/13/18 - Subjective Subjective: 57 BM ADMITTED ON 06/08 WITH RIGHT ELBOW CELLULITIS. HE CONTINUES WITH EDEMA AND WARMTH TO THE RIGHT ELBOW TODAY. CT SUGGESTS ABSCESS FORMATION. I&D. CULTURES +MRSA. BLOOD GLUCOSE HAS BEEN ELEVATED, RUNNING IN THE HIGH 200S. PT CURRENTLY ON VANCOMYCIN 1GM IV Q12H, PO PAIN CONTROL. WE WILL ADD LEVEMIR 10 UNITS SC BID. OTHERWISE, WE WILL REPEAT AM LABS AND CONTINUE TO MONITOR - Past Medical Family Social History Past Med/Fam/Surg Hx: No changes since H&P Allergies: Allergies No Known Drug Allergies Allergy (Verified 06/07/18 15:20) - Review of Systems ROS: No change since H&P - Vital Signs and I&O's Vital Signs: Temperature 98.6 F Pulse Rate [Left Brachial] 83 Respiratory Rate 20 Blood Pressure [Left Arm] 153/70 Blood Pressure [Right Arm] 127/77 Blood Pressure 139/77 O2 Sat by Pulse Oximetry 99 Intake and Output: Intake & Output 06/12/18 06/13/18 06/14/18 06/15/18 11:59 11:59 11:59 11:59 Intake Total 1920 / 1920 1300 / 1300 2820 / 2820 700 / 700 Output Total 2475 / 2475 1025 / 1025 3575 / 3575 Balance -555 / -555 275 / 275 -755 / -755 700 / 700 - Physical Exam Oriented: Normal Eyes: Blurred Vision (CHRONIC BLINDNESS) Ear: Normal Nose: Normal Throat: Normal Respiratory: Diminished Cardiovascular: Normal : Normal Auscultation: Bowel Sounds: Normal Palpation: Normal Tenderness: Normal Skin: Red (moderate erythema to Rt elbow and mild cellulitis ..distal pulses + ), Tender, Hot Musculoskeletal: Right, Elbow, Swelling, Tender, Deformity Psychiatric: Anxiety Affect: Anxious Speech Pattern: Delayed - Laboratory and Diagnostics Result Diagrams: 06/14/18 06:08 06/14/18 06:08 Labs: 06/08/18 15:09 Blood Blood Culture - Final 06/08/18 14:37 Blood Blood Culture - Final 06/10/18 13:29 Surgery Gram Stain - Final 06/10/18 13:29 Surgery Wound Culture - Final Methicillin Resis Staph Aureus 06/08/18 19:03 Urine,Clean Catch Urine Culture - Final Laboratory WBC 9.0 X10^3/uL (3.6-10.0) 06/14/18 06:08 RBC 3.56 X10^6/uL (4.7-6.0) L 06/14/18 06:08 Hgb 9.9 g/dL (13.5-18.0) L 06/14/18 06:08 Hct 28.7 % (42.0-54.0) L 06/14/18 06:08 MCV 80.5 fL (80.0-100.0) 06/14/18 06:08 MCH 27.8 pg (27.0-34.0) 06/14/18 06:08 MCHC 34.5 g/dL (33.0-35.0) 06/14/18 06:08 RDW 14.3 % (11.6-16.5) 06/14/18 06:08 Plt Count 449 X10^3/uL (150.0-450.0) 06/14/18 06:08 MPV 7.6 fL (7.4-11.0) 06/14/18 06:08 Neut % (Auto) 64.7 % (42.0-75.0) 06/14/18 06:08 Lymph % (Auto) 26.5 % (21.0-51.0) 06/14/18 06:08 [place] % (Auto) 5.7 % (0.0-13.0) 06/14/18 06:08 Eos % (Auto) 2.5 % (0.9-2.9) 06/14/18 06:08 Baso % (Auto) 0.6 % (0.2-1.0) 06/14/18 06:08 Neut # (Auto) 5.9 x10^3/uL (2.2-4.8) H 06/14/18 06:08 Lymph # (Auto) 2.4 X10^3/uL (1.3-2.9) 06/14/18 06:08 [place] # (Auto) 0.5 x10^3/uL (0.3-0.8) 06/14/18 06:08 Eos # (Auto) 0.2 x10^3/uL (0.0-0.2) 06/14/18 06:08 Baso # (Auto) 0.1 X10^3/uL (0.0-0.1) 06/14/18 06:08 Absolute Nucleated RBC 0.0 /100WBC 06/14/18 06:08 ESR 98 MM/HOUR (0-15) H 06/08/18 14:37 Sodium 140 mmol/L (136-145) 06/14/18 06:08 Corrected Sodium 141 mmol/L (136-145) 06/14/18 06:08 Potassium 3.6 mmol/L (3.5-5.1) 06/14/18 06:08 Chloride 103 mmol/L (98-107) 06/14/18 06:08 Carbon Dioxide 26.4 mmol/L (21-32) 06/14/18 06:08 BUN 12 mg/dL (7-18) 06/14/18 06:08 Creatinine 1.12 mg/dL (0.70-1.30) 06/14/18 06:08 Est GFR (MDRD) Af Amer > 60 (>60) 06/14/18 06:08 Est GFR (MDRD) Non-Af > 60 (>60) 06/14/18 06:08 Glucose 155 mg/dL (65-99) H 06/14/18 06:08 POC Glucose (mg/dL) 219 mg/dL (65-99) H 06/14/18 16:39 Uric Acid 4.7 mg/dL (3.5-7.2) 06/09/18 17:29 Calcium 8.8 mg/dL (8.5-10.1) 06/14/18 06:08 Corrected Calcium 9.9 mg/dL (8.5-10.1) 06/14/18 06:08 Total Bilirubin 0.20 mg/dL (0.2-1.0) 06/14/18 06:08 AST 15 Units/L (15-37) 06/14/18 06:08 ALT 22 Units/L (12-78) 06/14/18 06:08 Alkaline Phosphatase 99 Units/L (46-116) 06/14/18 06:08 C-Reactive Protein 128.80 mg/L (0-3.0) H 06/08/18 14:37 Total Protein 8.1 g/dL (6.4-8.2) 06/14/18 06:08 Albumin 2.6 g/dL (3.4-5.0) L 06/14/18 06:08 Globulin 5.5 g/dL (2.5-4.5) H 06/14/18 06:08 Albumin/Globulin Ratio 0.5 Ratio (1.1-2.1) L 06/14/18 06:08 Specimen Type Clean catch urine 06/08/18 19:03 Urine Color Yellow (YELLOW) 06/08/18 19: Urine Appearance Hazy (CLEAR) 06/08/18 19:03 Urine pH 6.5 (5.0 - 8.0) 06/08/18 19:03 Ur Specific [place] 1.010 (1.000-1.030) 06/08/18 19:03 Urine Protein 2+ (NEGATIVE) 06/08/18 19:03 Urine Glucose (UA) Negative (NEGATIVE) 06/08/18 19:03 Urine Ketones Negative (NEGATIVE) 06/08/18 19:03 Urine Occult Blood 4+ (NEGATIVE) 06/08/18 19:03 Urine Nitrite Negative (NEGATIVE) 06/08/18 19:03 Urine Bilirubin Negative (NEGATIVE) 06/08/18 19:03 Urine Urobilinogen Normal (NORMAL) 06/08/18 19:03 Ur Leukocyte Esterase 3+ (NEGATIVE) 06/08/18 19:03 Urine RBC 5-10 /HPF (NONE SEEN) 06/08/18 19:03 Urine WBC 30-50 /HPF (NONE SEEN) 06/08/18 19:03 Ur Squamous Epith Cells Rare /HPF (NEGATIVE) 06/08/18 19:03 Urine Bacteria 2+ /HPF (NEGATIVE) 06/08/18 19:03 Urine Yeast Moderate /HPF (NEGATIVE) 06/08/18 19:03 Ur Culture Indicated? Yes/culture set up 06/08/18 19:03 Vancomycin Trough 14.1 ug/mL (15-20) L 06/13/18 19:10
--- NOTE | 2018-06-14 20:35 | DR.PROGNOT ---
Hospital Progress Notes - Progress Note for Day of: Progress Note Date: 06/14/18 - Chief Complaint Chief Complaint: minimal drainage from incision site . pain is less ,. last culture : MRSA - Past Medical Family Social History Past Med/Fam/Surg Hx: No changes since H&P Allergies: Allergies No Known Drug Allergies Allergy (Verified 06/07/18 15:20) - Review Of Systems ROS: No change since H&P - Vital Signs Vital Signs: Temperature 98.6 F Pulse Rate [Left Brachial] 83 Respiratory Rate 20 Blood Pressure [Left Arm] 153/70 Blood Pressure [Right Arm] 127/77 Blood Pressure 139/77 O2 Sat by Pulse Oximetry 99 - Physical Exam Oriented: Normal Eyes: Blurred Vision (CHRONIC BLINDNESS) Ear: Normal Nose: Normal Throat: Normal Respiratory: Diminished Cardiovascular: Normal : Normal GI:Auscultation: Normal GI:Palpation: Normal GI: Tenderness: Normal Skin: Red (moderate erythema to Rt elbow and mild cellulitis ..distal pulses + ), Tender, Hot Musculoskeletal: Right, Elbow, Swelling, Tender, Deformity Psychiatric: Anxiety Affect: Anxious Speech Pattern: Delayed - Laboratory and Diagnostics Result Diagrams: 06/14/18 06:08 06/14/18 06:08 Labs: 06/08/18 15:09 Blood Blood Culture - Final 06/08/18 14:37 Blood Blood Culture - Final 06/10/18 13:29 Surgery Gram Stain - Final 06/10/18 13:29 Surgery Wound Culture - Final Methicillin Resis Staph Aureus 06/08/18 19:03 Urine,Clean Catch Urine Culture - Final Laboratory WBC 9.0 X10^3/uL (3.6-10.0) 06/14/18 06:08 RBC 3.56 X10^6/uL (4.7-6.0) L 06/14/18 06:08 Hgb 9.9 g/dL (13.5-18.0) L 06/14/18 06:08 Hct 28.7 % (42.0-54.0) L 06/14/18 06:08 MCV 80.5 fL (80.0-100.0) 06/14/18 06:08 MCH 27.8 pg (27.0-34.0) 06/14/18 06:08 MCHC 34.5 g/dL (33.0-35.0) 06/14/18 06:08 RDW 14.3 % (11.6-16.5) 06/14/18 06:08 Plt Count 449 X10^3/uL (150.0-450.0) 06/14/18 06:08 MPV 7.6 fL (7.4-11.0) 06/14/18 06:08 Neut % (Auto) 64.7 % (42.0-75.0) 06/14/18 06:08 Lymph % (Auto) 26.5 % (21.0-51.0) 06/14/18 06:08 [place] % (Auto) 5.7 % (0.0-13.0) 06/14/18 06:08 Eos % (Auto) 2.5 % (0.9-2.9) 06/14/18 06:08 Baso % (Auto) 0.6 % (0.2-1.0) 06/14/18 06:08 Neut # (Auto) 5.9 x10^3/uL (2.2-4.8) H 06/14/18 06:08 Lymph # (Auto) 2.4 X10^3/uL (1.3-2.9) 06/14/18 06:08 [place] # (Auto) 0.5 x10^3/uL (0.3-0.8) 06/14/18 06:08 Eos # (Auto) 0.2 x10^3/uL (0.0-0.2) 06/14/18 06:08 Baso # (Auto) 0.1 X10^3/uL (0.0-0.1) 06/14/18 06:08 Absolute Nucleated RBC 0.0 /100WBC 06/14/18 06:08 ESR 98 MM/HOUR (0-15) H 06/08/18 14:37 Sodium 140 mmol/L (136-145) 06/14/18 06:08 Corrected Sodium 141 mmol/L (136-145) 06/14/18 06:08 Potassium 3.6 mmol/L (3.5-5.1) 06/14/18 06:08 Chloride 103 mmol/L (98-107) 06/14/18 06:08 Carbon Dioxide 26.4 mmol/L (21-32) 06/14/18 06:08 BUN 12 mg/dL (7-18) 06/14/18 06:08 Creatinine 1.12 mg/dL (0.70-1.30) 06/14/18 06:08 Est GFR (MDRD) Af Amer > 60 (>60) 06/14/18 06:08 Est GFR (MDRD) Non-Af > 60 (>60) 06/14/18 06:08 Glucose 155 mg/dL (65-99) H 06/14/18 06:08 POC Glucose (mg/dL) 222 mg/dL (65-99) H 06/14/18 20:11 Uric Acid 4.7 mg/dL (3.5-7.2) 06/09/18 17:29 Calcium 8.8 mg/dL (8.5-10.1) 06/14/18 06:08 Corrected Calcium 9.9 mg/dL (8.5-10.1) 06/14/18 06:08 Total Bilirubin 0.20 mg/dL (0.2-1.0) 06/14/18 06:08 AST 15 Units/L (15-37) 06/14/18 06:08 ALT 22 Units/L (12-78) 06/14/18 06:08 Alkaline Phosphatase 99 Units/L (46-116) 06/14/18 06:08 C-Reactive Protein 128.80 mg/L (0-3.0) H 06/08/18 14:37 Total Protein 8.1 g/dL (6.4-8.2) 06/14/18 06:08 Albumin 2.6 g/dL (3.4-5.0) L 06/14/18 06:08 Globulin 5.5 g/dL (2.5-4.5) H 06/14/18 06:08 Albumin/Globulin Ratio 0.5 Ratio (1.1-2.1) L 06/14/18 06:08 Specimen Type Clean catch urine 06/08/18 19:03 Urine Color Yellow (YELLOW) 06/08/18 19:03 Urine Appearance Hazy (CLEAR) 06/08/18 19:03 Urine pH 6.5 (5.0 - 8.0) 06/08/18 19:03 Ur Specific [place] 1.010 (1.000-1.030) 06/08/18 19:03 Urine Protein 2+ (NEGATIVE) 06/08/18 19:03 Urine Glucose (UA) Negative (NEGATIVE) 06/08/18 19:03 Urine Ketones Negative (NEGATIVE) 06/08/18 19:03 Urine Occult Blood 4+ (NEGATIVE) 06/08/18 19:03 Urine Nitrite Negative (NEGATIVE) 06/08/18 19:03 Urine Bilirubin Negative (NEGATIVE) 06/08/18 19:03 Urine Urobilinogen Normal (NORMAL) 06/08/18 19:03 Ur Leukocyte Esterase 3+ (NEGATIVE) 06/08/18 19:03 Urine RBC 5-10 /HPF (NONE SEEN) 06/08/18 19:03 Urine WBC 30-50 /HPF (NONE SEEN) 06/08/18 19:03 Ur Squamous Epith Cells Rare /HPF (NEGATIVE) 06/08/18 19:03 Urine Bacteria 2+ /HPF (NEGATIVE) 06/08/18 19:03 Urine Yeast Moderate /HPF (NEGATIVE) 06/08/18 19:03 Ur Culture Indicated? Yes/culture set up 06/08/18 19:03 Vancomycin Trough 14.1 ug/mL (15-20) L 06/13/18 19:10 - Assessment and Plan 1: abscess with cellulitis Rt elbow .s/p drainage.. DM.. same local care , IV ATB. could be discharged on clindamycin and will follow in the office ..
--- NOTE | 2018-06-14 20:54 | PCM.PROG ---
Progress Note - Progress Note for Day of Date of Exam: 06/14/18 - Subjective Subjective: 57 BM ADMITTED ON 06/08 WITH RIGHT ELBOW CELLULITIS. HE CONTINUES WITH EDEMA, ERYTHEMA, AND WARMTH TO THE RIGHT ELBOW TODAY. CT SUGGESTS ABSCESS FORMATION. I&D WAS PERFORMED BY ON THE DAY OF ADMISSION. CULTURES +MRSA. BLOOD GLUCOSE HAS BEEN IMPROVING SINCE ADDING THE LEVEMIR YESTERDAY. PT CURRENTLY ON VANCOMYCIN 1GM IV Q12H, PO PAIN CONTROL. TODAY, WE WILL CONTINUE WITH IV ANTIBIOTICS AND WOUND CARE. OTHERWISE, WE WILL REPEAT AM LABS AND CONTINUE TO MONITOR - Past Medical Family Social History Past Med/Fam/Surg Hx: No changes since H&P Allergies: Allergies No Known Drug Allergies Allergy (Verified 06/07/18 15:20) - Review of Systems ROS: No change since H&P - Vital Signs and I&O's Vital Signs: Temperature 98.6 F Pulse Rate [Left Brachial] 83 Respiratory Rate 20 Blood Pressure [Left Arm] 153/70 Blood Pressure [Right Arm] 127/77 Blood Pressure 139/77 O2 Sat by Pulse Oximetry 99 Intake and Output: Intake & Output 06/12/18 06/13/18 06/14/18 06/15/18 11:59 11:59 11:59 11:59 Intake Total 1920 / 1920 1300 / 1300 2820 / 2820 700 / 700 Output Total 2475 / 2475 1025 / 1025 3575 / 3575 Balance -555 / -555 275 / 275 -755 / -755 700 / 700 - Physical Exam Oriented: Normal Eyes: Blurred Vision (CHRONIC BLINDNESS) Ear: Normal Nose: Normal Throat: Normal Respiratory: Diminished Cardiovascular: Normal : Normal Auscultation: Bowel Sounds: Normal Tenderness: Normal Skin: Red (moderate erythema to Rt elbow and mild cellulitis ..distal pulses + ), Tender, Hot Musculoskeletal: Right, Elbow, Swelling, Tender, Deformity Psychiatric: Anxiety Affect: Anxious Speech Pattern: Delayed - Laboratory and Diagnostics Result Diagrams: 06/14/18 06:08 06/14/18 06:08 Labs: 06/08/18 15:09 Blood Blood Culture - Final 06/08/18 14:37 Blood Blood Culture - Final 06/10/18 13:29 Surgery Gram Stain - Final 06/10/18 13:29 Surgery Wound Culture - Final Methicillin Resis Staph Aureus 06/08/18 19:03 Urine,Clean Catch Urine Culture - Final Laboratory WBC 9.0 X10^3/uL (3.6-10.0) 06/14/18 06:08 RBC 3.56 X10^6/uL (4.7-6.0) L 06/14/18 06:08 Hgb 9.9 g/dL (13.5-18.0) L 06/14/18 06:08 Hct 28.7 % (42.0-54.0) L 06/14/18 06:08 MCV 80.5 fL (80.0-100.0) 06/14/18 06:08 MCH 27.8 pg (27.0-34.0) 06/14/18 06:08 MCHC 34.5 g/dL (33.0-35.0) 06/14/18 06:08 RDW 14.3 % (11.6-16.5) 06/14/18 06:08 Plt Count 449 X10^3/uL (150.0-450.0) 06/14/18 06:08 MPV 7.6 fL (7.4-11.0) 06/14/18 06:08 Neut % (Auto) 64.7 % (42.0-75.0) 06/14/18 06:08 Lymph % (Auto) 26.5 % (21.0-51.0) 06/14/18 06:08 [place] % (Auto) 5.7 % (0.0-13.0) 06/14/18 06:08 Eos % (Auto) 2.5 % (0.9-2.9) 06/14/18 06:08 Baso % (Auto) 0.6 % (0.2-1.0) 06/14/18 06:08 Neut # (Auto) 5.9 x10^3/uL (2.2-4.8) H 06/14/18 06:08 Lymph # (Auto) 2.4 X10^3/uL (1.3-2.9) 06/14/18 06:08 [place] # (Auto) 0.5 x10^3/uL (0.3-0.8) 06/14/18 06:08 Eos # (Auto) 0.2 x10^3/uL (0.0-0.2) 06/14/18 06:08 Baso # (Auto) 0.1 X10^3/uL (0.0-0.1) 06/14/18 06:08 Absolute Nucleated RBC 0.0 /100WBC 06/14/18 06:08 ESR 98 MM/HOUR (0-15) H 06/08/18 14:37 Sodium 140 mmol/L (136-145) 06/14/18 06:08 Corrected Sodium 141 mmol/L (136-145) 06/14/18 06:08 Potassium 3.6 mmol/L (3.5-5.1) 06/14/18 06:08 Chloride 103 mmol/L (98-107) 06/14/18 06:08 Carbon Dioxide 26.4 mmol/L (21-32) 06/14/18 06:08 BUN 12 mg/dL (7-18) 06/14/18 06:08 Creatinine 1.12 mg/dL (0.70-1.30) 06/14/18 06:08 Est GFR (MDRD) Af Amer > 60 (>60) 06/14/18 06:08 Est GFR (MDRD) Non-Af > 60 (>60) 06/14/18 06:08 Glucose 155 mg/dL (65-99) H 06/14/18 06:08 POC Glucose (mg/dL) 222 mg/dL (65-99) H 06/14/18 20:11 Uric Acid 4.7 mg/dL (3.5-7.2) 06/09/18 17:29 Calcium 8.8 mg/dL (8.5-10.1) 06/14/18 06:08 Corrected Calcium 9.9 mg/dL (8.5-10.1) 06/14/18 06:08 Total Bilirubin 0.20 mg/dL (0.2-1.0) 06/14/18 06:08 AST 15 Units/L (15-37) 06/14/18 06:08 ALT 22 Units/L (12-78) 06/14/18 06:08 Alkaline Phosphatase 99 Units/L (46-116) 06/14/18 06:08 C-Reactive Protein 128.80 mg/L (0-3.0) H 06/08/18 14:37 Total Protein 8.1 g/dL (6.4-8.2) 06/14/18 06:08 Albumin 2.6 g/dL (3.4-5.0) L 06/14/18 06:08 Globulin 5.5 g/dL (2.5-4.5) H 06/14/18 06:08 Albumin/Globulin Ratio 0.5 Ratio (1.1-2.1) L 06/14/18 06:08 Specimen Type Clean catch urine 06/08/18 19:03 Urine Color Yellow (YELLOW) 06/08/18 19:03 Urine Appearance Hazy (CLEAR) 06/08/18 19:03 Urine pH 6.5 (5.0 - 8.0) 06/08/18 19:03 Ur Specific [place] 1.010 (1.000-1.030) 06/08/18 19:03 Urine Protein 2+ (NEGATIVE) 06/08/18 19:03 Urine Glucose (UA) Negative (NEGATIVE) 06/08/18 19:03 Urine Ketones Negative (NEGATIVE) 06/08/18 19:03 Urine Occult Blood 4+ (NEGATIVE) 06/08/18 19:03 Urine Nitrite Negative (NEGATIVE) 06/08/18 19:03 Urine Bilirubin Negative (NEGATIVE) 06/08/18 19:03 Urine Urobilinogen Normal (NORMAL) 06/08/18 19:03 Ur Leukocyte Esterase 3+ (NEGATIVE) 06/08/18 19:03 Urine RBC 5-10 /HPF (NONE SEEN) 06/08/18 19:03 Urine WBC 30-50 /HPF (NONE SEEN) 06/08/18 19:03 Ur Squamous Epith Cells Rare /HPF (NEGATIVE) 06/08/18 19:03 Urine Bacteria 2+ /HPF (NEGATIVE) 06/08/18 19:03 Urine Yeast Moderate /HPF (NEGATIVE) 06/08/18 19:03 Ur Culture Indicated? Yes/culture set up 06/08/18 19:03 Vancomycin Trough 14.1 ug/mL (15-20) L 06/13/18 19:10
[2018-06-14] MEDS: COLACE CAP 100 MG PO SCH (21:27)
[2018-06-14] MEDS: SNACK - Diabetic Appropriate PO SCH (21:28)
[2018-06-15 06:16] LABS: BASOPHILS # (AUTO) 0.1 X10^3/uL (0.0-0.1); BASOPHILS % (AUTO) 0.6 % (0.2-1.0); EOSINOPHILS # (AUTO) 0.2 x10^3/uL (0.0-0.2); EOSINOPHILS % (AUTO) 2.1 % (0.9-2.9); HEMATOCRIT 28.8 % (42.0-54.0); HEMOGLOBIN 9.9 g/dL (13.5-18.0); LYMPHOCYTES # (AUTO) 2.1 X10^3/uL (1.3-2.9); LYMPHOCYTES % (AUTO) 23.1 % (21.0-51.0); MEAN CORPUSCULAR HEMOGLOBIN 27.5 pg (27.0-34.0); MEAN CORPUSCULAR HGB CONC 34.3 g/dL (33.0-35.0); MEAN CORPUSCULAR VOLUME 80.1 fL (80.0-100.0); MEAN PLATELET VOLUME 7.8 fL (7.4-11.0); MONOCYTES # (AUTO) 0.5 x10^3/uL (0.3-0.8); MONOCYTES % (AUTO) 5.3 % (0.0-13.0); NEUTROPHILS # (AUTO) 6.4 x10^3/uL (2.2-4.8); NEUTROPHILS % (AUTO) 68.9 % (42.0-75.0); PLATELET COUNT 470 X10^3/uL (150.0-450.0); RED CELL DISTRIBUTION WIDTH 14.3 % (11.6-16.5); WHITE BLOOD COUNT 9.2 X10^3/uL (3.6-10.0)
[2018-06-15 06:37] LABS: ALANINE AMINOTRANSFERASE 22 Units/L (12-78); ALBUMIN 2.6 g/dL (3.4-5.0); ALKALINE PHOSPHATASE 94 Units/L (46-116); ASPARTATE AMINO TRANSFERASE 16 Units/L (15-37); BLOOD UREA NITROGEN 13 mg/dL (7-18); CALCIUM 8.6 mg/dL (8.5-10.1); CARBON DIOXIDE 26.6 mmol/L (21-32); CHLORIDE 102 mmol/L (98-107); COR CA(FOR HYPOALB) 9.7 mg/dL (8.5-10.1); COR NA(FOR HYPERGLY) 141 mmol/L (136-145); CREATININE 0.96 mg/dL (0.70-1.30); SODIUM 140 mmol/L (136-145); TOTAL PROTEIN 7.9 g/dL (6.4-8.2); eGFR NON BLACK RACES > 60 (>60)
[2018-06-15] MEDS ORDERED: POTASSIUM CHL 60 MEQ/NS 0.45% 500 ML IV PRN (06:44)
[2018-06-15] MEDS ORDERED: POTASSIUM CHL 40 MEQ/NS 0.45% 500 ML IV PRN (06:44)
[2018-06-15] MEDS ORDERED: MICRO K EXTEN CAP 10 MEQ PO PRN (06:44)
[2018-06-15] MEDS ORDERED: K-RIDER 10 MEQ/NS 100 ML 10 MEQ/100 ML BAG IV PRN (06:44)
[2018-06-15] MEDS ORDERED: POTASSIUM CHLORIDE LIQ 20 MEQ UDC PO PRN (06:44)
[2018-06-15] MEDS ORDERED: K-DUR TAB 20 MEQ PO PRN (06:44)
[2018-06-15] MEDS ORDERED: KLOR-CON PO PRN (06:44)
[2018-06-15] MEDS ORDERED: MAGNESIUM SULFATE 1 GRAM/100 mL PREMIX 1 GM/100 ML BAG IV PRN (06:45)
[2018-06-15] MEDS: GLUCOTROL XL PO SCH (09:09)
[2018-06-15] MEDS: ZOCOR TAB 20 MG PO SCH (09:09)
[2018-06-15] MEDS: PEPCID 20 MG IV PREMIX* 20 MG/50 ML BAG IV SCH (09:09)
[2018-06-15] MEDS: DIFLUCAN PO SCH (09:09)
[2018-06-15] MEDS: ASPIRIN EC 81 MG PO SCH (09:10)
[2018-06-15] MEDS: LEVEMIR SC SCH (09:15)
--- NOTE | 2018-06-15 09:19 | RAD ---
Four views of the right elbow Indication: Right elbow pain with history of abscess. Comparison: Radiographs of the right elbow done June 07, 2018. Findings/conclusion: The right elbow shows no fracture, malalignment or joint effusion. There is no e vidence of septic arthritis. There is swelling over the olecranon bursa which could represent soft ti ssue fluid or hematoma. No soft tissue gas is seen. There is minimal degenerative changes at the radi al capitellar articulation. Reported By:
[2018-06-15] MEDS: VANCOMYCIN 1 GRAM PREMIX (ADDVANTAGE) 250 ML IV SCH (11:31)
[2018-06-15] MEDS: HumuLIN R SUBCUT PRN (11:44)
[2018-06-15 14:05] VITALS: BP 117/62
== END 2018-06-15 16:10 | disposition home or self-care (01) | DRG 603 ==
LOC: MED/SURG
PROVIDERS: ADMIT Internal Medicine; ATTEND Internal Medicine
DX: R79.82 Elevated C-reactive protein (CRP); M25.521 Pain in right elbow; J44.9 Chronic obstructive pulmonary disease, unspecified; R26.89 Other abnormalities of gait and mobility; M19.90 Unspecified osteoarthritis, unspecified site; I10 Essential (primary) hypertension; K21.9 Gastro-esophageal reflux disease without esophagitis; L03.113 Cellulitis of right upper limb; H54.7 Unspecified visual loss; I73.89 Other specified peripheral vascular diseases; M25.421 Effusion, right elbow; E11.65 Type 2 diabetes mellitus with hyperglycemia; L02.413 Cutaneous abscess of right upper limb; L08.0 Pyoderma; B95.62 Methicillin resistant Staphylococcus aureus infection as the cause of diseases classified elsewhere
CPT/HCPCS: 20610; 36415; 71010; 71045; 73070; 73200; 80053; 80202; 81001; 82565; 83735; 84550; 85025; 85652; 86140; 87040; 87070; 87075; 87077; 87086; 87186; 87205; 96365; 96372; 97110; 97163; 97166; 97530; 97535; 99282; 99283; A4222; S0028; G0378; J0696; J1815; J2175; J2250; J2704; J3010; J3370; J7030

== ENCOUNTER 2018-07-13 18:55 | Inpatient (IN) ==
--- NOTE | 2018-07-13 19:11 | DR.SEIZA ---
HPI Time Seen Time Seen by Provider: 07/13/18 19:08 HPI Comment HPI Comment: PATIENT HAD SEIZURE AT HOME. HISTORY OF SEIZURE IN THE PAST. NOT ON MEDICATION. HE IS A DIABETIC , GLUCOSE WAS 140. Complaints Chief Complaint Doctors Comments: SEIZURE. Reviewed Nurses Notes Reviewed: Yes Source History Provided: Family Member Mode of Arrival Mode of Arrival: EMS Duration Since Onset: Since Onset Duration: Minutes Quality Quality: Tonic-clonic Location Location: Generalized Context Prior to Seizure:: Normal During Seizure: LOC Immediately After Seizure: Confusion History of:: Seizure Disorder Medication Compliance: N/A Associated Signs and Symptoms Associated Signs and Symptoms:: None Other History Other History: HISTORY OF DM, CAD AND COPD. PMH PMH Past Medical History: Angina, Arthritis, COPD, Diabetes, GERD, Hypertension and Seizures Surgical History: Ortho Surgery Family History Family Medical History: Diabetes Mellitus and Cancer Social History Do you use any recreational Drugs:: No ROS Review of Systems Constitutional: Weakness and Fatigue Eyes: Photophobia and Other (LEGALLY BLIND.) ENTM: No Symptoms Reported Respiratoy: Short of Breath; negative Orthopnea Cardiovascular: No Symptoms Reported Gastrointestinal/Abdominal: No Symptoms Reported Genitourinary: No Symptoms Reported Neurological: No Symptoms Reported PE Vital Signs Vitals: Temperature 98.7 F Pulse Rate [Brachial] 89 Pulse Rate 109 Respiratory Rate 18 Blood Pressure [Left Arm] 117/62 Blood Pressure [Right Arm] 117/65 Blood Pressure 160/79 O2 Sat by Pulse Oximetry 100 General Limitations: Altered Mental Status General Appearance: Alert Head Head Exam: Atraumatic Head Exam Physical: Other (NONE REPORTED.) Eyes Eye exam: Other (LIGALLY BLIND.); negative Scleral Icterus and Conjunctival Injection ENT ENT Exam: Normal Exam Mouth Exam: Normal Inspection Neck Neck Exam: Normal Inspection Chest Chest Inspection: Symmetric Chest Wall Rise Respiratory Respiratory Exam: Normal Lung Sounds Bilat Respiratory Exam: Bilateral: Wheezing and Bilateral: Rhonchi and Lower: Wheezing and Lower: Rhonchi Cardiovascular Cardiovascular Exam: Regular Rate and Normal Rhythm Abdominal Exam Abdominal Exam: Normal Bowel Sounds and Soft; negative Tenderness Extremities Extremities Exam: Normal Inspection Back Back Exam: Normal Inspection Neurologic Neurological Exam: Other (CONFUSE, POST ICTAL.); negative Motor Sensory Deficit Patient Oriented To: Person; negative Place and Time Speech: negative Fluid Speech Cranial Nerve Exam: Gag reflex (XI): Normal Psychiatric Psychiatric Exam: Flat Affect Skin Skin Exam: Dry MDM Additional Information Obtained Additional Information Obtained From: Family Differential Diagnosis Seizure due to:: CVA/TIA, Hypoclacemia, Hypoglycemia, Hyponatremia, Hypoxemia and Mass lesion Differential Diagnosis Comment: UTI, PNEUMONIA, SEIZURE DISORDER. COURSE Treatment Treatment: SEE ORDERS. Consultation Consultation Comments: DISCUSS PATIENT WITH DR. SNYDER. HE WILL ADMIT PATIENT. Education/Counseling Education/Counseling: Patient and Family Educated On: Diagnosis ROR Labs Reviewed Laboratory Results Reviewed?: Yes Result Diagrams: 07/13/18 19:08 07/13/18 19:08 Laboratory: WBC 8.7 X10^3/uL (3.6-10.0) 07/13/18 19:08 RBC 4.23 X10^6/uL (4.7-6.0) L 07/13/18 19:08 Hgb 11.6 g/dL (13.5-18.0) L 07/13/18 19:08 Hct 34.3 % (42.0-54.0) L 07/13/18 19:08 MCV 81.0 fL (80.0-100.0) 07/13/18 19:08 MCH 27.4 pg (27.0-34.0) 07/13/18 19:08 MCHC 33.8 g/dL (33.0-35.0) 07/13/18 19:08 RDW 15.0 % (11.6-16.5) 07/13/18 19:08 Plt Count 266 X10^3/uL (150.0-450.0) 07/13/18 19:08 MPV 8.0 fL (7.4-11.0) 07/13/18 19:08 Neut % (Auto) 56.1 % (42.0-75.0) 07/13/18 19:08 Lymph % (Auto) 34.7 % (21.0-51.0) 07/13/18 19:08 [place] % (Auto) 6.4 % (0.0-13.0) 07/13/18 19:08 Eos % (Auto) 2.1 % (0.9-2.9) 07/13/18 19:08 Baso % (Auto) 0.7 % (0.2-1.0) 07/13/18 19:08 Neut # (Auto) 4.9 x10^3/uL (2.2-4.8) H 07/13/18 19:08 Lymph # (Auto) 3.0 X10^3/uL (1.3-2.9) H 07/13/18 19:08 [place] # (Auto) 0.6 x10^3/uL (0.3-0.8) 07/13/18 19:08 Eos # (Auto) 0.2 x10^3/uL (0.0-0.2) 07/13/18 19:08 Baso # (Auto) 0.1 X10^3/uL (0.0-0.1) 07/13/18 19:08 Absolute Nucleated RBC 0.0 /100WBC 07/13/18 19:08 Sodium 124 mmol/L (136-145) L* 07/13/18 19:08 Corrected Sodium 125 mmol/L (136-145) L 07/13/18 19:08 Potassium 3.3 mmol/L (3.5-5.1) L 07/13/18 19:08 Chloride 87 mmol/L (98-107) L 07/13/18 19:08 Carbon Dioxide 19.8 mmol/L (21-32) L 07/13/18 19:08 BUN 9 mg/dL (7-18) 07/13/18 19:08 Creatinine 0.95 mg/dL (0.70-1.30) 07/13/18 19:08 Est GFR (MDRD) Af Amer > 60 (>60) 07/13/18 19:08 Est GFR (MDRD) Non-Af > 60 (>60) 07/13/18 19:08 Glucose 134 mg/dL (65-99) H 07/13/18 19:08 Calcium 8.7 mg/dL (8.5-10.1) 07/13/18 19:08 Corrected Calcium TNP 07/13/18 19:08 Magnesium 1.7 mg/dL (1.7-2.9) 07/13/18 19:08 Total Bilirubin 0.30 mg/dL (0.2-1.0) 07/13/18 19:08 AST 14 Units/L (15-37) L 07/13/18 19:08 ALT 18 Units/L (12-78) 07/13/18 19:08 Alkaline Phosphatase 83 Units/L (46-116) 07/13/18 19:08 Total Protein 8.7 g/dL (6.4-8.2) H 07/13/18 19:08 Albumin 4.0 g/dL (3.4-5.0) 07/13/18 19:08 Globulin 4.7 g/dL (2.5-4.5) H 07/13/18 19:08 Albumin/Globulin Ratio 0.9 Ratio (1.1-2.1) L 07/13/18 19:08 Specimen Type Catherized urine 07/13/18 23:59 Urine Color Pale yellow (YELLOW) 07/13/18 23:59 Urine Appearance Clear (CLEAR) 07/13/18 23:59 Urine pH 7.0 (5.0 - 8.0) 07/13/18 23:59 Ur Specific [place] 1.000 (1.000-1.030) 07/13/18 23:59 Urine Protein 1+ (NEGATIVE) 07/13/18 23:59 Urine Glucose (UA) Negative (NEGATIVE) 07/13/18 23:59 Urine Ketones Negative (NEGATIVE) 07/13/18 23:59 Urine Occult Blood 3+ (NEGATIVE) 07/13/18 23:59 Urine Nitrite Negative (NEGATIVE) 07/13/18 23:59 Urine Bilirubin Negative (NEGATIVE) 07/13/18 23:59 Urine Urobilinogen Normal (NORMAL) 07/13/18 23:59 Ur Leukocyte Esterase 1+ (NEGATIVE) 07/13/18 23:59 Urine RBC 5-10 /HPF (NONE SEEN) 07/13/18 23:59 Urine WBC 0-2 /HPF (NONE SEEN) 07/13/18 23:59 Ur Squamous Epith Cells Rare /HPF (NEGATIVE) 07/13/18 23:59 Amorphous Sediment 1+ /HPF (NEGATIVE) 07/13/18 20:15 Urine Bacteria Negative /HPF (NEGATIVE) 07/13/18 23:59 Urine Yeast Moderate /HPF (NEGATIVE) 07/13/18 23:59 Ur Culture Indicated? Yes/culture set up 07/13/18 23:59 XRAY XRAY Interpreted by: Radiologist XRAY Findings: REPORT DISCUSS WITH FAMILY. Diagnosis Discharge Problem: Seizure, Acute hyponatremia Altered mental state Qualifiers: Altered mental status type: transient alteration of awareness Qualified Code(s): R40.4 - Transient alteration of awareness UTI (urinary tract infection) Qualifiers: Urinary tract infection type: site unspecified Hematuria presence: with hematuria Qualified Code(s): N39.0 - Urinary tract infection, site not specified
[2018-07-13 20:17] LABS: BASOPHILS # (AUTO) 0.1 X10^3/uL (0.0-0.1); BASOPHILS % (AUTO) 0.7 % (0.2-1.0); EOSINOPHILS # (AUTO) 0.2 x10^3/uL (0.0-0.2); EOSINOPHILS % (AUTO) 2.1 % (0.9-2.9); HEMATOCRIT 34.3 % (42.0-54.0); HEMOGLOBIN 11.6 g/dL (13.5-18.0); LYMPHOCYTES % (AUTO) 34.7 % (21.0-51.0); MEAN CORPUSCULAR HEMOGLOBIN 27.4 pg (27.0-34.0); MEAN CORPUSCULAR HGB CONC 33.8 g/dL (33.0-35.0); MONOCYTES # (AUTO) 0.6 x10^3/uL (0.3-0.8); MONOCYTES % (AUTO) 6.4 % (0.0-13.0); NEUTROPHILS # (AUTO) 4.9 x10^3/uL (2.2-4.8); NEUTROPHILS % (AUTO) 56.1 % (42.0-75.0); PLATELET COUNT 266 X10^3/uL (150.0-450.0); RED BLOOD COUNT 4.23 X10^6/uL (4.7-6.0); WHITE BLOOD COUNT 8.7 X10^3/uL (3.6-10.0)
[2018-07-13 20:18] LABS: BLOOD UREA NITROGEN 9 mg/dL (7-18); CALCIUM 8.7 mg/dL (8.5-10.1); CARBON DIOXIDE 19.8 mmol/L (21-32); CHLORIDE 87 mmol/L (98-107); COR NA(FOR HYPERGLY) 125 mmol/L (136-145); CREATININE 0.95 mg/dL (0.70-1.30); eGFR NON BLACK RACES > 60 (>60)
[2018-07-13 20:25] LABS: ALANINE AMINOTRANSFERASE 18 Units/L (12-78); ALKALINE PHOSPHATASE 83 Units/L (46-116); ASPARTATE AMINO TRANSFERASE 14 Units/L (15-37); MAGNESIUM 1.7 mg/dL (1.7-2.9); TOTAL PROTEIN 8.7 g/dL (6.4-8.2)
[2018-07-13 20:26] LABS: BILIRUBIN,URINE NEGATIVE (NEGATIVE); BLOOD/HEMOGLOBIN,URINE 4+ (NEGATIVE); GLUCOSE, URINE NEGATIVE (NEGATIVE); KETONES,URINE NEGATIVE (NEGATIVE); LEUKOCYTE ESTERASE ,URINE 2+ (NEGATIVE); NITRITES,URINE NEGATIVE (NEGATIVE); PROTEIN,URINE 2+ (NEGATIVE); UROBILINOGEN,URINE NORMAL (NORMAL)
[2018-07-13 20:28] LABS: SODIUM 124 mmol/L (136-145)
[2018-07-13 20:33] LABS: APPEARANCE,URINE SLIGHTLY HAZY (CLEAR); COLOR,URINE PALE YELLOW (YELLOW)
[2018-07-13 20:34] LABS: AMORPHOUS SEDIMENT,UR 1+ /HPF (NEGATIVE); BACTERIA,URINE TRACE /HPF (NEGATIVE); SQUAMOUS EPITHELIAL CELL,UR FEW /HPF (NEGATIVE)
--- NOTE | 2018-07-13 21:06 | CT ---
HISTORY: Seizure activity Study: CT brain without contrast Comparison: 09/08/2017 Technique: Multiple axial images of the brain were obtained without administration of IV contrast. Dose reduction techniques including Automated Exposure Control (AEC) and adjustment of mA and kV were utilized. Findings: There is chronic encephalomalacia in the bilateral frontal lobes and bilateral occipital lobes compatible with remote infarctions. There is cerebral volume loss and nonspecific white matter hypoattenuation likely related to chronic microvascular ischemic changes. No evidence of acute hemorrhage, midline shift, mass effect or abnormal extra-axial fluid collection. Enlargement of the ventricles and cortical sulci is stable and commensurate with volume loss. The soft tissues and osseous structures are unremarkable. The visualized paranasal sinuses are clear. IMPRESSION: 1. Chronic bilateral infarctions, cerebral volume loss and microvascular ischemic changes without significant interval change or new intracranial abnormality. Reported By:
[2018-07-13] MEDS ORDERED: NS + KCL 20 MEQ/L 1,000 ML IV ONE (23:36)
[2018-07-13] MEDS: NS + KCL 20 MEQ/L 1,000 ML IV SCH (23:37)
[2018-07-13] MEDS ORDERED: ROCEPHIN VIAL 1 GRAM ONE (23:57)
[2018-07-13] MEDS ORDERED: ROCEPHIN VIAL 1 GRAM IM SCH (23:59)
[2018-07-14 00:11] LABS: BILIRUBIN,URINE NEGATIVE (NEGATIVE); BLOOD/HEMOGLOBIN,URINE 3+ (NEGATIVE); GLUCOSE, URINE NEGATIVE (NEGATIVE); KETONES,URINE NEGATIVE (NEGATIVE); LEUKOCYTE ESTERASE ,URINE 1+ (NEGATIVE); NITRITES,URINE NEGATIVE (NEGATIVE); PROTEIN,URINE 1+ (NEGATIVE); UROBILINOGEN,URINE NORMAL (NORMAL)
[2018-07-14] MEDS ORDERED: ROCEPHIN VIAL 1 GRAM IVP SCH (00:15)
[2018-07-14 00:17] LABS: APPEARANCE,URINE CLEAR (CLEAR); BACTERIA,URINE NEGATIVE /HPF (NEGATIVE); COLOR,URINE PALE YELLOW (YELLOW); SQUAMOUS EPITHELIAL CELL,UR RARE /HPF (NEGATIVE); YEAST,URINE MODERATE /HPF (NEGATIVE)
[2018-07-14] MEDS ORDERED: KEPPRA TAB 500 MG ONE (01:28)
[2018-07-14 01:32] VITALS: BMI 25.2
[2018-07-14 05:40] LABS: BASOPHILS % (AUTO) 0.5 % (0.2-1.0); EOSINOPHILS # (AUTO) 0.1 x10^3/uL (0.0-0.2); EOSINOPHILS % (AUTO) 1.1 % (0.9-2.9); HEMOGLOBIN 10.9 g/dL (13.5-18.0); LYMPHOCYTES # (AUTO) 2.4 X10^3/uL (1.3-2.9); LYMPHOCYTES % (AUTO) 25.2 % (21.0-51.0); MEAN CORPUSCULAR HEMOGLOBIN 26.9 pg (27.0-34.0); MEAN CORPUSCULAR HGB CONC 34.2 g/dL (33.0-35.0); MEAN CORPUSCULAR VOLUME 78.7 fL (80.0-100.0); MEAN PLATELET VOLUME 7.9 fL (7.4-11.0); MONOCYTES # (AUTO) 0.8 x10^3/uL (0.3-0.8); NEUTROPHILS # (AUTO) 6.2 x10^3/uL (2.2-4.8); NEUTROPHILS % (AUTO) 65.2 % (42.0-75.0); PLATELET COUNT 248 X10^3/uL (150.0-450.0); RED BLOOD COUNT 4.06 X10^6/uL (4.7-6.0); RED CELL DISTRIBUTION WIDTH 15.8 % (11.6-16.5); WHITE BLOOD COUNT 9.5 X10^3/uL (3.6-10.0)
[2018-07-14 05:53] LABS: ALANINE AMINOTRANSFERASE 16 Units/L (12-78); ALBUMIN 3.4 g/dL (3.4-5.0); ALKALINE PHOSPHATASE 65 Units/L (46-116); ASPARTATE AMINO TRANSFERASE 16 Units/L (15-37); BLOOD UREA NITROGEN 7 mg/dL (7-18); CALCIUM 8.6 mg/dL (8.5-10.1); CARBON DIOXIDE 24.7 mmol/L (21-32); CHLORIDE 95 mmol/L (98-107); CREATININE 0.81 mg/dL (0.70-1.30); SODIUM 131 mmol/L (136-145); TOTAL PROTEIN 7.6 g/dL (6.4-8.2); eGFR NON BLACK RACES > 60 (>60)
[2018-07-14] MEDS: NS + KCL 20 MEQ/L 1,000 ML IV SCH ×2 (06:19→16:21)
[2018-07-14 07:01] LABS: CKMB % 0.5 % (<4); CREATINE KINASE 858 Units/L (39-308); TROPONIN I < 0.02 ng/mL (0-1.5)
[2018-07-14 07:03] LABS: CREATINE KINASE MB 4.2 ng/mL (0-4.0)
[2018-07-14] MEDS: ROCEPHIN VIAL 1 GRAM IVP SCH (09:36)
[2018-07-14 11:49] LABS: CKMB % 0.5 % (<4); CREATINE KINASE 887 Units/L (39-308); TROPONIN I < 0.02 ng/mL (0-1.5)
[2018-07-14 11:53] LABS: CREATINE KINASE MB 4.1 ng/mL (0-4.0)
--- NOTE | 2018-07-14 12:57 | DR.H&P ---
H&P - History & Physical for Day of: H&P Date: 07/13/18 - Chief Complaint Chief Complaint: SEIZURE - History of Present Illness History of Present Illness: 57 BM ER ADMISSION AFTER PRESENTING WITH EMS STATING PT HAD SEIZURE ACTIVITY AND AMS. PT HAS PMH OF DM, BS WAS NORMAL PER CAREGIVER, PT'S SISTER. PT HAD CT HEAD IN ER WITHOUT ACUTE FINDINGS, HYPONATREMIA, NA 124 AND HYPOKELEMIA. PT ADMITTED FOR TREATMENT OF ACUTE SEIZRE ACTIVITY, DEHYDR ATION, ELCTROLYTE IMBALANCE - Past Medical History Past Medical History: Angina, Hypertension, Diabetes, Seizures, COPD, GERD, Arthritis Additional Medical History: BLINDNESS - Past Surgical History Surgical History: Ortho Surgery - Family History Family Medical History: Diabetes Mellitus, Cancer - Social History Does patient currently use any type of tobacco product: No Have you used tobacco products in the last 12 months: No Type of Tobacco Use: Cigarettes How many years tobacco product used: 40 Does any household member use tobacco: No Alcohol Use: None Drug Use: None - Medications Home Medications: No Known Drug Allergies Allergy (Verified 06/07/18 15:20) CONTINUE taking the following medications simvastatin 10 mg PO DAILY 07/13/18 [History] - Review of Systems Constitutional: Chills, Weakness Eyes: No Symptoms Reported ENT: No Symptoms Reported Respiratory: No Symptoms Reported Cardiovascular: No Symptoms Reported Gastrointestinal: No Symptoms Reported Genitourinary: Incontinence Musculoskeletal: No Symptoms Reported Skin: No Symptoms Reported Neurological: Weakness, Confusion, Seizures - Physical Exam Vital Signs: Temperature 97.8 F Pulse Rate [Right Brachial] 78 Pulse Rate [Left Brachial] 83 Pulse Rate [Brachial] 85 Pulse Rate 109 Respiratory Rate 18 Blood Pressure [Left Arm] 109/56 Blood Pressure [Right Arm] 133/65 Blood Pressure 160/79 O2 Sat by Pulse Oximetry 100 Oriented: Other (SLOW TO RESPOND) Eyes: Blurred Vision (CHRONIC BLINDINESS) Ear: Normal Nose: Normal Throat: Dry Respiratory: RLL Diminished, LLL Diminished Cardiovascular: Tachycardia. negative: Edema Palpation: Normal Tenderness: Normal Skin: Decreased [place]urg[place] Musculoskeletal: Deformity, Motor Deficit, Sensory Deficit Psychiatric: Normal Speech Pattern: Delayed - Assessment/Plan (1) Hyponatremia Status: Acute (2) UTI (urinary tract infection) Qualifiers: Urinary tract infection type: site unspecified Hematuria presence: with hematuria Qualified Code(s): N39.0 - Urinary tract infection, site not specified; R31.9 - Hematuria, unspecified; R31.9 - Hematuria, unspecified Status: Acute Plan: ADMIT, IV ATBX. ADMISSION LABS, AM CBC CMP. SEIZURE PRECAUTIONS, IV HYDRATION. STRICT I& OS (3) New onset seizure Status: Acute Plan: CT HEAD ON ADMISSION, SEIZURE PRECAUTION, TREAT ELECTROLYTE IMBALANCE (4) Hypertension Status: Acute (5) Diabetes Status: Acute - Allergies Allergies/Adverse Reactions: Allergies Allergy/AdvReac Type Severity Reaction Status Date / Time No Known Drug Allergies Allergy Verified 06/07/18 15:20
--- NOTE | 2018-07-14 13:11 | PCM.PROG ---
Progress Note - Progress Note for Day of Date of Exam: 07/14/18 - Subjective Subjective: 57 BM ER ADMISSION ON 07/13 WITH NEW ONSET SEIZURE ACTIVITY, CT HEAD ON ADMISSION WITHOUT ACUTE FINDINGS. PT HAD NA 124 SUSPECTED CAUSE OF SEIZURE ACTIVITY. PT NA IMPROVING AT 131 THIS AM. PT AWAKE AND RESPONDING. PT HAD UTI ON ADMISSION WITH CULTURE PENDING, PT CURRENTLY ON IV ROCEPHIN. WILL CONTINUE GENTLE HYDRATION, ELECTROLYTE REPLACEMENT, RESUME HOME MEDICATION, SSI COVERAGE. REPEAT AM LABS - Past Medical Family Social History Past Med/Fam/Surg Hx: No changes since H&P Allergies: Allergies No Known Drug Allergies Allergy (Verified 06/07/18 15:20) - Review of Systems ROS: No change since H&P - Vital Signs and I&O's Vital Signs: Temperature 97.8 F Pulse Rate [Right Brachial] 78 Pulse Rate [Left Brachial] 83 Pulse Rate [Brachial] 85 Pulse Rate 109 Respiratory Rate 18 Blood Pressure [Left Arm] 109/56 Blood Pressure [Right Arm] 133/65 Blood Pressure 160/79 O2 Sat by Pulse Oximetry 100 Intake and Output: Intake & Output 07/12/18 07/13/18 07/14/18 07/15/18 11:59 11:59 11:59 11:59 Intake Total 474 / 474 Output Total 850 / 850 Balance -376 / -376 - Physical Exam Oriented: Person Eyes: Blurred Vision (CHRONIC BLINDINESS) Ear: Normal Nose: Normal Throat: Dry Respiratory: Diminished Cardiovascular: Tachycardia. negative: Edema Tenderness: Normal Skin: Decreased Turgur Musculoskeletal: Deformity (BILATERAL LE AMPUTATION), Motor Deficit, Sensory Deficit Psychiatric: Normal Mood Description: Calm Speech Pattern: Delayed - Laboratory and Diagnostics Result Diagrams: 07/14/18 05:15 07/14/18 05:15 Labs: Laboratory WBC 9.5 X10^3/uL (3.6-10.0) 07/14/18 05:15 RBC 4.06 X10^6/uL (4.7-6.0) L 07/14/18 05:15 Hgb 10.9 g/dL (13.5-18.0) L 07/14/18 05:15 Hct 32.0 % (42.0-54.0) L 07/14/18 05:15 MCV 78.7 fL (80.0-100.0) L 07/14/18 05:15 MCH 26.9 pg (27.0-34.0) L 07/14/18 05:15 MCHC 34.2 g/dL (33.0-35.0) 07/14/18 05:15 RDW 15.8 % (11.6-16.5) 07/14/18 05:15 Plt Count 248 X10^3/uL (150.0-450.0) 07/14/18 05:15 MPV 7.9 fL (7.4-11.0) 07/14/18 05:15 Neut % (Auto) 65.2 % (42.0-75.0) 07/14/18 05:15 Lymph % (Auto) 25.2 % (21.0-51.0) 07/14/18 05:15 [place] % (Auto) 8.0 % (0.0-13.0) 07/14/18 05:15 Eos % (Auto) 1.1 % (0.9-2.9) 07/14/18 05:15 Baso % (Auto) 0.5 % (0.2-1.0) 07/14/18 05:15 Neut # (Auto) 6.2 x10^3/uL (2.2-4.8) H 07/14/18 05:15 Lymph # (Auto) 2.4 X10^3/uL (1.3-2.9) 07/14/18 05:15 [place] # (Auto) 0.8 x10^3/uL (0.3-0.8) 07/14/18 05:15 Eos # (Auto) 0.1 x10^3/uL (0.0-0.2) 07/14/18 05:15 Baso # (Auto) 0.0 X10^3/uL (0.0-0.1) 07/14/18 05:15 Absolute Nucleated RBC 0.1 /100WBC 07/14/18 05:15 Sodium 131 mmol/L (136-145) L 07/14/18 05:15 Corrected Sodium TNP 07/14/18 05:15 Potassium 4.0 mmol/L (3.5-5.1) 07/14/18 05:15 Chloride 95 mmol/L (98-107) L 07/14/18 05:15 Carbon Dioxide 24.7 mmol/L (21-32) 07/14/18 05:15 BUN 7 mg/dL (7-18) 07/14/18 05:15 Creatinine 0.81 mg/dL (0.70-1.30) 07/14/18 05:15 Est GFR (MDRD) Af Amer > 60 (>60) 07/14/18 05:15 Est GFR (MDRD) Non-Af > 60 (>60) 07/14/18 05:15 Glucose 107 mg/dL (65-99) H 07/14/18 05:15 POC Glucose (mg/dL) 145 mg/dL (65-99) H 07/14/18 11:34 Calcium 8.6 mg/dL (8.5-10.1) 07/14/18 05:15 Corrected Calcium TNP 07/14/18 05:15 Magnesium 1.7 mg/dL (1.7-2.9) 07/13/18 19:08 Total Bilirubin 0.30 mg/dL (0.2-1.0) 07/14/18 05:15 AST 16 Units/L (15-37) 07/14/18 05:15 ALT 16 Units/L (12-78) 07/14/18 05:15 Alkaline Phosphatase 65 Units/L (46-116) 07/14/18 05:15 Creatine Kinase 887 Units/L (39-308) H 07/14/18 11:02 CK-MB (CK-2) 4.1 ng/mL (0-4.0) H 07/14/18 11:02 CK/CKMB % Calc 0.5 % (<4) 07/14/18 11:02 Troponin I < 0.02 ng/mL (0-1.5) 07/14/18 11:02 Total Protein 7.6 g/dL (6.4-8.2) 07/14/18 05:15 Albumin 3.4 g/dL (3.4-5.0) 07/14/18 05:15 Globulin 4.2 g/dL (2.5-4.5) 07/14/18 05:15 Albumin/Globulin Ratio 0.8 Ratio (1.1-2.1) L 07/14/18 05:15 Specimen Type Catherized urine 07/13/18 23:59 Urine Color Pale yellow (YELLOW) 07/13/18 23:59 Urine Appearance Clear (CLEAR) 07/13/18 23:59 Urine pH 7.0 (5.0 - 8.0) 07/13/18 23:59 Ur Specific [place] 1.000 (1.000-1.030) 07/13/18 23:59 Urine Protein 1+ (NEGATIVE) 07/13/18 23:59 Urine Glucose (UA) Negative (NEGATIVE) 07/13/18 23:59 Urine Ketones Negative (NEGATIVE) 07/13/18 23:59 Urine Occult Blood 3+ (NEGATIVE) 07/13/18 23:59 Urine Nitrite Negative (NEGATIVE) 07/13/18 23:59 Urine Bilirubin Negative (NEGATIVE) 07/13/18 23:59 Urine Urobilinogen Normal (NORMAL) 07/13/18 23:59 Ur Leukocyte Esterase 1+ (NEGATIVE) 07/13/18 23:59 Urine RBC 5-10 /HPF (NONE SEEN) 07/13/18 23:59 Urine WBC 0-2 /HPF (NONE SEEN) 07/13/18 23:59 Ur Squamous Epith Cells Rare /HPF (NEGATIVE) 07/13/18 23:59 Amorphous Sediment 1+ /HPF (NEGATIVE) 07/13/18 20:15 Urine Bacteria Negative /HPF (NEGATIVE) 07/13/18 23:59 Urine Yeast Moderate /HPF (NEGATIVE) 07/13/18 23:59 Ur Culture Indicated? Yes/culture set up 07/13/18 23:59 - Plan (1) Hyponatremia Status: Acute Plan: CONTINUE GENTLE IV HYDRATION I & OS. BP MONITORING (2) UTI (urinary tract infection) Status: Acute Qualifiers: Urinary tract infection type: site unspecified Hematuria presence: with hematuria Qualified Code(s): N39.0 - Urinary tract infection, site not specified; R31.9 - Hematuria, unspecified; R31.9 - Hematuria, unspecified Plan: AM LABS. SEIZURE PRECAUTIONS, IV HYDRATION. STRICT I& OS (3) New onset seizure Status: Acute Plan: CT HEAD ON ADMISSION, SEIZURE PRECAUTION, TREAT ELECTROLYTE IMBALANCE (4) Hypertension Status: Acute (5) Diabetes Status: Acute
[2018-07-14] MEDS: GLUCOTROL XL PO SCH (13:51)
[2018-07-14 18:13] LABS: CKMB % 0.4 % (<4); CREATINE KINASE 970 Units/L (39-308); TROPONIN I < 0.02 ng/mL (0-1.5)
[2018-07-14 18:16] LABS: CREATINE KINASE MB 4.3 ng/mL (0-4.0)
[2018-07-14] MEDS ORDERED: SNACK - Diabetic Appropriate PO SCH (20:00)
[2018-07-14] MEDS: SNACK - Diabetic Appropriate PO SCH (21:30)
[2018-07-14] MEDS: KEPPRA TAB 500 MG PO SCH (21:45)
[2018-07-14] MEDS: HumuLIN R SUBCUT PRN (21:46)
[2018-07-14] MEDS ORDERED: KEPPRA TAB 500 MG PO SCH (23:47)
[2018-07-15] MEDS: NS + KCL 20 MEQ/L 1,000 ML IV SCH ×5 (00:05→22:05)
[2018-07-15 05:34] LABS: BASOPHILS # (AUTO) 0.1 X10^3/uL (0.0-0.1); BASOPHILS % (AUTO) 0.9 % (0.2-1.0); EOSINOPHILS # (AUTO) 0.2 x10^3/uL (0.0-0.2); EOSINOPHILS % (AUTO) 2.3 % (0.9-2.9); HEMOGLOBIN 10.9 g/dL (13.5-18.0); LYMPHOCYTES # (AUTO) 2.3 X10^3/uL (1.3-2.9); LYMPHOCYTES % (AUTO) 28.5 % (21.0-51.0); MEAN CORPUSCULAR HEMOGLOBIN 27.3 pg (27.0-34.0); MEAN CORPUSCULAR HGB CONC 34.1 g/dL (33.0-35.0); MEAN CORPUSCULAR VOLUME 80.1 fL (80.0-100.0); MEAN PLATELET VOLUME 7.8 fL (7.4-11.0); MONOCYTES # (AUTO) 0.5 x10^3/uL (0.3-0.8); MONOCYTES % (AUTO) 6.3 % (0.0-13.0); NEUTROPHILS # (AUTO) 4.9 x10^3/uL (2.2-4.8); PLATELET COUNT 248 X10^3/uL (150.0-450.0); RED CELL DISTRIBUTION WIDTH 16.2 % (11.6-16.5); WHITE BLOOD COUNT 7.9 X10^3/uL (3.6-10.0)
[2018-07-15 05:49] LABS: ALANINE AMINOTRANSFERASE 18 Units/L (12-78); ALBUMIN 3.2 g/dL (3.4-5.0); ALKALINE PHOSPHATASE 71 Units/L (46-116); ASPARTATE AMINO TRANSFERASE 21 Units/L (15-37); BLOOD UREA NITROGEN 9 mg/dL (7-18); CALCIUM 8.4 mg/dL (8.5-10.1); CARBON DIOXIDE 22.4 mmol/L (21-32); CHLORIDE 104 mmol/L (98-107); COR NA(FOR HYPERGLY) 138 mmol/L (136-145); CREATININE 0.79 mg/dL (0.70-1.30); SODIUM 137 mmol/L (136-145); TOTAL PROTEIN 7.5 g/dL (6.4-8.2); eGFR NON BLACK RACES > 60 (>60)
[2018-07-15] MEDS: HumuLIN R SUBCUT PRN ×2 (06:00→22:00)
[2018-07-15] MEDS: ASPIRIN EC 81 MG PO SCH (08:11)
[2018-07-15] MEDS: ROCEPHIN VIAL 1 GRAM IVP SCH (08:11)
[2018-07-15] MEDS: GLUCOTROL XL PO SCH (08:11)
[2018-07-15] MEDS: ZOCOR TAB 10 MG PO SCH (08:11)
[2018-07-15] MEDS: KEPPRA TAB 500 MG PO SCH ×2 (08:12→21:07)
--- NOTE | 2018-07-15 17:05 | PCM.PROG ---
Progress Note - Progress Note for Day of Date of Exam: 07/15/18 - Subjective Subjective: 57 BM ER ADMISSION ON 07/13 WITH NEW ONSET SEIZURE ACTIVITY, CT HEAD ON ADMISSION WITHOUT ACUTE FINDINGS. PT NA IMPROVING AT 137 THIS AM. PT AWAKE AND RESPONDING. PT HAD UTI ON ADMISSION WITH CULTURE PENDING, PT CURRENTLY ON IV ROCEPHIN. WILL CONTINUE GENTLE HYDRATION, ELECTROLYTE REPLACEMENT, ELEVATED CPK DOWN TO 736, SSI COVERAGE. REPEAT AM LABS - Past Medical Family Social History Past Med/Fam/Surg Hx: No changes since H&P Allergies: Allergies No Known Drug Allergies Allergy (Verified 06/07/18 15:20) - Review of Systems ROS: No change since H&P - Vital Signs and I&O's Vital Signs: Temperature 97.7 F Pulse Rate [Right Brachial] 86 Pulse Rate [Left Brachial] 92 Pulse Rate [Brachial] 85 Pulse Rate 109 Respiratory Rate 18 Blood Pressure [Left Arm] 142/68 Blood Pressure [Right Arm] 139/83 Blood Pressure 160/79 O2 Sat by Pulse Oximetry 100 Intake and Output: Intake & Output 07/13/18 07/14/18 07/15/18 07/16/18 11:59 11:59 11:59 11:59 Intake Total 474 / 474 4171 / 4171 680 / 680 Output Total 850 / 850 3950 / 3950 600 / 600 Balance -376 / -376 221 / 221 80 / 80 - Physical Exam Oriented: Person Eyes: Blurred Vision (CHRONIC BLINDINESS) Ear: Normal Nose: Normal Throat: Dry Respiratory: Diminished Cardiovascular: Tachycardia. negative: Edema Tenderness: Normal Skin: Decreased Turgur Musculoskeletal: Deformity (BILATERAL LE AMPUTATION), Motor Deficit, Sensory Deficit Psychiatric: Normal Mood Description: Calm Speech Pattern: Clear, Appropriate - Laboratory and Diagnostics Result Diagrams: 07/15/18 05:11 07/15/18 05:11 Labs: 07/13/18 23:59 Urine,Catheterized Urine Culture - Preliminary Laboratory WBC 7.9 X10^3/uL (3.6-10.0) 07/15/18 05:11 RBC 4.00 X10^6/uL (4.7-6.0) L 07/15/18 05:11 Hgb 10.9 g/dL (13.5-18.0) L 07/15/18 05:11 Hct 32.0 % (42.0-54.0) L 07/15/18 05:11 MCV 80.1 fL (80.0-100.0) 07/15/18 05:11 MCH 27.3 pg (27.0-34.0) 07/15/18 05:11 MCHC 34.1 g/dL (33.0-35.0) 07/15/18 05:11 RDW 16.2 % (11.6-16.5) 07/15/18 05:11 Plt Count 248 X10^3/uL (150.0-450.0) 07/15/18 05:11 MPV 7.8 fL (7.4-11.0) 07/15/18 05:11 Neut % (Auto) 62.0 % (42.0-75.0) 07/15/18 05:11 Lymph % (Auto) 28.5 % (21.0-51.0) 07/15/18 05:11 [place] % (Auto) 6.3 % (0.0-13.0) 07/15/18 05:11 Eos % (Auto) 2.3 % (0.9-2.9) 07/15/18 05:11 Baso % (Auto) 0.9 % (0.2-1.0) 07/15/18 05:11 Neut # (Auto) 4.9 x10^3/uL (2.2-4.8) H 07/15/18 05:11 Lymph # (Auto) 2.3 X10^3/uL (1.3-2.9) 07/15/18 05:11 [place] # (Auto) 0.5 x10^3/uL (0.3-0.8) 07/15/18 05:11 Eos # (Auto) 0.2 x10^3/uL (0.0-0.2) 07/15/18 05:11 Baso # (Auto) 0.1 X10^3/uL (0.0-0.1) 07/15/18 05:11 Absolute Nucleated RBC 0.1 /100WBC 07/15/18 05:11 Sodium 137 mmol/L (136-145) 07/15/18 05:11 Corrected Sodium 138 mmol/L (136-145) 07/15/18 05:11 Potassium 4.4 mmol/L (3.5-5.1) 07/15/18 05:11 Chloride 104 mmol/L (98-107) 07/15/18 05:11 Carbon Dioxide 22.4 mmol/L (21-32) 07/15/18 05:11 BUN 9 mg/dL (7-18) 07/15/18 05:11 Creatinine 0.79 mg/dL (0.70-1.30) 07/15/18 05:11 Est GFR (MDRD) Af Amer > 60 (>60) 07/15/18 05:11 Est GFR (MDRD) Non-Af > 60 (>60) 07/15/18 05:11 Glucose 154 mg/dL (65-99) H 07/15/18 05:11 POC Glucose (mg/dL) 131 mg/dL (65-99) H 07/15/18 16:26 Calcium 8.4 mg/dL (8.5-10.1) L 07/15/18 05:11 Corrected Calcium 9.0 mg/dL (8.5-10.1) 07/15/18 05:11 Magnesium 1.7 mg/dL (1.7-2.9) 07/13/18 19:08 Total Bilirubin 0.20 mg/dL (0.2-1.0) 07/15/18 05:11 AST 21 Units/L (15-37) 07/15/18 05:11 ALT 18 Units/L (12-78) 07/15/18 05:11 Alkaline Phosphatase 71 Units/L (46-116) 07/15/18 05:11 Creatine Kinase 736 Units/L (39-308) H 07/15/18 13:15 CK-MB (CK-2) 4.3 ng/mL (0-4.0) H* 07/14/18 17:20 CK/CKMB % Calc 0.4 % (<4) 07/14/18 17:20 Troponin I < 0.02 ng/mL (0-1.5) 07/14/18 17:20 Total Protein 7.5 g/dL (6.4-8.2) 07/15/18 05:11 Albumin 3.2 g/dL (3.4-5.0) L 07/15/18 05:11 Globulin 4.3 g/dL (2.5-4.5) 07/15/18 05:11 Albumin/Globulin Ratio 0.7 Ratio (1.1-2.1) L 07/15/18 05:11 Specimen Type Catherized urine 07/13/18 23:59 Urine Color Pale yellow (YELLOW) 07/13/18 23:59 Urine Appearance Clear (CLEAR) 07/13/18 23:59 Urine pH 7.0 (5.0 - 8.0) 07/13/18 23:59 Ur Specific [place] 1.000 (1.000-1.030) 07/13/18 23:59 Urine Protein 1+ (NEGATIVE) 07/13/18 23:59 Urine Glucose (UA) Negative (NEGATIVE) 07/13/18 23:59 Urine Ketones Negative (NEGATIVE) 07/13/18 23:59 Urine Occult Blood 3+ (NEGATIVE) 07/13/18 23:59 Urine Nitrite Negative (NEGATIVE) 07/13/18 23:59 Urine Bilirubin Negative (NEGATIVE) 07/13/18 23:59 Urine Urobilinogen Normal (NORMAL) 07/13/18 23:59 Ur Leukocyte Esterase 1+ (NEGATIVE) 07/13/18 23:59 Urine RBC 5-10 /HPF (NONE SEEN) 07/13/18 23:59 Urine WBC 0-2 /HPF (NONE SEEN) 07/13/18 23:59 Ur Squamous Epith Cells Rare /HPF (NEGATIVE) 07/13/18 23:59 Amorphous Sediment 1+ /HPF (NEGATIVE) 07/13/18 20:15 Urine Bacteria Negative /HPF (NEGATIVE) 07/13/18 23:59 Urine Yeast Moderate /HPF (NEGATIVE) 07/13/18 23:59 Ur Culture Indicated? Yes/culture set up 07/13/18 23:59 - Plan (1) Hyponatremia Status: Acute Plan: CONTINUE GENTLE IV HYDRATION I & OS. BP MONITORING (2) UTI (urinary tract infection) Status: Acute Qualifiers: Urinary tract infection type: site unspecified Hematuria presence: with hematuria Qualified Code(s): N39.0 - Urinary tract infection, site not specified; R31.9 - Hematuria, unspecified; R31.9 - Hematuria, unspecified Plan: AM LABS. SEIZURE PRECAUTIONS, IV HYDRATION. STRICT I& OS. IV ROCEPHIN, UC NEGATIVE (3) New onset seizure Status: Acute Plan: CT HEAD ON ADMISSION, SEIZURE PRECAUTION, TREAT ELECTROLYTE IMBALANCE (4) Hypertension Status: Acute (5) Diabetes Status: Acute (6) Rhabdomyolysis Status: Acute Plan: REPEAT AM CPK, GENTLE HYDRATE
[2018-07-15] MEDS: SNACK - Diabetic Appropriate PO SCH (21:00)
[2018-07-16] MEDS: NS + KCL 20 MEQ/L 1,000 ML IV SCH ×2 (05:50→11:55)
[2018-07-16 05:53] LABS: BASOPHILS # (AUTO) 0.1 X10^3/uL (0.0-0.1); BASOPHILS % (AUTO) 0.8 % (0.2-1.0); EOSINOPHILS # (AUTO) 0.2 x10^3/uL (0.0-0.2); EOSINOPHILS % (AUTO) 2.9 % (0.9-2.9); HEMOGLOBIN 11.2 g/dL (13.5-18.0); LYMPHOCYTES # (AUTO) 2.9 X10^3/uL (1.3-2.9); LYMPHOCYTES % (AUTO) 34.4 % (21.0-51.0); MEAN CORPUSCULAR HEMOGLOBIN 27.2 pg (27.0-34.0); MEAN CORPUSCULAR HGB CONC 33.9 g/dL (33.0-35.0); MEAN CORPUSCULAR VOLUME 80.5 fL (80.0-100.0); MEAN PLATELET VOLUME 7.9 fL (7.4-11.0); MONOCYTES # (AUTO) 0.4 x10^3/uL (0.3-0.8); MONOCYTES % (AUTO) 5.3 % (0.0-13.0); NEUTROPHILS # (AUTO) 4.8 x10^3/uL (2.2-4.8); NEUTROPHILS % (AUTO) 56.6 % (42.0-75.0); PLATELET COUNT 271 X10^3/uL (150.0-450.0); WHITE BLOOD COUNT 8.4 X10^3/uL (3.6-10.0)
[2018-07-16 06:04] LABS: ALANINE AMINOTRANSFERASE 21 Units/L (12-78); ALBUMIN 3.4 g/dL (3.4-5.0); ALKALINE PHOSPHATASE 78 Units/L (46-116); ASPARTATE AMINO TRANSFERASE 20 Units/L (15-37); BLOOD UREA NITROGEN 9 mg/dL (7-18); CALCIUM 8.7 mg/dL (8.5-10.1); CARBON DIOXIDE 23.7 mmol/L (21-32); CHLORIDE 102 mmol/L (98-107); COR NA(FOR HYPERGLY) 138 mmol/L (136-145); CREATINE KINASE 582 Units/L (39-308); CREATININE 0.83 mg/dL (0.70-1.30); SODIUM 137 mmol/L (136-145); TOTAL PROTEIN 7.6 g/dL (6.4-8.2); eGFR NON BLACK RACES > 60 (>60)
[2018-07-16 06:15] LABS: BAND NEUTROPHILS % 1 % (0-10); PLATELET MORPHOLOGY COMMENT NORMAL (NORMAL)
[2018-07-16] MEDS: ROCEPHIN VIAL 1 GRAM IVP SCH (09:25)
[2018-07-16] MEDS: ZOCOR TAB 10 MG PO SCH (09:25)
[2018-07-16] MEDS: KEPPRA TAB 500 MG PO SCH (09:25)
[2018-07-16] MEDS: GLUCOTROL XL PO SCH (09:25)
[2018-07-16] MEDS: ASPIRIN EC 81 MG PO SCH (09:25)
[2018-07-16] MEDS: HumuLIN R SUBCUT PRN (11:56)
[2018-07-16 12:14] VITALS: BP 158/81
== END 2018-07-16 15:00 | disposition home or self-care (01) | DRG 101 ==
LOC: ER 18:56 → MED/SURG 23:41
PROVIDERS: ADMIT Internal Medicine; ATTEND Internal Medicine
DX: K21.9 Gastro-esophageal reflux disease without esophagitis; M62.82 Rhabdomyolysis; N39.0 Urinary tract infection, site not specified; R73.09 Other abnormal glucose; J44.9 Chronic obstructive pulmonary disease, unspecified; E87.1 Hypo-osmolality and hyponatremia; E86.0 Dehydration; E87.8 Other disorders of electrolyte and fluid balance, not elsewhere classified; I10 Essential (primary) hypertension; Z89.9 Acquired absence of limb, unspecified; R26.89 Other abnormalities of gait and mobility; R06.02 Shortness of breath; G40.89 Other seizures; R40.4 Transient alteration of awareness
CPT/HCPCS: 36415; 51701; 70450; 80053; 81001; 82550; 82553; 83735; 84484; 85025; 87086; 93005; 93010; 94760; 96365; 96374; 97163; 97167; 97530; 97535; 99238; 99283; 99284; J0696; J1815

== ENCOUNTER 2018-10-20 16:01 | Observation (INO) ==
--- NOTE | 2018-10-20 16:31 | RAD ---
HISTORY: Mental status change Study: Single view chest Comparison: 06/08/2018 Findings: Left CVL has been removed. No infiltrate, effusion or pneumothorax identified. The cardiac and mediastinal contours are within normal limits. There are stable chronic bilateral posterior rib deformities. IMPRESSION: 1. No acute cardiopulmonary abnormality. Reported By:
[2018-10-20 16:56] LABS: BASOPHILS # (AUTO) 0.1 X10^3/uL (0.0-0.1); BASOPHILS % (AUTO) 0.6 % (0.2-1.0); EOSINOPHILS % (AUTO) 0.3 % (0.9-2.9); HEMATOCRIT 35.8 % (42.0-54.0); HEMOGLOBIN 12.2 g/dL (13.5-18.0); LYMPHOCYTES # (AUTO) 2.1 X10^3/uL (1.3-2.9); LYMPHOCYTES % (AUTO) 21.2 % (21.0-51.0); MEAN CORPUSCULAR HEMOGLOBIN 27.6 pg (27.0-34.0); MEAN CORPUSCULAR VOLUME 81.2 fL (80.0-100.0); MEAN PLATELET VOLUME 7.4 fL (7.4-11.0); MONOCYTES # (AUTO) 0.6 x10^3/uL (0.3-0.8); MONOCYTES % (AUTO) 6.3 % (0.0-13.0); NEUTROPHILS % (AUTO) 71.6 % (42.0-75.0); PLATELET COUNT 289 X10^3/uL (150.0-450.0); RED BLOOD COUNT 4.41 X10^6/uL (4.7-6.0); RED CELL DISTRIBUTION WIDTH 14.9 % (11.6-16.5); WHITE BLOOD COUNT 9.8 X10^3/uL (3.6-10.0)
--- NOTE | 2018-10-20 16:58 | CT ---
HEAD CT WITHOUT IV CONTRAST CLINICAL INDICATION: Fall 2 hr ago TECHNIQUE: Axial CT images from skull base to vertex without IV contrast.Dose reduction techniques including Automated Exposure Control (AEC) and adjustment of mA and kV were utlized. COMPARISON: 07/13/2018 FINDINGS: Extensive bilateral encephalomalacia which has not changed significantly since prior. Diffuse patchy and confluent white matter hypoattenuation with associated volume loss . There is no evidence of acute infarction, intracranial hemorrhage, mass or mass effect, or abnormal extra-axial collection. The density of the larger dural venous sinuses is normal. Age-related, ex-vacuo dilatation of the ventricles and sulci. The skull base and calvarium are normal. The included paranasal sinuses and mastoid air cells are predominantly clear. IMPRESSION: 1. No acute intracranial abnormality. 2. 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 Reported By:
[2018-10-20 17:01] LABS: ALANINE AMINOTRANSFERASE 25 Units/L (12-78); ALBUMIN 3.9 g/dL (3.4-5.0); ALKALINE PHOSPHATASE 91 Units/L (46-116); ASPARTATE AMINO TRANSFERASE 13 Units/L (15-37); BLOOD UREA NITROGEN 15 mg/dL (7-18); CALCIUM 9.6 mg/dL (8.5-10.1); CARBON DIOXIDE 27.2 mmol/L (21-32); CHLORIDE 101 mmol/L (98-107); COR NA(FOR HYPERGLY) 140 mmol/L (136-145); CREATININE 1.02 mg/dL (0.70-1.30); SODIUM 138 mmol/L (136-145); eGFR NON BLACK RACES > 60 (>60)
--- NOTE | 2018-10-20 17:16 | DR.WEAKNES ---
HPI Time Seen Time Seen by Provider: 10/20/18 16:05 Primary Care Physician Primary Care Physician: JAMEE BRENNAN Complaints Chief Complaint Doctors Comments: He was brought into the ED via EMS with staff stating he has decreased level of alertness/responsiveness. He was found on the floor next to his wheelchair. Duration of fall or change in mentation is not ascertainable. The EMS crew states he was found by his visiting home Health Nurse and the that his family states he fell 2 hrs. prior to EMS arrival. We were unable to reach family members during his stay here in the ED. Thus it is unclear for how long he had been on the floor. Chief Complaint:: EMS STATED THAT PATIENT HAD FELL 2 HOURS AGO AND FOUND HIM LAYING IN THE FLOOR BESIDE HIS WHEELCHAIR. HOME HEALTH NURSE CAME INTO THE HOME AND CALLED 911. THEY STATED THAT PATIENT IS NOT TALKING AND RESPONISVE LIKE USUALLY. HE IS BLIND AND HAS A ABOVE THE KNEE AMPUTATION ON LEFT AND BELOW THE KNEE AMPUTATION ON THE RIGHT SIDE. EMS ALSO STATED THAT PATIENT SEEMS TO BE FAVORING HIS RIGHT SIDE BUT WILL FOLLOW COMMANDS WHEN ASKED TO HOLD BOTH ARMS UP. Source History Provided: EMS Mode of Arrival Mode of Arrival: EMS Timing Onset of Chief Complaint: 10/20/18 Symptom Onset: Unknown Context Stroke Symptoms: Aphasia and Acute confusion PMH PMH Past Medical History: Yes Past Medical History: Angina, Arthritis, COPD, Dementia, Diabetes, GERD, Hypertension and Seizures Past Surgical History: Yes Surgical History: Ortho Surgery Family History History of Family Medical Conditions: Yes Family Medical History: Diabetes Mellitus and Cancer Social History Do you use any recreational Drugs:: No infectious screening In the last 2 months have you had wt loss of >10#?: NO Have you had fever, night sweats or hemotysis?: No Have you traveled outside the country in the last 6 months?: No ROS Review of Systems Constitutional: No Symptoms Reported Neurological: Other (decreased LOC) PE Vital Signs Vitals: Temperature 97.3 F Pulse Rate [Right Brachial] 87 Pulse Rate 101 Respiratory Rate 20 Blood Pressure [Left Arm] 128/77 Blood Pressure [Right Arm] 127/75 Blood Pressure 137/78 O2 Sat by Pulse Oximetry 100 General Limitations: No Limitations General Appearance: Lethargic; negative In No Apparent Distress, Appears Intoxicated, Anxious, Obtunded, In Distress, Obese and Cachectic Head Head Exam: Normal Inspection Eyes Eye exam: Normal Appearance and Other (blind in eyes ) ENT ENT Exam: Normal Oropharynx and Mucous Membranes Moist Neck Neck Exam: Normal Inspection, Full ROM and Trachea Midline Chest Chest Inspection: Normal Inspection and Symmetric Chest Wall Rise Respiratory Respiratory Exam: Normal Lung Sounds Bilat Cardiovascular Cardiovascular Exam: Regular Rate, Normal Rhythm, +S1 and +S2 Abdominal Exam Abdominal Exam: Normal Inspection, Normal Bowel Sounds and Soft Extremities Extremities Exam: Other (s/p Lt. AKA and a Rt. BKA) Neurologic Neurological Exam: Other (His NIHSS was at 9 during his evaluation. He arouses to minor stimulation, he is Aphasic, he no facial asymmetry,with regards to motor drift of his upper exts., there is some drift but the exts. do not hit the bed (giving him a score of 1 in each arm). lower extremity motor drift, he scores 2 each.) Patient Oriented To: Person (self) Speech: Expressive Aphasia Cerebellar Function: Finger to Nose: Left Abnormal and Right Abnormal Skin Skin Exam: Warm, Dry and Normal Color COURSE Reevaluation 1st: Unchanged Consultation Consultation Comments: I spoke with Dr. Virgen, on-call Neurologist at [facility] in [place], [place] (For Neuro Telemetry) but because duration of mental status change is unclear and by this time going by him being down for 2 hrs. at the minimum we are now over 3 hrs. time frame coupled with the fact that we could not reach any family member to consent, the recommendation was to not administer tPA. Education/Counseling Education/Counseling: Patient, Education and Counseling Educated On: Treatment, Diagnosis, Prognosis and Needs for Follow Up ROR Labs Reviewed Laboratory Results Reviewed?: Yes Result Diagrams: 10/20/18 16:51 10/20/18 16:32 Laboratory: WBC 9.8 X10^3/uL (3.6-10.0) 10/20/18 16:51 RBC 4.41 X10^6/uL (4.7-6.0) L 10/20/18 16:51 Hgb 12.2 g/dL (13.5-18.0) L 10/20/18 16:51 Hct 35.8 % (42.0-54.0) L 10/20/18 16:51 MCV 81.2 fL (80.0-100.0) 10/20/18 16:51 MCH 27.6 pg (27.0-34.0) 10/20/18 16:51 MCHC 34.0 g/dL (33.0-35.0) 10/20/18 16:51 RDW 14.9 % (11.6-16.5) 10/20/18 16:51 Plt Count 289 X10^3/uL (150.0-450.0) 10/20/18 16:51 MPV 7.4 fL (7.4-11.0) 10/20/18 16:51 Neut % (Auto) 71.6 % (42.0-75.0) 10/20/18 16:51 Lymph % (Auto) 21.2 % (21.0-51.0) 10/20/18 16:51 [place] % (Auto) 6.3 % (0.0-13.0) 10/20/18 16:51 Eos % (Auto) 0.3 % (0.9-2.9) L 10/20/18 16:51 Baso % (Auto) 0.6 % (0.2-1.0) 10/20/18 16:51 Neut # (Auto) 7.0 x10^3/uL (2.2-4.8) H 10/20/18 16:51 Lymph # (Auto) 2.1 X10^3/uL (1.3-2.9) 10/20/18 16:51 [place] # (Auto) 0.6 x10^3/uL (0.3-0.8) 10/20/18 16:51 Eos # (Auto) 0.0 x10^3/uL (0.0-0.2) 10/20/18 16:51 Baso # (Auto) 0.1 X10^3/uL (0.0-0.1) 10/20/18 16:51 Absolute Nucleated RBC 0.0 /100WBC 10/20/18 16:51 INR Target Range - 10/20/18 16:32 INR 0.90 (0.8-1.3) 10/20/18 16:32 APTT 26.9 SECONDS (22.9-36.5) 10/20/18 16:32 PTT Comment - 10/20/18 16:32 Sodium 138 mmol/L (136-145) 10/20/18 16:32 Corrected Sodium 140 mmol/L (136-145) 10/20/18 16:32 Potassium 3.7 mmol/L (3.5-5.1) 10/20/18 16:32 Chloride 101 mmol/L (98-107) 10/20/18 16:32 Carbon Dioxide 27.2 mmol/L (21-32) 10/20/18 16:32 BUN 15 mg/dL (7-18) 10/20/18 16:32 Creatinine 1.02 mg/dL (0.70-1.30) 10/20/18 16:32 Est GFR (MDRD) Af Amer > 60 (>60) 10/20/18 16:32 Est GFR (MDRD) Non-Af > 60 (>60) 10/20/18 16:32 Glucose 194 mg/dL (65-99) H 10/20/18 16:32 POC Glucose (mg/dL) 187 mg/dL (65-99) H 10/20/18 20:15 Calcium 9.6 mg/dL (8.5-10.1) 10/20/18 16:32 Corrected Calcium TNP 10/20/18 16:32 Total Bilirubin 0.30 mg/dL (0.2-1.0) 10/20/18 16:32 AST 13 Units/L (15-37) L 10/20/18 16:32 ALT 25 Units/L (12-78) 10/20/18 16:32 Alkaline Phosphatase 91 Units/L (46-116) 10/20/18 16:32 Total Protein 8.0 g/dL (6.4-8.2) 10/20/18 16:32 Albumin 3.9 g/dL (3.4-5.0) 10/20/18 16:32 Globulin 4.1 g/dL (2.5-4.5) 10/20/18 16:32 Albumin/Globulin Ratio 1.0 Ratio (1.1-2.1) L 10/20/18 16:32 Specimen Type Catherized urine 10/20/18 22:35 Urine Color Pale yellow (YELLOW) 10/20/18 22:35 Urine Appearance Clear (CLEAR) 10/20/18 22:35 Urine pH 7.0 (5.0 - 8.0) 10/20/18 22:35 Ur Specific [place] 1.010 (1.000-1.030) 10/20/18 22:35 Urine Protein 1+ (NEGATIVE) 10/20/18 22:35 Urine Glucose (UA) 3+ (NEGATIVE) 10/20/18 22:35 Urine Ketones Negative (NEGATIVE) 10/20/18 22:35 Urine Occult Blood 2+ (NEGATIVE) 10/20/18 22:35 Urine Nitrite Negative (NEGATIVE) 10/20/18 22:35 Urine Bilirubin Negative (NEGATIVE) 10/20/18 22:35 Urine Urobilinogen Normal (NORMAL) 10/20/18 22:35 Ur Leukocyte Esterase 3+ (NEGATIVE) 10/20/18 22:35 Urine RBC 3-5 /HPF (NONE SEEN) 10/20/18 22:35 Urine WBC Tntc /HPF (NONE SEEN) 10/20/18 22:35 Ur Squamous Epith Cells Negative /HPF (NEGATIVE) 10/20/18 22:35 Urine Bacteria Negative /HPF (NEGATIVE) 10/20/18 22:35 Urine Yeast Rare /HPF (NEGATIVE) 10/20/18 22:35 Ur Culture Indicated? Yes/culture set up 10/20/18 22:35 Other Results Comments: Radiologist report on CT Brain w/o: no acute intracranial abnormality. Severe age advanced encephalomacia and microangiopathic disease. XRAY XRAY Interpreted by: Self XRAY Findings: NAD Diagnosis Discharge Problem: Ischemic cerebrovascular accident (CVA), Benign essential HTN Diabetes mellitus Qualifiers: Diabetes mellitus type: type 2 Diabetes mellitus fci insulin use: with fci use Diabetes mellitus complication status: with circulatory complication Diabetes mellitus complication detail: with other circulatory complications Qualified Code(s): E11.59 - Type 2 diabetes mellitus with other circulatory complications
[2018-10-20] MEDS ORDERED: HumaLOG SC PRN (18:51)
[2018-10-20] MEDS ORDERED: PROTONIX TAB 40 MG PO ONE (18:51)
[2018-10-20 19:48] VITALS: BMI 24.5
[2018-10-20] MEDS: SNACK - Diabetic Appropriate PO SCH (20:00)
[2018-10-20] MEDS ORDERED: GLUCOPHAGE ONE (20:13)
[2018-10-20] MEDS: GLUCOPHAGE PO SCH (21:30)
[2018-10-20] MEDS: ZOCOR TAB 10 MG PO SCH (21:30)
[2018-10-20] MEDS: ELIQUIS PO SCH (21:30)
[2018-10-20 23:07] LABS: BILIRUBIN,URINE NEGATIVE (NEGATIVE); BLOOD/HEMOGLOBIN,URINE 2+ (NEGATIVE); GLUCOSE, URINE 3+ (NEGATIVE); KETONES,URINE NEGATIVE (NEGATIVE); LEUKOCYTE ESTERASE ,URINE 3+ (NEGATIVE); NITRITES,URINE NEGATIVE (NEGATIVE); PROTEIN,URINE 1+ (NEGATIVE); UROBILINOGEN,URINE NORMAL (NORMAL)
[2018-10-20 23:22] LABS: APPEARANCE,URINE CLEAR (CLEAR); COLOR,URINE PALE YELLOW (YELLOW)
[2018-10-20 23:23] LABS: BACTERIA,URINE NEGATIVE /HPF (NEGATIVE); SQUAMOUS EPITHELIAL CELL,UR NEGATIVE /HPF (NEGATIVE); YEAST,URINE RARE /HPF (NEGATIVE)
[2018-10-21 05:34] LABS: BASOPHILS # (AUTO) 0.1 X10^3/uL (0.0-0.1); BASOPHILS % (AUTO) 0.7 % (0.2-1.0); EOSINOPHILS # (AUTO) 0.2 x10^3/uL (0.0-0.2); EOSINOPHILS % (AUTO) 1.8 % (0.9-2.9); LYMPHOCYTES # (AUTO) 3.1 X10^3/uL (1.3-2.9); LYMPHOCYTES % (AUTO) 33.9 % (21.0-51.0); MEAN CORPUSCULAR HEMOGLOBIN 27.9 pg (27.0-34.0); MEAN CORPUSCULAR HGB CONC 34.1 g/dL (33.0-35.0); MEAN CORPUSCULAR VOLUME 81.9 fL (80.0-100.0); MEAN PLATELET VOLUME 7.7 fL (7.4-11.0); MONOCYTES # (AUTO) 0.7 x10^3/uL (0.3-0.8); MONOCYTES % (AUTO) 7.1 % (0.0-13.0); NEUTROPHILS # (AUTO) 5.2 x10^3/uL (2.2-4.8); NEUTROPHILS % (AUTO) 56.5 % (42.0-75.0); PLATELET COUNT 273 X10^3/uL (150.0-450.0); RED BLOOD COUNT 4.28 X10^6/uL (4.7-6.0); RED CELL DISTRIBUTION WIDTH 14.9 % (11.6-16.5); WHITE BLOOD COUNT 9.2 X10^3/uL (3.6-10.0)
[2018-10-21 05:39] LABS: HEMOGLOBIN A1C 7.9 %
[2018-10-21 05:48] LABS: ALANINE AMINOTRANSFERASE 21 Units/L (12-78); ALBUMIN 3.5 g/dL (3.4-5.0); ALKALINE PHOSPHATASE 81 Units/L (46-116); ASPARTATE AMINO TRANSFERASE 15 Units/L (15-37); BLOOD UREA NITROGEN 15 mg/dL (7-18); CALCIUM 9.3 mg/dL (8.5-10.1); CARBON DIOXIDE 26.4 mmol/L (21-32); CHLORIDE 101 mmol/L (98-107); COR NA(FOR HYPERGLY) 140 mmol/L (136-145); CREATININE 1.01 mg/dL (0.70-1.30); SODIUM 138 mmol/L (136-145); TOTAL PROTEIN 7.5 g/dL (6.4-8.2); eGFR NON BLACK RACES > 60 (>60)
[2018-10-21] MEDS: HumuLIN R SUBCUT PRN ×2 (05:53→12:19)
[2018-10-21] MEDS ORDERED: GLUCOPHAGE ONE ×2 (07:58→20:02)
[2018-10-21] MEDS: ASPIRIN EC 81 MG PO SCH (08:04)
[2018-10-21] MEDS: GLUCOPHAGE PO SCH ×2 (08:04→20:13)
[2018-10-21] MEDS: GLUCOTROL XL PO SCH (08:04)
[2018-10-21] MEDS: ELIQUIS PO SCH ×2 (08:04→20:13)
--- NOTE | 2018-10-21 08:13 | DR.H&P ---
H&P - History & Physical for Day of: H&P Date: 10/20/18 - Chief Complaint Chief Complaint: weakness, ams - History of Present Illness History of Present Illness: 58 BM ER ADMISSION AFTER PRESENTING WITH EMS, HOME HEALTH AID STATES SHE FOUND HIM ON FLOOR, SUSPECTED HE FELL FROM WHEELCHAIR. FAMILY STATES HE HAS BEEN ON FLOOR FOR 2 HOURS. PT IS CRYING WITH NO VERBAL RESPONSE, SEVERE WEAKNESS. PTHAS PMH OF DM, HTN, OA, BIALTERAL LOWER EXTREMITY AMPUTATION, COPD, BLINDNESS, BPH. PT HAD CT HEAD IN ER, ADMITTED FOR TREATMENT OF AMS, WEAKNESS R/O CVA AND SEPSIS - Past Medical History Past Medical History: Angina, Hypertension, Diabetes, Dementia, Seizures, COPD, GERD, Arthritis Additional Medical History: BLINDNESS - Past Surgical History Surgical History: Ortho Surgery - Family History Family Medical History: Diabetes Mellitus, Cancer - Social History Does patient currently use any type of tobacco product: No Have you used tobacco products in the last 12 months: No Type of Tobacco Use: None Does any household member use tobacco: No Alcohol Use: None Drug Use: None - Medications Home Medications: No Known Drug Allergies Allergy (Verified 06/07/18 15:20) CONTINUE taking the following medications metformin 1,000 mg PO BID 10/20/18 [History] - Review of Systems Constitutional: Weakness Eyes: Other (CHORNIC BLINDNESS BILATERALLY) ENT: No Symptoms Reported Respiratory: Shortness of Breath Cardiovascular: No Symptoms Reported Gastrointestinal: No Symptoms Reported Genitourinary: Incontinence Musculoskeletal: Back Pain Neurological: Weakness, Incoordination, Confusion - Physical Exam Vital Signs: Temperature 98.1 F Pulse Rate [Right Brachial] 94 Pulse Rate 101 Respiratory Rate 20 Blood Pressure [Left Arm] 128/77 Blood Pressure [Right Arm] 136/86 Blood Pressure 137/78 O2 Sat by Pulse Oximetry 100 Oriented: Other (TURNS HEAD TO VOICE) Eyes: Other (CHRONIC VISUAL IMPAIRMENT) Ear: Normal Nose: Normal Throat: Dry Respiratory: RML Diminished, RLL Diminished, LML Diminished, LLL Diminished Cardiovascular: Normal. negative: Edema Palpation: Normal Tenderness: Normal Skin: Decreased Turgur Musculoskeletal: Right, Left, Leg, Deformity, Motor Deficit (BILATERAL UPPER EXTREMITY WEAKNESS) Mood Description: Sad Speech Pattern: Aphasic - Assessment/Plan (1) Altered mental state Status: Acute Plan: ADMIT, CT HEAD ON ADMISSION. EKG AND CXR ON ADMISSION, BS AND BP CONTROL. GENTLE IV HYDRATION, VERIFY HOME MEDICATION. NEURO CHECKS, BC X 2. UA AND UC (2) Weakness Status: Acute (3) Fall Status: Acute (4) Hypertension Status: Acute (5) Diabetes Status: Acute (6) Ischemic cerebrovascular accident (CVA) Status: Acute - Allergies Allergies/Adverse Reactions: Allergies Allergy/AdvReac Type Severity Reaction Status Date / Time No Known Drug Allergies Allergy Verified 06/07/18 15:20
[2018-10-21] MEDS ORDERED: LANTUS SC SCH (09:00)
[2018-10-21 09:35] LABS: CKMB % 1.1 % (<4); CREATINE KINASE 303 Units/L (39-308); CREATINE KINASE MB 3.3 ng/mL (0-4.0); TROPONIN I < 0.02 ng/mL (0-1.5)
--- NOTE | 2018-10-21 11:58 | PCM.PROG ---
Progress Note - Progress Note for Day of Date of Exam: 10/21/18 - Subjective Subjective: 58 BM ER ADMISSION ON 10/20 WITH WEAKNESS AND AMS. PT HAD CT HEAD IN ER WITHOUT ACUTE FINDINGS. PT UA +FOR UTI, UC PENDING. BLOOD CULTURES ORDERED THIS AM. BP AND BS STABLE. PT CONTINUES TO HAVE APHAGIA THIS AM. ROCEPHIN IV, UC PENDING, PT /OT CONSULT - Past Medical Family Social History Past Med/Fam/Surg Hx: No changes since H&P Allergies: Allergies No Known Drug Allergies Allergy (Verified 06/07/18 15:20) - Review of Systems ROS: No change since H&P - Vital Signs and I&O's Vital Signs: Temperature 98.1 F Pulse Rate [Right Brachial] 86 Pulse Rate 101 Respiratory Rate 18 Blood Pressure [Left Arm] 128/77 Blood Pressure [Right Arm] 123/69 Blood Pressure 137/78 O2 Sat by Pulse Oximetry 99 Intake and Output: Intake & Output 10/18/18 10/19/18 10/20/18 10/21/18 11:59 11:59 11:59 11:59 Intake Total 720 / 720 Output Total 300 / 300 Balance 420 / 420 - Physical Exam Oriented: Other (TURNS HEAD TO VOICE) Eyes: Other (CHRONIC VISUAL IMPAIRMENT) Ear: Normal Nose: Normal Throat: Dry Respiratory: Diminished Cardiovascular: Normal. negative: Edema Tenderness: Normal Skin: Decreased Turgur Musculoskeletal: Right, Left, Leg, Deformity, Motor Deficit (BILATERAL UPPER EXTREMITY WEAKNESS) Mood Description: Calm Speech Pattern: Delayed - Laboratory and Diagnostics Result Diagrams: 10/21/18 05:03 10/21/18 05:03 Labs: Laboratory WBC 9.2 X10^3/uL (3.6-10.0) 10/21/18 05:03 RBC 4.28 X10^6/uL (4.7-6.0) L 10/21/18 05:03 Hgb 12.0 g/dL (13.5-18.0) L 10/21/18 05:03 Hct 35.0 % (42.0-54.0) L 10/21/18 05:03 MCV 81.9 fL (80.0-100.0) 10/21/18 05:03 MCH 27.9 pg (27.0-34.0) 10/21/18 05:03 MCHC 34.1 g/dL (33.0-35.0) 10/21/18 05:03 RDW 14.9 % (11.6-16.5) 10/21/18 05:03 Plt Count 273 X10^3/uL (150.0-450.0) 10/21/18 05:03 MPV 7.7 fL (7.4-11.0) 10/21/18 05:03 Neut % (Auto) 56.5 % (42.0-75.0) 10/21/18 05:03 Lymph % (Auto) 33.9 % (21.0-51.0) 10/21/18 05:03 [place] % (Auto) 7.1 % (0.0-13.0) 10/21/18 05:03 Eos % (Auto) 1.8 % (0.9-2.9) 10/21/18 05:03 Baso % (Auto) 0.7 % (0.2-1.0) 10/21/18 05:03 Neut # (Auto) 5.2 x10^3/uL (2.2-4.8) H 10/21/18 05:03 Lymph # (Auto) 3.1 X10^3/uL (1.3-2.9) H 10/21/18 05:03 [place] # (Auto) 0.7 x10^3/uL (0.3-0.8) 10/21/18 05:03 Eos # (Auto) 0.2 x10^3/uL (0.0-0.2) 10/21/18 05:03 Baso # (Auto) 0.1 X10^3/uL (0.0-0.1) 10/21/18 05:03 Absolute Nucleated RBC 0.0 /100WBC 10/21/18 05:03 INR Target Range - 10/20/18 16:32 INR 0.90 (0.8-1.3) 10/20/18 16:32 APTT 26.9 SECONDS (22.9-36.5) 10/20/18 16:32 PTT Comment - 10/20/18 16:32 Sodium 138 mmol/L (136-145) 10/21/18 05:03 Corrected Sodium 140 mmol/L (136-145) 10/21/18 05:03 Potassium 3.8 mmol/L (3.5-5.1) 10/21/18 05:03 Chloride 101 mmol/L (98-107) 10/21/18 05:03 Carbon Dioxide 26.4 mmol/L (21-32) 10/21/18 05:03 BUN 15 mg/dL (7-18) 10/21/18 05:03 Creatinine 1.01 mg/dL (0.70-1.30) 10/21/18 05:03 Est GFR (MDRD) Af Amer > 60 (>60) 10/21/18 05:03 Est GFR (MDRD) Non-Af > 60 (>60) 10/21/18 05:03 Glucose 178 mg/dL (65-99) H 10/21/18 05:03 POC Glucose (mg/dL) 194 mg/dL (65-99) H 10/21/18 11:39 Hemoglobin A1c 7.9 % 10/21/18 05:03 Calcium 9.3 mg/dL (8.5-10.1) 10/21/18 05:03 Corrected Calcium TNP 10/21/18 05:03 Total Bilirubin 0.30 mg/dL (0.2-1.0) 10/21/18 05:03 AST 15 Units/L (15-37) 10/21/18 05:03 ALT 21 Units/L (12-78) 10/21/18 05:03 Alkaline Phosphatase 81 Units/L (46-116) 10/21/18 05:03 Creatine Kinase 303 Units/L (39-308) 10/21/18 08:40 CK-MB (CK-2) 3.3 ng/mL (0-4.0) 10/21/18 08:40 CK/CKMB % Calc 1.1 % (<4) 10/21/18 08:40 Troponin I < 0.02 ng/mL (0-1.5) 10/21/18 08:40 Total Protein 7.5 g/dL (6.4-8.2) 10/21/18 05:03 Albumin 3.5 g/dL (3.4-5.0) 10/21/18 05:03 Globulin 4.0 g/dL (2.5-4.5) 10/21/18 05:03 Albumin/Globulin Ratio 0.9 Ratio (1.1-2.1) L 10/21/18 05:03 Specimen Type Catherized urine 10/20/18 22:35 Urine Color Pale yellow (YELLOW) 10/20/18 22:35 Urine Appearance Clear (CLEAR) 10/20/18 22:35 Urine pH 7.0 (5.0 - 8.0) 10/20/18 22:35 Ur Specific [place] 1.010 (1.000-1.030) 10/20/18 22:35 Urine Protein 1+ (NEGATIVE) 10/20/18 22:35 Urine Glucose (UA) 3+ (NEGATIVE) 10/20/18 22:35 Urine Ketones Negative (NEGATIVE) 10/20/18 22:35 Urine Occult Blood 2+ (NEGATIVE) 10/20/18 22:35 Urine Nitrite Negative (NEGATIVE) 10/20/18 22:35 Urine Bilirubin Negative (NEGATIVE) 10/20/18 22:35 Urine Urobilinogen Normal (NORMAL) 10/20/18 22:35 Ur Leukocyte Esterase 3+ (NEGATIVE) 10/20/18 22:35 Urine RBC 3-5 /HPF (NONE SEEN) 10/20/18 22:35 Urine WBC Tntc /HPF (NONE SEEN) 10/20/18 22:35 Ur Squamous Epith Cells Negative /HPF (NEGATIVE) 10/20/18 22:35 Urine Bacteria Negative /HPF (NEGATIVE) 10/20/18 22:35 Urine Yeast Rare /HPF (NEGATIVE) 10/20/18 22:35 Ur Culture Indicated? Yes/culture set up 10/20/18 22:35 - Plan (1) Altered mental state Status: Acute Plan: CT HEAD ON ADMISSION. EKG AND CXR ON ADMISSION, BS AND BP CONTROL. GENTLE IV HYDRATION, VERIFY HOME MEDICATION. NEURO CHECKS, BC X 2. UA AND UC (2) Weakness Status: Acute (3) Fall Status: Acute (4) Hypertension Status: Acute (5) Diabetes Status: Acute (6) Ischemic cerebrovascular accident (CVA) Status: Acute (7) UTI (urinary tract infection) Status: Acute Qualifiers: Urinary tract infection type: site unspecified Hematuria presence: with hematuria Qualified Code(s): N39.0 - Urinary tract infection, site not specified; R31.9 - Hematuria, unspecified; R31.9 - Hematuria, unspecified Plan: ROCEPHIN, UC PENDING
[2018-10-21] MEDS: ROCEPHIN VIAL 1 GRAM IVP SCH (12:19)
[2018-10-21 15:37] LABS: CKMB % 1.2 % (<4); CREATINE KINASE 243 Units/L (39-308); CREATINE KINASE MB 2.9 ng/mL (0-4.0); TROPONIN I < 0.02 ng/mL (0-1.5)
[2018-10-21] MEDS: SNACK - Diabetic Appropriate PO SCH (20:12)
[2018-10-21] MEDS: ZOCOR TAB 10 MG PO SCH (20:13)
[2018-10-21 20:43] LABS: CKMB % 1.3 % (<4); CREATINE KINASE 216 Units/L (39-308); CREATINE KINASE MB 2.7 ng/mL (0-4.0); TROPONIN I < 0.02 ng/mL (0-1.5)
[2018-10-22 06:09] LABS: BASOPHILS # (AUTO) 0.1 X10^3/uL (0.0-0.1); BASOPHILS % (AUTO) 0.8 % (0.2-1.0); EOSINOPHILS # (AUTO) 0.2 x10^3/uL (0.0-0.2); EOSINOPHILS % (AUTO) 1.9 % (0.9-2.9); HEMATOCRIT 36.2 % (42.0-54.0); HEMOGLOBIN 12.1 g/dL (13.5-18.0); LYMPHOCYTES # (AUTO) 2.4 X10^3/uL (1.3-2.9); LYMPHOCYTES % (AUTO) 24.7 % (21.0-51.0); MEAN CORPUSCULAR HEMOGLOBIN 27.7 pg (27.0-34.0); MEAN CORPUSCULAR HGB CONC 33.4 g/dL (33.0-35.0); MEAN PLATELET VOLUME 7.9 fL (7.4-11.0); MONOCYTES # (AUTO) 0.6 x10^3/uL (0.3-0.8); MONOCYTES % (AUTO) 6.4 % (0.0-13.0); NEUTROPHILS # (AUTO) 6.5 x10^3/uL (2.2-4.8); NEUTROPHILS % (AUTO) 66.2 % (42.0-75.0); PLATELET COUNT 288 X10^3/uL (150.0-450.0); RED BLOOD COUNT 4.36 X10^6/uL (4.7-6.0); RED CELL DISTRIBUTION WIDTH 15.1 % (11.6-16.5); WHITE BLOOD COUNT 9.8 X10^3/uL (3.6-10.0)
[2018-10-22 06:45] LABS: ALANINE AMINOTRANSFERASE 22 Units/L (12-78); ALBUMIN 3.5 g/dL (3.4-5.0); ALKALINE PHOSPHATASE 83 Units/L (46-116); ASPARTATE AMINO TRANSFERASE 14 Units/L (15-37); BLOOD UREA NITROGEN 16 mg/dL (7-18); CALCIUM 9.5 mg/dL (8.5-10.1); CHLORIDE 104 mmol/L (98-107); COR NA(FOR HYPERGLY) 141 mmol/L (136-145); CREATININE 1.29 mg/dL (0.70-1.30); SODIUM 140 mmol/L (136-145); TOTAL PROTEIN 7.6 g/dL (6.4-8.2); eGFR NON BLACK RACES > 60 (>60)
[2018-10-22] MEDS ORDERED: GLUCOPHAGE ONE (08:12)
[2018-10-22] MEDS: GLUCOPHAGE PO SCH (08:56)
[2018-10-22] MEDS: ROCEPHIN VIAL 1 GRAM IVP SCH (08:57)
[2018-10-22] MEDS: GLUCOTROL XL PO SCH (08:57)
[2018-10-22] MEDS: ASPIRIN EC 81 MG PO SCH (08:57)
--- NOTE | 2018-10-22 10:41 | VAS ---
HISTORY: Suspected carotid stenosis. Prior history of COPD, diabetes and hypertension. Study: Bilateral carotid Doppler ultrasound Comparison: No priors Technique: Grayscale, color and duplex Doppler evaluation of the cervical carotid arteries is provided. Findings: Carotid and vertebral arteries flow cephalad in the neck. Mild atherosclerotic calcification is seen in the left proximal ICA. Peak systolic arterial velocity in the right ICA is 56.2 centimeters/second. Peak systolic arterial velocity in the left ICA is 61.7 centimeters/second. ICA/CCA ratios are as follows: On the right 0.65 and on the left 0.66. IMPRESSION: Less than 50% carotid stenosis bilaterally. Reported By:
[2018-10-22 12:14] VITALS: BP 145/80
== END 2018-10-22 16:15 | disposition home or self-care (01) ==
LOC: MED/SURG 16:03 → ER 16:03 → MED/SURG 18:32
PROVIDERS: ADMIT Internal Medicine; ATTEND Internal Medicine
DX: R94.31 Abnormal electrocardiogram [ECG] [EKG]; N39.0 Urinary tract infection, site not specified; G93.89 Other specified disorders of brain; M19.90 Unspecified osteoarthritis, unspecified site; E11.65 Type 2 diabetes mellitus with hyperglycemia; R41.82 Altered mental status, unspecified; R53.1 Weakness; R13.11 Dysphagia, oral phase; G45.8 Other transient cerebral ischemic attacks and related syndromes; W05.0XXA Fall from non-moving wheelchair, initial encounter; Z89.612 Acquired absence of left leg above knee; J44.9 Chronic obstructive pulmonary disease, unspecified; R31.9 Hematuria, unspecified; I10 Essential (primary) hypertension; Y92.9 Unspecified place or not applicable; R26.89 Other abnormalities of gait and mobility; Z89.511 Acquired absence of right leg below knee
CPT/HCPCS: 36415; 70450; 71010; 71045; 80053; 81001; 82550; 82553; 83036; 84484; 85025; 85610; 85730; 87040; 87086; 92610; 93005; 93880; 96365; 96372; 96374; 97112; 97161; 97166; 97535; 99284; G0378; J0696; J1815

== ENCOUNTER 2018-10-31 09:39 | Inpatient (IN) ==
[2018-10-31] MEDS ORDERED: ATIVAN INJ 2 MG VIAL ONE (09:43)
[2018-10-31] MEDS ORDERED: ATIVAN INJ 2 MG VIAL IVP STA (09:54)
[2018-10-31] MEDS ORDERED: NS 1000 ML 1,000 ML IV SCH (10:00)
[2018-10-31 10:02] LABS: BASOPHILS # (AUTO) 0.2 X10^3/uL (0.0-0.1); BASOPHILS % (AUTO) 0.8 % (0.2-1.0); EOSINOPHILS # (AUTO) 0.3 x10^3/uL (0.0-0.2); EOSINOPHILS % (AUTO) 1.6 % (0.9-2.9); HEMATOCRIT 37.7 % (42.0-54.0); HEMOGLOBIN 12.4 g/dL (13.5-18.0); LYMPHOCYTES # (AUTO) 6.3 X10^3/uL (1.3-2.9); LYMPHOCYTES % (AUTO) 34.5 % (21.0-51.0); MEAN CORPUSCULAR HEMOGLOBIN 27.4 pg (27.0-34.0); MEAN CORPUSCULAR HGB CONC 32.9 g/dL (33.0-35.0); MEAN CORPUSCULAR VOLUME 83.3 fL (80.0-100.0); MEAN PLATELET VOLUME 8.1 fL (7.4-11.0); MONOCYTES # (AUTO) 1.2 x10^3/uL (0.3-0.8); MONOCYTES % (AUTO) 6.4 % (0.0-13.0); NEUTROPHILS # (AUTO) 10.4 x10^3/uL (2.2-4.8); NEUTROPHILS % (AUTO) 56.7 % (42.0-75.0); PLATELET COUNT 330 X10^3/uL (150.0-450.0); RED BLOOD COUNT 4.53 X10^6/uL (4.7-6.0); RED CELL DISTRIBUTION WIDTH 14.7 % (11.6-16.5); WHITE BLOOD COUNT 18.4 X10^3/uL (3.6-10.0)
--- NOTE | 2018-10-31 10:06 | DR.GENAD ---
HPI - Complaint/Symptoms Chief Complaint Doctors Comments: EMS states they were called for an unresponsive patient but when they got there he was seizuring for about ten minutes as related by family members. EMS states his oxygen saturation was 70 and they put him on a non-rebreather and his oxygen came up. States they gave him 2mg Versed IM because they were unable to get an IV and his seizures improved and stopped but came back. Sister states he has had seizures in the past but he is not taking any medicines for seizures. States he was admitted recently with UTI and is taking antibiotics but she do not know the name. 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 States he just movee her two years ago from [place] and he was on drugs and doing crack cocaine. States he drank in the past. State he got up this morning and went to the bathroom and came back and got into the bed and started having seizures. EMS states his glucose was 245. Sister denies any recent trauma and states he lives in his wheel chair. States he takes metformin and she gives him 10 units of insulin as needed. - Nurses notes reviewed Nurses Notes Review: Yes - Source History Provided: Family Member, EMS - Mode of Arrival Mode of Arrival: EMS - Timing Came on: Suddenly - Duration Duration: Constant How lon Duration: Minutes - Location Location: seizure - Severity Severity: Severe - Modifying Factors Worsens:: nothing Improves:: nothing PMH - PMH Past Medical History: Angina, Hypertension, Diabetes, Dementia, Seizures, COPD, GERD, Arthritis Past Surgical History: Yes Surgical History: Ortho Surgery - Family History Family Medical History: Diabetes Mellitus, Cancer - Social History Do you use any recreational Drugs:: No ROS - Review of Systems Constitutional: No Symptoms Reported Eyes: No Symptoms Reported. negative: Blurred Vision (blind right eye) ENTM: No Symptoms Reported Respiratoy: No Symptoms Reported. negative: See HPI, Productive Cough, Non- Productive Cough, Moist Cough, Dry Cough, Hacking Cough, Barking Cough, Brassy Cough, Orthopnea, Short of Breath, Stridor, Wheezing, Hemoptysis, Other Cardiovascular: No Symptoms Reported. negative: See HPI, Chest Pain, Edema, Palpitations, Syncope, Cyanosis, Skin Mottling, Other Gastrointestinal/Abdominal: No Symptoms Reported Genitourinary: No Symptoms Reported Neurological: No Symptoms Reported, Seizure, Problems Walking (bilateral amputee) Musculoskeletal: No Symptoms Reported Integumentary: No Symptoms Reported Hematologic/Lymphatic: No Symptoms Reported. negative: See HPI, Anemia, Blood Clots, Easy Bleeding, Easy Bruising, Swollen Glands, Lymphadenopathy, Other Endocrine: No Symptoms Reported Psychiatric: No Symptoms Reported. negative: See HPI, Anxiety, Depression, Hallucinations, Excessive crying, Suicidal, Other PE - General Limitations: Altered Mental Status General Appearance: Other (unresponsive; active seizure left side face) - Head Head Exam: Normal Inspection, Atraumatic, Normocephalic - Eyes Eye exam: Normal Appearance. negative: PERRL (right eye with blind mature cataract; left with corneal opacity), EOMI, Scleral Icterus, Conjunctival Injection, Nystagmus, Miosis, Mydrasis, Periorbital Swelling, Periorbital Tenderness, Other - ENT ENT Exam: Normal Exam, Normal Oropharynx (patient endentulous), Normal External Ear Exam, Mucous Membranes Moist, TM's Normal Bilaterally External Ear Exam: Normal External Inspection TM/Canal Exam: Bilateral Normal Nose Exam: Normal Nose Exam Mouth Exam: Normal Inspection. negative: Drooling (patient edentulous), Trismus, Lip Swelling, Tongue Elevation, Tongue Swelling, Laceration, Other Throat Exam: Normal Inspection - Neck Neck Exam: Normal Inspection, Full ROM, Trachea Midline. negative: Tenderness, Meningismus, Lymphadenopathy, Thyromegaly, Other - Chest Chest Inspection: Normal Inspection, Symmetric Chest Wall Rise - Respiratory Respiratory Exam: Normal Lung Sounds Bilat Respiratory Exam: Bilateral Clear to Auscultation - Cardiovascular Cardiovascular Exam: Regular Rate, Normal Rhythm, Normal Heart Sounds, Systolic Murmur - Abdominal Exam Abdominal Exam: Normal Inspection, Normal Bowel Sounds, Soft (healed surgical scar) Abdominal Tenderness: negative: RUQ, RLQ, LUQ, LLQ, Epigastrium, Suprapubic, Diffuse, Mild, Moderate, Severe, Other - Extremities Extremities Exam: negative: Normal Inspection (bilateral lower leg amputee), Full ROM (patient unresponsive) - Back Back Exam: Normal Inspection, Full ROM - Neurologic Neurological Exam: negative: Alert (unresponsive), Oriented X3 (unresponsive; left facial seizure), CN II-XII Intact (unable to evaluate), Normal Gait ( bilateral amputee) - Psychiatric Psychiatric Exam: negative: Normal Affect (patient unresponsive) - Skin Skin Exam: Warm, Dry, Intact, Normal Color - Vital Signs Vitals: Temperature 100.1 F Pulse Rate [Right Radial] 104 Pulse Rate 117 Respiratory Rate 20 Blood Pressure [Left Arm] 125/63 Blood Pressure [Right Arm] 145/80 Blood Pressure 132/65 O2 Sat by Pulse Oximetry 92 Course - Consultation Called: 12:08 Call Returned: 12:08 (Dr. Lyles to admit) - Education/Counseling Education/Counseling: Family Educated On: Treatment, Diagnosis, Needs for Follow Up ROR - Labs Reviewed Laboratory Results Reviewed?: Yes (All labs and x-ray results reviewed and discussed with family) Result Diagrams: 10/31/18 09:45 10/31/18 09:53 - XRAY XRAY Interpreted by: Radiologist (CT head: Left cerebellar hemisphere new infarct from previous CT. Multiple chronic bilateral infarcts. Severe white matter disease.) XRAY Findings: CXR: No acute cardiopulmonary changes noted. - EKG Rate: 113 [place]: Normal Rhythm: NSR, ST Block: None Hypertrophy: None ST: Nonsp - Labs Reviewed Laboratory: WBC 18.4 X10^3/uL (3.6-10.0) H 10/31/18 09:45 RBC 4.53 X10^6/uL (4.7-6.0) L 10/31/18 09:45 Hgb 12.4 g/dL (13.5-18.0) L 10/31/18 09:45 Hct 37.7 % (42.0-54.0) L 10/31/18 09:45 MCV 83.3 fL (80.0-100.0) 10/31/18 09:45 MCH 27.4 pg (27.0-34.0) 10/31/18 09:45 MCHC 32.9 g/dL (33.0-35.0) L 10/31/18 09:45 RDW 14.7 % (11.6-16.5) 10/31/18 09:45 Plt Count 330 X10^3/uL (150.0-450.0) 10/31/18 09:45 MPV 8.1 fL (7.4-11.0) 10/31/18 09:45 Neut % (Auto) 56.7 % (42.0-75.0) 10/31/18 09:45 Lymph % (Auto) 34.5 % (21.0-51.0) 10/31/18 09:45 [place] % (Auto) 6.4 % (0.0-13.0) 10/31/18 09:45 Eos % (Auto) 1.6 % (0.9-2.9) 10/31/18 09:45 Baso % (Auto) 0.8 % (0.2-1.0) 10/31/18 09:45 Neut # (Auto) 10.4 x10^3/uL (2.2-4.8) H 10/31/18 09:45 Lymph # (Auto) 6.3 X10^3/uL (1.3-2.9) H 10/31/18 09:45 [place] # (Auto) 1.2 x10^3/uL (0.3-0.8) H 10/31/18 09:45 Eos # (Auto) 0.3 x10^3/uL (0.0-0.2) H 10/31/18 09:45 Baso # (Auto) 0.2 X10^3/uL (0.0-0.1) H 10/31/18 09:45 Absolute Nucleated RBC 0.0 /100WBC 10/31/18 09:45 INR Target Range - 10/31/18 09:45 INR 1.00 (0.8-1.3) 10/31/18 09:45 APTT 27.9 SECONDS (22.9-36.5) 10/31/18 09:45 PTT Comment - 10/31/18 09:45 Sodium 136 mmol/L (136-145) 10/31/18 09:53 Corrected Sodium 140 mmol/L (136-145) 10/31/18 09:53 Potassium 3.9 mmol/L (3.5-5.1) 10/31/18 09:53 Chloride 97 mmol/L (98-107) L 10/31/18 09:53 Carbon Dioxide 17.1 mmol/L (21-32) L 10/31/18 09:53 BUN 15 mg/dL (7-18) 10/31/18 09:53 Creatinine 1.48 mg/dL (0.70-1.30) H 10/31/18 09:53 Est GFR (MDRD) Af Amer > 60 (>60) 10/31/18 09:53 Est GFR (MDRD) Non-Af 52 (>60) L 10/31/18 09:53 Glucose 281 mg/dL (65-99) H 10/31/18 09:53 Lactic Acid 7.8 mmol/L (0.4-2.0) H 10/31/18 09:53 Calcium 9.3 mg/dL (8.5-10.1) 10/31/18 09:53 Corrected Calcium TNP 10/31/18 09:53 Magnesium 2.0 mg/dL (1.7-2.9) 10/31/18 09:53 Total Bilirubin 0.30 mg/dL (0.2-1.0) 10/31/18 09:53 AST 18 Units/L (15-37) 10/31/18 09:53 ALT 21 Units/L (12-78) 10/31/18 09:53 Alkaline Phosphatase 93 Units/L (46-116) 10/31/18 09:53 Creatine Kinase 447 Units/L (39-308) H 10/31/18 09:53 CK-MB (CK-2) 3.9 ng/mL (0-4.0) 10/31/18 09:53 CK/CKMB % Calc 0.9 % (<4) 10/31/18 09:53 Troponin I < 0.02 ng/mL (0-1.5) 10/31/18 09:53 Total Protein 8.2 g/dL (6.4-8.2) 10/31/18 09:53 Albumin 3.9 g/dL (3.4-5.0) 10/31/18 09:53 Globulin 4.3 g/dL (2.5-4.5) 10/31/18 09:53 Albumin/Globulin Ratio 0.9 Ratio (1.1-2.1) L 10/31/18 09:53 Specimen Type Catherized urine 10/31/18 09:56 Urine Color Yellow (YELLOW) 10/31/18 09:56 Urine Appearance Clear (CLEAR) 10/31/18 09:56 Urine pH 5.0 (5.0 - 8.0) 10/31/18 09:56 Ur Specific [place] 1.025 (1.000-1.030) 10/31/18 09:56 Urine Protein 3+ (NEGATIVE) 10/31/18 09:56 Urine Glucose (UA) 3+ (NEGATIVE) 10/31/18 09:56 Urine Ketones 1+ (NEGATIVE) 10/31/18 09:56 Urine Occult Blood 5+ (NEGATIVE) 10/31/18 09:56 Urine Nitrite Negative (NEGATIVE) 10/31/18 09:56 Urine Bilirubin Negative (NEGATIVE) 10/31/18 09:56 Urine Urobilinogen Normal (NORMAL) 10/31/18 09:56 Ur Leukocyte Esterase 1+ (NEGATIVE) 10/31/18 09:56 Urine RBC 3-5 /HPF (NONE SEEN) 10/31/18 09:56 Urine WBC 5-10 /HPF (NONE SEEN) 10/31/18 09:56 Ur Squamous Epith Cells Rare /HPF (NEGATIVE) 10/31/18 09:56 Amorphous Sediment Trace /HPF (NEGATIVE) 10/31/18 09:56 Urine Bacteria Negative /HPF (NEGATIVE) 10/31/18 09:56 Hyaline Casts Few /LPF (NEGATIVE) 10/31/18 09:56 Ur Culture Indicated? Yes/culture set up 10/31/18 09:56 Urine Opiates Screen Negative (NEG=<300) 10/31/18 09:56 Urine Methadone Screen Negative (NEG=<300) 10/31/18 09:56 Ur Barbiturates Screen Negative (NEG=<200) 10/31/18 09:56 Ur Phencyclidine Scrn Negative (NEG=<25) 10/31/18 09:56 Ur Amphetamines Screen Negative (NEG=<1000) 10/31/18 09:56 U Benzodiazepines Scrn Negative (NEG=<200) 10/31/18 09:56 Urine Cocaine Screen Negative (NEG=<300) 10/31/18 09:56 U Marijuana (THC) Screen Negative (NEG=<50) 10/31/18 09:56 - Diagnosis Discharge Problem: Seizure disorder, SIRS (systemic inflammatory response syndrome), New cerebellar infarct, Diabetes mellitus, Metabolic acidosis Urinary tract infection Qualifiers: Encounter type: initial encounter - Discharge Plan Disposition: ADMITTED INPATIENT Condition: Stable - Follow ups/Referrals Follow ups/Referrals: CARLOS SNYDER [Primary Care Provider] - 3 days - Instructions
[2018-10-31 10:12] LABS: BILIRUBIN,URINE NEGATIVE (NEGATIVE); BLOOD/HEMOGLOBIN,URINE 5+ (NEGATIVE); GLUCOSE, URINE 3+ (NEGATIVE); KETONES,URINE 1+ (NEGATIVE); LEUKOCYTE ESTERASE ,URINE 1+ (NEGATIVE); NITRITES,URINE NEGATIVE (NEGATIVE); PROTEIN,URINE 3+ (NEGATIVE); UROBILINOGEN,URINE NORMAL (NORMAL)
[2018-10-31 10:14] LABS: APPEARANCE,URINE CLEAR (CLEAR); COLOR,URINE YELLOW (YELLOW)
--- NOTE | 2018-10-31 10:19 | RAD ---
Examination: Portable AP chest History: Chest pain Comparison 10/20/2018 Findings: Continued normal heart size with no evidence for acute pulmonary infiltrate or pleural effusion. Healed rib fractures. No definite pneumothorax. Impression: No interval change or acute abnormality demonstrated. Reported By:
[2018-10-31 10:30] LABS: SQUAMOUS EPITHELIAL CELL,UR RARE /HPF (NEGATIVE)
[2018-10-31 10:31] LABS: AMORPHOUS SEDIMENT,UR TRACE /HPF (NEGATIVE); BACTERIA,URINE NEGATIVE /HPF (NEGATIVE); HYALINE CASTS, URINE FEW /LPF (NEGATIVE)
[2018-10-31] MEDS ORDERED: ROCEPHIN VIAL 1 GRAM IVP ONE ×2 (10:41→11:01)
[2018-10-31] MEDS ORDERED: ROCEPHIN VIAL 1 GRAM ONE ×2 (10:42→11:00)
[2018-10-31 10:47] LABS: ALANINE AMINOTRANSFERASE 21 Units/L (12-78); ALBUMIN 3.9 g/dL (3.4-5.0); ALKALINE PHOSPHATASE 93 Units/L (46-116); ASPARTATE AMINO TRANSFERASE 18 Units/L (15-37); BLOOD UREA NITROGEN 15 mg/dL (7-18); CALCIUM 9.3 mg/dL (8.5-10.1); CKMB % 0.9 % (<4); COR NA(FOR HYPERGLY) 140 mmol/L (136-145); CREATINE KINASE 447 Units/L (39-308); CREATINE KINASE MB 3.9 ng/mL (0-4.0); SODIUM 136 mmol/L (136-145); TOTAL PROTEIN 8.2 g/dL (6.4-8.2); TROPONIN I < 0.02 ng/mL (0-1.5)
[2018-10-31] MEDS ORDERED: CEREBYX INJ IVP ONE (10:48)
[2018-10-31] MEDS ORDERED: NS 100 ML IV 100 ML IV ONE ×2 (10:48→12:02)
--- NOTE | 2018-10-31 10:48 | CT ---
HISTORY: Seizure. Study: CT brain without contrast Comparison: 10/20/2018 Technique: Multiple axial images of the brain were obtained from the skull base to the vertex without administration of IV contrast. Automated exposure control (AEC) was utilized to adjust the MA and/or kV according to patient size. Findings: There is no acute intracranial hemorrhage. There is a new infarct within the left cerebellar hemisphere not seen on previous CT. This is demonstrated on series 4, image 9. There are multiple chronic infarcts including left parietal lobe, left frontal lobe, right frontal lobe, right parietal lobe. Hypodensities in the periventricular subcortical and deep white matter are again noted which are nonspecific but consistent with severe chronic microangiopathic ischemic white matter disease. No mass or mass effect. No abnormal extra-axial fluid collection. There is a generalized prominence of the ventricles, sulci, and cisterns compatible with advanced generalized volume loss. The bilateral mastoid air cells and included paranasal sinuses are predominantly clear. There is no acute osseous abnormality. IMPRESSION: 1. Left cerebellar hemisphere which was not demonstrated on previous CT.. Multiple chronic bilateral infarcts are also noted. Severe white matter disease noted. Consider correlation with MRI of the brain if there is concern for acute ischemia. Reported By:
[2018-10-31 10:49] LABS: eGFR NON BLACK RACES 52 (>60)
[2018-10-31] MEDS ORDERED: CEREBYX INJ ONE (10:49)
[2018-10-31 10:50] LABS: CARBON DIOXIDE 17.1 mmol/L (21-32); CHLORIDE 97 mmol/L (98-107); CREATININE 1.48 mg/dL (0.70-1.30)
[2018-10-31 10:52] LABS: LACTIC ACID 7.8 mmol/L (0.4-2.0)
[2018-10-31] MEDS ORDERED: VANCOMYCIN HCL 1 GM VIAL 1 G in D5W 250 ML IV 250 ML IV ONE (11:01)
[2018-10-31] MEDS ORDERED: TOBRAMYCIN SULFATE 80 MG in NS 100 ML IV 100 ML IV ONE (11:07)
[2018-10-31] MEDS ORDERED: TOBRAMYCIN SULFATE ONE (12:02)
[2018-10-31] MEDS ORDERED: VANCOMYCIN HCL 1 GM VIAL ONE (13:10)
[2018-10-31] MEDS ORDERED: NS 250 ML IV 250 ML IV ONE (13:10)
[2018-10-31 14:11] LABS: LACTIC ACID 1.5 mmol/L (0.4-2.0)
[2018-10-31 14:23] LABS: CKMB % 0.5 % (<4); CREATINE KINASE MB 3.7 ng/mL (0-4.0); TROPONIN I 0.03 ng/mL (0-1.5)
[2018-10-31 14:55] VITALS: BMI 24.3
[2018-10-31] MEDS: KEPPRA TAB 500 MG PO SCH ×3 (15:00→21:00)
[2018-10-31] MEDS: ZOSYN VIAL 3.375 GRAMS 3.375 G in NS 100 ML IV + SPIKE MINIBAG* 100 ML IV SCH ×2 (15:10→22:20)
[2018-10-31] MEDS: NS 1000 ML 1,000 ML IV SCH ×2 (15:35→22:21)
[2018-10-31] MEDS: HumuLIN R SC PRN (16:01)
[2018-10-31 19:52] LABS: LACTIC ACID 0.9 mmol/L (0.4-2.0)
[2018-10-31 20:02] LABS: TROPONIN I 0.06 ng/mL (0-1.5)
[2018-10-31 20:03] LABS: CKMB % 0.3 % (<4)
[2018-11-01 03:01] LABS: LACTIC ACID 0.6 mmol/L (0.4-2.0)
[2018-11-01 03:08] LABS: CREATINE KINASE MB 3.1 ng/mL (0-4.0); TROPONIN I 0.06 ng/mL (0-1.5)
[2018-11-01 03:10] LABS: CKMB % 0.2 % (<4)
[2018-11-01] MEDS: ZOSYN VIAL 3.375 GRAMS 3.375 G in NS 100 ML IV + SPIKE MINIBAG* 100 ML IV SCH ×3 (05:45→21:12)
[2018-11-01] MEDS: NS 1000 ML 1,000 ML IV SCH ×3 (05:45→21:18)
[2018-11-01 08:26] LABS: BASOPHILS # (AUTO) 0.1 X10^3/uL (0.0-0.1); BASOPHILS % (AUTO) 0.7 % (0.2-1.0); EOSINOPHILS # (AUTO) 0.1 x10^3/uL (0.0-0.2); EOSINOPHILS % (AUTO) 0.6 % (0.9-2.9); HEMATOCRIT 34.2 % (42.0-54.0); HEMOGLOBIN 11.6 g/dL (13.5-18.0); LYMPHOCYTES # (AUTO) 1.5 X10^3/uL (1.3-2.9); LYMPHOCYTES % (AUTO) 17.5 % (21.0-51.0); MEAN CORPUSCULAR HEMOGLOBIN 27.7 pg (27.0-34.0); MEAN CORPUSCULAR VOLUME 81.3 fL (80.0-100.0); MEAN PLATELET VOLUME 8.3 fL (7.4-11.0); MONOCYTES # (AUTO) 0.4 x10^3/uL (0.3-0.8); MONOCYTES % (AUTO) 4.5 % (0.0-13.0); NEUTROPHILS # (AUTO) 6.4 x10^3/uL (2.2-4.8); NEUTROPHILS % (AUTO) 76.7 % (42.0-75.0); PLATELET COUNT 259 X10^3/uL (150.0-450.0); RED CELL DISTRIBUTION WIDTH 15.3 % (11.6-16.5); WHITE BLOOD COUNT 8.4 X10^3/uL (3.6-10.0)
[2018-11-01 08:33] LABS: ALANINE AMINOTRANSFERASE 15 Units/L (12-78); ALBUMIN 3.1 g/dL (3.4-5.0); ALKALINE PHOSPHATASE 73 Units/L (46-116); ASPARTATE AMINO TRANSFERASE 19 Units/L (15-37); BLOOD UREA NITROGEN 9 mg/dL (7-18); CALCIUM 8.4 mg/dL (8.5-10.1); CARBON DIOXIDE 26.4 mmol/L (21-32); CHLORIDE 107 mmol/L (98-107); COR CA(FOR HYPOALB) 9.1 mg/dL (8.5-10.1); COR NA(FOR HYPERGLY) 143 mmol/L (136-145); CREATININE 1.21 mg/dL (0.70-1.30); SODIUM 142 mmol/L (136-145); TOTAL PROTEIN 6.8 g/dL (6.4-8.2); eGFR NON BLACK RACES > 60 (>60)
[2018-11-01] MEDS: KEPPRA TAB 500 MG PO SCH ×2 (08:49→20:05)
[2018-11-01] MEDS: ATIVAN INJ 2 MG VIAL IVP SCH ×3 (14:22→21:12)
[2018-11-01] MEDS ORDERED: MICRO K EXTEN CAP 10 MEQ PO PRN (19:17)
[2018-11-01] MEDS ORDERED: POTASSIUM CHL 60 MEQ/NS 0.45% 500 ML IV PRN (19:17)
[2018-11-01] MEDS ORDERED: K-RIDER 10 MEQ/NS 100 ML 10 MEQ/100 ML BAG IV PRN (19:17)
[2018-11-01] MEDS ORDERED: POTASSIUM CHLORIDE LIQ 20 MEQ UDC PO PRN (19:17)
[2018-11-01] MEDS ORDERED: POTASSIUM CHL 40 MEQ/NS 0.45% 500 ML IV PRN (19:17)
[2018-11-01] MEDS ORDERED: K-DUR TAB 20 MEQ PO PRN (19:17)
[2018-11-01] MEDS ORDERED: KLOR-CON PO PRN (19:17)
[2018-11-01] MEDS: MAGNESIUM SULFATE 1 GRAM/100 mL PREMIX 1 GM/100 ML BAG IV PRN ×2 (19:56→21:11)
[2018-11-01] MEDS: HumuLIN R SC PRN (21:42)
[2018-11-02] MEDS: NS 1000 ML 1,000 ML IV SCH ×5 (00:32→21:36)
[2018-11-02] MEDS: ZOSYN VIAL 3.375 GRAMS 3.375 G in NS 100 ML IV + SPIKE MINIBAG* 100 ML IV SCH ×3 (05:13→21:37)
[2018-11-02 05:21] LABS: BASOPHILS # (AUTO) 0.1 X10^3/uL (0.0-0.1); BASOPHILS % (AUTO) 0.9 % (0.2-1.0); EOSINOPHILS # (AUTO) 0.2 x10^3/uL (0.0-0.2); EOSINOPHILS % (AUTO) 2.9 % (0.9-2.9); HEMATOCRIT 34.5 % (42.0-54.0); HEMOGLOBIN 11.8 g/dL (13.5-18.0); LYMPHOCYTES # (AUTO) 1.7 X10^3/uL (1.3-2.9); LYMPHOCYTES % (AUTO) 24.3 % (21.0-51.0); MEAN CORPUSCULAR HEMOGLOBIN 27.2 pg (27.0-34.0); MEAN CORPUSCULAR HGB CONC 34.1 g/dL (33.0-35.0); MEAN CORPUSCULAR VOLUME 79.8 fL (80.0-100.0); MEAN PLATELET VOLUME 7.8 fL (7.4-11.0); MONOCYTES # (AUTO) 0.4 x10^3/uL (0.3-0.8); MONOCYTES % (AUTO) 6.4 % (0.0-13.0); NEUTROPHILS # (AUTO) 4.5 x10^3/uL (2.2-4.8); NEUTROPHILS % (AUTO) 65.5 % (42.0-75.0); PLATELET COUNT 242 X10^3/uL (150.0-450.0); RED BLOOD COUNT 4.32 X10^6/uL (4.7-6.0); RED CELL DISTRIBUTION WIDTH 14.7 % (11.6-16.5); WHITE BLOOD COUNT 6.8 X10^3/uL (3.6-10.0)
[2018-11-02 05:34] LABS: ALANINE AMINOTRANSFERASE 17 Units/L (12-78); ALBUMIN 3.2 g/dL (3.4-5.0); ALKALINE PHOSPHATASE 73 Units/L (46-116); ASPARTATE AMINO TRANSFERASE 24 Units/L (15-37); BLOOD UREA NITROGEN 7 mg/dL (7-18); CALCIUM 8.7 mg/dL (8.5-10.1); CARBON DIOXIDE 26.8 mmol/L (21-32); CHLORIDE 105 mmol/L (98-107); COR CA(FOR HYPOALB) 9.3 mg/dL (8.5-10.1); COR NA(FOR HYPERGLY) 141 mmol/L (136-145); CREATININE 1.05 mg/dL (0.70-1.30); MAGNESIUM 2.4 mg/dL (1.7-2.9); SODIUM 140 mmol/L (136-145); TOTAL PROTEIN 7.2 g/dL (6.4-8.2); eGFR NON BLACK RACES > 60 (>60)
[2018-11-02] MEDS: ATIVAN INJ 2 MG VIAL IVP SCH (08:40)
[2018-11-02] MEDS: KEPPRA TAB 500 MG PO SCH ×2 (08:40→20:04)
[2018-11-02] MEDS ORDERED: ATIVAN INJ 2 MG VIAL IVP PRN (09:29)
[2018-11-02] MEDS: HumuLIN R SC PRN ×3 (10:58→20:04)
--- NOTE | 2018-11-02 17:34 | PCM.PROG ---
Progress Note - Progress Note for Day of Date of Exam: 11/02/18 - Subjective Subjective: 58BM ER ADMISSION ON 10/31 WITH SEIZURE ACTIVITY, PT WAS SEEN IN ER AND ADMISSION FOR TREATMENT OF POSSIBLE UTI/SEPSIS. PT HAS BEEN ON ORAL ANTIBIOTICS AT HOME FOR UTI WBC 18K ON ADMISSION, PT CURRENTLY ON IV ZOSYN WITH QBC 6.8 THIS AM. PT BUN 7 CREAT 1.05 THIS AM. PT ON POTASSIUM REPLACEMENT AND ORAL KEPPRA, SCHEDULED ATIVAN CHANGED TO PRN SEIZURE ACTIVITY DUE TO CONTINUED DAYTIME SEDATION. PT POCKETING FOOD AND CONTINUES TO BE APHASIC. - Past Medical Family Social History Past Med/Fam/Surg Hx: No changes since H&P Allergies: Allergies No Known Drug Allergies Allergy (Verified 06/07/18 15:20) - Review of Systems ROS: No change since H&P - Vital Signs and I&O's Vital Signs: Temperature 98.0 F Pulse Rate [Right Radial] 96 Pulse Rate 85 Respiratory Rate 18 Blood Pressure [Left Arm] 107/57 Blood Pressure [Right Arm] 99/57 Blood Pressure 143/92 O2 Sat by Pulse Oximetry 100 Intake and Output: Intake & Output 10/31/18 11/01/18 11/02/18 11/03/18 10:59 11:59 11:59 11:59 Intake Total 4509 / 4509 1510 / 1510 Output Total 3300 / 3300 1500 / 1500 Balance 1209 / 1209 - Physical Exam Oriented: Person Eyes: Blurred Vision (CHRONIC VISION IMPAIRMENT) Ear: Normal Nose: Normal Throat: Normal Respiratory: Diminished Cardiovascular: Normal : Normal Palpation: Normal Tenderness: Normal Skin: Normal Musculoskeletal: Right, Left, Leg, Deformity Mood Description: Calm Affect: Flat Speech Pattern: Aphasic - Laboratory and Diagnostics Result Diagrams: 11/02/18 04:50 11/02/18 04:50 Labs: 10/31/18 10:57 Blood Blood Culture - Preliminary 10/31/18 10:23 Blood Blood Culture - Preliminary 10/31/18 09:56 Urine,Catheterized Urine Culture - Final Laboratory WBC 6.8 X10^3/uL (3.6-10.0) 11/02/18 04:50 RBC 4.32 X10^6/uL (4.7-6.0) L 11/02/18 04:50 Hgb 11.8 g/dL (13.5-18.0) L 11/02/18 04:50 Hct 34.5 % (42.0-54.0) L 11/02/18 04:50 MCV 79.8 fL (80.0-100.0) L 11/02/18 04:50 MCH 27.2 pg (27.0-34.0) 11/02/18 04:50 MCHC 34.1 g/dL (33.0-35.0) 11/02/18 04:50 RDW 14.7 % (11.6-16.5) 11/02/18 04:50 Plt Count 242 X10^3/uL (150.0-450.0) 11/02/18 04:50 MPV 7.8 fL (7.4-11.0) 11/02/18 04:50 Neut % (Auto) 65.5 % (42.0-75.0) 11/02/18 04:50 Lymph % (Auto) 24.3 % (21.0-51.0) 11/02/18 04:50 [place] % (Auto) 6.4 % (0.0-13.0) 11/02/18 04:50 Eos % (Auto) 2.9 % (0.9-2.9) 11/02/18 04:50 Baso % (Auto) 0.9 % (0.2-1.0) 11/02/18 04:50 Neut # (Auto) 4.5 x10^3/uL (2.2-4.8) 11/02/18 04:50 Lymph # (Auto) 1.7 X10^3/uL (1.3-2.9) 11/02/18 04:50 [place] # (Auto) 0.4 x10^3/uL (0.3-0.8) 11/02/18 04:50 Eos # (Auto) 0.2 x10^3/uL (0.0-0.2) 11/02/18 04:50 Baso # (Auto) 0.1 X10^3/uL (0.0-0.1) 11/02/18 04:50 Absolute Nucleated RBC 0.1 /100WBC 11/02/18 04:50 INR Target Range - 10/31/18 09:45 INR 1.00 (0.8-1.3) 10/31/18 09:45 APTT 27.9 SECONDS (22.9-36.5) 10/31/18 09:45 PTT Comment - 10/31/18 09:45 Sodium 140 mmol/L (136-145) 11/02/18 04:50 Corrected Sodium 141 mmol/L (136-145) 11/02/18 04:50 Potassium 3.8 mmol/L (3.5-5.1) 11/02/18 04:50 Chloride 105 mmol/L (98-107) 11/02/18 04:50 Carbon Dioxide 26.8 mmol/L (21-32) 11/02/18 04:50 BUN 7 mg/dL (7-18) 11/02/18 04:50 Creatinine 1.05 mg/dL (0.70-1.30) 11/02/18 04:50 Est GFR (MDRD) Af Amer > 60 (>60) 11/02/18 04:50 Est GFR (MDRD) Non-Af > 60 (>60) 11/02/18 04:50 Glucose 159 mg/dL (65-99) H 11/02/18 04:50 POC Glucose (mg/dL) 213 mg/dL (65-99) H 11/02/18 16:29 Lactic Acid 0.6 mmol/L (0.4-2.0) 11/01/18 08:00 Calcium 8.7 mg/dL (8.5-10.1) 11/02/18 04:50 Corrected Calcium 9.3 mg/dL (8.5-10.1) 11/02/18 04:50 Phosphorus 3.6 mg/dL (2.6-4.7) 10/31/18 13:45 Magnesium 2.4 mg/dL (1.7-2.9) 11/02/18 04:50 Total Bilirubin 0.40 mg/dL (0.2-1.0) 11/02/18 04:50 AST 24 Units/L (15-37) 11/02/18 04:50 ALT 17 Units/L (12-78) 11/02/18 04:50 Alkaline Phosphatase 73 Units/L (46-116) 11/02/18 04:50 Creatine Kinase 1724 Units/L (39-308) H 11/01/18 01:35 CK-MB (CK-2) 3.1 ng/mL (0-4.0) 11/01/18 01:35 CK/CKMB % Calc 0.2 % (<4) 11/01/18 01:35 Troponin I 0.06 ng/mL (0-1.5) 11/01/18 01:35 Total Protein 7.2 g/dL (6.4-8.2) 11/02/18 04:50 Albumin 3.2 g/dL (3.4-5.0) L 11/02/18 04:50 Globulin 4.0 g/dL (2.5-4.5) 11/02/18 04:50 Albumin/Globulin Ratio 0.8 Ratio (1.1-2.1) L 11/02/18 04:50 Specimen Type Catherized urine 10/31/18 09:56 Urine Color Yellow (YELLOW) 10/31/18 09:56 Urine Appearance Clear (CLEAR) 10/31/18 09:56 Urine pH 5.0 (5.0 - 8.0) 10/31/18 09:56 Ur Specific [place] 1.025 (1.000-1.030) 10/31/18 09:56 Urine Protein 3+ (NEGATIVE) 10/31/18 09:56 Urine Glucose (UA) 3+ (NEGATIVE) 10/31/18 09:56 Urine Ketones 1+ (NEGATIVE) 10/31/18 09:56 Urine Occult Blood 5+ (NEGATIVE) 10/31/18 09:56 Urine Nitrite Negative (NEGATIVE) 10/31/18 09:56 Urine Bilirubin Negative (NEGATIVE) 10/31/18 09:56 Urine Urobilinogen Normal (NORMAL) 10/31/18 09:56 Ur Leukocyte Esterase 1+ (NEGATIVE) 10/31/18 09:56 Urine RBC 3-5 /HPF (NONE SEEN) 10/31/18 09:56 Urine WBC 5-10 /HPF (NONE SEEN) 10/31/18 09:56 Ur Squamous Epith Cells Rare /HPF (NEGATIVE) 10/31/18 09:56 Amorphous Sediment Trace /HPF (NEGATIVE) 10/31/18 09:56 Urine Bacteria Negative /HPF (NEGATIVE) 10/31/18 09:56 Hyaline Casts Few /LPF (NEGATIVE) 10/31/18 09:56 Ur Culture Indicated? Yes/culture set up 10/31/18 09:56 Urine Opiates Screen Negative (NEG=<300) 10/31/18 09:56 Urine Methadone Screen Negative (NEG=<300) 10/31/18 09:56 Ur Barbiturates Screen Negative (NEG=<200) 10/31/18 09:56 Ur Phencyclidine Scrn Negative (NEG=<25) 10/31/18 09:56 Ur Amphetamines Screen Negative (NEG=<1000) 10/31/18 09:56 U Benzodiazepines Scrn Negative (NEG=<200) 10/31/18 09:56 Urine Cocaine Screen Negative (NEG=<300) 10/31/18 09:56 U Marijuana (THC) Screen Negative (NEG=<50) 10/31/18 09:56 - Plan (1) UTI (urinary tract infection) Status: Acute Qualifiers: Urinary tract infection type: site unspecified Hematuria presence: with hematuria Qualified Code(s): N39.0 - Urinary tract infection, site not specified; R31.9 - Hematuria, unspecified; R31.9 - Hematuria, unspecified Plan: CONTINUE IV ATBX THERAPY, URINE CULTURE PENDING AND BLOOD CULTURES WITH NO GROWTH AT THIS TIME. RECOMMEND [facility] PLACEMENT TO FAMILY AND CASE MANAGEMENT CONSULT, PT HAS HAD INCREASED GENERAL HEALTH DECLINE OVER PAST 6- 8WEEKS. AM LABS, ELECTROLYTE REPLACEMENT, BS CONTROL, PT/OT (2) New onset seizure Status: Acute Plan: CT HEAD ON ADMISSION. COLE (3) Hypertension Status: Acute (4) Diabetes Status: Acute (5) Weakness Status: Acute
[2018-11-02] MEDS: SNACK - Diabetic Appropriate PO SCH (19:48)
[2018-11-03] MEDS ORDERED: TYLENOL 325 MG TAB PO ONE (00:17)
[2018-11-03] MEDS ORDERED: TYLENOL 325 MG TAB PO PRN (00:20)
[2018-11-03 05:23] LABS: BASOPHILS # (AUTO) 0.1 X10^3/uL (0.0-0.1); BASOPHILS % (AUTO) 0.7 % (0.2-1.0); EOSINOPHILS # (AUTO) 0.3 x10^3/uL (0.0-0.2); EOSINOPHILS % (AUTO) 3.5 % (0.9-2.9); HEMATOCRIT 32.4 % (42.0-54.0); HEMOGLOBIN 11.3 g/dL (13.5-18.0); LYMPHOCYTES # (AUTO) 2.7 X10^3/uL (1.3-2.9); LYMPHOCYTES % (AUTO) 35.5 % (21.0-51.0); MEAN CORPUSCULAR HEMOGLOBIN 27.7 pg (27.0-34.0); MEAN CORPUSCULAR HGB CONC 34.8 g/dL (33.0-35.0); MEAN CORPUSCULAR VOLUME 79.4 fL (80.0-100.0); MEAN PLATELET VOLUME 8.2 fL (7.4-11.0); MONOCYTES # (AUTO) 0.5 x10^3/uL (0.3-0.8); MONOCYTES % (AUTO) 7.1 % (0.0-13.0); NEUTROPHILS % (AUTO) 53.2 % (42.0-75.0); PLATELET COUNT 256 X10^3/uL (150.0-450.0); RED BLOOD COUNT 4.08 X10^6/uL (4.7-6.0); RED CELL DISTRIBUTION WIDTH 14.7 % (11.6-16.5); WHITE BLOOD COUNT 7.5 X10^3/uL (3.6-10.0)
[2018-11-03] MEDS: NS 1000 ML 1,000 ML IV SCH ×5 (05:28→23:43)
[2018-11-03] MEDS: ZOSYN VIAL 3.375 GRAMS 3.375 G in NS 100 ML IV + SPIKE MINIBAG* 100 ML IV SCH ×3 (05:28→21:03)
[2018-11-03] MEDS: HumuLIN R SC PRN ×4 (05:29→20:59)
[2018-11-03 05:45] LABS: ALANINE AMINOTRANSFERASE 17 Units/L (12-78); ALBUMIN 3.2 g/dL (3.4-5.0); ALKALINE PHOSPHATASE 73 Units/L (46-116); ASPARTATE AMINO TRANSFERASE 20 Units/L (15-37); BLOOD UREA NITROGEN 8 mg/dL (7-18); CALCIUM 8.8 mg/dL (8.5-10.1); CARBON DIOXIDE 24.8 mmol/L (21-32); CHLORIDE 107 mmol/L (98-107); COR CA(FOR HYPOALB) 9.4 mg/dL (8.5-10.1); COR NA(FOR HYPERGLY) 142 mmol/L (136-145); CREATININE 1.08 mg/dL (0.70-1.30); SODIUM 140 mmol/L (136-145); eGFR NON BLACK RACES > 60 (>60)
--- NOTE | 2018-11-03 06:51 | RAD ---
HISTORY: Cough, congestion Study: Chest AP portable Comparison: 10/31/2018 Findings: The heart is within normal limits in size. The bo are normal. The lungs are free of acute infiltrates. No pleural effusions are identified. The bony thorax is unremarkable. IMPRESSION: Lungs clear Reported By:
[2018-11-03] MEDS: KEPPRA TAB 500 MG PO SCH ×2 (07:59→20:52)
[2018-11-03] MEDS: MILK OF MAGNESIA PO SCH ×2 (08:30→20:52)
--- NOTE | 2018-11-03 09:33 | PCM.PROG ---
Progress Note - Progress Note for Day of Date of Exam: 11/03/18 - Subjective Subjective: 57BM ER ADMISSION ON 10/31 WITH SEIZURE ACTIVITY, PT WAS SEEN IN ER AND ADMISSION FOR TREATMENT OF POSSIBLE UTI/SEPSIS. PT HAS BEEN ON ORAL ANTIBIOTICS AT HOME FOR UTI WBC 18K ON ADMISSION, PT CURRENTLY ON IV ZOSYN WITH QBC 6.7 THIS AM.PT ON ORAL KEPPRA, SCHEDULED ATIVAN CHANGED TO PRN SEIZURE ACTIVITY DUE TO CONTINUED DAYTIME SEDATION. PT POCKETING FOOD AND CONTINUES TO BE APHASIC. PT DID RESPOND TO QUESTION WHEN IS YOUR BIRTHDAY "AUGUST". DENIES ANY PAIN. DISCUSSED WITH FAMILY [facility] PLACEMENT. - Past Medical Family Social History Past Med/Fam/Surg Hx: No changes since H&P Allergies: Allergies No Known Drug Allergies Allergy (Verified 06/07/18 15:20) - Review of Systems ROS: No change since H&P - Vital Signs and I&O's Vital Signs: Temperature 98.5 F Pulse Rate [Right Radial] 96 Pulse Rate 90 Respiratory Rate 17 Blood Pressure [Left Arm] 107/57 Blood Pressure [Right Arm] 99/57 Blood Pressure 144/77 O2 Sat by Pulse Oximetry 100 Intake and Output: Intake & Output 10/31/18 11/01/18 11/02/18 11/03/18 10:59 11:59 11:59 11:59 Intake Total 4509 / 4509 4188 / 4188 Output Total 3300 / 3300 4550 / 4550 Balance 1209 / 1209 -362 / -362 - Physical Exam Oriented: Person Eyes: Blurred Vision (CHRONIC VISION IMPAIRMENT) Ear: Normal Nose: Normal Throat: Normal Respiratory: Diminished Cardiovascular: Normal : Normal Tenderness: Normal Skin: Normal Musculoskeletal: Right, Left, Leg, Deformity Mood Description: Calm Affect: Flat Speech Pattern: Unclear - Laboratory and Diagnostics Result Diagrams: 11/03/18 04:45 11/03/18 04:45 Labs: 10/31/18 10:57 Blood Blood Culture - Preliminary 10/31/18 10:23 Blood Blood Culture - Preliminary 10/31/18 09:56 Urine,Catheterized Urine Culture - Final Laboratory WBC 7.5 X10^3/uL (3.6-10.0) 11/03/18 04:45 RBC 4.08 X10^6/uL (4.7-6.0) L 11/03/18 04:45 Hgb 11.3 g/dL (13.5-18.0) L 11/03/18 04:45 Hct 32.4 % (42.0-54.0) L 11/03/18 04:45 MCV 79.4 fL (80.0-100.0) L 11/03/18 04:45 MCH 27.7 pg (27.0-34.0) 11/03/18 04:45 MCHC 34.8 g/dL (33.0-35.0) 11/03/18 04:45 RDW 14.7 % (11.6-16.5) 11/03/18 04:45 Plt Count 256 X10^3/uL (150.0-450.0) 11/03/18 04:45 MPV 8.2 fL (7.4-11.0) 11/03/18 04:45 Neut % (Auto) 53.2 % (42.0-75.0) 11/03/18 04:45 Lymph % (Auto) 35.5 % (21.0-51.0) 11/03/18 04:45 [place] % (Auto) 7.1 % (0.0-13.0) 11/03/18 04:45 Eos % (Auto) 3.5 % (0.9-2.9) H 11/03/18 04:45 Baso % (Auto) 0.7 % (0.2-1.0) 11/03/18 04:45 Neut # (Auto) 4.0 x10^3/uL (2.2-4.8) 11/03/18 04:45 Lymph # (Auto) 2.7 X10^3/uL (1.3-2.9) 11/03/18 04:45 [place] # (Auto) 0.5 x10^3/uL (0.3-0.8) 11/03/18 04:45 Eos # (Auto) 0.3 x10^3/uL (0.0-0.2) H 11/03/18 04:45 Baso # (Auto) 0.1 X10^3/uL (0.0-0.1) 11/03/18 04:45 Absolute Nucleated RBC 0.0 /100WBC 11/03/18 04:45 INR Target Range - 03/09/19 09:45 INR 1.00 (0.8-1.3) 10/31/18 09:45 APTT 27.9 SECONDS (22.9-36.5) 10/31/18 09:45 PTT Comment - 10/31/18 09:45 Sodium 140 mmol/L (136-145) 11/03/18 04:45 Corrected Sodium 142 mmol/L (136-145) 11/03/18 04:45 Potassium 3.8 mmol/L (3.5-5.1) 11/03/18 04:45 Chloride 107 mmol/L (98-107) 11/03/18 04:45 Carbon Dioxide 24.8 mmol/L (21-32) 11/03/18 04:45 BUN 8 mg/dL (7-18) 11/03/18 04:45 Creatinine 1.08 mg/dL (0.70-1.30) 11/03/18 04:45 Est GFR (MDRD) Af Amer > 60 (>60) 11/03/18 04:45 Est GFR (MDRD) Non-Af > 60 (>60) 11/03/18 04:45 Glucose 164 mg/dL (65-99) H 11/03/18 04:45 POC Glucose (mg/dL) 169 mg/dL (65-99) H 11/03/18 05:18 Lactic Acid 0.6 mmol/L (0.4-2.0) 11/01/18 08:00 Calcium 8.8 mg/dL (8.5-10.1) 11/03/18 04:45 Corrected Calcium 9.4 mg/dL (8.5-10.1) 11/03/18 04:45 Phosphorus 3.6 mg/dL (2.6-4.7) 10/31/18 13:45 Magnesium 2.4 mg/dL (1.7-2.9) 11/02/18 04:50 Total Bilirubin 0.30 mg/dL (0.2-1.0) 11/03/18 04:45 AST 20 Units/L (15-37) 11/03/18 04:45 ALT 17 Units/L (12-78) 11/03/18 04:45 Alkaline Phosphatase 73 Units/L (46-116) 11/03/18 04:45 Creatine Kinase 1724 Units/L (39-308) H 11/01/18 01:35 CK-MB (CK-2) 3.1 ng/mL (0-4.0) 11/01/18 01:35 CK/CKMB % Calc 0.2 % (<4) 11/01/18 01:35 Troponin I 0.06 ng/mL (0-1.5) 11/01/18 01:35 Total Protein 7.0 g/dL (6.4-8.2) 11/03/18 04:45 Albumin 3.2 g/dL (3.4-5.0) L 11/03/18 04:45 Globulin 3.8 g/dL (2.5-4.5) 11/03/18 04:45 Albumin/Globulin Ratio 0.8 Ratio (1.1-2.1) L 11/03/18 04:45 Specimen Type Catherized urine 10/31/18 09:56 Urine Color Yellow (YELLOW) 10/31/18 09:56 Urine Appearance Clear (CLEAR) 10/31/18 09:56 Urine pH 5.0 (5.0 - 8.0) 10/31/18 09:56 Ur Specific [place] 1.025 (1.000-1.030) 10/31/18 09:56 Urine Protein 3+ (NEGATIVE) 10/31/18 09:56 Urine Glucose (UA) 3+ (NEGATIVE) 10/31/18 09:56 Urine Ketones 1+ (NEGATIVE) 10/31/18 09:56 Urine Occult Blood 5+ (NEGATIVE) 10/31/18 09:56 Urine Nitrite Negative (NEGATIVE) 10/31/18 09:56 Urine Bilirubin Negative (NEGATIVE) 10/31/18 09:56 Urine Urobilinogen Normal (NORMAL) 10/31/18 09:56 Ur Leukocyte Esterase 1+ (NEGATIVE) 10/31/18 09:56 Urine RBC 3-5 /HPF (NONE SEEN) 10/31/18 09:56 Urine WBC 5-10 /HPF (NONE SEEN) 10/31/18 09:56 Ur Squamous Epith Cells Rare /HPF (NEGATIVE) 10/31/18 09:56 Amorphous Sediment Trace /HPF (NEGATIVE) 10/31/18 09:56 Urine Bacteria Negative /HPF (NEGATIVE) 10/31/18 09:56 Hyaline Casts Few /LPF (NEGATIVE) 10/31/18 09:56 Ur Culture Indicated? Yes/culture set up 10/31/18 09:56 Urine Opiates Screen Negative (NEG=<300) 10/31/18 09:56 Urine Methadone Screen Negative (NEG=<300) 10/31/18 09:56 Ur Barbiturates Screen Negative (NEG=<200) 03 09:56 Ur Phencyclidine Scrn Negative (NEG=<25) 03 09:56 Ur Amphetamines Screen Negative (NEG=<1000) 03 09:56 U Benzodiazepines Scrn Negative (NEG=<200) 10/31/18 09:56 Urine Cocaine Screen Negative (NEG=<300) 10/31/18 09:56 U Marijuana (THC) Screen Negative (NEG=<50) 03 09:56 - Plan (1) UTI (urinary tract infection) Status: Acute Qualifiers: Urinary tract infection type: site unspecified Hematuria presence: with hematuria Qualified Code(s): N39.0 - Urinary tract infection, site not specified; R31.9 - Hematuria, unspecified; R31.9 - Hematuria, unspecified Plan: CONTINUE IV ATBX THERAPY, URINE CULTURE PENDING AND BLOOD CULTURES WITH NO GROWTH AT THIS TIME. RECOMMEND [facility] PLAC[facility] TO FAMILY AND CASE MANAGEMENT CONSULT, PT HAS HAD INCREASED GENERAL HEALTH DECLINE OVER PAST 6- 8WEEKS. AM LABS, ELECTROLYTE REPLACEMENT, BS CONTROL, PT/OT (2) New onset seizure Status: Acute Plan: CT HEAD ON ADMISSION. ON KEPPRA, CHECK LEVEL THIS AM (3) Hypertension Status: Acute (4) Diabetes Status: Acute (5) Weakness Status: Acute
[2018-11-03] MEDS: LOVENOX INJ 40 MG SYR SC SCH (12:58)
[2018-11-03] MEDS: SNACK - Diabetic Appropriate PO SCH (20:52)
[2018-11-03] MEDS ORDERED: COLACE CAP 100 MG PO SCH (21:00)
[2018-11-03] MEDS ORDERED: MILK OF MAGNESIA PO SCH (21:00)
[2018-11-04 05:46] LABS: BASOPHILS # (AUTO) 0.1 X10^3/uL (0.0-0.1); EOSINOPHILS # (AUTO) 0.3 x10^3/uL (0.0-0.2); EOSINOPHILS % (AUTO) 3.7 % (0.9-2.9); HEMATOCRIT 33.6 % (42.0-54.0); HEMOGLOBIN 11.6 g/dL (13.5-18.0); LYMPHOCYTES # (AUTO) 2.8 X10^3/uL (1.3-2.9); MEAN CORPUSCULAR HGB CONC 34.5 g/dL (33.0-35.0); MEAN CORPUSCULAR VOLUME 81.1 fL (80.0-100.0); MEAN PLATELET VOLUME 8.3 fL (7.4-11.0); MONOCYTES # (AUTO) 0.5 x10^3/uL (0.3-0.8); MONOCYTES % (AUTO) 6.2 % (0.0-13.0); NEUTROPHILS # (AUTO) 3.8 x10^3/uL (2.2-4.8); NEUTROPHILS % (AUTO) 51.1 % (42.0-75.0); PLATELET COUNT 254 X10^3/uL (150.0-450.0); RED BLOOD COUNT 4.15 X10^6/uL (4.7-6.0); RED CELL DISTRIBUTION WIDTH 14.5 % (11.6-16.5); WHITE BLOOD COUNT 7.5 X10^3/uL (3.6-10.0)
[2018-11-04 06:00] LABS: ALANINE AMINOTRANSFERASE 17 Units/L (12-78); ALBUMIN 3.2 g/dL (3.4-5.0); ALKALINE PHOSPHATASE 83 Units/L (46-116); ASPARTATE AMINO TRANSFERASE 16 Units/L (15-37); BLOOD UREA NITROGEN 8 mg/dL (7-18); CARBON DIOXIDE 26.2 mmol/L (21-32); CHLORIDE 108 mmol/L (98-107); COR CA(FOR HYPOALB) 9.6 mg/dL (8.5-10.1); COR NA(FOR HYPERGLY) 144 mmol/L (136-145); CREATININE 1.04 mg/dL (0.70-1.30); SODIUM 141 mmol/L (136-145); TOTAL PROTEIN 7.2 g/dL (6.4-8.2); eGFR NON BLACK RACES > 60 (>60)
[2018-11-04] MEDS: ZOSYN VIAL 3.375 GRAMS 3.375 G in NS 100 ML IV + SPIKE MINIBAG* 100 ML IV SCH ×2 (06:22→14:57)
[2018-11-04] MEDS: NS 1000 ML 1,000 ML IV SCH ×2 (06:26→14:56)
[2018-11-04] MEDS: LOVENOX INJ 40 MG SYR SC SCH (08:21)
[2018-11-04] MEDS: MILK OF MAGNESIA PO SCH (08:21)
[2018-11-04] MEDS: KEPPRA TAB 500 MG PO SCH (08:21)
[2018-11-04] MEDS: HumuLIN R SC PRN (12:24)
[2018-11-04 15:41] VITALS: BP 133/73
== END 2018-11-04 15:15 | disposition home or self-care (01) | DRG 101 ==
LOC: ER 09:40 → ICU 13:08
PROVIDERS: ADMIT Obstetrics & Gynecology Obstetrics; ATTEND Internal Medicine
DX: I10 Essential (primary) hypertension; R26.89 Other abnormalities of gait and mobility; R31.9 Hematuria, unspecified; E88.89 Other specified metabolic disorders; G40.802 Other epilepsy, not intractable, without status epilepticus; N39.0 Urinary tract infection, site not specified; E11.65 Type 2 diabetes mellitus with hyperglycemia; R53.1 Weakness
CPT/HCPCS: 36415; 51702; 70450; 71010; 71045; 80053; 80177; 80307; 81001; 82533; 82550; 82553; 83605; 83735; 84100; 84484; 85025; 85610; 85730; 87040; 87086; 93005; 96365; 96367; 96374; 96375; 97110; 97112; 97163; 97166; 97530; 97535; 99284; A4222; S0078; G0434; J0696; J1650; J1815; J2060; J2543; J3260; J3370; J3475; J3490; J7030; J7050; J7060

== ENCOUNTER 2019-09-01 14:27 | Inpatient (IN) ==
[2019-09-01 21:59] LABS: BASOPHILS # (AUTO) 0.1 X10^3/uL (0.0-0.1); EOSINOPHILS # (AUTO) 0.1 x10^3/uL (0.0-0.2); EOSINOPHILS % (AUTO) 1.7 % (0.9-2.9); HEMATOCRIT 35.1 % (42.0-54.0); HEMOGLOBIN 11.7 g/dL (13.5-18.0); LYMPHOCYTES # (AUTO) 2.7 X10^3/uL (1.3-2.9); LYMPHOCYTES % (AUTO) 35.2 % (21.0-51.0); MEAN CORPUSCULAR HEMOGLOBIN 27.4 pg (27.0-34.0); MEAN CORPUSCULAR HGB CONC 33.4 g/dL (33.0-35.0); MEAN PLATELET VOLUME 8.3 fL (7.4-11.0); MONOCYTES # (AUTO) 0.6 x10^3/uL (0.3-0.8); MONOCYTES % (AUTO) 7.7 % (0.0-13.0); NEUTROPHILS # (AUTO) 4.2 x10^3/uL (2.2-4.8); NEUTROPHILS % (AUTO) 54.4 % (42.0-75.0); PLATELET COUNT 225 X10^3/uL (150.0-450.0); RED BLOOD COUNT 4.28 X10^6/uL (4.7-6.0); RED CELL DISTRIBUTION WIDTH 14.8 % (11.6-16.5); WHITE BLOOD COUNT 7.7 X10^3/uL (3.6-10.0)
[2019-09-01 22:10] LABS: ALANINE AMINOTRANSFERASE 19 Units/L (12-78); ALBUMIN 3.4 g/dL (3.4-5.0); ALKALINE PHOSPHATASE 102 Units/L (46-116); ASPARTATE AMINO TRANSFERASE 11 Units/L (15-37); BLOOD UREA NITROGEN 20 mg/dL (7-18); CALCIUM 8.5 mg/dL (8.5-10.1); CHLORIDE 103 mmol/L (98-107); COR NA(FOR HYPERGLY) 143 mmol/L (136-145); CREATININE 1.25 mg/dL (0.70-1.30); SODIUM 140 mmol/L (136-145); TOTAL PROTEIN 7.1 g/dL (6.4-8.2); eGFR NON BLACK RACES > 60 (>60)
[2019-09-01] MEDS: HumuLIN R SUBCUT PRN ×2 (22:47→22:56)
[2019-09-01 22:52] LABS: BILIRUBIN,URINE NEGATIVE (NEGATIVE); BLOOD/HEMOGLOBIN,URINE 3+ (NEGATIVE); GLUCOSE, URINE 4+ (NEGATIVE); KETONES,URINE NEGATIVE (NEGATIVE); LEUKOCYTE ESTERASE ,URINE 3+ (NEGATIVE); NITRITES,URINE NEGATIVE (NEGATIVE); PROTEIN,URINE 2+ (NEGATIVE); UROBILINOGEN,URINE NORMAL (NORMAL)
[2019-09-01 23:01] LABS: APPEARANCE,URINE HAZY (CLEAR); BACTERIA,URINE TRACE /HPF (NEGATIVE); COLOR,URINE YELLOW (YELLOW); SQUAMOUS EPITHELIAL CELL,UR RARE /HPF (NEGATIVE); YEAST,URINE FEW /HPF (NEGATIVE)
[2019-09-01] MEDS ORDERED: ROCEPHIN VIAL 1 GRAM 1 G in NS 100 ML IV + SPIKE MINIBAG* 100 ML IV ONE (23:32)
[2019-09-02] MEDS ORDERED: NS 250 ML IV 250 ML IV ONE (00:10)
[2019-09-02 02:18] VITALS: BMI 26.6
[2019-09-02] MEDS: HumuLIN R SUBCUT PRN ×4 (06:25→20:37)
[2019-09-02 08:52] LABS: SERUM ACETONE NEGATIVE (NEGATIVE)
[2019-09-02 08:59] LABS: LACTIC ACID 1.2 mmol/L (0.4-2.0)
[2019-09-02] MEDS: PROTONIX INJ 40 MG VIAL IVP SCH (09:36)
[2019-09-02] MEDS: NS 1000 ML 1,000 ML IV SCH (09:37)
--- NOTE | 2019-09-02 11:01 | RAD ---
HISTORYChest pain and coughSTUDYPortable AP chestCOMPARISONMarch 2018FINDINGSThe lungs are clear and the heart and mediastinum are unremarkable. There is no edema or effusion or congestion.IMPRESSIONNo evidence for acute cardiopulmonary diseaseElectronically signed by: JACKY DENTON (Sep 02, 2019 11:00:05)
[2019-09-02] MEDS: LOVENOX INJ 40 MG SYR SC SCH (11:30)
--- NOTE | 2019-09-02 13:36 | DR.H&P ---
H&P - History & Physical for Day of: H&P Date: 09/01/19 - Chief Complaint Chief Complaint: UTI, WEAKNESS, ELEVATED BLOOD SUGAR - History of Present Illness History of Present Illness: 59 BM DIRECT ADMIT FROM DR CRENSHAW OFFICE WITH UTI, HYPERGLYCEMIA. PT WAS STARTED ON PO CIPRO FOR UTI IN OFFICE AFTER HE PRESENTED WITH HIS SISTER, WHOM IS HIS BIOCHEMISTRY PROFESSOR, FOR AN ER FOLLOW UP DUE TO SEIZURES. PT HAD NOT BEEN TAKING DILANTIN B/C CAUSING DIARRHEA. PT BS 380 WITH INCREASED CONFUSION. PT ADMITTED TO ICU FOR EVALUATION AND TREATMENT OF ACUTE ILLNESS - Past Medical History Past Medical History: Angina, Hypertension, Diabetes, Dementia, Seizures, COPD, GERD, Arthritis Additional Medical History: BLINDNESS - Past Surgical History Surgical History: Ortho Surgery - Family History Family Medical History: Diabetes Mellitus, Cancer - Social History Does patient currently use any type of tobacco product: No Have you used tobacco products in the last 12 months: No Type of Tobacco Use: None Does any household member use tobacco: No Alcohol Use: None Drug Use: None - Medications Home Medications: No Known Drug Allergies Allergy (Verified 06/07/18 15:20) - Review of Systems Constitutional: Weakness Eyes: No Symptoms Reported, Vision Change ENT: No Symptoms Reported Respiratory: No Symptoms Reported Cardiovascular: No Symptoms Reported Gastrointestinal: Nausea Genitourinary: Frequency, Incontinence Musculoskeletal: Back Pain Skin: No Symptoms Reported Neurological: Weakness, Confusion - Physical Exam Vital Signs: Temperature 98.5 F Pulse Rate 86 Respiratory Rate 21 Blood Pressure [Left Arm] 107/57 Blood Pressure [Right Arm] 157/90 Blood Pressure 138/84 O2 Sat by Pulse Oximetry 98 Oriented: Person Eyes: Blurred Vision Ear: Normal Nose: Normal Throat: Dry Respiratory: RLL Diminished, LLL Diminished Cardiovascular: Normal : Normal Auscultation: Bowel Sounds: Normal Palpation: Normal Tenderness: Normal Skin: Decreased Turgur Musculoskeletal: Back:Thoracic, Back:Lumbar, Deformity (BILATERAL LE AMPUTATIONS) Psychiatric: Anxiety Affect: Anxious Speech Pattern: Inappropriate, Delayed - Assessment/Plan (1) UTI (urinary tract infection) Qualifiers: Urinary tract infection type: site unspecified Hematuria presence: with hematuria Qualified Code(s): N39.0 - Urinary tract infection, site not specified; R31.9 - Hematuria, unspecified; R31.9 - Hematuria, unspecified Status: Acute Plan: ADMIT, ICU. SEIZURE PRECAUTIONS. DILANTIN LEVEL, BLOOD AND URINE CULTURE. CHEST XRAY, BS CONTROL, SSI. VERIFY HOME MEDICATION, IV ROCEPHIN 1GM DAILY. GENTLE IV HYDRATION, ACETONE (2) Altered mental state Qualifiers: Altered mental status type: transient alteration of awareness Qualified Code(s): R40.4 - Transient alteration of awareness Status: Acute (3) Diabetes mellitus Status: Acute (4) Hypertension Status: Acute (5) Seizure disorder Status: Acute - Allergies Allergies/Adverse Reactions: Allergies Allergy/AdvReac Type Severity Reaction Status Date / Time No Known Drug Allergies Allergy Verified 06/07/18 15:20
[2019-09-02] MEDS: ROCEPHIN VIAL 1 GRAM 1 G in NS 100 ML IV + SPIKE MINIBAG* 100 ML IV SCH (15:07)
--- NOTE | 2019-09-02 18:32 | PCM.PROG ---
Progress Note - Progress Note for Day of Date of Exam: 09/02/19 - Subjective Subjective: PTIS 59 BM ADMITTED ON 09/01 WITH UTI, UNCONTROLLED BS AND INCREASED WEAKNESS. PT HAD BC AND UC ON ADMISSION RESULTS ARE PENDING. PT IS CURRENTLY ON IV ROCEPHIN. PT IS MORE AWAKE AND ALERT THIS AM. PT BP IS STABLE, NO REPORTS OF SEIZURE ACTIVITY PER NURING STAFF, DILANTIN LEVEL ORDERED. PT SISTER IS HIS EKG MONITOR TECH AND REPORTS SHE WOULD LIKE FOR HIM TO HAVE REHAB THERAPY DUE TO INCREASED WEAKNESS. PT HAS BILATERAL LOWER EXTREMITY AMPUTATIONS WITH PROSTHESIS HE CANNOT USE DUE TO WEAKNESS. WILL CONSULT CASE MANAGEMENT FOR PLACEMENT WHEN PT IS MEDICALLY STABLE - Past Medical Family Social History Past Med/Fam/Surg Hx: No changes since H&P Allergies: Allergies No Known Drug Allergies Allergy (Verified 06/07/18 15:20) - Review of Systems ROS: No change since H&P - Vital Signs and I&O's Vital Signs: Temperature 98.5 F Pulse Rate 85 Respiratory Rate 13 Blood Pressure [Left Arm] 107/57 Blood Pressure [Right Arm] 157/90 Blood Pressure 138/84 O2 Sat by Pulse Oximetry 98 Intake and Output: Intake & Output 08/31/19 09/01/19 09/02/19 09/03/19 11:59 11:59 11:59 11:59 Intake Total 770 / 770 Output Total 450 / 450 Balance 320 / 320 - Physical Exam Oriented: Person Eyes: Blurred Vision Ear: Normal Nose: Normal Throat: Dry Respiratory: Diminished Cardiovascular: Normal : Normal Auscultation: Bowel Sounds: Normal Tenderness: Normal Skin: Decreased Turgur Musculoskeletal: Back:Thoracic, Back:Lumbar, Deformity (BILATERAL LE AMPUTATIONS) Psychiatric: Anxiety Affect: Anxious Speech Pattern: Inappropriate, Delayed - Laboratory and Diagnostics Result Diagrams: 09/01/19 21:45 09/01/19 21:45 Labs: Laboratory WBC 7.7 X10^3/uL (3.6-10.0) 09/01/19 21:45 RBC 4.28 X10^6/uL (4.7-6.0) L 09/01/19 21:45 Hgb 11.7 g/dL (13.5-18.0) L 09/01/19 21:45 Hct 35.1 % (42.0-54.0) L 09/01/19 21:45 MCV 82.0 fL (80.0-100.0) 09/01/19 21:45 MCH 27.4 pg (27.0-34.0) 09/01/19 21:45 MCHC 33.4 g/dL (33.0-35.0) 09/01/19 21:45 RDW 14.8 % (11.6-16.5) 09/01/19 21:45 Plt Count 225 X10^3/uL (150.0-450.0) 09/01/19 21:45 MPV 8.3 fL (7.4-11.0) 09/01/19 21:45 Neut % (Auto) 54.4 % (42.0-75.0) 09/01/19 21:45 Lymph % (Auto) 35.2 % (21.0-51.0) 09/01/19 21:45 [place] % (Auto) 7.7 % (0.0-13.0) 09/01/19 21:45 Eos % (Auto) 1.7 % (0.9-2.9) 09/01/19 21:45 Baso % (Auto) 1.0 % (0.2-1.0) 09/01/19 21:45 Neut # (Auto) 4.2 x10^3/uL (2.2-4.8) 09/01/19 21:45 Lymph # (Auto) 2.7 X10^3/uL (1.3-2.9) 09/01/19 21:45 [place] # (Auto) 0.6 x10^3/uL (0.3-0.8) 09/01/19 21:45 Eos # (Auto) 0.1 x10^3/uL (0.0-0.2) 09/01/19 21:45 Baso # (Auto) 0.1 X10^3/uL (0.0-0.1) 09/01/19 21:45 Absolute Nucleated RBC 0.0 /100WBC 09/01/19 21:45 PT 11.7 SECONDS (11.8-14.3) 09/01/19 21:45 INR Target Range - 09/01/19 21:45 INR 0.89 (0.8-1.3) 09/01/19 21:45 Sodium 140 mmol/L (136-145) 09/01/19 21:45 Corrected Sodium 143 mmol/L (136-145) 09/01/19 21:45 Potassium 3.5 mmol/L (3.5-5.1) 09/01/19 21:45 Chloride 103 mmol/L (98-107) 09/01/19 21:45 Carbon Dioxide 30.0 mmol/L (21-32) 09/01/19 21:45 BUN 20 mg/dL (7-18) H 09/01/19 21:45 Creatinine 1.25 mg/dL (0.70-1.30) 09/01/19 21:45 Est GFR (MDRD) Af Amer > 60 (>60) 09/01/19 21:45 Est GFR (MDRD) Non-Af > 60 (>60) 09/01/19 21:45 Glucose 235 mg/dL (65-99) H 09/01/19 21:45 POC Glucose (mg/dL) 231 mg/dL (65-99) H 09/02/19 16:13 Lactic Acid 1.2 mmol/L (0.4-2.0) 09/02/19 08:26 Calcium 8.5 mg/dL (8.5-10.1) 09/01/19 21:45 Corrected Calcium TNP 09/01/19 21:45 Total Bilirubin 0.20 mg/dL (0.2-1.0) 09/01/19 21:45 AST 11 Units/L (15-37) L 09/01/19 21:45 ALT 19 Units/L (12-78) 09/01/19 21:45 Alkaline Phosphatase 102 Units/L (46-116) 09/01/19 21:45 Total Protein 7.1 g/dL (6.4-8.2) 09/01/19 21:45 Albumin 3.4 g/dL (3.4-5.0) 09/01/19 21:45 Globulin 3.7 g/dL (2.5-4.5) 09/01/19 21:45 Albumin/Globulin Ratio 0.9 Ratio (1.1-2.1) L 09/01/19 21:45 Specimen Type Clean catch urine 09/01/19 22:40 Urine Color Yellow (YELLOW) 09/01/19 22:40 Urine Appearance Hazy (CLEAR) 09/01/19 22:40 Urine pH 5.0 (5.0 - 8.0) 09/01/19 22:40 Ur Specific [place] 1.015 (1.000-1.030) 09/01/19 22:40 Urine Protein 2+ (NEGATIVE) 09/01/19 22:40 Urine Glucose (UA) 4+ (NEGATIVE) 09/01/19 22:40 Urine Ketones Negative (NEGATIVE) 09/01/19 22:40 Urine Occult Blood 3+ (NEGATIVE) 09/01/19 22:40 Urine Nitrite Negative (NEGATIVE) 09/01/19 22:40 Urine Bilirubin Negative (NEGATIVE) 09/01/19 22:40 Urine Urobilinogen Normal (NORMAL) 09/01/19 22:40 Ur Leukocyte Esterase 3+ (NEGATIVE) 09/01/19 22:40 Urine RBC 5-10 /HPF (0-3) A 09/01/19 22:40 Urine WBC Tntc /HPF (0-5) A 09/01/19 22:40 Ur Squamous Epith Cells Rare /HPF (NEGATIVE) 09/01/19 22:40 Urine Bacteria Trace /HPF (NEGATIVE) 09/01/19 22:40 Urine Yeast Few /HPF (NEGATIVE) 09/01/19 22:40 Ur Culture Indicated? Yes/culture set up 09/01/19 22:40 Phenytoin < 0.5 ug/mL (10-20) L 09/02/19 08:26 Acetone, Semi-Quant Negative (NEGATIVE) 09/02/19 08:26 - Plan (1) UTI (urinary tract infection) Status: Acute Qualifiers: Urinary tract infection type: site unspecified Hematuria presence: with hematuria Qualified Code(s): N39.0 - Urinary tract infection, site not specified; R31.9 - Hematuria, unspecified; R31.9 - Hematuria, unspecified Plan: SEIZURE PRECAUTIONS. DILANTIN LEVEL, BLOOD AND URINE CULTURES OBTAINED ON ADMISSION. CHEST XRAY, BS CONTROL, SSI. VERIFY HOME MEDICATION, IV ROCEPHIN 1GM DAILY. GENTLE IV HYDRATION, ACETONE (2) Altered mental state Status: Acute Qualifiers: Altered mental status type: transient alteration of awareness Qualified Code(s): R40.4 - Transient alteration of awareness (3) Diabetes mellitus Status: Acute (4) Hypertension Status: Acute (5) Seizure disorder Status: Acute
[2019-09-02] MEDS: ZOCOR TAB 10 MG PO SCH (20:42)
[2019-09-02] MEDS: SNACK - Diabetic Appropriate PO SCH (20:43)
[2019-09-03] MEDS: NS 1000 ML 1,000 ML IV SCH ×4 (03:34→18:13)
[2019-09-03] MEDS: HumuLIN R SUBCUT PRN ×4 (06:15→21:06)
[2019-09-03 06:24] LABS: BASOPHILS # (AUTO) 0.1 X10^3/uL (0.0-0.1); BASOPHILS % (AUTO) 0.8 % (0.2-1.0); EOSINOPHILS # (AUTO) 0.2 x10^3/uL (0.0-0.2); EOSINOPHILS % (AUTO) 2.6 % (0.9-2.9); HEMATOCRIT 35.6 % (42.0-54.0); HEMOGLOBIN 12.1 g/dL (13.5-18.0); LYMPHOCYTES # (AUTO) 2.5 X10^3/uL (1.3-2.9); LYMPHOCYTES % (AUTO) 36.3 % (21.0-51.0); MEAN CORPUSCULAR HEMOGLOBIN 27.8 pg (27.0-34.0); MEAN CORPUSCULAR HGB CONC 34.1 g/dL (33.0-35.0); MEAN CORPUSCULAR VOLUME 81.6 fL (80.0-100.0); MEAN PLATELET VOLUME 8.8 fL (7.4-11.0); MONOCYTES # (AUTO) 0.5 x10^3/uL (0.3-0.8); MONOCYTES % (AUTO) 7.6 % (0.0-13.0); NEUTROPHILS # (AUTO) 3.6 x10^3/uL (2.2-4.8); NEUTROPHILS % (AUTO) 52.7 % (42.0-75.0); PLATELET COUNT 221 X10^3/uL (150.0-450.0); RED BLOOD COUNT 4.36 X10^6/uL (4.7-6.0); RED CELL DISTRIBUTION WIDTH 14.8 % (11.6-16.5); WHITE BLOOD COUNT 6.9 X10^3/uL (3.6-10.0)
[2019-09-03 06:32] LABS: ALANINE AMINOTRANSFERASE 18 Units/L (12-78); ALBUMIN 3.2 g/dL (3.4-5.0); ALKALINE PHOSPHATASE 87 Units/L (46-116); ASPARTATE AMINO TRANSFERASE 11 Units/L (15-37); BLOOD UREA NITROGEN 12 mg/dL (7-18); CALCIUM 8.5 mg/dL (8.5-10.1); CARBON DIOXIDE 26.7 mmol/L (21-32); CHLORIDE 103 mmol/L (98-107); COR CA(FOR HYPOALB) 9.1 mg/dL (8.5-10.1); COR NA(FOR HYPERGLY) 140 mmol/L (136-145); CREATININE 1.01 mg/dL (0.70-1.30); SODIUM 138 mmol/L (136-145); TOTAL PROTEIN 7.3 g/dL (6.4-8.2); eGFR NON BLACK RACES > 60 (>60)
[2019-09-03] MEDS: LOVENOX INJ 40 MG SYR SC SCH (09:32)
[2019-09-03] MEDS: ROCEPHIN VIAL 1 GRAM 1 G in NS 100 ML IV + SPIKE MINIBAG* 100 ML IV SCH (09:32)
[2019-09-03] MEDS: PROTONIX INJ 40 MG VIAL IVP SCH (09:35)
[2019-09-03] MEDS: SNACK - Diabetic Appropriate PO SCH (22:49)
[2019-09-03] MEDS: ZOCOR TAB 10 MG PO SCH (22:50)
[2019-09-04] MEDS: NS 1000 ML 1,000 ML IV SCH ×3 (05:22→17:11)
[2019-09-04 05:32] LABS: BASOPHILS % (AUTO) 0.7 % (0.2-1.0); EOSINOPHILS # (AUTO) 0.2 x10^3/uL (0.0-0.2); EOSINOPHILS % (AUTO) 2.6 % (0.9-2.9); HEMATOCRIT 34.8 % (42.0-54.0); HEMOGLOBIN 11.7 g/dL (13.5-18.0); LYMPHOCYTES # (AUTO) 2.4 X10^3/uL (1.3-2.9); LYMPHOCYTES % (AUTO) 35.6 % (21.0-51.0); MEAN CORPUSCULAR HEMOGLOBIN 27.2 pg (27.0-34.0); MEAN CORPUSCULAR HGB CONC 33.6 g/dL (33.0-35.0); MEAN PLATELET VOLUME 8.3 fL (7.4-11.0); MONOCYTES # (AUTO) 0.5 x10^3/uL (0.3-0.8); MONOCYTES % (AUTO) 6.9 % (0.0-13.0); NEUTROPHILS # (AUTO) 3.6 x10^3/uL (2.2-4.8); NEUTROPHILS % (AUTO) 54.2 % (42.0-75.0); PLATELET COUNT 203 X10^3/uL (150.0-450.0); RED BLOOD COUNT 4.29 X10^6/uL (4.7-6.0); WHITE BLOOD COUNT 6.7 X10^3/uL (3.6-10.0)
[2019-09-04 05:45] LABS: ALANINE AMINOTRANSFERASE 18 Units/L (12-78); ALBUMIN 3.2 g/dL (3.4-5.0); ALKALINE PHOSPHATASE 77 Units/L (46-116); ASPARTATE AMINO TRANSFERASE 12 Units/L (15-37); BLOOD UREA NITROGEN 12 mg/dL (7-18); CALCIUM 8.1 mg/dL (8.5-10.1); CARBON DIOXIDE 25.8 mmol/L (21-32); CHLORIDE 103 mmol/L (98-107); COR CA(FOR HYPOALB) 8.7 mg/dL (8.5-10.1); COR NA(FOR HYPERGLY) 141 mmol/L (136-145); CREATININE 0.94 mg/dL (0.70-1.30); SODIUM 138 mmol/L (136-145); TOTAL PROTEIN 6.8 g/dL (6.4-8.2); eGFR NON BLACK RACES > 60 (>60)
[2019-09-04] MEDS: HumuLIN R SUBCUT PRN ×4 (05:55→20:43)
[2019-09-04] MEDS ORDERED: POTASSIUM CHL 40 MEQ/NS 0.45% 500 ML IV PRN (06:12)
[2019-09-04] MEDS ORDERED: POTASSIUM CHL 60 MEQ/NS 0.45% 500 ML IV PRN (06:12)
[2019-09-04] MEDS ORDERED: K-RIDER 10 MEQ/NS 100 ML 10 MEQ/100 ML BAG IV PRN (06:12)
[2019-09-04] MEDS ORDERED: MICRO K EXTEN CAP 10 MEQ PO PRN (06:12)
[2019-09-04] MEDS ORDERED: K-DUR TAB 20 MEQ PO PRN (06:12)
[2019-09-04] MEDS ORDERED: KLOR-CON PO PRN (06:12)
[2019-09-04] MEDS ORDERED: POTASSIUM CHLORIDE LIQ 20 MEQ UDC PO PRN (06:12)
[2019-09-04] MEDS ORDERED: NS 100 ML IV + SPIKE MINIBAG* 100 ML IV ONE (08:47)
[2019-09-04] MEDS: PROTONIX INJ 40 MG VIAL IVP SCH (08:53)
[2019-09-04] MEDS: ROCEPHIN VIAL 1 GRAM 1 G in NS 100 ML IV + SPIKE MINIBAG* 100 ML IV SCH (08:54)
[2019-09-04] MEDS: LOVENOX INJ 40 MG SYR SC SCH (08:54)
[2019-09-04] MEDS ORDERED: MAGNESIUM SULFATE 1 GRAM/100 mL PREMIX 1 GM/100 ML BAG IV PRN (10:48)
[2019-09-04] MEDS: ZOCOR TAB 10 MG PO SCH (20:43)
[2019-09-04] MEDS: SNACK - Diabetic Appropriate PO SCH (20:59)
[2019-09-05] MEDS: NS 1000 ML 1,000 ML IV SCH ×3 (05:28→22:28)
[2019-09-05 05:52] LABS: ALANINE AMINOTRANSFERASE 21 Units/L (12-78); ALBUMIN 3.3 g/dL (3.4-5.0); ALKALINE PHOSPHATASE 80 Units/L (46-116); ASPARTATE AMINO TRANSFERASE 15 Units/L (15-37); BLOOD UREA NITROGEN 10 mg/dL (7-18); CALCIUM 8.5 mg/dL (8.5-10.1); CARBON DIOXIDE 28.5 mmol/L (21-32); CHLORIDE 103 mmol/L (98-107); COR CA(FOR HYPOALB) 9.1 mg/dL (8.5-10.1); COR NA(FOR HYPERGLY) 140 mmol/L (136-145); CREATININE 1.04 mg/dL (0.70-1.30); MAGNESIUM 1.9 mg/dL (1.7-2.9); SODIUM 138 mmol/L (136-145); TOTAL PROTEIN 7.1 g/dL (6.4-8.2); eGFR NON BLACK RACES > 60 (>60)
[2019-09-05 06:00] LABS: BASOPHILS % (AUTO) 0.7 % (0.2-1.0); EOSINOPHILS # (AUTO) 0.2 x10^3/uL (0.0-0.2); EOSINOPHILS % (AUTO) 3.4 % (0.9-2.9); HEMATOCRIT 34.3 % (42.0-54.0); HEMOGLOBIN 11.7 g/dL (13.5-18.0); LYMPHOCYTES # (AUTO) 2.6 X10^3/uL (1.3-2.9); LYMPHOCYTES % (AUTO) 36.7 % (21.0-51.0); MEAN CORPUSCULAR HEMOGLOBIN 27.8 pg (27.0-34.0); MEAN CORPUSCULAR HGB CONC 34.2 g/dL (33.0-35.0); MEAN CORPUSCULAR VOLUME 81.2 fL (80.0-100.0); MEAN PLATELET VOLUME 8.6 fL (7.4-11.0); MONOCYTES # (AUTO) 0.5 x10^3/uL (0.3-0.8); MONOCYTES % (AUTO) 6.8 % (0.0-13.0); NEUTROPHILS # (AUTO) 3.7 x10^3/uL (2.2-4.8); NEUTROPHILS % (AUTO) 52.4 % (42.0-75.0); PLATELET COUNT 213 X10^3/uL (150.0-450.0); RED BLOOD COUNT 4.23 X10^6/uL (4.7-6.0); RED CELL DISTRIBUTION WIDTH 14.7 % (11.6-16.5); WHITE BLOOD COUNT 7.1 X10^3/uL (3.6-10.0)
[2019-09-05] MEDS: HumuLIN R SUBCUT PRN ×4 (06:22→20:33)
[2019-09-05] MEDS: ROCEPHIN VIAL 1 GRAM 1 G in NS 100 ML IV + SPIKE MINIBAG* 100 ML IV SCH (09:16)
[2019-09-05] MEDS: PROTONIX INJ 40 MG VIAL IVP SCH (09:19)
[2019-09-05] MEDS ORDERED: LOVENOX INJ 30 MG SYR SC ONE (11:47)
[2019-09-05] MEDS: LOVENOX INJ 30 MG SYR SC SCH (13:08)
[2019-09-05] MEDS: LOVENOX INJ 40 MG SYR SC SCH (13:08)
[2019-09-05] MEDS ORDERED: NEURONTIN CAP 100 MG PO ONE (13:31)
[2019-09-05] MEDS ORDERED: NEURONTIN CAP 100 MG ONE (15:58)
[2019-09-05] MEDS: ZOCOR TAB 10 MG PO SCH (20:32)
[2019-09-05] MEDS: SNACK - Diabetic Appropriate PO SCH (20:34)
[2019-09-06 05:13] LABS: BASOPHILS # (AUTO) 0.1 X10^3/uL (0.0-0.1); BASOPHILS % (AUTO) 0.7 % (0.2-1.0); EOSINOPHILS # (AUTO) 0.3 x10^3/uL (0.0-0.2); EOSINOPHILS % (AUTO) 3.2 % (0.9-2.9); HEMATOCRIT 34.8 % (42.0-54.0); LYMPHOCYTES # (AUTO) 3.3 X10^3/uL (1.3-2.9); LYMPHOCYTES % (AUTO) 37.2 % (21.0-51.0); MEAN CORPUSCULAR HGB CONC 34.4 g/dL (33.0-35.0); MEAN CORPUSCULAR VOLUME 81.4 fL (80.0-100.0); MEAN PLATELET VOLUME 9.5 fL (7.4-11.0); MONOCYTES # (AUTO) 0.7 x10^3/uL (0.3-0.8); MONOCYTES % (AUTO) 7.6 % (0.0-13.0); NEUTROPHILS # (AUTO) 4.5 x10^3/uL (2.2-4.8); NEUTROPHILS % (AUTO) 51.3 % (42.0-75.0); PLATELET COUNT 235 X10^3/uL (150.0-450.0); RED BLOOD COUNT 4.27 X10^6/uL (4.7-6.0); RED CELL DISTRIBUTION WIDTH 15.2 % (11.6-16.5); WHITE BLOOD COUNT 8.8 X10^3/uL (3.6-10.0)
[2019-09-06 05:22] LABS: ALANINE AMINOTRANSFERASE 29 Units/L (12-78); ALBUMIN 3.3 g/dL (3.4-5.0); ALKALINE PHOSPHATASE 81 Units/L (46-116); ASPARTATE AMINO TRANSFERASE 44 Units/L (15-37); BLOOD UREA NITROGEN 11 mg/dL (7-18); CALCIUM 8.8 mg/dL (8.5-10.1); CARBON DIOXIDE 26.3 mmol/L (21-32); CHLORIDE 103 mmol/L (98-107); COR CA(FOR HYPOALB) 9.4 mg/dL (8.5-10.1); COR NA(FOR HYPERGLY) 140 mmol/L (136-145); CREATININE 0.93 mg/dL (0.70-1.30); MAGNESIUM 1.7 mg/dL (1.7-2.9); SODIUM 137 mmol/L (136-145); TOTAL PROTEIN 7.3 g/dL (6.4-8.2); eGFR NON BLACK RACES > 60 (>60)
[2019-09-06 06:22] LABS: PLATELET MORPHOLOGY COMMENT NORMAL (NORMAL)
[2019-09-06] MEDS: HumuLIN R SUBCUT PRN ×4 (06:25→21:00)
[2019-09-06] MEDS ORDERED: LOVENOX INJ 30 MG SYR SC SCH (09:00)
[2019-09-06] MEDS: PROTONIX INJ 40 MG VIAL IVP SCH (09:54)
[2019-09-06] MEDS: LOVENOX INJ 30 MG SYR SC SCH (09:54)
[2019-09-06] MEDS: ROCEPHIN VIAL 1 GRAM 1 G in NS 100 ML IV + SPIKE MINIBAG* 100 ML IV SCH (09:54)
[2019-09-06] MEDS: NS 1000 ML 1,000 ML IV SCH (12:23)
[2019-09-06 17:10] LABS: BILIRUBIN,URINE NEGATIVE (NEGATIVE); BLOOD/HEMOGLOBIN,URINE 2+ (NEGATIVE); GLUCOSE, URINE 4+ (NEGATIVE); KETONES,URINE NEGATIVE (NEGATIVE); LEUKOCYTE ESTERASE ,URINE 3+ (NEGATIVE); NITRITES,URINE NEGATIVE (NEGATIVE); PROTEIN,URINE NEGATIVE (NEGATIVE); UROBILINOGEN,URINE NORMAL (NORMAL)
[2019-09-06 17:16] LABS: APPEARANCE,URINE HAZY (CLEAR); BACTERIA,URINE TRACE /HPF (NEGATIVE); COLOR,URINE PALE YELLOW (YELLOW); SQUAMOUS EPITHELIAL CELL,UR RARE /HPF (NEGATIVE); YEAST,URINE FEW /HPF (NEGATIVE)
--- NOTE | 2019-09-06 17:50 | PCM.PROG ---
Progress Note - Progress Note for Day of Date of Exam: 09/04/19 - Subjective Subjective: PTIS 59 BM ADMITTED ON 09/01 WITH UTI, UNCONTROLLED BS AND INCREASED WEAKNESS. PT HAD BC AND UC ON ADMISSION RESULTS ARE PENDING. PT IS CURRENTLY ON IV ROCEPHIN. PT IS MORE AWAKE AND ALERT THIS AM. PT BP IS STABLE, NO REPORTS OF SEIZURE ACTIVITY PER NURING STAFF. PT BUN 12, CREAT 0.94. POTASSIUM 3.2 WITH POTASSIUM REPLACEMENT. PT VERY SLEEPY THIS MORNING, CO PHANTOM PAIN. 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 PT HAS BILATERAL LOWER EXTREMITY AMPUTATIONS WITH PROSTHESIS HE CANNOT USE DUE TO WEAKNESS. WILL CONSULT CASE MANAGEMENT FOR PLACEMENT WHEN PT IS MEDICALLY STABLE - Past Medical Family Social History Past Med/Fam/Surg Hx: No changes since H&P Allergies: Allergies No Known Drug Allergies Allergy (Verified 06/07/18 15:20) - Review of Systems ROS: No change since H&P - Vital Signs and I&O's Vital Signs: Temperature 97.8 F Pulse Rate 96 Respiratory Rate 22 Blood Pressure [Left Arm] 107/57 Blood Pressure [Right Arm] 157/90 Blood Pressure 135/83 O2 Sat by Pulse Oximetry 97 Intake and Output: Intake & Output 09/04/19 09/05/19 09/06/19 09/07/19 11:59 11:59 11:59 11:59 Intake Total 3254 / 3254 2780 / 2780 3249 / 3249 1612 / 1612 Output Total 2670 / 2670 2325 / 2325 3175 / 3175 500 / 500 Balance 584 / 584 455 / 455 74 / 74 1112 / 1112 - Physical Exam Oriented: Person Eyes: Blurred Vision Ear: Normal Nose: Normal Throat: Dry Respiratory: Diminished Cardiovascular: Normal : Normal Auscultation: Bowel Sounds: Normal Tenderness: Normal Skin: Decreased Turgur Musculoskeletal: Back:Thoracic, Back:Lumbar, Deformity (BILATERAL LE AMPUTATIONS) Psychiatric: Anxiety Affect: Anxious Speech Pattern: Unclear - Laboratory and Diagnostics Result Diagrams: 09/06/19 04:23 09/06/19 04:23 Labs: 09/02/19 08:32 Blood Blood Culture - Preliminary 09/02/19 08:26 Blood Blood Culture - Preliminary 09/01/19 22:40 Urine,Clean Catch Urine Culture - Final Laboratory WBC 8.8 X10^3/uL (3.6-10.0) 09/06/19 04:23 RBC 4.27 X10^6/uL (4.7-6.0) L 09/06/19 04:23 Hgb 12.0 g/dL (13.5-18.0) L 09/06/19 04:23 Hct 34.8 % (42.0-54.0) L 09/06/19 04:23 MCV 81.4 fL (80.0-100.0) 09/06/19 04:23 MCH 28.0 pg (27.0-34.0) 09/06/19 04:23 MCHC 34.4 g/dL (33.0-35.0) 09/06/19 04:23 RDW 15.2 % (11.6-16.5) 09/06/19 04:23 Plt Count 235 X10^3/uL (150.0-450.0) 09/06/19 04:23 Plt Count Comment Adequate (ADEQUATE) 09/06/19 04:23 MPV 9.5 fL (7.4-11.0) 09/06/19 04:23 Neut % (Auto) 51.3 % (42.0-75.0) 09/06/19 04:23 Lymph % (Auto) 37.2 % (21.0-51.0) 09/06/19 04:23 Kerr % (Auto) 7.6 % (0.0-13.0) 09/06/19 04:23 Eos % (Auto) 3.2 % (0.9-2.9) H 09/06/19 04:23 Baso % (Auto) 0.7 % (0.2-1.0) 09/06/19 04:23 Neut # (Auto) 4.5 x10^3/uL (2.2-4.8) 09/06/19 04:23 Lymph # (Auto) 3.3 X10^3/uL (1.3-2.9) H 09/06/19 04:23 Kerr # (Auto) 0.7 x10^3/uL (0.3-0.8) 09/06/19 04:23 Eos # (Auto) 0.3 x10^3/uL (0.0-0.2) H 09/06/19 04:23 Baso # (Auto) 0.1 X10^3/uL (0.0-0.1) 09/06/19 04:23 Absolute Nucleated RBC 0.1 /100WBC 09/06/19 04:23 Plt Clumps, EDTA Rare 09/06/19 04:23 Plt Morphology Comment Normal (NORMAL) 09/06/19 04:23 RBC Morphology Normal (NORMAL) 09/06/19 04:23 PT 11.7 SECONDS (11.8-14.3) 09/01/19 21:45 INR Target Range - 09/01/19 21:45 INR 0.89 (0.8-1.3) 09/01/19 21:45 Sodium 137 mmol/L (136-145) 09/06/19 04:23 Corrected Sodium 140 mmol/L (136-145) 09/06/19 04:23 Potassium 4.6 mmol/L (3.5-5.1) 09/06/19 04:23 Chloride 103 mmol/L (98-107) 09/06/19 04:23 Carbon Dioxide 26.3 mmol/L (21-32) 09/06/19 04:23 BUN 11 mg/dL (7-18) 09/06/19 04:23 Creatinine 0.93 mg/dL (0.70-1.30) 09/06/19 04:23 Est GFR (MDRD) Af Amer > 60 (>60) 09/06/19 04:23 Est GFR (MDRD) Non-Af > 60 (>60) 09/06/19 04:23 Glucose 216 mg/dL (65-99) H 09/06/19 04:23 POC Glucose (mg/dL) 291 mg/dL (65-99) H 09/06/19 16:42 Lactic Acid 1.2 mmol/L (0.4-2.0) 09/02/19 08:26 Calcium 8.8 mg/dL (8.5-10.1) 09/06/19 04:23 Corrected Calcium 9.4 mg/dL (8.5-10.1) 09/06/19 04:23 Magnesium 1.7 mg/dL (1.7-2.9) 09/06/19 04:23 Total Bilirubin 0.20 mg/dL (0.2-1.0) 09/06/19 04:23 AST 44 Units/L (15-37) H 09/06/19 04:23 ALT 29 Units/L (12-78) 09/06/19 04:23 Alkaline Phosphatase 81 Units/L (46-116) 09/06/19 04:23 Total Protein 7.3 g/dL (6.4-8.2) 09/06/19 04:23 Albumin 3.3 g/dL (3.4-5.0) L 09/06/19 04:23 Globulin 4.0 g/dL (2.5-4.5) 09/06/19 04:23 Albumin/Globulin Ratio 0.8 Ratio (1.1-2.1) L 09/06/19 04:23 Specimen Type Clean catch urine 09/06/19 16:55 Urine Color Pale yellow (YELLOW) 09/06/19 16:55 Urine Appearance Hazy (CLEAR) 09/06/19 16:55 Urine pH 6.0 (5.0 - 8.0) 09/06/19 16:55 Ur Specific [place] 1.015 (1.000-1.030) 09/06/19 16:55 Urine Protein Negative (NEGATIVE) 09/06/19 16:55 Urine Glucose (UA) 4+ (NEGATIVE) 09/06/19 16:55 Urine Ketones Negative (NEGATIVE) 09/06/19 16:55 Urine Occult Blood 2+ (NEGATIVE) 09/06/19 16:55 Urine Nitrite Negative (NEGATIVE) 09/06/19 16:55 Urine Bilirubin Negative (NEGATIVE) 09/06/19 16:55 Urine Urobilinogen Normal (NORMAL) 09/06/19 16:55 Ur Leukocyte Esterase 3+ (NEGATIVE) 09/06/19 16:55 Urine RBC 5-10 /HPF (0-3) A 09/06/19 16:55 Urine WBC 30-50 /HPF (0-5) A 09/06/19 16:55 Ur Squamous Epith Cells Rare /HPF (NEGATIVE) 09/06/19 16:55 Urine Bacteria Trace /HPF (NEGATIVE) 09/06/19 16:55 Urine Yeast Few /HPF (NEGATIVE) 09/06/19 16:55 Ur Culture Indicated? Yes/culture set up 09/06/19 16:55 Phenytoin < 0.5 ug/mL (10-20) L 09/02/19 08:26 Acetone, Semi-Quant Negative (NEGATIVE) 09/02/19 08:26 - Plan (1) UTI (urinary tract infection) Status: Acute Qualifiers: Urinary tract infection type: site unspecified Hematuria presence: with hematuria Qualified Code(s): N39.0 - Urinary tract infection, site not specified; R31.9 - Hematuria, unspecified; R31.9 - Hematuria, unspecified Plan: SEIZURE PRECAUTIONS. DILANTIN LEVEL, BLOOD AND URINE CULTURES OBTAINED ON ADMISSION. CHEST XRAY, BS CONTROL, SSI. VERIFY HOME MEDICATION, IV ROCEPHIN 1GM DAILY. GENTLE IV HYDRATION, ACETONE (2) Altered mental state Status: Acute Qualifiers: Altered mental status type: transient alteration of awareness Qualified Code(s): R40.4 - Transient alteration of awareness (3) Diabetes mellitus Status: Acute (4) Hypertension Status: Acute (5) Seizure disorder Status: Acute
--- NOTE | 2019-09-06 17:53 | PCM.PROG ---
Progress Note - Progress Note for Day of Date of Exam: 09/05/19 - Subjective Subjective: PTIS 59 BM ADMITTED ON 09/01 WITH UTI, UNCONTROLLED BS AND INCREASED WEAKNESS. PT HAD BC AND UC ON ADMISSION RESULTS ARE PENDING. PT IS CURRENTLY ON IV ROCEPHIN. PT IS MORE AWAKE AND ALERT THIS AM. PT BP IS STABLE, NO REPORTS OF SEIZURE ACTIVITY PER NURING STAFF. PT BUN 11, CREAT 0.93. MAG 1.5, WITH MAGNESIUM REPLACEMENT ORDERED. PT CO PHANTOM PAIN YESTERDAY AND WE STARTED LOW DOSE GABAPENTIN WITH REPORTED IMPROVEMENT IN LEG PAIN. PT SISTER IS HIS DRIVER/SALES WORKERS AND REPORTS SHE WOULD LIKE FOR HIM TO HAVE REHAB THERAPY DUE TO INCREASED WEAKNESS. PT HAS BILATERAL LOWER EXTREMITY AMPUTATIONS WITH PROSTHESIS HE CANNOT USE DUE TO WEAKNESS. WILL CONSULT CASE MANAGEMENT FOR PLACEMENT WHEN PT IS MEDICALLY STABLE - Past Medical Family Social History Past Med/Fam/Surg Hx: No changes since H&P Allergies: Allergies No Known Drug Allergies Allergy (Verified 06/07/18 15:20) - Review of Systems ROS: No change since H&P - Vital Signs and I&O's Vital Signs: Temperature 97.8 F Pulse Rate 96 Respiratory Rate 22 Blood Pressure [Left Arm] 107/57 Blood Pressure [Right Arm] 157/90 Blood Pressure 135/83 O2 Sat by Pulse Oximetry 97 Intake and Output: Intake & Output 09/04/19 09/05/19 09/06/19 09/07/19 11:59 11:59 11:59 11:59 Intake Total 3254 / 3254 2780 / 2780 3249 / 3249 1612 / 1612 Output Total 2670 / 2670 2325 / 2325 3175 / 3175 500 / 500 Balance 584 / 584 455 / 455 74 / 74 1112 / 1112 - Physical Exam Oriented: Person Eyes: Blurred Vision Ear: Normal Nose: Normal Throat: Dry Respiratory: Diminished Cardiovascular: Normal : Normal Auscultation: Bowel Sounds: Normal Tenderness: Normal Skin: Decreased Turgur Musculoskeletal: Back:Thoracic, Back:Lumbar, Deformity (BILATERAL LE AMPUTATIONS) Psychiatric: Anxiety Affect: Anxious Speech Pattern: Unclear - Laboratory and Diagnostics Result Diagrams: 09/06/19 04:23 09/06/19 04:23 Labs: 09/02/19 08:32 Blood Blood Culture - Preliminary 09/02/19 08:26 Blood Blood Culture - Preliminary 09/01/19 22:40 Urine,Clean Catch Urine Culture - Final Laboratory WBC 8.8 X10^3/uL (3.6-10.0) 09/06/19 04:23 RBC 4.27 X10^6/uL (4.7-6.0) L 09/06/19 04:23 Hgb 12.0 g/dL (13.5-18.0) L 09/06/19 04:23 Hct 34.8 % (42.0-54.0) L 09/06/19 04:23 MCV 81.4 fL (80.0-100.0) 09/06/19 04:23 MCH 28.0 pg (27.0-34.0) 09/06/19 04:23 MCHC 34.4 g/dL (33.0-35.0) 09/06/19 04:23 RDW 15.2 % (11.6-16.5) 09/06/19 04:23 Plt Count 235 X10^3/uL (150.0-450.0) 09/06/19 04:23 Plt Count Comment Adequate (ADEQUATE) 09/06/19 04:23 MPV 9.5 fL (7.4-11.0) 09/06/19 04:23 Neut % (Auto) 51.3 % (42.0-75.0) 09/06/19 04:23 Lymph % (Auto) 37.2 % (21.0-51.0) 09/06/19 04:23 [place] % (Auto) 7.6 % (0.0-13.0) 09/06/19 04:23 Eos % (Auto) 3.2 % (0.9-2.9) H 09/06/19 04:23 Baso % (Auto) 0.7 % (0.2-1.0) 09/06/19 04:23 Neut # (Auto) 4.5 x10^3/uL (2.2-4.8) 09/06/19 04:23 Lymph # (Auto) 3.3 X10^3/uL (1.3-2.9) H 09/06/19 04:23 [place] # (Auto) 0.7 x10^3/uL (0.3-0.8) 09/06/19 04:23 Eos # (Auto) 0.3 x10^3/uL (0.0-0.2) H 09/06/19 04:23 Baso # (Auto) 0.1 X10^3/uL (0.0-0.1) 09/06/19 04:23 Absolute Nucleated RBC 0.1 /100WBC 09/06/19 04:23 Plt Clumps, EDTA Rare 09/06/19 04:23 Plt Morphology Comment Normal (NORMAL) 09/06/19 04:23 RBC Morphology Normal (NORMAL) 09/06/19 04:23 PT 11.7 SECONDS (11.8-14.3) 09/01/19 21:45 INR Target Range - 09/01/19 21:45 INR 0.89 (0.8-1.3) 09/01/19 21:45 Sodium 137 mmol/L (136-145) 09/06/19 04:23 Corrected Sodium 140 mmol/L (136-145) 09/06/19 04:23 Potassium 4.6 mmol/L (3.5-5.1) 09/06/19 04:23 Chloride 103 mmol/L (98-107) 09/06/19 04:23 Carbon Dioxide 26.3 mmol/L (21-32) 09/06/19 04:23 BUN 11 mg/dL (7-18) 09/06/19 04:23 Creatinine 0.93 mg/dL (0.70-1.30) 09/06/19 04:23 Est GFR (MDRD) Af Amer > 60 (>60) 09/06/19 04:23 Est GFR (MDRD) Non-Af > 60 (>60) 09/06/19 04:23 Glucose 216 mg/dL (65-99) H 09/06/19 04:23 POC Glucose (mg/dL) 291 mg/dL (65-99) H 09/06/19 16:42 Lactic Acid 1.2 mmol/L (0.4-2.0) 09/02/19 08:26 Calcium 8.8 mg/dL (8.5-10.1) 09/06/19 04:23 Corrected Calcium 9.4 mg/dL (8.5-10.1) 09/06/19 04:23 Magnesium 1.7 mg/dL (1.7-2.9) 09/06/19 04:23 Total Bilirubin 0.20 mg/dL (0.2-1.0) 09/06/19 04:23 AST 44 Units/L (15-37) H 09/06/19 04:23 ALT 29 Units/L (12-78) 09/06/19 04:23 Alkaline Phosphatase 81 Units/L (46-116) 09/06/19 04:23 Total Protein 7.3 g/dL (6.4-8.2) 09/06/19 04:23 Albumin 3.3 g/dL (3.4-5.0) L 09/06/19 04:23 Globulin 4.0 g/dL (2.5-4.5) 09/06/19 04:23 Albumin/Globulin Ratio 0.8 Ratio (1.1-2.1) L 09/06/19 04:23 Specimen Type Clean catch urine 09/06/19 16:55 Urine Color Pale yellow (YELLOW) 09/06/19 16:55 Urine Appearance Hazy (CLEAR) 09/06/19 16:55 Urine pH 6.0 (5.0 - 8.0) 09/06/19 16:55 Ur Specific [place] 1.015 (1.000-1.030) 09/06/19 16:55 Urine Protein Negative (NEGATIVE) 09/06/19 16:55 Urine Glucose (UA) 4+ (NEGATIVE) 09/06/19 16:55 Urine Ketones Negative (NEGATIVE) 09/06/19 16:55 Urine Occult Blood 2+ (NEGATIVE) 09/06/19 16:55 Urine Nitrite Negative (NEGATIVE) 09/06/19 16:55 Urine Bilirubin Negative (NEGATIVE) 09/06/19 16:55 Urine Urobilinogen Normal (NORMAL) 09/06/19 16:55 Ur Leukocyte Esterase 3+ (NEGATIVE) 09/06/19 16:55 Urine RBC 5-10 /HPF (0-3) A 09/06/19 16:55 Urine WBC 30-50 /HPF (0-5) A 09/06/19 16:55 Ur Squamous Epith Cells Rare /HPF (NEGATIVE) 09/06/19 16:55 Urine Bacteria Trace /HPF (NEGATIVE) 09/06/19 16:55 Urine Yeast Few /HPF (NEGATIVE) 09/06/19 16:55 Ur Culture Indicated? Yes/culture set up 09/06/19 16:55 Phenytoin < 0.5 ug/mL (10-20) L 09/02/19 08:26 Acetone, Semi-Quant Negative (NEGATIVE) 09/02/19 08:26 - Plan (1) UTI (urinary tract infection) Status: Acute Qualifiers: Urinary tract infection type: site unspecified Hematuria presence: with hematuria Qualified Code(s): N39.0 - Urinary tract infection, site not specified; R31.9 - Hematuria, unspecified; R31.9 - Hematuria, unspecified Plan: SEIZURE PRECAUTIONS. DILANTIN LEVEL, BLOOD AND URINE CULTURES OBTAINED ON ADMISSION. CHEST XRAY, BS CONTROL, SSI. VERIFY HOME MEDICATION, IV ROCEPHIN 1GM DAILY. GENTLE IV HYDRATION, ACETONE (2) Altered mental state Status: Acute Qualifiers: Altered mental status type: transient alteration of awareness Qualified Code(s): R40.4 - Transient alteration of awareness (3) Diabetes mellitus Status: Acute (4) Hypertension Status: Acute (5) Seizure disorder Status: Acute (6) Hypomagnesemia Status: Acute (7) Phantom limb pain Status: Acute
[2019-09-06] MEDS: SNACK - Diabetic Appropriate PO SCH (20:47)
[2019-09-06] MEDS: ZOCOR TAB 10 MG PO SCH (20:48)
[2019-09-07] MEDS: NS 1000 ML 1,000 ML IV SCH (01:28)
[2019-09-07 06:14] LABS: BASOPHILS % (AUTO) 0.7 % (0.2-1.0); EOSINOPHILS # (AUTO) 0.2 x10^3/uL (0.0-0.2); EOSINOPHILS % (AUTO) 2.4 % (0.9-2.9); HEMATOCRIT 36.4 % (42.0-54.0); HEMOGLOBIN 12.2 g/dL (13.5-18.0); LYMPHOCYTES % (AUTO) 39.5 % (21.0-51.0); MEAN CORPUSCULAR HEMOGLOBIN 27.5 pg (27.0-34.0); MEAN CORPUSCULAR HGB CONC 33.5 g/dL (33.0-35.0); MEAN CORPUSCULAR VOLUME 81.9 fL (80.0-100.0); MEAN PLATELET VOLUME 8.7 fL (7.4-11.0); MONOCYTES # (AUTO) 0.5 x10^3/uL (0.3-0.8); MONOCYTES % (AUTO) 6.8 % (0.0-13.0); NEUTROPHILS # (AUTO) 3.9 x10^3/uL (2.2-4.8); NEUTROPHILS % (AUTO) 50.6 % (42.0-75.0); PLATELET COUNT 228 X10^3/uL (150.0-450.0); RED BLOOD COUNT 4.45 X10^6/uL (4.7-6.0); RED CELL DISTRIBUTION WIDTH 14.9 % (11.6-16.5); WHITE BLOOD COUNT 7.6 X10^3/uL (3.6-10.0)
[2019-09-07 06:28] LABS: ALANINE AMINOTRANSFERASE 46 Units/L (12-78); ALBUMIN 3.4 g/dL (3.4-5.0); ALKALINE PHOSPHATASE 96 Units/L (46-116); ASPARTATE AMINO TRANSFERASE 30 Units/L (15-37); BLOOD UREA NITROGEN 12 mg/dL (7-18); CALCIUM 8.9 mg/dL (8.5-10.1); CHLORIDE 101 mmol/L (98-107); COR NA(FOR HYPERGLY) 140 mmol/L (136-145); CREATININE 1.02 mg/dL (0.70-1.30); SODIUM 137 mmol/L (136-145); TOTAL PROTEIN 7.3 g/dL (6.4-8.2); eGFR NON BLACK RACES > 60 (>60)
[2019-09-07] MEDS: ROCEPHIN VIAL 1 GRAM 1 G in NS 100 ML IV + SPIKE MINIBAG* 100 ML IV SCH (08:18)
[2019-09-07] MEDS: PROTONIX INJ 40 MG VIAL IVP SCH (08:18)
[2019-09-07] MEDS ORDERED: LOVENOX INJ 40 MG SYR SC SCH (09:00)
[2019-09-07] MEDS: HumuLIN R SUBCUT PRN ×2 (11:36→16:29)
[2019-09-07 16:03] VITALS: BP 119/78
== END 2019-09-07 16:30 | disposition home or self-care (01) | DRG 690 ==
LOC: ICU
PROVIDERS: ADMIT Internal Medicine; ATTEND Internal Medicine
DX: R40.4 Transient alteration of awareness; R53.1 Weakness; R26.89 Other abnormalities of gait and mobility; Z89.511 Acquired absence of right leg below knee; Z89.512 Acquired absence of left leg below knee; N39.0 Urinary tract infection, site not specified; K21.9 Gastro-esophageal reflux disease without esophagitis; R19.7 Diarrhea, unspecified; E11.65 Type 2 diabetes mellitus with hyperglycemia; I10 Essential (primary) hypertension; G40.802 Other epilepsy, not intractable, without status epilepticus; J44.9 Chronic obstructive pulmonary disease, unspecified
CPT/HCPCS: 36415; 71010; 71045; 80053; 80185; 81001; 82009; 83605; 83735; 85025; 85610; 87040; 87086; 97110; 97163; 97166; 97530; 97535; A4222; C9113; G0378; J0696; J1650; J1815; J3475; J7030; J7050

== ENCOUNTER 2020-04-18 13:12 | Inpatient (IN) ==
[2020-04-18 13:25] VITALS: BMI 19.3
[2020-04-18] MEDS ORDERED: NS 1000 ML 1,000 ML IV ONE ×3 (13:37→16:55)
[2020-04-18] MEDS ORDERED: HumuLIN R IV ONE ×3 (13:40→19:55)
[2020-04-18] MEDS ORDERED: NS 1000 ML 1,000 ML ONE ×3 (13:45→17:05)
[2020-04-18] MEDS ORDERED: HumuLIN R ONE ×3 (13:46→20:03)
[2020-04-18 13:47] LABS: BILIRUBIN,URINE NEGATIVE (NEGATIVE); BLOOD/HEMOGLOBIN,URINE 5+ (NEGATIVE); GLUCOSE, URINE 4+ (NEGATIVE); KETONES,URINE 3+ (NEGATIVE); LEUKOCYTE ESTERASE ,URINE 3+ (NEGATIVE); NITRITES,URINE NEGATIVE (NEGATIVE); PROTEIN,URINE 4+ (NEGATIVE); UROBILINOGEN,URINE NORMAL (NORMAL)
[2020-04-18 13:57] LABS: APPEARANCE,URINE CLOUDY (CLEAR); COLOR,URINE YELLOW (YELLOW)
[2020-04-18 13:58] LABS: BACTERIA,URINE TRACE /HPF (NEGATIVE); RENAL EPITHELIAL CELLS,URINE FEW /HPF (NEGATIVE); SQUAMOUS EPITHELIAL CELL,UR RARE /HPF (NEGATIVE)
--- NOTE | 2020-04-18 14:04 | DR.GENAD ---
HPI Time Seen Time Seen by Provider: 04/18/20 13:33 PCP Primary Care Physician: LILLIAN Complaint/Symptoms Chief Complaint:: CALLS EMS AND STATES PT. IS DEHYDRATED AND HAS NOT HAD ANYTHING TO EAT OR DRINK SINCE FRIDAY. PT'S BLOOD SUGAR WAS READING HIGH AT HOME. PT. IS UNRESPONSIVE UPON ARRIVAL TO THE ER. COVID-19 Coronavirus risk:travel/contact w/high risk person: No Has patient experienced Coronavirus symptoms: No Source History Provided: EMS Mode of Arrival Mode of Arrival: EMS Timing Onset of Chief Complaint: 04/14/20 PMH PMH Past Medical History: Yes Past Medical History: Angina, Arthritis, COPD, Dementia, Diabetes, GERD, Hypertension and Seizures Past Surgical History: Yes Surgical History: Ortho Surgery Family History History of Family Medical Conditions: Yes Family Medical History: Diabetes Mellitus and Cancer Social History Does patient currently use any type of tobacco product: No Have you used tobacco products in the last 12 months: No Type of Tobacco Use: None Does any household member use tobacco: No Alcohol Use: None Do you use any recreational Drugs:: No Lives With: Spouse Lives Where: Home Travel Risk Coronavirus risk:travel/contact w/high risk person: No Has patient experienced Coronavirus symptoms: No Infectious screening In the last 2 months have you had wt loss of >10#?: NO Have you had fever, night sweats or hemotysis?: No Have you traveled outside the country in the last 6 months?: No Isolation: Standard PE Vital Signs Vitals: Temperature 99.2 F Pulse Rate [Apical] 104 Pulse Rate 125 Respiratory Rate 23 Blood Pressure [Left Arm] 107/57 Blood Pressure [Right Arm] 117/66 Blood Pressure 101/60 O2 Sat by Pulse Oximetry 96 COURSE Consultation Called: 16:32 Call Returned: 16:32 Consultation Comments: Case discussed with Dr. Yan admit ICU ROR Labs Reviewed Result Diagrams: 04/18/20 13:30 04/18/20 17:10 Laboratory: WBC 19.4 X10^3/uL (3.6-10.0) H 04/18/20 13:30 RBC 5.19 X10^6/uL (4.7-6.0) 04/18/20 13:30 Hgb 14.2 g/dL (13.5-18.0) 04/18/20 13:30 Hct 47.0 % (42.0-54.0) 04/18/20 13:30 MCV 90.5 fL (80.0-100.0) 04/18/20 13:30 MCH 27.4 pg (27.0-34.0) 04/18/20 13:30 MCHC 30.2 g/dL (33.0-35.0) L 04/18/20 13:30 RDW 14.4 % (11.6-16.5) 04/18/20 13:30 Plt Count 369 X10^3/uL (150.0-450.0) 04/18/20 13:30 MPV 10.0 fL (7.4-11.0) 04/18/20 13:30 Neut % (Auto) 83.2 % (42.0-75.0) H 04/18/20 13:30 Lymph % (Auto) 8.7 % (21.0-51.0) L 04/18/20 13:30 [place] % (Auto) 7.6 % (0.0-13.0) 04/18/20 13:30 Eos % (Auto) 0.0 % (0.9-2.9) L 04/18/20 13:30 Baso % (Auto) 0.5 % (0.2-1.0) 04/18/20 13:30 Neut # (Auto) 16.1 x10^3/uL (2.2-4.8) H 04/18/20 13:30 Lymph # (Auto) 1.7 X10^3/uL (1.3-2.9) 04/18/20 13:30 [place] # (Auto) 1.5 x10^3/uL (0.3-0.8) H 04/18/20 13:30 Eos # (Auto) 0.0 x10^3/uL (0.0-0.2) 04/18/20 13:30 Baso # (Auto) 0.1 X10^3/uL (0.0-0.1) 04/18/20 13:30 Absolute Nucleated RBC 0.1 /100WBC 04/18/20 13:30 Sample Site Rb 04/18/20 13:36 ABG pH 7.290 (7.35-7.45) L 04/18/20 13:36 ABG pCO2 32.0 mmHg (35.0-45.0) L 04/18/20 13:36 ABG pO2 93.0 mmHg (80.0-100.0) 04/18/20 13:36 ABG HCO3 15.4 mmol/L (22-26) L* 04/18/20 13:36 ABG O2 Saturation 96.0 % (90-100) 04/18/20 13:36 ABG Base Excess -10.1 mmol/L (-2.0-2.0) L 04/18/20 13:36 Daryn Test Na 04/18/20 13:36 A-a Gradient 17.0 mmHg 04/18/20 13:36 FiO2 21.0 04/18/20 13:36 Blood Gas Comments Alison well sw 04/18/20 13:36 Sodium 151 mmol/L (136-145) H* 04/18/20 13:30 Corrected Sodium 168 mmol/L (136-145) H 04/18/20 13:30 Potassium 6.2 mmol/L (3.5-5.1) H* 04/18/20 13:30 Chloride 111 mmol/L (98-107) H 04/18/20 13:30 Carbon Dioxide 18.3 mmol/L (21-32) L 04/18/20 13:30 BUN 105 mg/dL (7-18) H 04/18/20 13:30 Creatinine 5.05 mg/dL (0.70-1.30) H 04/18/20 13:30 Est GFR (MDRD) Af Amer 15 (>60) L 04/18/20 13:30 Est GFR (MDRD) Non-Af 13 (>60) L 04/18/20 13:30 Glucose 730 mg/dL (65-99) H* 04/18/20 17:10 POC Glucose (mg/dL) 596 mg/dL (65-99) H* 04/18/20 16:53 Lactic Acid 2.0 mmol/L (0.4-2.0) 04/18/20 15:30 Calcium 8.9 mg/dL (8.5-10.1) 04/18/20 13:30 Corrected Calcium 9.7 mg/dL (8.5-10.1) 04/18/20 13:30 Total Bilirubin 0.50 mg/dL (0.2-1.0) 04/18/20 13:30 AST 449 Units/L (15-37) H 04/18/20 13:30 ALT 88 Units/L (12-78) H 04/18/20 13:30 Alkaline Phosphatase 134 Units/L (46-116) H 04/18/20 13:30 Creatine Kinase > 71509 Units/L (39-308) H 04/18/20 13:30 CK-MB (CK-2) 187.5 ng/mL (0-4.0) H* 04/18/20 13:30 CK/CKMB % Calc 0.0 % (<4) 04/18/20 13:30 Troponin I < 0.02 ng/mL (0-1.5) 04/18/20 13:30 Total Protein 8.6 g/dL (6.4-8.2) H 04/18/20 13:30 Albumin 3.0 g/dL (3.4-5.0) L 04/18/20 13:30 Globulin 5.6 g/dL (2.5-4.5) H 04/18/20 13:30 Albumin/Globulin Ratio 0.5 Ratio (1.1-2.1) L 04/18/20 13:30 Specimen Type Catherized urine 04/18/20 13:41 Urine Color Yellow (YELLOW) 04/18/20 13:41 Urine Appearance Cloudy (CLEAR) 04/18/20 13:41 Urine pH 5.0 (5.0 - 8.0) 04/18/20 13:41 Ur Specific [place] 1.010 (1.000-1.030) 04/18/20 13:41 Urine Protein 4+ (NEGATIVE) 04/18/20 13:41 Urine Glucose (UA) 4+ (NEGATIVE) 04/18/20 13:41 Urine Ketones 3+ (NEGATIVE) 04/18/20 13:41 Urine Occult Blood 5+ (NEGATIVE) 04/18/20 13:41 Urine Nitrite Negative (NEGATIVE) 04/18/20 13:41 Urine Bilirubin Negative (NEGATIVE) 04/18/20 13:41 Urine Urobilinogen Normal (NORMAL) 04/18/20 13:41 Ur Leukocyte Esterase 3+ (NEGATIVE) 04/18/20 13:41 Urine RBC 5-10 /HPF (0-3) A 04/18/20 13:41 Urine WBC 30-50 /HPF (0-5) A 04/18/20 13:41 Ur Squamous Epith Cells Rare /HPF (NEGATIVE) 04/18/20 13:41 Ur Renal Epithelial Cell Few /HPF (NEGATIVE) 04/18/20 13:41 Urine Bacteria Trace /HPF (NEGATIVE) 04/18/20 13:41 Ur Culture Indicated? Yes/culture set up 04/18/20 13:41 Urine Opiates Screen Negative (NEG=<300) 04/18/20 13:40 Urine Methadone Screen Negative (NEG=<300) 04/18/20 13:40 Ur Barbiturates Screen Negative (NEG=<200) 04/18/20 13:40 Ur Phencyclidine Scrn Negative (NEG=<25) 04/18/20 13:40 Ur Amphetamines Screen Negative (NEG=<1000) 04/18/20 13:40 U Benzodiazepines Scrn Negative (NEG=<200) 04/18/20 13:40 Urine Cocaine Screen Negative (NEG=<300) 04/18/20 13:40 U Marijuana (THC) Screen Negative (NEG=<50) 04/18/20 13:40 Acetone, Semi-Quant Negative (NEGATIVE) 04/18/20 13:30 XRAY XRAY Interpreted by: Radiologist X-ray Results: chest: no acute disease EKG Rate: 121 [place]: Normal Block: None Hypertrophy: None ST: Nonsp Opioid Opioid Risk Tool Age (Nikolai box if 16-45): No History of Preadolescent Sexual Abuse: No Total: 0 Total Score Risk Category: Low Risk Copyright: Thomas MORGAN predicting aberrant behaviors Diagnosis Discharge Problem: Diabetic hyperosmolar non-ketotic state UTI (urinary tract infection) Qualifiers: Urinary tract infection type: acute cystitis Hematuria presence: without hematuria Qualified Code(s): N30.00 - Acute cystitis without hematuria Rhabdomyolysis Qualifiers: Rhabdomyolysis type: non-traumatic Qualified Code(s): M62.82 - Rhabdomyolysis Instructions Forms: Excuse From Work Precautions for COVID19 Patient Portal Social Distancing
[2020-04-18 14:05] LABS: BASOPHILS # (AUTO) 0.1 X10^3/uL (0.0-0.1); BASOPHILS % (AUTO) 0.5 % (0.2-1.0); HEMOGLOBIN 14.2 g/dL (13.5-18.0); LYMPHOCYTES # (AUTO) 1.7 X10^3/uL (1.3-2.9); LYMPHOCYTES % (AUTO) 8.7 % (21.0-51.0); MEAN CORPUSCULAR HEMOGLOBIN 27.4 pg (27.0-34.0); MEAN CORPUSCULAR HGB CONC 30.2 g/dL (33.0-35.0); MEAN CORPUSCULAR VOLUME 90.5 fL (80.0-100.0); MONOCYTES # (AUTO) 1.5 x10^3/uL (0.3-0.8); MONOCYTES % (AUTO) 7.6 % (0.0-13.0); NEUTROPHILS # (AUTO) 16.1 x10^3/uL (2.2-4.8); NEUTROPHILS % (AUTO) 83.2 % (42.0-75.0); PLATELET COUNT 369 X10^3/uL (150.0-450.0); RED BLOOD COUNT 5.19 X10^6/uL (4.7-6.0); RED CELL DISTRIBUTION WIDTH 14.4 % (11.6-16.5); WHITE BLOOD COUNT 19.4 X10^3/uL (3.6-10.0)
--- NOTE | 2020-04-18 14:13 | RAD ---
HISTORYAMSSTUDYCHEST, 1 VIEWCOMPARISONJanuary 2019FINDINGSThe trachea is midline. The cardiac silhouette is unremarkable . The lungs are clear without focal infiltrate or effusion. Old bilateral rib fractures are noted. Correlate clinically.IMPRESSIONNo acute cardiopulmonary disease.Electronically signed by: BERNY VARGAS (Apr 18, 2020 14:12:04)
[2020-04-18 14:46] LABS: ABG BASE EXCESS -10.1 mmol/L (-2.0-2.0)
[2020-04-18 14:47] LABS: ABG HCO3 15.4 mmol/L (22-26)
[2020-04-18 15:18] LABS: ALANINE AMINOTRANSFERASE 88 Units/L (12-78); ALKALINE PHOSPHATASE 134 Units/L (46-116); ASPARTATE AMINO TRANSFERASE 449 Units/L (15-37); BLOOD UREA NITROGEN 105 mg/dL (7-18); CALCIUM 8.9 mg/dL (8.5-10.1); CARBON DIOXIDE 18.3 mmol/L (21-32); CHLORIDE 111 mmol/L (98-107); COR CA(FOR HYPOALB) 9.7 mg/dL (8.5-10.1); CREATININE 5.05 mg/dL (0.70-1.30); TOTAL PROTEIN 8.6 g/dL (6.4-8.2); TROPONIN I < 0.02 ng/mL (0-1.5); eGFR NON BLACK RACES 13 (>60)
[2020-04-18 15:28] LABS: SODIUM 151 mmol/L (136-145)
[2020-04-18 15:30] LABS: CREATINE KINASE MB 187.5 ng/mL (0-4.0)
[2020-04-18 15:32] LABS: COR NA(FOR HYPERGLY) 168 mmol/L (136-145); CREATINE KINASE > 20000 Units/L (39-308)
[2020-04-18] MEDS ORDERED: MYXREDLIN 100 UNIT/100 ML BAG 100 UNIT/100 ML PLAST..BAG IV ONE (17:00)
[2020-04-18] MEDS: NS 1000 ML 1,000 ML IV SCH ×2 (18:07→23:16)
[2020-04-18] MEDS: SNACK - Diabetic Appropriate PO SCH (20:11)
[2020-04-18] MEDS ORDERED: ZOFRAN INJ 4 MG VIAL IVP PRN (21:29)
[2020-04-18] MEDS ORDERED: ZOFRAN INJ 4 MG VIAL ONE (21:32)
[2020-04-19] MEDS: ROCEPHIN VIAL 1 GRAM 1 G in NS 100 ML IV + SPIKE MINIBAG* 100 ML IV SCH ×2 (00:28→21:45)
[2020-04-19] MEDS: NS 1000 ML 1,000 ML IV SCH ×3 (03:38→07:41)
[2020-04-19 05:13] LABS: ABG BASE EXCESS -0.4 mmol/L (-2.0-2.0); ABG HCO3 24.8 mmol/L (22-26)
[2020-04-19 06:45] LABS: BASOPHILS # (AUTO) 0.1 X10^3/uL (0.0-0.1); BASOPHILS % (AUTO) 0.6 % (0.2-1.0); EOSINOPHILS % (AUTO) 0.1 % (0.9-2.9); HEMOGLOBIN 11.9 g/dL (13.5-18.0); LYMPHOCYTES # (AUTO) 1.8 X10^3/uL (1.3-2.9); LYMPHOCYTES % (AUTO) 14.1 % (21.0-51.0); MEAN CORPUSCULAR HEMOGLOBIN 27.4 pg (27.0-34.0); MEAN CORPUSCULAR HGB CONC 32.2 g/dL (33.0-35.0); MEAN CORPUSCULAR VOLUME 85.1 fL (80.0-100.0); MEAN PLATELET VOLUME 9.4 fL (7.4-11.0); MONOCYTES # (AUTO) 0.9 x10^3/uL (0.3-0.8); MONOCYTES % (AUTO) 7.2 % (0.0-13.0); NEUTROPHILS # (AUTO) 10.1 x10^3/uL (2.2-4.8); PLATELET COUNT 260 X10^3/uL (150.0-450.0); RED BLOOD COUNT 4.35 X10^6/uL (4.7-6.0); RED CELL DISTRIBUTION WIDTH 14.3 % (11.6-16.5); WHITE BLOOD COUNT 12.9 X10^3/uL (3.6-10.0)
[2020-04-19 07:16] LABS: ALANINE AMINOTRANSFERASE 84 Units/L (12-78); ALBUMIN 2.2 g/dL (3.4-5.0); ALKALINE PHOSPHATASE 102 Units/L (46-116); ASPARTATE AMINO TRANSFERASE 315 Units/L (15-37); BLOOD UREA NITROGEN 80 mg/dL (7-18); CALCIUM 7.6 mg/dL (8.5-10.1); CARBON DIOXIDE 26.2 mmol/L (21-32); COR NA(FOR HYPERGLY) 169 mmol/L (136-145); CREATININE 3.59 mg/dL (0.70-1.30); TOTAL PROTEIN 6.9 g/dL (6.4-8.2); TROPONIN I 0.08 ng/mL (0-1.5); eGFR NON BLACK RACES 19 (>60)
[2020-04-19 07:41] LABS: SODIUM 167 mmol/L (136-145)
[2020-04-19 07:43] LABS: CHLORIDE 131 mmol/L (98-107); CREATINE KINASE MB 76.8 ng/mL (0-4.0)
[2020-04-19 07:44] LABS: CREATINE KINASE > 20000 Units/L (39-308)
[2020-04-19] MEDS: D5W 1000 ML IV 1,000 ML IV SCH ×2 (08:53→22:16)
[2020-04-19] MEDS: LOVENOX INJ 30 MG SYR SC SCH (09:32)
[2020-04-19] MEDS ORDERED: CEREBYX INJ IVP ONE (09:52)
[2020-04-19] MEDS ORDERED: CEREBYX INJ ONE (10:24)
--- NOTE | 2020-04-19 10:53 | RAD ---
HISTORYNG TUBE PLACEMENT HTN, DM, COPD, ORTHO[Abdominal pain]STUDY[Radiographic KUB examination]COMPARISONNone.FINDINGSThere is a [nonspecific bowel gas pattern]. There is [no indirect evidence of free peritoneal air]. There is a [pnplkwsj-vi-lfpag] quantity of colonic stool appreciate d. The psoas margins are well defined and clean. There is [no convincing evidence for high-grade kel l obstruction or radiographic evidence for an abdominal ileus]. No other abdominal radiographic abnor malities identified. The bony structures [are grossly intact]. There is a nasogastric tube which coil s upon itself in the distal esophagus.IMPRESSIONNasogastric tube coils upon itself in the distal esop hagus.Recommend repositioning/retraction and advancement into the stomach.No other radiographic evide nce for an acute abdominal process.Moderate to large quantity/volume of colonic stool observed.Electr onically signed by: ARIANNE LEVI III (Apr 19, 2020 10:52:31)
[2020-04-19] MEDS ORDERED: D5W IV SCH (11:00)
[2020-04-19] MEDS ORDERED: CEREBYX IV SCH (11:00)
--- NOTE | 2020-04-19 11:12 | CT ---
HISTORYAltered mental statusSTUDYCT head without contrastTechnique: Axial noncontrast images with coronal and sagittal reformats. Dose reduction procedures were used with mA/kv adjusted for body size.FLLKKAOVIK22/22/2022FINDINGSThe ventricles, cortical sulci, and other CSF spaces are enlarged consistent with generalized atrophy likely age related. There is decreased attenuation in the periventricular white matter suggestive of small vessel vascular disease. 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 There is an old lacunar infarct in the anterior limb of the right internal capsule. There is an old infarct peripherally in the left cerebellar hemisphere. Lacunar infarcts are present in both basal ganglia. There is no definite evidence for visible recent CVA, hemorrhage, contusion, mass lesion, or extra-axial fluid collection. The visualized sinuses are clear. The calvarium is intact. If acute CVA or extension of 1 of the patient's old CVA is a clinical consideration MRI with diffusion imaging would be of further diagnostic value.IMPRESSIONNo acute intracranial abnormalityGeneralized atrophySmall-vessel diseaseMultiple old infarcts as described above not significantly changed in appearance from the prior examinationElectronically signed by: MARTHA HUERTA (Apr 19, 2020 11:10:48)
--- NOTE | 2020-04-19 11:33 | RAD ---
HISTORYNGT [id number]/26/2020TECHNIQUETwo view supine KUBFINDINGSNG tube in good position. Mod erate amount of stool in the colon. Nonobstructive bowel gas pattern. Vas deferens calcification in t he pelvis. No free air identified. Lung bases appear clear.IMPRESSIONNG tube in good positionElectron ically signed by: Rogelio Ward (Apr 19, 2020 11:33:31)
[2020-04-19] MEDS: DILANTIN CAP 100 MG EXT REL PO SCH ×2 (13:58→22:16)
[2020-04-19 15:23] LABS: ALBUMIN 2.2 g/dL (3.4-5.0); CALCIUM 7.5 mg/dL (8.5-10.1); CARBON DIOXIDE 26.2 mmol/L (21-32); COR CA(FOR HYPOALB) 8.9 mg/dL (8.5-10.1); CREATININE 3.08 mg/dL (0.70-1.30); TOTAL PROTEIN 6.9 g/dL (6.4-8.2)
--- NOTE | 2020-04-19 17:27 | DR.H&P ---
H&P - History & Physical for Day of: H&P Date: 04/19/20 - Chief Complaint Chief Complaint: AMS, ELEVATED BLOOD SUGAR - History of Present Illness History of Present Illness: PT IS 59 BM ER ADMISSION AFTER PRESENTING VIA EMS WITH CO PT BLOOD SUGAR READING "HIGH" WITH REPORTS OF DECREASED PO INTAKE. 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 PT HAS PMH OF DM, HTN, DEMENTIA, CVA, SEIZURE DISORDER, BILATERAL LOWER LEG AMPUTATION. PT WAS ADMITTED TO ICU FOR TREATMENT OF HHNC - Past Medical History Past Medical History: Angina, Hypertension, Diabetes, Dementia, Seizures, COPD, GERD, Arthritis Additional Medical History: BLINDNESS - Past Surgical History Surgical History: Ortho Surgery Additional Surgical History: BILATERAL LOWER EXTREMITY AMPUTATION - Family History Family Medical History: Diabetes Mellitus, Cancer - Social History Does patient currently use any type of tobacco product: No Have you used tobacco products in the last 12 months: No Type of Tobacco Use: None Does any household member use tobacco: No Alcohol Use: None Drug Use: None Risks, benefits, and alternatives of opioids discussed: No Prescription drug monitoring program results: PDMP reviewed and no concerns identified - Medications Home Medications: No Known Drug Allergies Allergy (Verified 06/07/18 15:20) CONTINUE taking the following medications clopidogrel [Plavix] 75 mg PO DAILY 04/18/20 [History] simvastatin 10 mg PO HS 04/18/20 [History] - Review of Systems Constitutional: Weakness Eyes: Vision Change (CHRONIC BLINDNESS) Respiratory: No Symptoms Reported Cardiovascular: No Symptoms Reported Gastrointestinal: Other (LOSS OF APPETITE) Genitourinary: Incontinence Musculoskeletal: No Symptoms Reported - Physical Exam Vital Signs: Temperature 98.1 F Pulse Rate [Apical] 114 Pulse Rate 125 Respiratory Rate 20 Blood Pressure [Left Arm] 107/57 Blood Pressure [Right Arm] 124/67 Blood Pressure 101/60 O2 Sat by Pulse Oximetry 92 Oriented: Other (UNRESPONSIVE) Throat: Dry Respiratory: Diminished Throughout Cardiovascular: Tachycardia. negative: Edema : Normal Auscultation: Bowel Sounds: Decreased Palpation: Normal Tenderness: Normal Skin: Decreased Turgur Musculoskeletal: Deformity (RIGHT BKA, LEFT AKA) Speech Pattern: Delayed, Aphasic - Assessment/Plan (1) Diabetic hyperosmolar non-ketotic state Status: Acute Plan: ADMIT, ICU STATUS. CT HEAD ON ADMISSION. CXR ON ADMISSION, GENTLE IV HYDRATION, STRICT I & OS. CASTILLO CATH, SEIZURE PRECAUTIONS, DILANTIN LEVEL. INSULIN, BS CONTROL, NPO. CONTINUOUS SUPPLEMENTAL O2, CARIDAC MONITORING (2) Rhabdomyolysis Qualifiers: Rhabdomyolysis type: non-traumatic Qualified Code(s): M62.82 - Rhabdomyolysis Status: Acute (3) Altered mental state Qualifiers: Altered mental status type: transient alteration of awareness Qualified Code(s): R40.4 - Transient alteration of awareness Status: Acute (4) Seizure Status: Acute (5) Hypernatremia Status: Acute (6) Acute renal failure Status: Acute (7) Acute renal failure Status: Acute - Allergies Allergies/Adverse Reactions: Allergies Allergy/AdvReac Type Severity Reaction Status Date / Time No Known Drug Allergies Allergy Verified 06/07/18 15:20
[2020-04-19] MEDS ORDERED: DULCOLAX SUPPOSITORY 10 MG RECTAL ONE (18:00)
[2020-04-19] MEDS: SNACK - Diabetic Appropriate PO SCH (20:02)
[2020-04-20 06:04] LABS: BASOPHILS # (AUTO) 0.1 X10^3/uL (0.0-0.1); BASOPHILS % (AUTO) 0.5 % (0.2-1.0); EOSINOPHILS % (AUTO) 0.2 % (0.9-2.9); HEMATOCRIT 38.5 % (42.0-54.0); HEMOGLOBIN 12.3 g/dL (13.5-18.0); LYMPHOCYTES # (AUTO) 1.7 X10^3/uL (1.3-2.9); LYMPHOCYTES % (AUTO) 14.7 % (21.0-51.0); MEAN CORPUSCULAR HEMOGLOBIN 27.3 pg (27.0-34.0); MEAN CORPUSCULAR VOLUME 85.3 fL (80.0-100.0); MEAN PLATELET VOLUME 9.6 fL (7.4-11.0); MONOCYTES # (AUTO) 0.6 x10^3/uL (0.3-0.8); MONOCYTES % (AUTO) 4.9 % (0.0-13.0); NEUTROPHILS # (AUTO) 9.4 x10^3/uL (2.2-4.8); NEUTROPHILS % (AUTO) 79.7 % (42.0-75.0); PLATELET COUNT 222 X10^3/uL (150.0-450.0); RED BLOOD COUNT 4.52 X10^6/uL (4.7-6.0); RED CELL DISTRIBUTION WIDTH 14.7 % (11.6-16.5); WHITE BLOOD COUNT 11.8 X10^3/uL (3.6-10.0)
[2020-04-20] MEDS: DILANTIN CAP 100 MG EXT REL PO SCH ×3 (06:26→22:00)
[2020-04-20 07:05] LABS: ALANINE AMINOTRANSFERASE 68 Units/L (12-78); ALKALINE PHOSPHATASE 97 Units/L (46-116); ASPARTATE AMINO TRANSFERASE 150 Units/L (15-37); BLOOD UREA NITROGEN 56 mg/dL (7-18); CALCIUM 7.5 mg/dL (8.5-10.1); COR CA(FOR HYPOALB) 9.1 mg/dL (8.5-10.1); COR NA(FOR HYPERGLY) 167 mmol/L (136-145); CREATININE 2.71 mg/dL (0.70-1.30); TOTAL PROTEIN 6.6 g/dL (6.4-8.2); TROPONIN I < 0.02 ng/mL (0-1.5); eGFR NON BLACK RACES 26 (>60)
[2020-04-20 07:30] LABS: CKMB % 0.1 % (<4)
[2020-04-20 07:31] LABS: CREATINE KINASE 10671 Units/L (39-308)
[2020-04-20 07:32] LABS: SODIUM 162 mmol/L (136-145)
[2020-04-20 07:33] LABS: CHLORIDE 127 mmol/L (98-107); CREATINE KINASE MB 9.5 ng/mL (0-4.0)
[2020-04-20] MEDS: LOVENOX INJ 30 MG SYR SC SCH (08:41)
[2020-04-20] MEDS: D5W 1000 ML IV 1,000 ML IV SCH (12:33)
[2020-04-20] MEDS: SNACK - Diabetic Appropriate PO SCH (20:25)
[2020-04-20] MEDS: ROCEPHIN VIAL 1 GRAM 1 G in NS 100 ML IV + SPIKE MINIBAG* 100 ML IV SCH (20:26)
[2020-04-20] MEDS ORDERED: TYLENOL 325 MG TAB PO PRN (23:01)
[2020-04-20] MEDS ORDERED: TYLENOL 325 MG TAB PO ONE (23:03)
[2020-04-21] MEDS: D5W 1000 ML IV 1,000 ML IV SCH ×2 (03:49→19:38)
[2020-04-21] MEDS: DILANTIN CAP 100 MG EXT REL PO SCH ×3 (05:05→21:23)
[2020-04-21 05:54] LABS: BASOPHILS # (AUTO) 0.1 X10^3/uL (0.0-0.1); BASOPHILS % (AUTO) 0.7 % (0.2-1.0); EOSINOPHILS # (AUTO) 0.1 x10^3/uL (0.0-0.2); EOSINOPHILS % (AUTO) 0.7 % (0.9-2.9); HEMATOCRIT 31.8 % (42.0-54.0); LYMPHOCYTES # (AUTO) 3.1 X10^3/uL (1.3-2.9); LYMPHOCYTES % (AUTO) 14.4 % (21.0-51.0); MEAN CORPUSCULAR HEMOGLOBIN 27.2 pg (27.0-34.0); MEAN CORPUSCULAR HGB CONC 31.6 g/dL (33.0-35.0); MEAN PLATELET VOLUME 10.7 fL (7.4-11.0); MONOCYTES # (AUTO) 0.8 x10^3/uL (0.3-0.8); NEUTROPHILS % (AUTO) 80.2 % (42.0-75.0); PLATELET COUNT 206 X10^3/uL (150.0-450.0); RED CELL DISTRIBUTION WIDTH 14.3 % (11.6-16.5)
[2020-04-21 06:11] LABS: ALANINE AMINOTRANSFERASE 64 Units/L (12-78); ALKALINE PHOSPHATASE 103 Units/L (46-116); ASPARTATE AMINO TRANSFERASE 131 Units/L (15-37); BLOOD UREA NITROGEN 36 mg/dL (7-18); CARBON DIOXIDE 27.9 mmol/L (21-32); COR CA(FOR HYPOALB) 9.6 mg/dL (8.5-10.1); COR NA(FOR HYPERGLY) 156 mmol/L (136-145); CREATINE KINASE MB 3.6 ng/mL (0-4.0); CREATININE 2.16 mg/dL (0.70-1.30); TROPONIN I < 0.02 ng/mL (0-1.5); eGFR NON BLACK RACES 34 (>60)
[2020-04-21 06:35] LABS: SODIUM 153 mmol/L (136-145)
[2020-04-21 06:36] LABS: CHLORIDE 118 mmol/L (98-107)
[2020-04-21 06:37] LABS: CREATINE KINASE 8061 Units/L (39-308)
[2020-04-21 06:39] LABS: WHITE BLOOD COUNT 21.2 X10^3/uL (3.6-10.0)
[2020-04-21 06:45] LABS: PLATELET MORPHOLOGY COMMENT NORMAL (NORMAL)
[2020-04-21] MEDS: LOVENOX INJ 30 MG SYR SC SCH (09:07)
[2020-04-21] MEDS: ZOSYN VIAL 3.375 GRAMS 3.375 G in NS 100 ML IV + SPIKE MINIBAG* 100 ML IV SCH ×3 (09:14→21:23)
--- NOTE | 2020-04-21 10:05 | RAD ---
HISTORYFEVERSTUDYCHEST, 1 [id number] chest two imagesFINDINGSThe cardiac and mediastinal contours are within normal limits. The lungs are clear without focal consolidation or segmental collapse. No pleural effusion or pneumothorax. NG tube in good position.IMPRESSIONNo acute pulmonary process.Electronically signed by: Rogelio Ward (Apr 21, 2020 10:05:04)
[2020-04-21 15:47] LABS: CALCIUM 7.7 mg/dL (8.5-10.1); CARBON DIOXIDE 30.8 mmol/L (21-32); CREATININE 2.03 mg/dL (0.70-1.30)
[2020-04-21 15:52] LABS: ALBUMIN 1.9 g/dL (3.4-5.0); COR CA(FOR HYPOALB) 9.4 mg/dL (8.5-10.1); TOTAL PROTEIN 6.5 g/dL (6.4-8.2)
[2020-04-21] MEDS: HumuLIN R SC PRN ×3 (19:05→22:46)
[2020-04-21] MEDS: SNACK - Diabetic Appropriate PO SCH (21:22)
[2020-04-22] MEDS: HumuLIN R SC PRN ×5 (00:34→21:23)
[2020-04-22] MEDS: D5W 1000 ML IV 1,000 ML IV SCH ×2 (04:19→19:15)
[2020-04-22 06:14] LABS: BASOPHILS # (AUTO) 0.1 X10^3/uL (0.0-0.1); BASOPHILS % (AUTO) 0.4 % (0.2-1.0); EOSINOPHILS # (AUTO) 0.2 x10^3/uL (0.0-0.2); EOSINOPHILS % (AUTO) 1.8 % (0.9-2.9); HEMATOCRIT 31.9 % (42.0-54.0); HEMOGLOBIN 10.3 g/dL (13.5-18.0); LYMPHOCYTES % (AUTO) 14.6 % (21.0-51.0); MEAN CORPUSCULAR HEMOGLOBIN 27.1 pg (27.0-34.0); MEAN CORPUSCULAR HGB CONC 32.4 g/dL (33.0-35.0); MEAN CORPUSCULAR VOLUME 83.7 fL (80.0-100.0); MONOCYTES # (AUTO) 0.4 x10^3/uL (0.3-0.8); NEUTROPHILS # (AUTO) 11.2 x10^3/uL (2.2-4.8); NEUTROPHILS % (AUTO) 80.2 % (42.0-75.0); PLATELET COUNT 161 X10^3/uL (150.0-450.0); RED BLOOD COUNT 3.81 X10^6/uL (4.7-6.0); RED CELL DISTRIBUTION WIDTH 14.2 % (11.6-16.5)
[2020-04-22] MEDS: DILANTIN CAP 100 MG EXT REL PO SCH ×3 (06:16→21:48)
[2020-04-22] MEDS: ZOSYN VIAL 3.375 GRAMS 3.375 G in NS 100 ML IV + SPIKE MINIBAG* 100 ML IV SCH ×3 (06:17→21:48)
[2020-04-22 06:26] LABS: ALBUMIN 1.8 g/dL (3.4-5.0); CALCIUM 7.5 mg/dL (8.5-10.1); CARBON DIOXIDE 26.1 mmol/L (21-32); COR CA(FOR HYPOALB) 9.3 mg/dL (8.5-10.1); CREATININE 1.84 mg/dL (0.70-1.30); TOTAL PROTEIN 6.4 g/dL (6.4-8.2)
[2020-04-22] MEDS: LOVENOX INJ 30 MG SYR SC SCH (09:40)
[2020-04-22] MEDS ORDERED: K-DUR TAB 20 MEQ PO PRN (16:47)
[2020-04-22] MEDS ORDERED: POTASSIUM CHLORIDE LIQ 20 MEQ UDC PO PRN (16:47)
[2020-04-22] MEDS ORDERED: KLOR-CON PO PRN (16:47)
[2020-04-22] MEDS ORDERED: K-RIDER 10 MEQ/NS 100 ML 10 MEQ/100 ML BAG IV PRN (16:47)
[2020-04-22] MEDS ORDERED: MICRO K EXTEN CAP 10 MEQ PO PRN (16:47)
[2020-04-22] MEDS ORDERED: MAGNESIUM SULFATE 1 GRAM/100 mL PREMIX 1 GM/100 ML BAG IV PRN (16:47)
[2020-04-22] MEDS ORDERED: POTASSIUM CHL 60 MEQ/NS 0.45% 500 ML IV PRN (16:47)
[2020-04-22] MEDS ORDERED: POTASSIUM CHL 40 MEQ/NS 0.45% 500 ML IV PRN (16:47)
[2020-04-22] MEDS: SNACK - Diabetic Appropriate PO SCH (22:26)
[2020-04-23] MEDS: D5W 1000 ML IV 1,000 ML IV SCH (04:33)
[2020-04-23] MEDS: ZOSYN VIAL 3.375 GRAMS 3.375 G in NS 100 ML IV + SPIKE MINIBAG* 100 ML IV SCH ×3 (06:02→21:15)
[2020-04-23] MEDS: DILANTIN CAP 100 MG EXT REL PO SCH ×3 (06:02→21:14)
[2020-04-23 06:08] LABS: BASOPHILS % (AUTO) 0.3 % (0.2-1.0); EOSINOPHILS # (AUTO) 0.2 x10^3/uL (0.0-0.2); EOSINOPHILS % (AUTO) 1.5 % (0.9-2.9); HEMATOCRIT 32.5 % (42.0-54.0); HEMOGLOBIN 10.4 g/dL (13.5-18.0); LYMPHOCYTES # (AUTO) 1.8 X10^3/uL (1.3-2.9); MEAN CORPUSCULAR HEMOGLOBIN 27.5 pg (27.0-34.0); MEAN CORPUSCULAR HGB CONC 32.1 g/dL (33.0-35.0); MEAN CORPUSCULAR VOLUME 85.6 fL (80.0-100.0); MONOCYTES # (AUTO) 0.5 x10^3/uL (0.3-0.8); MONOCYTES % (AUTO) 4.6 % (0.0-13.0); NEUTROPHILS # (AUTO) 9.4 x10^3/uL (2.2-4.8); NEUTROPHILS % (AUTO) 78.6 % (42.0-75.0); PLATELET COUNT 154 X10^3/uL (150.0-450.0); RED BLOOD COUNT 3.79 X10^6/uL (4.7-6.0); RED CELL DISTRIBUTION WIDTH 13.6 % (11.6-16.5); WHITE BLOOD COUNT 11.9 X10^3/uL (3.6-10.0)
[2020-04-23 06:23] LABS: ALBUMIN 1.7 g/dL (3.4-5.0); CALCIUM 7.4 mg/dL (8.5-10.1); CARBON DIOXIDE 24.1 mmol/L (21-32); COR CA(FOR HYPOALB) 9.2 mg/dL (8.5-10.1); CREATININE 1.8 mg/dL (0.70-1.30); TOTAL PROTEIN 6.5 g/dL (6.4-8.2)
[2020-04-23] MEDS: HumuLIN R SC PRN ×4 (06:39→22:29)
[2020-04-23] MEDS: LOVENOX INJ 30 MG SYR SC SCH (08:37)
[2020-04-23] MEDS: LANTUS SC SCH (10:55)
[2020-04-23] MEDS ORDERED: NS 1000 ML 1,000 ML ONE (17:37)
[2020-04-23] MEDS: NS 1000 ML 1,000 ML IV SCH (17:42)
[2020-04-23] MEDS ORDERED: NS 1000 ML 1,000 ML IV SCH (18:00)
[2020-04-23] MEDS: SNACK - Diabetic Appropriate PO SCH (20:39)
[2020-04-24] MEDS: DILANTIN CAP 100 MG EXT REL PO SCH ×3 (05:59→21:16)
[2020-04-24] MEDS: ZOSYN VIAL 3.375 GRAMS 3.375 G in NS 100 ML IV + SPIKE MINIBAG* 100 ML IV SCH ×3 (06:00→21:16)
[2020-04-24 06:27] LABS: BASOPHILS % (AUTO) 0.3 % (0.2-1.0); EOSINOPHILS # (AUTO) 0.2 x10^3/uL (0.0-0.2); EOSINOPHILS % (AUTO) 2.1 % (0.9-2.9); LYMPHOCYTES # (AUTO) 1.7 X10^3/uL (1.3-2.9); LYMPHOCYTES % (AUTO) 18.6 % (21.0-51.0); MEAN CORPUSCULAR HEMOGLOBIN 27.5 pg (27.0-34.0); MEAN CORPUSCULAR HGB CONC 33.2 g/dL (33.0-35.0); MEAN PLATELET VOLUME 10.3 fL (7.4-11.0); MONOCYTES # (AUTO) 0.6 x10^3/uL (0.3-0.8); MONOCYTES % (AUTO) 6.2 % (0.0-13.0); NEUTROPHILS # (AUTO) 6.8 x10^3/uL (2.2-4.8); NEUTROPHILS % (AUTO) 72.8 % (42.0-75.0); PLATELET COUNT 157 X10^3/uL (150.0-450.0); RED BLOOD COUNT 3.98 X10^6/uL (4.7-6.0); RED CELL DISTRIBUTION WIDTH 13.5 % (11.6-16.5); WHITE BLOOD COUNT 9.3 X10^3/uL (3.6-10.0)
[2020-04-24] MEDS: HumuLIN R SC PRN ×3 (06:44→22:25)
[2020-04-24 06:47] LABS: CALCIUM 7.6 mg/dL (8.5-10.1); CARBON DIOXIDE 25.6 mmol/L (21-32); CREATININE 1.61 mg/dL (0.70-1.30); TOTAL PROTEIN 6.8 g/dL (6.4-8.2)
[2020-04-24 06:59] LABS: ALBUMIN 1.6 g/dL (3.4-5.0); COR CA(FOR HYPOALB) 9.5 mg/dL (8.5-10.1)
[2020-04-24] MEDS: LOVENOX INJ 30 MG SYR SC SCH (08:22)
[2020-04-24] MEDS: LANTUS SC SCH (08:25)
[2020-04-24] MEDS: NS 1000 ML 1,000 ML IV SCH (17:41)
[2020-04-24] MEDS: SNACK - Diabetic Appropriate PO SCH (21:00)
[2020-04-25] MEDS ORDERED: ZOSYN VIAL 3.375 GRAMS IV ONE (05:16)
[2020-04-25] MEDS ORDERED: NS 100 ML IV 100 ML IV ONE (05:17)
[2020-04-25] MEDS: DILANTIN CAP 100 MG EXT REL PO SCH ×2 (05:25→14:28)
[2020-04-25] MEDS: ZOSYN VIAL 3.375 GRAMS 3.375 G in NS 100 ML IV + SPIKE MINIBAG* 100 ML IV SCH ×2 (05:25→15:53)
[2020-04-25] MEDS: HumuLIN R SC PRN ×2 (05:49→14:39)
[2020-04-25 07:05] LABS: ALBUMIN 1.9 g/dL (3.4-5.0); CALCIUM 7.6 mg/dL (8.5-10.1); CARBON DIOXIDE 26.8 mmol/L (21-32); COR CA(FOR HYPOALB) 9.3 mg/dL (8.5-10.1); CREATININE 1.68 mg/dL (0.70-1.30); TOTAL PROTEIN 7.1 g/dL (6.4-8.2)
[2020-04-25 07:29] LABS: BASOPHILS % (AUTO) 0.4 % (0.2-1.0); EOSINOPHILS # (AUTO) 0.2 x10^3/uL (0.0-0.2); EOSINOPHILS % (AUTO) 1.7 % (0.9-2.9); HEMATOCRIT 30.6 % (42.0-54.0); LYMPHOCYTES # (AUTO) 2.1 X10^3/uL (1.3-2.9); LYMPHOCYTES % (AUTO) 19.5 % (21.0-51.0); MEAN CORPUSCULAR HEMOGLOBIN 27.5 pg (27.0-34.0); MEAN CORPUSCULAR HGB CONC 32.8 g/dL (33.0-35.0); MEAN CORPUSCULAR VOLUME 84.1 fL (80.0-100.0); MEAN PLATELET VOLUME 10.6 fL (7.4-11.0); MONOCYTES # (AUTO) 0.8 x10^3/uL (0.3-0.8); MONOCYTES % (AUTO) 7.1 % (0.0-13.0); NEUTROPHILS # (AUTO) 7.7 x10^3/uL (2.2-4.8); NEUTROPHILS % (AUTO) 71.3 % (42.0-75.0); PLATELET COUNT 228 X10^3/uL (150.0-450.0); RED BLOOD COUNT 3.64 X10^6/uL (4.7-6.0); RED CELL DISTRIBUTION WIDTH 13.3 % (11.6-16.5); WHITE BLOOD COUNT 10.9 X10^3/uL (3.6-10.0)
[2020-04-25] MEDS ORDERED: LOVENOX INJ 40 MG SYR SC SCH (09:00)
[2020-04-25] MEDS: LANTUS SC SCH (09:30)
[2020-04-25] MEDS: NS 1000 ML 1,000 ML IV SCH (09:32)
[2020-04-25 16:05] VITALS: BP 153/66
== END 2020-04-25 16:35 | disposition home health service (06) | DRG 638 ==
LOC: ER 13:12 → MED/SURG 17:25
PROVIDERS: ADMIT Internal Medicine; ATTEND Internal Medicine
DX: E86.0 Dehydration; N17.9 Acute kidney failure, unspecified; R50.9 Fever, unspecified; R26.81 Unsteadiness on feet; H54.7 Unspecified visual loss; M62.82 Rhabdomyolysis; E10.11 Type 1 diabetes mellitus with ketoacidosis with coma; R40.4 Transient alteration of awareness; I10 Essential (primary) hypertension; R62.7 Adult failure to thrive; E87.6 Hypokalemia; Z86.73 Personal history of transient ischemic attack (TIA), and cerebral infarction without residual deficits; E87.0 Hyperosmolality and hypernatremia; N39.0 Urinary tract infection, site not specified; Z20.828 Contact with and (suspected) exposure to other viral communicable diseases; R26.89 Other abnormalities of gait and mobility; R56.9 Unspecified convulsions; E87.8 Other disorders of electrolyte and fluid balance, not elsewhere classified

== ENCOUNTER 2020-11-09 15:48 | Inpatient (IN) ==
[2020-11-09] MEDS ORDERED: NS 1000 ML 1,000 ML IV ONE (16:31)
--- NOTE | 2020-11-09 16:34 | DR.AMS ---
HPI Time Seen Time Seen by Provider: 11/09/20 16:15 PCP Primary Care Physician: OLIVIER JOHNSTON HPI Comment HPI Comment: PATIENT IS 60YR OLD MALE IN ER WITH AMS. EMS RESPONDED TO PATIENT FOR A FALL. PATIENT RUNNING FEVER, IS CONFUSED AND IS WEAK. NO DIARRHEA OR VOMITING. Complaint Cheif Complaint Doctors Comments: AMS. Chief Complaint:: EMS RESPONDED TO A FALL WITH LIFT ASSIST. PT. WAS BROUGHT IN WITH AMS. COVID-19 Coronavirus risk:travel/contact w/high risk person: No Has patient experienced Coronavirus symptoms: No Reviewed Nurses Notes Reviewed: Yes Source History Provided: EMS Mode of Arrival Mode of Arrival: EMS Timing Onset of Chief Complaint: 11/09/20 Came On: Suddenly Symptoms: Worsening Duration Duration: Constant Duration: Days Quality Quality: Decreased Alertness and Confusion Severity Severity: Severe Context Recent: Fever History Of: Diabetes Associated Signs and Symptoms Associated Signs and Symptoms: Generalized Weakness PMH PMH Past Medical History: Yes Past Medical History: Diabetes, Hypertension and Seizures Past Surgical History: Yes Surgical History: Ortho Surgery Family History History of Family Medical Conditions: Yes Family Medical History: Diabetes Mellitus and Cancer Social History Does patient currently use any type of tobacco product: No Have you used tobacco products in the last 12 months: No Type of Tobacco Use: None Does any household member use tobacco: No Alcohol Use: None Do you use any recreational Drugs:: No Lives With: Family Lives Where: Home Travel Risk Coronavirus risk:travel/contact w/high risk person: No Has patient experienced Coronavirus symptoms: No Infectious screening In the last 2 months have you had wt loss of >10#?: NO Have you had fever, night sweats or hemotysis?: No Have you traveled outside the country in the last 6 months?: No Isolation: Standard ROS Review of Systems Constitutional: See HPI, Fever, Weakness and Fatigue Eyes: No Symptoms Reported and See HPI ENTM: No Symptoms Reported and See HPI; negative Nose Discharge and Nose Congestion Respiratoy: See HPI, Moist Cough and Short of Breath; negative Wheezing Cardiovascular: No Symptoms Reported, See HPI and Palpitations Gastrointestinal/Abdominal: No Symptoms Reported and See HPI; negative Diarrhea and Vomiting Genitourinary: No Symptoms Reported and See HPI; negative Dysuria Neurological: See HPI and Weakness Musculoskeletal: No Symptoms Reported and See HPI Integumentary: No Symptoms Reported and See HPI; negative Change in Color Hematologic/Lymphatic: No Symptoms Reported and See HPI Endocrine: No Symptoms Reported and See HPI Psychiatric: See HPI and Other (CONFUSED) All Other Systems: Reviewed and Negative PE Vitals Vital Signs: Temp Pulse Pulse Resp BP BP Pulse Ox 11/09/20 18:31 150/81 11/09/20 18:21 102 H 16 100 11/09/20 18:04 122/79 11/09/20 17:47 101.2 F H 11/09/20 17:05 103 H 16 107/68 100 11/09/20 15:59 100.3 F H 105 H 17 116/67 100 04/25/20 16:00 153/66 General Limitations: Altered Mental Status General Appearance: Alert Head Head Exam: Normal Inspection and Atraumatic Head Exam Physical: Other (NONE NOTED.) Eyes Eye exam: Normal Appearance and PERRL; negative Scleral Icterus and Conjunctival Injection Pupils: Regular, Round: Bilateral and Reactive: Bilateral ENT ENT Exam: Normal Exam, Normal Oropharynx, Normal External Ear Exam and TM's Normal Bilaterally External Ear Exam: Normal External Inspection; negative Mastoid Tenderness TM/Canal Exam: Bilateral: Normal Nose Exam: Normal Nose Exam Mouth Exam: Normal Inspection Throat Exam: Normal Inspection; negative Tonsillar Erythema, Tonsillar Exudate and L Peritonsillar Mass Neck Neck Exam: Normal Inspection and Trachea Midline; negative Tenderness and Lymphadenopathy Chest Chest Inspection: Normal Inspection and Symmetric Chest Wall Rise Respiratory Respiratory Exam: Normal Lung Sounds Bilat; negative Accessory Muscle Use, Chest Wall Tenderness and Respiratory Distress Respiratory Exam: Bilateral: Rhonchi and Lower: Rhonchi Cardiovascular Cardiovascular Exam: Regular Rate, Normal Rhythm and Normal Heart Sounds; negative Systolic Murmur and Diastolic Murmur Abdominal Exam Abdominal Exam: Normal Inspection, Normal Bowel Sounds and Soft; negative Tenderness Extremities Extremities Exam: Normal Inspection and Normal Capillary Refill Back Back Exam: Normal Inspection; negative (R) CVA Tenderness and (L) CVA Tenderness Neurological Neurological Exam: Alert and Oriented X3; negative Motor Sensory Deficit Cranial Nerve Exam: Gag reflex (XI): Normal Upper Motor Neuron Exam: Babinski Sign: Normal Psychological Psychiatric Exam: Normal Affect and Normal Mood Skin Skin Exam: Dry MDM Differential Diagnosis Metabolic: Dehydration, DKA, Hypercalcemia, Hypernatremia, Hypoglycemia and Hyponatremia Infectious: UTI (PNEUMONIA, PR) Environmental: Hyperthermia COURSE Treatment Treatment: SEE ORDERS. NS 1L IV BOLUS, ROCEPHIN 1GM IVPB, TYLENOL 650MG MS IN ER. Reevaluation 1st: Improved (TEMP IMPROVING.) Education/Counseling Education/Counseling: Patient Educated On: Diagnosis ROR Labs Reviewed Laboratory Results Reviewed?: Yes Result Diagrams: 11/15/20 04:00 11/15/20 04:00 Laboratory: 11/09/20 16:54 Blood Blood Culture - Final 11/09/20 16:43 Blood Blood Culture - Final 11/09/20 16:25 Urine,Catheterized Urine Culture - Final WBC 14.3 X10^3/uL (3.6-10.0) H 11/09/20 16:43 RBC 3.53 X10^6/uL (4.7-6.0) L 11/09/20 16:43 Hgb 10.2 g/dL (13.5-18.0) L 11/09/20 16:43 Hct 29.6 % (42.0-54.0) L 11/09/20 16:43 MCV 83.9 fL (80.0-100.0) 11/09/20 16:43 MCH 28.9 pg (27.0-34.0) 11/09/20 16:43 MCHC 34.4 g/dL (33.0-35.0) 11/09/20 16:43 RDW 14.4 % (11.6-16.5) 11/09/20 16:43 Plt Count 341 X10^3/uL (150.0-450.0) 11/09/20 16:43 MPV 9.8 fL (7.4-11.0) 11/09/20 16:43 Neut % (Auto) 67.0 % (42.0-75.0) 11/09/20 16:43 Lymph % (Auto) 22.4 % (21.0-51.0) 11/09/20 16:43 [place] % (Auto) 9.4 % (0.0-13.0) 11/09/20 16:43 Eos % (Auto) 0.0 % (0.9-2.9) L 11/09/20 16:43 Baso % (Auto) 1.2 % (0.2-1.0) H 11/09/20 16:43 Neut # (Auto) 9.6 x10^3/uL (2.2-4.8) H 11/09/20 16:43 Lymph # (Auto) 3.2 X10^3/uL (1.3-2.9) H 11/09/20 16:43 [place] # (Auto) 1.3 x10^3/uL (0.3-0.8) H 11/09/20 16:43 Eos # (Auto) 0.0 x10^3/uL (0.0-0.2) 11/09/20 16:43 Baso # (Auto) 0.2 X10^3/uL (0.0-0.1) H 11/09/20 16:43 Absolute Nucleated RBC 0.0 /100WBC 11/09/20 16:43 Sodium 132 mmol/L (136-145) L 11/09/20 16:43 Corrected Sodium 132 mmol/L (136-145) L 11/09/20 16:43 Potassium 4.2 mmol/L (3.5-5.1) 11/09/20 16:43 Chloride 95 mmol/L (98-107) L 11/09/20 16:43 Carbon Dioxide 25.9 mmol/L (21-32) 11/09/20 16:43 BUN 30 mg/dL (7-18) H 11/09/20 16:43 Creatinine 1.32 mg/dL (0.70-1.30) H 11/09/20 16:43 Est GFR (MDRD) Af Amer > 60 (>60) 11/09/20 16:43 Est GFR (MDRD) Non-Af 59 (>60) 11/09/20 16:43 Glucose 114 mg/dL (65-99) H 11/09/20 16:43 POC Glucose (mg/dL) 118 mg/dL (65-99) H 11/09/20 16:10 Lactic Acid 1.1 mmol/L (0.4-2.0) 11/09/20 16:43 Calcium 9.1 mg/dL (8.5-10.1) 11/09/20 16:43 Corrected Calcium 9.7 mg/dL (8.5-10.1) 11/09/20 16:43 Total Bilirubin 0.40 mg/dL (0.2-1.0) 11/09/20 16:43 AST 58 Units/L (15-37) H 11/09/20 16:43 ALT 32 Units/L (12-78) 11/09/20 16:43 Alkaline Phosphatase 76 Units/L (46-116) 11/09/20 16:43 Creatine Kinase > 1000 Units/L (39-308) H 11/09/20 16:43 CK-MB (CK-2) 10.7 ng/mL (0-4.0) H* 11/09/20 16:43 CK/CKMB % Calc 0.0 % (<4) 11/09/20 16:43 Troponin I < 0.02 ng/mL (0-1.5) 11/09/20 16:43 Total Protein 7.7 g/dL (6.4-8.2) 11/09/20 16:43 Albumin 3.2 g/dL (3.4-5.0) L 11/09/20 16:43 Globulin 4.5 g/dL (2.5-4.5) 11/09/20 16:43 Albumin/Globulin Ratio 0.7 Ratio (1.1-2.1) L 11/09/20 16:43 Specimen Type Catherized urine 11/09/20 16:25 Urine Color Yellow (YELLOW) 11/09/20 16:25 Urine Appearance Cloudy (CLEAR) 11/09/20 16:25 Urine pH 5.0 (5.0 - 8.0) 11/09/20 16:25 Ur Specific [place] 1.015 (1.000-1.030) 11/09/20 16:25 Urine Protein 3+ (NEGATIVE) 11/09/20 16:25 Urine Glucose (UA) Negative (NEGATIVE) 11/09/20 16:25 Urine Ketones 2+ (NEGATIVE) 11/09/20 16:25 Urine Occult Blood 5+ (NEGATIVE) 11/09/20 16:25 Urine Nitrite Negative (NEGATIVE) 11/09/20 16:25 Urine Bilirubin Negative (NEGATIVE) 11/09/20 16:25 Urine Urobilinogen Normal (NORMAL) 11/09/20 16:25 Ur Leukocyte Esterase 3+ (NEGATIVE) 11/09/20 16:25 Urine RBC 3-5 /HPF (0-3) A 11/09/20 16:25 Urine WBC Tntc /HPF (0-5) A 11/09/20 16:25 Ur Squamous Epith Cells Rare /HPF (NEGATIVE) 11/09/20 16:25 Urine Bacteria 3+ /HPF (NEGATIVE) 11/09/20 16:25 Urine Yeast Moderate /HPF (NEGATIVE) 11/09/20 16:25 Ur Culture Indicated? Yes/culture set up 11/09/20 16:25 Phenytoin 4.4 ug/mL (10-20) L 11/09/20 17:44 SARS CoV-2 RNA Rapid SADE Negative (NEGATIVE) 11/09/20 18:14 XRAY XRAY Interpreted by: Radiologist (REPORT NOTED.) and Self EKG Rate: 104 [place]: Normal Rhythm: ST Block: None Hypertrophy: LAE ST: Old, Ant, Infarct and Nonsp Opioid Opioid Risk Tool Age (Nikolai box if 16-45): No History of Preadolescent Sexual Abuse: No Total: 0 Total Score Risk Category: Low Risk Copyright: [employer] predicting aberrant behaviors Diagnosis Discharge Problem: Diabetes mellitus, Seizure disorder, Rhabdomyolysis UTI (urinary tract infection) Qualifiers: Urinary tract infection type: site unspecified Hematuria presence: with hematuria Qualified Code(s): N39.0 - Urinary tract infection, site not specified AMS (altered mental status) Qualifiers: Altered mental status type: transient alteration of awareness Qualified Code(s): R40.4 - Transient alteration of awareness Anemia Qualifiers: Anemia type: unspecified type Qualified Code(s): D64.9 - Anemia, unspecified Instructions Instructions: Rhabdomyolysis Chronic Obstructive Pulmonary Disease, Ijib-[id number] Urinary Tract Infection, Adult, Rbhz-no-Npai Hypertension, Xqij-vj-Jcjo Type 2 Diabetes Mellitus, Diagnosis, Adult, [id number]-[id number] Forms: Excuse From Work or School Precautions for COVID19 Patient Portal Social Distancing
[2020-11-09 16:52] LABS: BILIRUBIN,URINE NEGATIVE (NEGATIVE); BLOOD/HEMOGLOBIN,URINE 5+ (NEGATIVE); GLUCOSE, URINE NEGATIVE (NEGATIVE); KETONES,URINE 2+ (NEGATIVE); LEUKOCYTE ESTERASE ,URINE 3+ (NEGATIVE); NITRITES,URINE NEGATIVE (NEGATIVE); PROTEIN,URINE 3+ (NEGATIVE); UROBILINOGEN,URINE NORMAL (NORMAL)
[2020-11-09 16:55] LABS: APPEARANCE,URINE CLOUDY (CLEAR); COLOR,URINE YELLOW (YELLOW)
[2020-11-09 17:05] LABS: BASOPHILS # (AUTO) 0.2 X10^3/uL (0.0-0.1); BASOPHILS % (AUTO) 1.2 % (0.2-1.0); HEMATOCRIT 29.6 % (42.0-54.0); HEMOGLOBIN 10.2 g/dL (13.5-18.0); LYMPHOCYTES # (AUTO) 3.2 X10^3/uL (1.3-2.9); LYMPHOCYTES % (AUTO) 22.4 % (21.0-51.0); MEAN CORPUSCULAR HEMOGLOBIN 28.9 pg (27.0-34.0); MEAN CORPUSCULAR HGB CONC 34.4 g/dL (33.0-35.0); MEAN CORPUSCULAR VOLUME 83.9 fL (80.0-100.0); MEAN PLATELET VOLUME 9.8 fL (7.4-11.0); MONOCYTES # (AUTO) 1.3 x10^3/uL (0.3-0.8); MONOCYTES % (AUTO) 9.4 % (0.0-13.0); NEUTROPHILS # (AUTO) 9.6 x10^3/uL (2.2-4.8); PLATELET COUNT 341 X10^3/uL (150.0-450.0); RED BLOOD COUNT 3.53 X10^6/uL (4.7-6.0); RED CELL DISTRIBUTION WIDTH 14.4 % (11.6-16.5); WHITE BLOOD COUNT 14.3 X10^3/uL (3.6-10.0)
[2020-11-09] MEDS ORDERED: NS 1000 ML 1,000 ML ONE ×2 (17:06→18:42)
--- NOTE | 2020-11-09 17:16 | RAD ---
HISTORYAMSSTUDYCHEST, 1 [id number] lungs are clear. No pneumothorax or significant effusion.Heart size is normal.Old bilateral rib fractures are present.IMPRESSION1. No significant abnormalityElectronically signed by: Bruno Moulton (Nov 09, 2020 17:14:08)
[2020-11-09 17:18] LABS: BACTERIA,URINE 3+ /HPF (NEGATIVE); SQUAMOUS EPITHELIAL CELL,UR RARE /HPF (NEGATIVE); YEAST,URINE MODERATE /HPF (NEGATIVE)
--- NOTE | 2020-11-09 17:19 | CT ---
HISTORYAMSSTUDYBRAIN W/O CONCOMPARISONAugust 2019TECHNIQUEAxial non-contrast images of the head were obtained with coronal and sagittal reformats provided.Radiation dose: 1294.10 mGy-cm total DLPFINDINGSEncephalomalacia in the frontal, posterior medial right occipital and left posterior parietal lobes.Encephalomalacia in the central posterior aspect of the left cerebellar hemisphere.No abnormal areas of acute attenuation in the brain parenchyma.Velasquez-white differentiation remains intact.No intracranial, extra-axial, fluid collection.No hemorrhage.Periventricular chronic microvascular disease.No mass, mass effect or midline shift.Age related brain parenchymal global atrophy.No ventriculomegaly.No acute fracture.Sinuses are well aerated.Mastoid air cells are well aerated.IMPRESSIONNo acute intracranial abnormality identified.Electronically signed by: Reji Erickson (Nov 09, 2020 17:17:22)
[2020-11-09 17:25] LABS: LACTIC ACID 1.1 mmol/L (0.4-2.0)
[2020-11-09] MEDS ORDERED: ROCEPHIN VIAL 1 GRAM 1 G in NS 100 ML IV + SPIKE MINIBAG* 100 ML IV ONE (18:05)
[2020-11-09] MEDS ORDERED: TYLENOL SUPP 650 MG PR ONE (18:10)
[2020-11-09 18:15] LABS: BLOOD UREA NITROGEN 30 mg/dL (7-18); CALCIUM 9.1 mg/dL (8.5-10.1); CARBON DIOXIDE 25.9 mmol/L (21-32); CHLORIDE 95 mmol/L (98-107); COR NA(FOR HYPERGLY) 132 mmol/L (136-145); CREATININE 1.32 mg/dL (0.70-1.30); TROPONIN I < 0.02 ng/mL (0-1.5); eGFR NON BLACK RACES 59 (>60)
[2020-11-09] MEDS ORDERED: TYLENOL SUPP 325 MG ONE (18:15)
[2020-11-09] MEDS ORDERED: ROCEPHIN 1 GRAM IV PREMIX 1 G/50 ML IV.SOLN. IV ONE (18:15)
[2020-11-09 18:39] LABS: ALANINE AMINOTRANSFERASE 32 Units/L (12-78); ALBUMIN 3.2 g/dL (3.4-5.0); ALKALINE PHOSPHATASE 76 Units/L (46-116); ASPARTATE AMINO TRANSFERASE 58 Units/L (15-37); COR CA(FOR HYPOALB) 9.7 mg/dL (8.5-10.1); CREATINE KINASE > 1000 Units/L (39-308); TOTAL PROTEIN 7.7 g/dL (6.4-8.2)
[2020-11-09 18:40] LABS: CREATINE KINASE MB 10.7 ng/mL (0-4.0); SODIUM 132 mmol/L (136-145)
[2020-11-09] MEDS: NS 1000 ML 1,000 ML IV SCH (18:45)
[2020-11-09] MEDS: DILANTIN CAP 100 MG EXT REL PO SCH (21:49)
[2020-11-10 00:09] VITALS: BMI 20.9
[2020-11-10 01:38] LABS: TROPONIN I < 0.02 ng/mL (0-1.5)
[2020-11-10 01:41] LABS: CKMB % 0.6 % (<4); CREATINE KINASE 1260 Units/L (39-308); CREATINE KINASE MB 7.4 ng/mL (0-4.0)
[2020-11-10] MEDS: DILANTIN CAP 100 MG EXT REL PO SCH ×3 (05:46→21:01)
[2020-11-10 06:10] LABS: BASOPHILS % (AUTO) 0.3 % (0.2-1.0); EOSINOPHILS % (AUTO) 0.3 % (0.9-2.9); HEMOGLOBIN 10.4 g/dL (13.5-18.0); LYMPHOCYTES # (AUTO) 2.2 X10^3/uL (1.3-2.9); LYMPHOCYTES % (AUTO) 22.1 % (21.0-51.0); MEAN CORPUSCULAR HGB CONC 34.5 g/dL (33.0-35.0); MEAN CORPUSCULAR VOLUME 84.1 fL (80.0-100.0); MEAN PLATELET VOLUME 8.8 fL (7.4-11.0); MONOCYTES # (AUTO) 0.9 x10^3/uL (0.3-0.8); MONOCYTES % (AUTO) 9.3 % (0.0-13.0); NEUTROPHILS # (AUTO) 6.8 x10^3/uL (2.2-4.8); PLATELET COUNT 255 X10^3/uL (150.0-450.0); RED BLOOD COUNT 3.57 X10^6/uL (4.7-6.0); RED CELL DISTRIBUTION WIDTH 14.1 % (11.6-16.5)
[2020-11-10 06:43] LABS: ALANINE AMINOTRANSFERASE 31 Units/L (12-78); ALBUMIN 2.9 g/dL (3.4-5.0); ALKALINE PHOSPHATASE 69 Units/L (46-116); ASPARTATE AMINO TRANSFERASE 47 Units/L (15-37); BLOOD UREA NITROGEN 25 mg/dL (7-18); CARBON DIOXIDE 22.9 mmol/L (21-32); CHLORIDE 105 mmol/L (98-107); COR CA(FOR HYPOALB) 9.9 mg/dL (8.5-10.1); CREATININE 1.06 mg/dL (0.70-1.30); SODIUM 140 mmol/L (136-145); TROPONIN I < 0.02 ng/mL (0-1.5); eGFR NON BLACK RACES > 60 (>60)
[2020-11-10 06:45] LABS: CKMB % 0.5 % (<4); CREATINE KINASE MB 6.1 ng/mL (0-4.0)
[2020-11-10 06:46] LABS: CREATINE KINASE 1342 Units/L (39-308)
[2020-11-10] MEDS: NS 1000 ML 1,000 ML IV SCH (07:56)
[2020-11-10] MEDS: ROCEPHIN 1 GRAM IV PREMIX 1 G/50 ML IV.SOLN. IV SCH (08:53)
[2020-11-10] MEDS: NS 1/2 1000 ML IV 1,000 ML IV SCH (10:04)
[2020-11-10 10:24] LABS: SERUM ACETONE NEGATIVE (NEGATIVE)
[2020-11-10 10:25] LABS: LACTIC ACID 1.2 mmol/L (0.4-2.0)
[2020-11-10 10:46] LABS: TROPONIN I < 0.02 ng/mL (0-1.5)
[2020-11-10 10:47] LABS: CKMB % 0.4 % (<4); CREATINE KINASE 1452 Units/L (39-308)
[2020-11-10 10:48] LABS: CREATINE KINASE MB 6.2 ng/mL (0-4.0)
[2020-11-10 16:28] LABS: TROPONIN I < 0.02 ng/mL (0-1.5)
[2020-11-10 16:30] LABS: CREATINE KINASE MB 5.4 ng/mL (0-4.0)
[2020-11-10 16:34] LABS: CKMB % 0.4 % (<4); CREATINE KINASE 1540 Units/L (39-308)
--- NOTE | 2020-11-10 17:33 | DR.H&P ---
H&P - History & Physical for Day of: H&P Date: 11/09/20 - Chief Complaint Chief Complaint: FALL, AMS, UTI REPORTED PER CAREGIVER - History of Present Illness History of Present Illness: PT IS 60 BM ER ADMISSION AFTER PRESENING WITH EMS, REPORTS OF FALL AND AMS. PT HAS BEEN RECENTLY TREATED FOR UTI, WITH INCREASED CONFUSION. 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 PT WAS DEHYDRATED WITH ACUTE RHABDO. PT ADMITTED FOR TREATMENT OF ACUTE ILLNESS. - Past Medical History Past Medical History: Arthritis, CVA, Dementia, Diabetes, Hypertension, Seizures Additional Medical History: BLINDNESS - Past Surgical History Surgical History: Ortho Surgery Additional Surgical History: BILATERAL LOWER EXTREMITY AMPUTATION - Family History Family Medical History: Diabetes Mellitus, Cancer - Social History Does patient currently use any type of tobacco product: No Have you used tobacco products in the last 12 months: No Type of Tobacco Use: None Does any household member use tobacco: No Alcohol Use: None Drug Use: None - Medications Home Medications: No Known Drug Allergies Allergy (Verified 06/07/18 15:20) - Review of Systems Constitutional: Weakness Eyes: No Symptoms Reported, Vision Change (CHRONIC VISION DISTURBANCE) ENT: No Symptoms Reported Respiratory: No Symptoms Reported Cardiovascular: No Symptoms Reported Gastrointestinal: No Symptoms Reported Genitourinary: Frequency Musculoskeletal: No Symptoms Reported Neurological: Weakness, Confusion, Seizures - Physical Exam Vital Signs: Temperature 98.6 F Pulse Rate [Left Brachial] 89 Pulse Rate 105 Respiratory Rate 18 Blood Pressure [Left Arm] 156/69 Blood Pressure 116/67 O2 Sat by Pulse Oximetry 100 Oriented: Person Eyes: Blurred Vision Ear: Normal Nose: Normal Throat: Dry Respiratory: RLL Diminished, LLL Diminished Cardiovascular: Normal. negative: Edema : Normal Auscultation: Bowel Sounds: Normal Palpation: Normal Tenderness: Normal Skin: Decreased Turgur Musculoskeletal: Deformity (BILATERAL LOWER EXTREMITY AMPUTATION) Psychiatric: Anxiety Affect: Anxious Speech Pattern: Aphasic (PT HAS VERY MINIMAL VERBAL RESPONSE BASELINE ) - Assessment/Plan (1) Rhabdomyolysis Qualifiers: Rhabdomyolysis type: non-traumatic Qualified Code(s): M62.82 - Rhabdomyolysis Status: Acute Plan: ADMIT, RO SEPSIS WITH BLOOD AND URINE CULTURE ON ADMISSION. LACTIC ACID, ACETONE. STRICT I&OS, GENTLE IV HYDRATION. DILANTIN LEVEL, RESUME HOME MEDICATION. BS CONTROL, SERIAL CE AND EKG. CXR ON ADMISSION, SEIZURE PRECAUTIONS, FALL RISK (2) UTI (urinary tract infection) Qualifiers: Urinary tract infection type: site unspecified Hematuria presence: with hematuria Qualified Code(s): N39.0 - Urinary tract infection, site not specified; R31.9 - Hematuria, unspecified; R31.9 - Hematuria, unspecified Status: Acute (3) Hypertension Status: Acute (4) Diabetes Status: Acute (5) Acute hyponatremia Status: Acute (6) Ischemic cerebrovascular accident (CVA) Status: Acute (7) Diabetes mellitus Status: Acute (8) Phantom limb pain Status: Acute - Allergies Allergies/Adverse Reactions: Allergies Allergy/AdvReac Type Severity Reaction Status Date / Time No Known Drug Allergies Allergy Verified 06/07/18 15:20
[2020-11-10] MEDS ORDERED: NS 1/2 1000 ML IV 1,000 ML IV ONE (18:58)
[2020-11-10] MEDS: HumuLIN R SC PRN (22:20)
[2020-11-11] MEDS: DILANTIN CAP 100 MG EXT REL PO SCH ×3 (05:14→21:55)
[2020-11-11 06:23] LABS: ALANINE AMINOTRANSFERASE 38 Units/L (12-78); ALBUMIN 3.2 g/dL (3.4-5.0); ALKALINE PHOSPHATASE 82 Units/L (46-116); ASPARTATE AMINO TRANSFERASE 48 Units/L (15-37); BLOOD UREA NITROGEN 11 mg/dL (7-18); CALCIUM 8.9 mg/dL (8.5-10.1); CARBON DIOXIDE 26.9 mmol/L (21-32); CHLORIDE 101 mmol/L (98-107); COR CA(FOR HYPOALB) 9.5 mg/dL (8.5-10.1); CREATININE 0.96 mg/dL (0.70-1.30); SODIUM 139 mmol/L (136-145); TOTAL PROTEIN 7.5 g/dL (6.4-8.2); eGFR NON BLACK RACES > 60 (>60)
[2020-11-11 06:27] LABS: BASOPHILS # (AUTO) 0.1 X10^3/uL (0.0-0.1); BASOPHILS % (AUTO) 0.5 % (0.2-1.0); EOSINOPHILS % (AUTO) 0.4 % (0.9-2.9); HEMATOCRIT 31.2 % (42.0-54.0); HEMOGLOBIN 10.9 g/dL (13.5-18.0); LYMPHOCYTES # (AUTO) 2.3 X10^3/uL (1.3-2.9); LYMPHOCYTES % (AUTO) 21.4 % (21.0-51.0); MEAN CORPUSCULAR HGB CONC 34.9 g/dL (33.0-35.0); MEAN PLATELET VOLUME 9.2 fL (7.4-11.0); MONOCYTES # (AUTO) 0.8 x10^3/uL (0.3-0.8); MONOCYTES % (AUTO) 6.9 % (0.0-13.0); NEUTROPHILS # (AUTO) 7.7 x10^3/uL (2.2-4.8); NEUTROPHILS % (AUTO) 70.8 % (42.0-75.0); PLATELET COUNT 310 X10^3/uL (150.0-450.0); RED BLOOD COUNT 3.76 X10^6/uL (4.7-6.0); RED CELL DISTRIBUTION WIDTH 14.2 % (11.6-16.5); WHITE BLOOD COUNT 10.9 X10^3/uL (3.6-10.0)
[2020-11-11] MEDS ORDERED: POTASSIUM CHLORIDE LIQ 20 MEQ UDC PO PRN (06:34)
[2020-11-11] MEDS ORDERED: MICRO K EXTEN CAP 10 MEQ PO PRN (06:34)
[2020-11-11] MEDS ORDERED: POTASSIUM CHL 60 MEQ/NS 0.45% 500 ML IV PRN (06:34)
[2020-11-11] MEDS ORDERED: KLOR-CON PO PRN (06:34)
[2020-11-11] MEDS ORDERED: POTASSIUM CHL 40 MEQ/NS 0.45% 500 ML IV PRN (06:34)
[2020-11-11] MEDS ORDERED: K-RIDER 10 MEQ/NS 100 ML 10 MEQ/100 ML BAG IV PRN (06:34)
[2020-11-11] MEDS: NS 1/2 1000 ML IV 1,000 ML IV SCH ×3 (07:16→20:19)
[2020-11-11 07:22] LABS: PLATELET MORPHOLOGY COMMENT NORMAL (NORMAL)
[2020-11-11 07:23] LABS: ANISOCYTOSIS SLIGHT; POIKILOCYTOSIS 1+
[2020-11-11] MEDS ORDERED: NS 1/2 1000 ML IV 1,000 ML IV ONE ×2 (08:02→19:15)
[2020-11-11 08:25] LABS: CREATINE KINASE MB 3.8 ng/mL (0-4.0); TROPONIN I < 0.02 ng/mL (0-1.5)
[2020-11-11 08:33] LABS: CKMB % 0.3 % (<4); CREATINE KINASE 1183 Units/L (39-308)
[2020-11-11] MEDS: MAGNESIUM SULFATE 1 GRAM/100 mL PREMIX 1 GM/100 ML BAG IV PRN (08:50)
[2020-11-11] MEDS: ROCEPHIN 1 GRAM IV PREMIX 1 G/50 ML IV.SOLN. IV SCH (08:54)
[2020-11-11] MEDS: K-DUR TAB 20 MEQ PO PRN (08:56)
[2020-11-11] MEDS: HumuLIN R SC PRN (13:15)
[2020-11-11] MEDS ORDERED: D50W ABBOJECT SYR IV PRN (16:02)
[2020-11-12] MEDS ORDERED: NS 1/2 1000 ML IV 1,000 ML IV ONE (04:59)
[2020-11-12] MEDS: DILANTIN CAP 100 MG EXT REL PO SCH ×3 (05:05→21:00)
[2020-11-12] MEDS: NS 1/2 1000 ML IV 1,000 ML IV SCH ×2 (05:05→14:03)
[2020-11-12] MEDS: HumuLIN R SC PRN ×4 (05:37→21:00)
[2020-11-12 06:33] LABS: BASOPHILS % (AUTO) 0.3 % (0.2-1.0); EOSINOPHILS # (AUTO) 0.1 x10^3/uL (0.0-0.2); EOSINOPHILS % (AUTO) 0.8 % (0.9-2.9); HEMATOCRIT 26.6 % (42.0-54.0); HEMOGLOBIN 9.3 g/dL (13.5-18.0); LYMPHOCYTES # (AUTO) 1.8 X10^3/uL (1.3-2.9); LYMPHOCYTES % (AUTO) 18.5 % (21.0-51.0); MEAN CORPUSCULAR HEMOGLOBIN 29.2 pg (27.0-34.0); MEAN CORPUSCULAR HGB CONC 35.1 g/dL (33.0-35.0); MEAN CORPUSCULAR VOLUME 83.2 fL (80.0-100.0); MEAN PLATELET VOLUME 8.3 fL (7.4-11.0); MONOCYTES # (AUTO) 0.6 x10^3/uL (0.3-0.8); MONOCYTES % (AUTO) 6.8 % (0.0-13.0); NEUTROPHILS % (AUTO) 73.6 % (42.0-75.0); PLATELET COUNT 310 X10^3/uL (150.0-450.0); RED CELL DISTRIBUTION WIDTH 14.3 % (11.6-16.5); WHITE BLOOD COUNT 9.5 X10^3/uL (3.6-10.0)
[2020-11-12 06:45] LABS: ALANINE AMINOTRANSFERASE 30 Units/L (12-78); ALBUMIN 2.6 g/dL (3.4-5.0); ALKALINE PHOSPHATASE 91 Units/L (46-116); ASPARTATE AMINO TRANSFERASE 22 Units/L (15-37); BLOOD UREA NITROGEN 11 mg/dL (7-18); CALCIUM 8.6 mg/dL (8.5-10.1); CARBON DIOXIDE 27.4 mmol/L (21-32); CHLORIDE 104 mmol/L (98-107); CKMB % 0.2 % (<4); COR CA(FOR HYPOALB) 9.7 mg/dL (8.5-10.1); COR NA(FOR HYPERGLY) 144 mmol/L (136-145); CREATINE KINASE 452 Units/L (39-308); MAGNESIUM 1.9 mg/dL (1.7-2.9); SODIUM 140 mmol/L (136-145); TOTAL PROTEIN 6.5 g/dL (6.4-8.2); TROPONIN I < 0.02 ng/mL (0-1.5); eGFR NON BLACK RACES > 60 (>60)
[2020-11-12] MEDS: ROCEPHIN 1 GRAM IV PREMIX 1 G/50 ML IV.SOLN. IV SCH (08:31)
[2020-11-12] MEDS: MAGNESIUM SULFATE 1 GRAM/100 mL PREMIX 1 GM/100 ML BAG IV PRN ×2 (10:47→14:14)
--- NOTE | 2020-11-12 20:42 | PCM.PROG ---
Progress Note - Progress Note for Day of Date of Exam: 11/11/20 - Subjective Subjective: The patient is a 60-year-old black male who is a patient of . He is being treated for a urinary tract infection failed outpatient treatment as well as acute dehydration and acute Rhabdomyolysis. The patient does have a history of bilateral lower extremity amputation. He has had multiple CVAs in the past with seizure disorder and sequela of both traumatic brain injuries and CVAs. The patient had a CT scan of the head showing no acute abnormalities. He was dehydrated with a white blood cell count of 14.3 and he was started on antibiotic therapy with a white blood cell count down to 10.9 today. He was given IV hydration. He was hyponatremic with a sodium of 132 and it was up to 139 this morning. The patients creatinine kinase today is 1183. It was 1540 yesterday. Blood and urine cultures are pending. We are continuing telemetry, cardiac enzymes, and his home medications. His blood pressure is stable at 135/60. He is sating 100% on room air with no respiratory distress. On examination, his eyes were open but he is chronically visual impaired. He did turn his head to the voice but no verbal response. Heart was regular in rate and rhythm. He had bilateral diminished lung bases. No rales, wheezing, or rhonchi. Heart rate was a regular rate and rhythm. Abdomen was soft and nontender. Bowel sounds present times all four quadrants. He has bilateral lower extremity amputation. Poor skin turgor. Diffusely good movement of both upper extremities. No upper extremity edema noted. HE is currently receiving 1/2NS at 80 ml/hr, Rocephin 1g iv daily, dilantin 100mg po tid, Humulin r sliding scale, otbs achs, and the potassium and magnesium protocols. We will continue with current plan of care today. otherwise, we will follow up with am labs and continue to monitor. T suki spent on clinical assessment, reviewing labs and imaging, decision making, and documentation greater than 75 minutes. - Past Medical Family Social History Past Med/Fam/Surg Hx: No changes since H&P Allergies: Allergies No Known Drug Allergies Allergy (Verified 06/07/18 15:20) - Review of Systems ROS: No change since H&P - Vital Signs and I&O's Vital Signs: Temperature 98.0 F Pulse Rate [Left Brachial] 91 Pulse Rate 105 Respiratory Rate 22 Blood Pressure [Left Arm] 109/65 Blood Pressure 116/67 O2 Sat by Pulse Oximetry 100 Intake and Output: Intake & Output 11/10/20 11/11/20 11/12/20 11/13/20 11:59 11:59 11:59 11:59 Intake Total 137 / 137 6018 / 6018 4000 / 4000 2335 / 2335 Output Total 1325 / 1325 4925 / 4925 6400 / 6400 1500 / 1500 Balance -1188 / -1188 1093 / 1093 -2400 / -2400 835 / 835 - Physical Exam Oriented: Person Eyes: Blurred Vision Ear: Normal Nose: Normal Throat: Dry Respiratory: Generalized, Diminished. negative: Wheezes, Rales, Rhonchi Cardiovascular: Normal. negative: Edema : Normal Auscultation: Bowel Sounds: Normal Palpation: Normal Tenderness: Normal Skin: Decreased Turgur Musculoskeletal: Deformity (BILATERAL LOWER EXTREMITY AMPUTATION) Psychiatric: Anxiety Affect: Anxious Speech Pattern: Inappropriate, Delayed - Laboratory and Diagnostics Result Diagrams: 11/12/20 05:39 11/12/20 05:39 Labs: 11/11/20 10:50 Urine,Clean Catch Urine Culture - Preliminary 11/09/20 16:25 Urine,Catheterized Urine Culture - Final 11/09/20 16:54 Blood Blood Culture - Preliminary 11/09/20 16:43 Blood Blood Culture - Preliminary Laboratory WBC 9.5 X10^3/uL (3.6-10.0) 11/12/20 05:39 RBC 3.20 X10^6/uL (4.7-6.0) L 11/12/20 05:39 Hgb 9.3 g/dL (13.5-18.0) L 11/12/20 05:39 Hct 26.6 % (42.0-54.0) L 11/12/20 05:39 MCV 83.2 fL (80.0-100.0) 11/12/20 05:39 MCH 29.2 pg (27.0-34.0) 11/12/20 05:39 MCHC 35.1 g/dL (33.0-35.0) H 11/12/20 05:39 RDW 14.3 % (11.6-16.5) 11/12/20 05:39 Plt Count 310 X10^3/uL (150.0-450.0) 11/12/20 05:39 Plt Count Comment Adequate (ADEQUATE) 11/11/20 04:08 MPV 8.3 fL (7.4-11.0) 11/12/20 05:39 Neut % (Auto) 73.6 % (42.0-75.0) 11/12/20 05:39 Lymph % (Auto) 18.5 % (21.0-51.0) L 11/12/20 05:39 [place] % (Auto) 6.8 % (0.0-13.0) 11/12/20 05:39 Eos % (Auto) 0.8 % (0.9-2.9) L 11/12/20 05:39 Baso % (Auto) 0.3 % (0.2-1.0) 11/12/20 05:39 Neut # (Auto) 7.0 x10^3/uL (2.2-4.8) H 11/12/20 05:39 Lymph # (Auto) 1.8 X10^3/uL (1.3-2.9) 11/12/20 05:39 [place] # (Auto) 0.6 x10^3/uL (0.3-0.8) 11/12/20 05:39 Eos # (Auto) 0.1 x10^3/uL (0.0-0.2) 11/12/20 05:39 Baso # (Auto) 0.0 X10^3/uL (0.0-0.1) 11/12/20 05:39 Absolute Nucleated RBC 0.0 /100WBC 11/12/20 05:39 Plt Morphology Comment Normal (NORMAL) 11/11/20 04:08 RBC Morphology Abnormal (NORMAL) 11/11/20 04:08 Poikilocytosis 1+ A 11/11/20 04:08 Anisocytosis Slight A 11/11/20 04:08 Sodium 140 mmol/L (136-145) 11/12/20 05:39 Corrected Sodium 144 mmol/L (136-145) 11/12/20 05:39 Potassium 4.1 mmol/L (3.5-5.1) 11/12/20 05:39 Chloride 104 mmol/L (98-107) 11/12/20 05:39 Carbon Dioxide 27.4 mmol/L (21-32) 11/12/20 05:39 BUN 11 mg/dL (7-18) 11/12/20 05:39 Creatinine 1.00 mg/dL (0.70-1.30) 11/12/20 05:39 Est GFR (MDRD) Af Amer > 60 (>60) 11/12/20 05:39 Est GFR (MDRD) Non-Af > 60 (>60) 11/12/20 05:39 Glucose 272 mg/dL (65-99) H 11/12/20 05:39 POC Glucose (mg/dL) 229 mg/dL (65-99) H 11/12/20 19:56 Lactic Acid 1.2 mmol/L (0.4-2.0) 11/10/20 09:35 Calcium 8.6 mg/dL (8.5-10.1) 11/12/20 05:39 Corrected Calcium 9.7 mg/dL (8.5-10.1) 11/12/20 05:39 Magnesium 1.9 mg/dL (1.7-2.9) 11/12/20 05:39 Total Bilirubin 0.20 mg/dL (0.2-1.0) 11/12/20 05:39 AST 22 Units/L (15-37) 11/12/20 05:39 ALT 30 Units/L (12-78) 11/12/20 05:39 Alkaline Phosphatase 91 Units/L (46-116) 11/12/20 05:39 Creatine Kinase 452 Units/L (39-308) H 11/12/20 05:39 CK-MB (CK-2) 1.0 ng/mL (0-4.0) 11/12/20 05:39 CK/CKMB % Calc 0.2 % (<4) 11/12/20 05:39 Troponin I < 0.02 ng/mL (0-1.5) 11/12/20 05:39 Total Protein 6.5 g/dL (6.4-8.2) 11/12/20 05:39 Albumin 2.6 g/dL (3.4-5.0) L 11/12/20 05:39 Globulin 3.9 g/dL (2.5-4.5) 11/12/20 05:39 Albumin/Globulin Ratio 0.7 Ratio (1.1-2.1) L 11/12/20 05:39 Specimen Type Catherized urine 11/09/20 16:25 Urine Color Yellow (YELLOW) 11/09/20 16:25 Urine Appearance Cloudy (CLEAR) 11/09/20 16:25 Urine pH 5.0 (5.0 - 8.0) 11/09/20 16:25 Ur Specific [place] 1.015 (1.000-1.030) 11/09/20 16:25 Urine Protein 3+ (NEGATIVE) 11/09/20 16:25 Urine Glucose (UA) Negative (NEGATIVE) 11/09/20 16: Urine Ketones 2+ (NEGATIVE) 11/09/20 16:25 Urine Occult Blood 5+ (NEGATIVE) 11/09/20 16:25 Urine Nitrite Negative (NEGATIVE) 11/09/20 16:25 Urine Bilirubin Negative (NEGATIVE) 11/09/20 16:25 Urine Urobilinogen Normal (NORMAL) 11/09/20 16:25 Ur Leukocyte Esterase 3+ (NEGATIVE) 11/09/20 16:25 Urine RBC 3-5 /HPF (0-3) A 11/09/20 16:25 Urine WBC Tntc /HPF (0-5) A 11/09/20 16:25 Ur Squamous Epith Cells Rare /HPF (NEGATIVE) 11/09/20 16:25 Urine Bacteria 3+ /HPF (NEGATIVE) 11/09/20 16:25 Urine Yeast Moderate /HPF (NEGATIVE) 11/09/20 16:25 Ur Culture Indicated? Yes/culture set up 11/09/20 16:25 Phenytoin 4.4 ug/mL (10-20) L 11/09/20 17:44 Acetone, Semi-Quant Negative (NEGATIVE) 11/10/20 09:35 SARS CoV-2 RNA Rapid SADE Negative (NEGATIVE) 11/09/20 18:14 - Plan (1) Rhabdomyolysis Status: Acute Qualifiers: Rhabdomyolysis type: non-traumatic Qualified Code(s): M62.82 - Rhabdomyolysis Plan: RO SEPSIS WITH BLOOD AND URINE CULTURE. STRICT I&OS, GENTLE IV HYDRATION. DILANTIN LEVEL, RESUME HOME MEDICATION. BS CONTROL, SEIZURE PRECAUTIONS, FALL RISK (2) UTI (urinary tract infection) Status: Acute Qualifiers: Urinary tract infection type: acute cystitis Hematuria presence: without hematuria Qualified Code(s): N30.00 - Acute cystitis without hematuria (3) Acute hyponatremia Status: Acute (4) Hypertension Status: Chronic Qualifiers: Hypertension type: essential hypertension Qualified Code(s): I10 - Essential (primary) hypertension (5) Diabetes Status: Chronic Qualifiers: Diabetes mellitus type: type 2 Diabetes mellitus fdc insulin use: unspecified fdc insulin use status Diabetes mellitus complication status: with hyperglycemia Qualified Code(s): E11.65 - Type 2 diabetes mellitus with hyperglycemia (6) Ischemic cerebrovascular accident (CVA) Status: Chronic
--- NOTE | 2020-11-12 20:48 | PCM.PROG ---
Progress Note - Progress Note for Day of Date of Exam: 11/12/20 - Subjective Subjective: The patient is a 60-year-old black male who is a patient of . He is being treated for a urinary tract infection failed outpatient treatment as well as acute dehydration and acute Rhabdomyolysis. The patient does have a history of bilateral lower extremity amputation. He has had multiple CVAs in the past with seizure disorder and sequela of both traumatic brain injuries and CVAs. The patient had a CT scan of the head showing no acute abnormalities. He was dehydrated with a white blood cell count of 14.3 and he was started on antibiotic therapy with a white blood cell count down to 9.5 today. He was given IV hydration. He was hyponatremic with a sodium of 132 and it was up to 140 this morning. The patients creatinine kinase today is 452. It was 1183 yesterday. Blood and urine cultures are pending. We are continuing telemetry, cardiac enzymes, and his home medications. His blood pressure is stable at 126/64. He is sating 100% on room air with no respiratory distress. On examination, his eyes were open but he is chronically visual impaired. He did turn his head to the voice but no verbal response. Heart was regular in rate and rhythm. He had bilateral diminished lung bases. No rales, wheezing, or rhonchi. Heart rate was a regular rate and rhythm. Abdomen was soft and nontender. Bowel sounds present times all four quadrants. He has bilateral lower extremity am putation. Poor skin turgor. Diffusely good movement of both upper extremities. No upper extremity edema noted. HE is currently receiving 1/2NS at 80 ml/hr, Rocephin 1g iv daily, dilantin 100mg po tid, Humulin r sliding scale, otbs achs, and the potassium and magnesium protocols. We will continue with current plan of care today. otherwise, we will follow up with am labs and continue to monitor. Time spent on clinical assessment, reviewing labs and imaging, decision making, and documentation greater than 45 minutes. - Past Medical Family Social History Past Med/Fam/Surg Hx: No changes since H&P Allergies: Allergies No Known Drug Allergies Allergy (Verified 06/07/18 15:20) - Review of Systems ROS: No change since H&P - Vital Signs and I&O's Vital Signs: Temperature 98.0 F Pulse Rate [Left Brachial] 91 Pulse Rate 105 Respiratory Rate 22 Blood Pressure [Left Arm] 109/65 Blood Pressure 116/67 O2 Sat by Pulse Oximetry 100 Intake and Output: Intake & Output 11/10/20 11/11/20 11/12/20 11/13/20 11:59 11:59 11:59 11:59 Intake Total 137 / 137 6018 / 6018 4000 / 4000 2335 / 2335 Output Total 1325 / 1325 4925 / 4925 6400 / 6400 1500 / 1500 Balance -1188 / -1188 1093 / 1093 -2400 / -2400 835 / 835 - Physical Exam Oriented: Person Eyes: Blurred Vision Ear: Normal Nose: Normal Throat: Dry Respiratory: Generalized, Diminished. negative: Wheezes, Rales, Rhonchi Cardiovascular: Normal. negative: Edema : Normal Auscultation: Bowel Sounds: Normal Tenderness: Normal Skin: Decreased Turgur Musculoskeletal: Deformity (BILATERAL LOWER EXTREMITY AMPUTATION) Psychiatric: Anxiety Affect: Anxious Speech Pattern: Inappropriate, Delayed - Laboratory and Diagnostics Result Diagrams: 11/12/20 05:39 11/12/20 05:39 Labs: 11/11/20 10:50 Urine,Clean Catch Urine Culture - Preliminary 11/09/20 16:25 Urine,Catheterized Urine Culture - Final 11/09/20 16:54 Blood Blood Culture - Preliminary 11/09/20 16:43 Blood Blood Culture - Preliminary Laboratory WBC 9.5 X10^3/uL (3.6-10.0) 11/12/20 05:39 RBC 3.20 X10^6/uL (4.7-6.0) L 11/12/20 05:39 Hgb 9.3 g/dL (13.5-18.0) L 11/12/20 05:39 Hct 26.6 % (42.0-54.0) L 11/12/20 05:39 MCV 83.2 fL (80.0-100.0) 11/12/20 05:39 MCH 29.2 pg (27.0-34.0) 11/12/20 05:39 MCHC 35.1 g/dL (33.0-35.0) H 11/12/20 05:39 RDW 14.3 % (11.6-16.5) 11/12/20 05:39 Plt Count 310 X10^3/uL (150.0-450.0) 11/12/20 05:39 Plt Count Comment Adequate (ADEQUATE) 11/11/20 04:08 MPV 8.3 fL (7.4-11.0) 11/12/20 05:39 Neut % (Auto) 73.6 % (42.0-75.0) 11/12/20 05:39 Lymph % (Auto) 18.5 % (21.0-51.0) L 11/12/20 05:39 [place] % (Auto) 6.8 % (0.0-13.0) 11/12/20 05:39 Eos % (Auto) 0.8 % (0.9-2.9) L 11/12/20 05:39 Baso % (Auto) 0.3 % (0.2-1.0) 11/12/20 05:39 Neut # (Auto) 7.0 x10^3/uL (2.2-4.8) H 11/12/20 05:39 Lymph # (Auto) 1.8 X10^3/uL (1.3-2.9) 11/12/20 05:39 [place] # (Auto) 0.6 x10^3/uL (0.3-0.8) 11/12/20 05:39 Eos # (Auto) 0.1 x10^3/uL (0.0-0.2) 11/12/20 05:39 Baso # (Auto) 0.0 X10^3/uL (0.0-0.1) 11/12/20 05:39 Absolute Nucleated RBC 0.0 /100WBC 11/12/20 05:39 Plt Morphology Comment Normal (NORMAL) 11/11/20 04:08 RBC Morphology Abnormal (NORMAL) 11/11/20 04:08 Poikilocytosis 1+ A 11/11/20 04:08 Anisocytosis Slight A 11/11/20 04:08 Sodium 140 mmol/L (136-145) 11/12/20 05:39 Corrected Sodium 144 mmol/L (136-145) 11/12/20 05:39 Potassium 4.1 mmol/L (3.5-5.1) 11/12/20 05:39 Chloride 104 mmol/L (98-107) 11/12/20 05:39 Carbon Dioxide 27.4 mmol/L (21-32) 11/12/20 05:39 BUN 11 mg/dL (7-18) 11/12/20 05:39 Creatinine 1.00 mg/dL (0.70-1.30) 11/12/20 05:39 Est GFR (MDRD) Af Amer > 60 (>60) 11/12/20 05:39 Est GFR (MDRD) Non-Af > 60 (>60) 11/12/20 05:39 Glucose 272 mg/dL (65-99) H 11/12/20 05:39 POC Glucose (mg/dL) 229 mg/dL (65-99) H 11/12/20 19:56 Lactic Acid 1.2 mmol/L (0.4-2.0) 11/10/20 09:35 Calcium 8.6 mg/dL (8.5-10.1) 11/12/20 05:39 Corrected Calcium 9.7 mg/dL (8.5-10.1) 11/12/20 05:39 Magnesium 1.9 mg/dL (1.7-2.9) 11/12/20 05:39 Total Bilirubin 0.20 mg/dL (0.2-1.0) 11/12/20 05:39 AST 22 Units/L (15-37) 11/12/20 05:39 ALT 30 Units/L (12-78) 11/12/20 05:39 Alkaline Phosphatase 91 Units/L (46-116) 11/12/20 05:39 Creatine Kinase 452 Units/L (39-308) H 11/12/20 05:39 CK-MB (CK-2) 1.0 ng/mL (0-4.0) 11/12/20 05:39 CK/CKMB % Calc 0.2 % (<4) 11/12/20 05:39 Troponin I < 0.02 ng/mL (0-1.5) 11/12/20 05:39 Total Protein 6.5 g/dL (6.4-8.2) 11/12/20 05:39 Albumin 2.6 g/dL (3.4-5.0) L 11/12/20 05:39 Globulin 3.9 g/dL (2.5-4.5) 11/12/20 05:39 Albumin/Globulin Ratio 0.7 Ratio (1.1-2.1) L 11/12/20 05:39 Specimen Type Catherized urine 11/09/20 16:25 Urine Color Yellow (YELLOW) 11/09/20 16:25 Urine Appearance Cloudy (CLEAR) 11/09/20 16:25 Urine pH 5.0 (5.0 - 8.0) 11/09/20 16:25 Ur Specific [place] 1.015 (1.000-1.030) 11/09/20 16:25 Urine Protein 3+ (NEGATIVE) 11/09/20 16:25 Urine Glucose (UA) Negative (NEGATIVE) 11/09/20 16: Urine Ketones 2+ (NEGATIVE) 11/09/20 16:25 Urine Occult Blood 5+ (NEGATIVE) 11/09/20 16:25 Urine Nitrite Negative (NEGATIVE) 11/09/20 16:25 Urine Bilirubin Negative (NEGATIVE) 11/09/20 16:25 Urine Urobilinogen Normal (NORMAL) 11/09/20 16:25 Ur Leukocyte Esterase 3+ (NEGATIVE) 11/09/20 16:25 Urine RBC 3-5 /HPF (0-3) A 11/09/20 16:25 Urine WBC Tntc /HPF (0-5) A 11/09/20 16:25 Ur Squamous Epith Cells Rare /HPF (NEGATIVE) 11/09/20 16:25 Urine Bacteria 3+ /HPF (NEGATIVE) 11/09/20 16:25 Urine Yeast Moderate /HPF (NEGATIVE) 11/09/20 16:25 Ur Culture Indicated? Yes/culture set up 11/09/20 16:25 Phenytoin 4.4 ug/mL (10-20) L 11/09/20 17:44 Acetone, Semi-Quant Negative (NEGATIVE) 11/10/20 09:35 SARS CoV-2 RNA Rapid SADE Negative (NEGATIVE) 11/09/20 18:14 - Plan (1) Rhabdomyolysis Status: Acute Qualifiers: Rhabdomyolysis type: non-traumatic Qualified Code(s): M62.82 - Rh abdomyolysis Plan: RO SEPSIS WITH BLOOD AND URINE CULTURE. STRICT I&OS, GENTLE IV HYDRATION. DILANTIN LEVEL, RESUME HOME MEDICATION. BS CONTROL, SEIZURE PRECAUTIONS, FALL RISK (2) UTI (urinary tract infection) Status: Acute Qualifiers: Urinary tract infection type: acute cystitis Hematuria presence: without hematuria Qualified Code(s): N30.00 - Acute cystitis without hematuria (3) Acute hyponatremia Status: Acute (4) Hypertension Status: Chronic Qualifiers: Hypertension type: essential hypertension Qualified Code(s): I10 - Essential (primary) hypertension (5) Diabetes Status: Chronic Qualifiers: Diabetes mellitus type: type 2 Diabetes mellitus exterminator termite insulin use: unspecified exterminator termite insulin use status Diabetes mellitus complication status: with hyperglycemia Qualified Code(s): E11.65 - Type 2 diabetes mellitus with hyperglycemia (6) Ischemic cerebrovascular accident (CVA) Status: Chronic
[2020-11-13] MEDS ORDERED: NS 1/2 1000 ML IV 1,000 ML IV ONE ×2 (00:11→13:32)
[2020-11-13] MEDS: NS 1/2 1000 ML IV 1,000 ML IV SCH ×4 (00:15→16:04)
[2020-11-13] MEDS: DILANTIN CAP 100 MG EXT REL PO SCH ×3 (05:25→21:16)
[2020-11-13 06:16] LABS: BASOPHILS # (AUTO) 0.1 X10^3/uL (0.0-0.1); BASOPHILS % (AUTO) 0.4 % (0.2-1.0); EOSINOPHILS # (AUTO) 0.2 x10^3/uL (0.0-0.2); EOSINOPHILS % (AUTO) 1.3 % (0.9-2.9); HEMATOCRIT 27.2 % (42.0-54.0); HEMOGLOBIN 9.3 g/dL (13.5-18.0); LYMPHOCYTES # (AUTO) 2.2 X10^3/uL (1.3-2.9); LYMPHOCYTES % (AUTO) 17.3 % (21.0-51.0); MEAN CORPUSCULAR HEMOGLOBIN 28.8 pg (27.0-34.0); MEAN CORPUSCULAR HGB CONC 34.2 g/dL (33.0-35.0); MEAN CORPUSCULAR VOLUME 84.1 fL (80.0-100.0); MONOCYTES # (AUTO) 0.6 x10^3/uL (0.3-0.8); MONOCYTES % (AUTO) 4.6 % (0.0-13.0); NEUTROPHILS # (AUTO) 9.7 x10^3/uL (2.2-4.8); NEUTROPHILS % (AUTO) 76.4 % (42.0-75.0); PLATELET COUNT 369 X10^3/uL (150.0-450.0); RED BLOOD COUNT 3.24 X10^6/uL (4.7-6.0); RED CELL DISTRIBUTION WIDTH 14.1 % (11.6-16.5); WHITE BLOOD COUNT 12.7 X10^3/uL (3.6-10.0)
[2020-11-13 06:37] LABS: ALANINE AMINOTRANSFERASE 31 Units/L (12-78); ALBUMIN 2.7 g/dL (3.4-5.0); ALKALINE PHOSPHATASE 84 Units/L (46-116); ASPARTATE AMINO TRANSFERASE 17 Units/L (15-37); BLOOD UREA NITROGEN 11 mg/dL (7-18); CARBON DIOXIDE 27.8 mmol/L (21-32); CHLORIDE 104 mmol/L (98-107); CKMB % 0.5 % (<4); COR NA(FOR HYPERGLY) 143 mmol/L (136-145); CREATINE KINASE 216 Units/L (39-308); CREATINE KINASE MB < 1.0 ng/mL (0-4.0); CREATININE 0.92 mg/dL (0.70-1.30); MAGNESIUM 2.1 mg/dL (1.7-2.9); SODIUM 140 mmol/L (136-145); TOTAL PROTEIN 6.7 g/dL (6.4-8.2); TROPONIN I < 0.02 ng/mL (0-1.5); eGFR NON BLACK RACES > 60 (>60)
[2020-11-13] MEDS: ROCEPHIN 1 GRAM IV PREMIX 1 G/50 ML IV.SOLN. IV SCH (08:25)
[2020-11-13] MEDS: HumuLIN R SC PRN ×3 (12:20→20:56)
[2020-11-14] MEDS ORDERED: NS 1/2 1000 ML IV 1,000 ML IV ONE ×2 (00:46→15:27)
[2020-11-14] MEDS: NS 1/2 1000 ML IV 1,000 ML IV SCH ×3 (01:05→10:30)
[2020-11-14 05:30] LABS: BASOPHILS # (AUTO) 0.1 X10^3/uL (0.0-0.1); BASOPHILS % (AUTO) 0.8 % (0.2-1.0); EOSINOPHILS # (AUTO) 0.2 x10^3/uL (0.0-0.2); EOSINOPHILS % (AUTO) 1.5 % (0.9-2.9); HEMATOCRIT 28.8 % (42.0-54.0); HEMOGLOBIN 9.6 g/dL (13.5-18.0); LYMPHOCYTES # (AUTO) 2.7 X10^3/uL (1.3-2.9); LYMPHOCYTES % (AUTO) 18.7 % (21.0-51.0); MEAN CORPUSCULAR HEMOGLOBIN 28.2 pg (27.0-34.0); MEAN CORPUSCULAR HGB CONC 33.4 g/dL (33.0-35.0); MEAN CORPUSCULAR VOLUME 84.3 fL (80.0-100.0); MEAN PLATELET VOLUME 8.4 fL (7.4-11.0); MONOCYTES # (AUTO) 0.7 x10^3/uL (0.3-0.8); MONOCYTES % (AUTO) 4.7 % (0.0-13.0); NEUTROPHILS # (AUTO) 10.6 x10^3/uL (2.2-4.8); NEUTROPHILS % (AUTO) 74.3 % (42.0-75.0); PLATELET COUNT 441 X10^3/uL (150.0-450.0); RED BLOOD COUNT 3.41 X10^6/uL (4.7-6.0); RED CELL DISTRIBUTION WIDTH 14.1 % (11.6-16.5); WHITE BLOOD COUNT 14.2 X10^3/uL (3.6-10.0)
[2020-11-14] MEDS: DILANTIN CAP 100 MG EXT REL PO SCH ×3 (05:40→20:58)
[2020-11-14 05:45] LABS: ALANINE AMINOTRANSFERASE 28 Units/L (12-78); ALBUMIN 2.7 g/dL (3.4-5.0); ALKALINE PHOSPHATASE 90 Units/L (46-116); ASPARTATE AMINO TRANSFERASE 16 Units/L (15-37); BLOOD UREA NITROGEN 11 mg/dL (7-18); CALCIUM 8.9 mg/dL (8.5-10.1); CARBON DIOXIDE 30.3 mmol/L (21-32); CHLORIDE 103 mmol/L (98-107); COR CA(FOR HYPOALB) 9.9 mg/dL (8.5-10.1); COR NA(FOR HYPERGLY) 143 mmol/L (136-145); CREATININE 0.87 mg/dL (0.70-1.30); SODIUM 141 mmol/L (136-145); TOTAL PROTEIN 7.1 g/dL (6.4-8.2); eGFR NON BLACK RACES > 60 (>60)
[2020-11-14] MEDS: ROCEPHIN 1 GRAM IV PREMIX 1 G/50 ML IV.SOLN. IV SCH (09:55)
[2020-11-14] MEDS: K-DUR TAB 20 MEQ PO PRN (11:27)
[2020-11-14] MEDS: LEVAQUIN PREMIX IV 500 MG 500 MG/100 ML BAG IV SCH (11:27)
[2020-11-14] MEDS ORDERED: LOVENOX INJ 40 MG SYR SC ONE (14:48)
[2020-11-14] MEDS: LOVENOX INJ 40 MG SYR SC SCH (15:07)
[2020-11-14] MEDS: HumuLIN R SC PRN ×2 (16:41→20:31)
[2020-11-15] MEDS ORDERED: NS 1/2 1000 ML IV 1,000 ML IV ONE (02:29)
[2020-11-15] MEDS: NS 1/2 1000 ML IV 1,000 ML IV SCH ×2 (02:32→06:13)
[2020-11-15 05:24] LABS: BASOPHILS # (AUTO) 0.1 X10^3/uL (0.0-0.1); BASOPHILS % (AUTO) 0.7 % (0.2-1.0); EOSINOPHILS # (AUTO) 0.1 x10^3/uL (0.0-0.2); EOSINOPHILS % (AUTO) 1.1 % (0.9-2.9); HEMATOCRIT 28.1 % (42.0-54.0); HEMOGLOBIN 9.6 g/dL (13.5-18.0); LYMPHOCYTES # (AUTO) 2.4 X10^3/uL (1.3-2.9); LYMPHOCYTES % (AUTO) 19.4 % (21.0-51.0); MEAN CORPUSCULAR HEMOGLOBIN 28.7 pg (27.0-34.0); MEAN CORPUSCULAR VOLUME 84.5 fL (80.0-100.0); MEAN PLATELET VOLUME 8.3 fL (7.4-11.0); MONOCYTES # (AUTO) 0.6 x10^3/uL (0.3-0.8); MONOCYTES % (AUTO) 5.1 % (0.0-13.0); NEUTROPHILS # (AUTO) 8.9 x10^3/uL (2.2-4.8); NEUTROPHILS % (AUTO) 73.7 % (42.0-75.0); PLATELET COUNT 473 X10^3/uL (150.0-450.0); RED BLOOD COUNT 3.33 X10^6/uL (4.7-6.0); RED CELL DISTRIBUTION WIDTH 14.1 % (11.6-16.5); WHITE BLOOD COUNT 12.1 X10^3/uL (3.6-10.0)
[2020-11-15] MEDS: DILANTIN CAP 100 MG EXT REL PO SCH (05:29)
[2020-11-15 05:45] LABS: ALANINE AMINOTRANSFERASE 34 Units/L (12-78); ALBUMIN 2.8 g/dL (3.4-5.0); ALKALINE PHOSPHATASE 83 Units/L (46-116); ASPARTATE AMINO TRANSFERASE 16 Units/L (15-37); BLOOD UREA NITROGEN 14 mg/dL (7-18); CALCIUM 9.1 mg/dL (8.5-10.1); CARBON DIOXIDE 27.9 mmol/L (21-32); CHLORIDE 105 mmol/L (98-107); COR CA(FOR HYPOALB) 10.1 mg/dL (8.5-10.1); CREATININE 0.91 mg/dL (0.70-1.30); SODIUM 141 mmol/L (136-145); TOTAL PROTEIN 7.1 g/dL (6.4-8.2); eGFR NON BLACK RACES > 60 (>60)
--- NOTE | 2020-11-15 06:12 | RAD ---
HISTORYShortness of breathSTUDYChest AP [id number] heart is within normal limits in size. The bo are normal. The lung harden are clear. No pleural effusions are identified. Bony thorax is unremarkable with the exception of old healed rib fractures bilaterally.IMPRESSIONNo significant abnormality identifiedElectronically signed by: MARTHA HUERTA (Nov 15, 2020 06:10:34)
[2020-11-15 08:17] VITALS: BP 119/58
[2020-11-15] MEDS: LEVAQUIN PREMIX IV 500 MG 500 MG/100 ML BAG IV SCH (09:09)
[2020-11-15] MEDS: ROCEPHIN 1 GRAM IV PREMIX 1 G/50 ML IV.SOLN. IV SCH (09:09)
[2020-11-15] MEDS: LOVENOX INJ 40 MG SYR SC SCH (09:10)
[2020-11-15] MEDS: HumuLIN R SC PRN (12:03)
== END 2020-11-15 13:45 | disposition home or self-care (01) | DRG 558 ==
LOC: MED/SURG 15:48 → ER 15:48 → OBSVTOIN 18:33 → MED/SURG 20:38
PROVIDERS: ADMIT Internal Medicine; ATTEND Internal Medicine
DX: R26.89 Other abnormalities of gait and mobility; Z89.512 Acquired absence of left leg below knee; R41.82 Altered mental status, unspecified; E87.1 Hypo-osmolality and hyponatremia; H54.7 Unspecified visual loss; E11.65 Type 2 diabetes mellitus with hyperglycemia; Z20.822 Contact with and (suspected) exposure to COVID-19; R94.31 Abnormal electrocardiogram [ECG] [EKG]; Z89.511 Acquired absence of right leg below knee; G54.6 Phantom limb syndrome with pain; S71.001A Unspecified open wound, right hip, initial encounter; N39.0 Urinary tract infection, site not specified; M62.82 Rhabdomyolysis; E86.0 Dehydration; W18.39XA Other fall on same level, initial encounter; I69.398 Other sequelae of cerebral infarction; I10 Essential (primary) hypertension

== ENCOUNTER 2021-03-01 13:12 | Inpatient (IN) ==
--- NOTE | 2021-03-01 13:29 | DR.AMS ---
HPI Time Seen Time Seen by Provider: 03/01/21 13:29 PMH PMH Past Medical History: Arthritis, CVA, Dementia, Diabetes, Hypertension and Seizures Past Surgical History: Yes Surgical History: Ortho Surgery Family History Family Medical History: Diabetes Mellitus and Cancer Social History Do you use any recreational Drugs:: No PE Vitals Vital Signs: Pulse Resp BP BP Pulse Ox 03/01/21 18:34 96 H 15 142/84 03/01/21 17:12 12 129/66 100 03/01/21 13:25 116/67 11/15/20 08:00 119/58 ROR Labs Reviewed Result Diagrams: 03/01/21 14:32 03/01/21 14:32 Laboratory: WBC 8.4 X10^3/uL (3.6-10.0) 03/01/21 14:32 RBC 4.09 X10^6/uL (4.7-6.0) L 03/01/21 14:32 Hgb 11.9 g/dL (13.5-18.0) L 03/01/21 14:32 Hct 34.3 % (42.0-54.0) L 03/01/21 14:32 MCV 83.8 fL (80.0-100.0) 03/01/21 14:32 MCH 29.1 pg (27.0-34.0) 03/01/21 14:32 MCHC 34.7 g/dL (33.0-35.0) 03/01/21 14:32 RDW 15.0 % (11.6-16.5) 03/01/21 14:32 Plt Count 202 X10^3/uL (150.0-450.0) 03/01/21 14:32 MPV 8.0 fL (7.4-11.0) 03/01/21 14:32 Neut % (Auto) 72.5 % (42.0-75.0) 03/01/21 14:32 Lymph % (Auto) 18.8 % (21.0-51.0) L 03/01/21 14:32 [place] % (Auto) 7.9 % (0.0-13.0) 03/01/21 14:32 Eos % (Auto) 0.4 % (0.9-2.9) L 03/01/21 14:32 Baso % (Auto) 0.4 % (0.2-1.0) 03/01/21 14:32 Neut # (Auto) 6.1 x10^3/uL (2.2-4.8) H 03/01/21 14:32 Lymph # (Auto) 1.6 X10^3/uL (1.3-2.9) 03/01/21 14:32 [place] # (Auto) 0.7 x10^3/uL (0.3-0.8) 03/01/21 14:32 Eos # (Auto) 0.0 x10^3/uL (0.0-0.2) 03/01/21 14:32 Baso # (Auto) 0.0 X10^3/uL (0.0-0.1) 03/01/21 14:32 Absolute Nucleated RBC 0.1 /100WBC 03/01/21 14:32 Sodium 137 mmol/L (136-145) 03/01/21 14:32 Corrected Sodium TNP 03/01/21 14:32 Potassium 3.9 mmol/L (3.5-5.1) 03/01/21 14:32 Chloride 102 mmol/L (98-107) 03/01/21 14:32 Carbon Dioxide 25.9 mmol/L (21-32) 03/01/21 14:32 BUN 27 mg/dL (7-18) H 03/01/21 14:32 Creatinine 0.95 mg/dL (0.70-1.30) 03/01/21 14:32 Est GFR (MDRD) Af Amer > 60 (>60) 03/01/21 14:32 Est GFR (MDRD) Non-Af > 60 (>60) 03/01/21 14:32 Glucose 86 mg/dL (65-99) 03/01/21 14:32 Lactic Acid 1.0 mmol/L (0.4-2.0) 03/01/21 14:32 Calcium 9.0 mg/dL (8.5-10.1) 03/01/21 14:32 Corrected Calcium 9.6 mg/dL (8.5-10.1) 03/01/21 14:32 Total Bilirubin 0.40 mg/dL (0.2-1.0) 03/01/21 14:32 AST 62 Units/L (15-37) H 03/01/21 14:32 ALT 33 Units/L (12-78) 03/01/21 14:32 Alkaline Phosphatase 101 Units/L (46-116) 03/01/21 14:32 Creatine Kinase 1487 Units/L (39-308) H 03/01/21 14:32 CK-MB (CK-2) 22.2 ng/mL (0-4.0) H* 03/01/21 14:32 CK/CKMB % Calc 1.5 % (<4) 03/01/21 14:32 Troponin I < 0.01 ng/mL (0-1.5) 03/01/21 14:32 Total Protein 6.7 g/dL (6.4-8.2) 03/01/21 14:32 Albumin 3.3 g/dL (3.4-5.0) L 03/01/21 14:32 Globulin 3.4 g/dL (2.5-4.5) 03/01/21 14:32 Albumin/Globulin Ratio 1.0 Ratio (1.1-2.1) L 03/01/21 14:32 Specimen Type Catherized urine 03/01/21 16:15 Urine Color Straw (YELLOW) 03/01/21 16:15 Urine Appearance Clear (CLEAR) 03/01/21 16:15 Urine pH 5.0 (5.0 - 8.0) 03/01/21 16:15 Ur Specific [place] 1.020 (1.000-1.030) 03/01/21 16:15 Urine Protein Negative (NEGATIVE) 03/01/21 16:15 Urine Glucose (UA) Negative (NEGATIVE) 03/01/21 16:15 Urine Ketones 1+ (NEGATIVE) 03/01/21 16:15 Urine Occult Blood 2+ (NEGATIVE) 03/01/21 16:15 Urine Nitrite Negative (NEGATIVE) 03/01/21 16:15 Urine Bilirubin Negative (NEGATIVE) 03/01/21 16:15 Urine Urobilinogen Normal (NORMAL) 03/01/21 16:15 Ur Leukocyte Esterase Negative (NEGATIVE) 03/01/21 16:15 Urine RBC 0-2 /HPF (0-3) 03/01/21 16:15 Urine WBC None seen /HPF (0-5) 03/01/21 16:15 Ur Squamous Epith Cells Rare /HPF (NEGATIVE) 03/01/21 16:15 Urine Bacteria Negative /HPF (NEGATIVE) 03/01/21 16:15 Ur Culture Indicated? No/not indicated 03/01/21 16:15 SARS CoV-2 RNA Rapid SADE Negative (NEGATIVE) 03/01/21 18:09 Opioid Opioid Risk Tool Age (Nikolai box if 16-45): No History of Preadolescent Sexual Abuse: No Total: 0 Total Score Risk Category: Low Risk Copyright: Thomas MORGAN predicting aberrant behaviors
[2021-03-01] MEDS ORDERED: NS 1000 ML 1,000 ML IV ONE (13:50)
[2021-03-01] MEDS ORDERED: NS 1000 ML 1,000 ML ONE (14:28)
[2021-03-01 14:44] LABS: BASOPHILS % (AUTO) 0.4 % (0.2-1.0); EOSINOPHILS % (AUTO) 0.4 % (0.9-2.9); HEMATOCRIT 34.3 % (42.0-54.0); HEMOGLOBIN 11.9 g/dL (13.5-18.0); LYMPHOCYTES # (AUTO) 1.6 X10^3/uL (1.3-2.9); LYMPHOCYTES % (AUTO) 18.8 % (21.0-51.0); MEAN CORPUSCULAR HEMOGLOBIN 29.1 pg (27.0-34.0); MEAN CORPUSCULAR HGB CONC 34.7 g/dL (33.0-35.0); MEAN CORPUSCULAR VOLUME 83.8 fL (80.0-100.0); MONOCYTES # (AUTO) 0.7 x10^3/uL (0.3-0.8); MONOCYTES % (AUTO) 7.9 % (0.0-13.0); NEUTROPHILS # (AUTO) 6.1 x10^3/uL (2.2-4.8); NEUTROPHILS % (AUTO) 72.5 % (42.0-75.0); PLATELET COUNT 202 X10^3/uL (150.0-450.0); RED BLOOD COUNT 4.09 X10^6/uL (4.7-6.0); WHITE BLOOD COUNT 8.4 X10^3/uL (3.6-10.0)
--- NOTE | 2021-03-01 15:08 | RAD ---
PROCEDURE: Chest X-ray 1 View .HISTORY: Dyspnea.TECHNIQUE: AP view .COMPARISON: 11/15/2020.TECHNICAL QUALITY: Satisfactory .FINDINGS:Normal size heart .Mediastinum and hilar regions show no masses or lymphadenopathy .Normal central vascularity .No pulmonary consolidation, masses, pleural fluid, or pneumothorax .No acute bony abnormality .IMPRESSION:No active cardiopulmonary disease .Electronically signed by: Walker Whitmore (Mar 01, 2021 15:05:40)
[2021-03-01 15:42] LABS: ALANINE AMINOTRANSFERASE 33 Units/L (12-78); ALBUMIN 3.3 g/dL (3.4-5.0); ALKALINE PHOSPHATASE 101 Units/L (46-116); ASPARTATE AMINO TRANSFERASE 62 Units/L (15-37); BLOOD UREA NITROGEN 27 mg/dL (7-18); CARBON DIOXIDE 25.9 mmol/L (21-32); CHLORIDE 102 mmol/L (98-107); COR CA(FOR HYPOALB) 9.6 mg/dL (8.5-10.1); CREATININE 0.95 mg/dL (0.70-1.30); SODIUM 137 mmol/L (136-145); TOTAL PROTEIN 6.7 g/dL (6.4-8.2); eGFR NON BLACK RACES > 60 (>60)
[2021-03-01 16:39] LABS: BILIRUBIN,URINE NEGATIVE (NEGATIVE); BLOOD/HEMOGLOBIN,URINE 2+ (NEGATIVE); GLUCOSE, URINE NEGATIVE (NEGATIVE); KETONES,URINE 1+ (NEGATIVE); LEUKOCYTE ESTERASE ,URINE NEGATIVE (NEGATIVE); NITRITES,URINE NEGATIVE (NEGATIVE); PROTEIN,URINE NEGATIVE (NEGATIVE); UROBILINOGEN,URINE NORMAL (NORMAL)
[2021-03-01 16:49] LABS: APPEARANCE,URINE CLEAR (CLEAR); COLOR,URINE STRAW (YELLOW); RBC,URINE 0-2 /HPF (0-3); SQUAMOUS EPITHELIAL CELL,UR RARE /HPF (NEGATIVE)
[2021-03-01 16:50] LABS: BACTERIA,URINE NEGATIVE /HPF (NEGATIVE)
[2021-03-01 17:19] LABS: CKMB % 1.5 % (<4); CREATINE KINASE 1487 Units/L (39-308)
[2021-03-01 17:20] LABS: CREATINE KINASE MB 22.2 ng/mL (0-4.0); TROPONIN I < 0.01 ng/mL (0-1.5)
--- NOTE | 2021-03-01 18:42 | CT ---
HISTORYPATIENT BROUGHT IN VIA EMS. PATIENT'S SISTER WAS AT THE SCENE AND STATES THAT PATIENT FELL LAST NIGHT AND HAS HAD ALTERED MENTAL STATUS SINCE.STUDYBRAIN W/O [id number]/2021TECHNIQUEMultiple helical images of the brain from the vertex to the occiput were obtained. Coronal and sagittal reformats were performed. Dose reduction techniques including Automated Exposure Control (AEC) and adjustment of mA and kV were utilized.FINDINGSNo appreciable change in severe chronic microvascular ischemic changes along with severe encephalomalacia of the left frontal, parietal and right frontal lobes. Remote infarcts within bilateral medial thalami. Calcification of bilateral basal ganglia. There is mild generalized cerebral atrophy. 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
[2021-03-01] MEDS ORDERED: NS 1000 ML 1,000 ML IV SCH (20:50)
[2021-03-01 22:35] VITALS: BMI 16.5
[2021-03-02 00:28] LABS: TROPONIN I < 0.02 ng/mL (0-1.5)
[2021-03-02 00:29] LABS: CREATINE KINASE MB 24.7 ng/mL (0-4.0)
[2021-03-02 00:30] LABS: CKMB % 1.8 % (<4); CREATINE KINASE 1390 Units/L (39-308)
[2021-03-02 06:28] LABS: BASOPHILS % (AUTO) 0.6 % (0.2-1.0); EOSINOPHILS % (AUTO) 0.3 % (0.9-2.9); HEMATOCRIT 31.6 % (42.0-54.0); HEMOGLOBIN 10.9 g/dL (13.5-18.0); LYMPHOCYTES # (AUTO) 1.5 X10^3/uL (1.3-2.9); LYMPHOCYTES % (AUTO) 20.2 % (21.0-51.0); MEAN CORPUSCULAR HEMOGLOBIN 29.1 pg (27.0-34.0); MEAN CORPUSCULAR HGB CONC 34.5 g/dL (33.0-35.0); MEAN CORPUSCULAR VOLUME 84.3 fL (80.0-100.0); MEAN PLATELET VOLUME 8.2 fL (7.4-11.0); MONOCYTES # (AUTO) 0.5 x10^3/uL (0.3-0.8); MONOCYTES % (AUTO) 6.8 % (0.0-13.0); NEUTROPHILS # (AUTO) 5.3 x10^3/uL (2.2-4.8); NEUTROPHILS % (AUTO) 72.1 % (42.0-75.0); PLATELET COUNT 226 X10^3/uL (150.0-450.0); RED BLOOD COUNT 3.74 X10^6/uL (4.7-6.0); RED CELL DISTRIBUTION WIDTH 15.1 % (11.6-16.5); WHITE BLOOD COUNT 7.3 X10^3/uL (3.6-10.0)
[2021-03-02 06:52] LABS: ALANINE AMINOTRANSFERASE 35 Units/L (12-78); ALBUMIN 3.2 g/dL (3.4-5.0); ALKALINE PHOSPHATASE 99 Units/L (46-116); ASPARTATE AMINO TRANSFERASE 72 Units/L (15-37); BLOOD UREA NITROGEN 22 mg/dL (7-18); CARBON DIOXIDE 29.1 mmol/L (21-32); CHLORIDE 106 mmol/L (98-107); COR CA(FOR HYPOALB) 9.6 mg/dL (8.5-10.1); CREATININE 0.83 mg/dL (0.70-1.30); MAGNESIUM 1.9 mg/dL (1.7-2.9); SODIUM 143 mmol/L (136-145); TOTAL PROTEIN 6.5 g/dL (6.4-8.2); TROPONIN I < 0.02 ng/mL (0-1.5); eGFR NON BLACK RACES > 60 (>60)
[2021-03-02 07:39] LABS: CKMB % 1.5 % (<4); CREATINE KINASE 1337 Units/L (39-308)
[2021-03-02 07:42] LABS: CREATINE KINASE MB 20.4 ng/mL (0-4.0)
[2021-03-02] MEDS: D5W 1000 ML IV 1,000 ML IV SCH (13:41)
--- NOTE | 2021-03-02 14:16 | DR.H&P ---
H&P - History & Physical for Day of: H&P Date: 03/01/21 - Chief Complaint Chief Complaint: AMS - History of Present Illness History of Present Illness: PT IS 60 BM ER ADMISSION AFTER PRESENTING WITH EMS WITH AMS. REPORTS PT FELL IN BATHROOM AT HOME. PT WAS FOUND IN FLOOR IN URINE. PT HAS BILATERAL LOWER EXTREMITY AMPUATIONS, DM AND HX OF SEIZURE DISORDER CVA& TRAUMATIC HEAD INJURY. PT HAD CT IN ER. PT ADMITTED FOR TREATMENT OF ACUTE ILLNESS. - Past Medical History Past Medical History: Hypertension, Diabetes, Dementia, CVA, Seizures, Arthritis Additional Medical History: BLINDNESS - Past Surgical History Surgical History: Ortho Surgery Additional Surgical History: BILATERAL LOWER EXTREMITY AMPUTATION - Family History Family Medical History: Diabetes Mellitus, Cancer - Social History Does patient currently use any type of tobacco product: No Have you used tobacco products in the last 12 months: No Type of Tobacco Use: None Does any household member use tobacco: No Alcohol Use: None Drug Use: None Prescription drug monitoring program results: PDMP reviewed and no concerns identified - Medications Home Medications: No Known Drug Allergies Allergy (Verified 06/07/18 15:20) - Review of Systems Constitutional: Weakness, Malaise Eyes: Other ( CHRONIC VISION IMPAIRMENT) ENT: No Symptoms Reported Respiratory: No Symptoms Reported Cardiovascular: No Symptoms Reported Gastrointestinal: No Symptoms Reported Genitourinary: Frequency Musculoskeletal: No Symptoms Reported Skin: No Symptoms Reported Neurological: Weakness, Confusion, Other (APHAGIA) - Physical Exam Vital Signs: Temperature 97.6 F Pulse Rate [Bilateral Apical] 88 Pulse Rate 96 Respiratory Rate 18 Blood Pressure [Right Arm] 149/68 Blood Pressure [Left Arm] 142/84 Blood Pressure 142/84 O2 Sat by Pulse Oximetry 99 Oriented: Unable to test Eyes: Blurred Vision Ear: Normal Nose: Normal Throat: Dry Respiratory: RLL Diminished, LLL Diminished Cardiovascular: Normal : Normal Auscultation: Bowel Sounds: Normal Palpation: Normal Tenderness: Normal Skin: Decreased Turgur Musculoskeletal: Deformity, Motor Deficit Mood Description: Calm Speech Pattern: Aphasic - Assessment/Plan (1) Altered mental state Qualifiers: Altered mental status type: transient alteration of awareness Qualified Code(s): R40.4 - Transient alteration of awareness Status: Acute Plan: ADMIT, CT HEAD ON ADMISSION IN ER. IV HYDRATION WITH STRICT I&OS, UA ON ADMISSION. BC ON ADMISSION, CXR ON ADMISSION. SERIAL CE AND EKG. BS CONTROL, AND SEIZURE PRECAUTIONS (2) Rhabdomyolysis Qualifiers: Rhabdomyolysis type: non-traumatic Qualified Code(s): M62.82 - Rhabdomyolysis Status: Acute (3) Ischemic cerebrovascular accident (CVA) Status: Chronic (4) Diabetes mellitus Status: Acute (5) Fall Status: Acute - Allergies Allergies/Adverse Reactions: Allergies Allergy/AdvReac Type Severity Reaction Status Date / Time No Known Drug Allergies Allergy Verified 06/07/18 15:20
[2021-03-02] MEDS: PLAVIX PO SCH (14:35)
[2021-03-02] MEDS: DILANTIN CAP 100 MG EXT REL PO SCH ×2 (14:35→21:06)
[2021-03-02] MEDS: LOVENOX INJ 40 MG SYR SC SCH (15:49)
[2021-03-02] MEDS: ZOCOR TAB 10 MG PO SCH (21:06)
[2021-03-03] MEDS: DILANTIN CAP 100 MG EXT REL PO SCH ×3 (06:11→21:13)
[2021-03-03] MEDS: D5W 1000 ML IV 1,000 ML IV SCH ×4 (06:12→23:55)
[2021-03-03 07:01] LABS: BASOPHILS % (AUTO) 0.3 % (0.2-1.0); EOSINOPHILS % (AUTO) 0.5 % (0.9-2.9); HEMATOCRIT 30.3 % (42.0-54.0); HEMOGLOBIN 10.8 g/dL (13.5-18.0); LYMPHOCYTES # (AUTO) 1.7 X10^3/uL (1.3-2.9); LYMPHOCYTES % (AUTO) 21.7 % (21.0-51.0); MEAN CORPUSCULAR HEMOGLOBIN 29.4 pg (27.0-34.0); MEAN CORPUSCULAR HGB CONC 35.7 g/dL (33.0-35.0); MEAN CORPUSCULAR VOLUME 82.1 fL (80.0-100.0); MEAN PLATELET VOLUME 8.9 fL (7.4-11.0); MONOCYTES # (AUTO) 0.5 x10^3/uL (0.3-0.8); MONOCYTES % (AUTO) 6.4 % (0.0-13.0); NEUTROPHILS # (AUTO) 5.6 x10^3/uL (2.2-4.8); NEUTROPHILS % (AUTO) 71.1 % (42.0-75.0); PLATELET COUNT 244 X10^3/uL (150.0-450.0); RED BLOOD COUNT 3.68 X10^6/uL (4.7-6.0); RED CELL DISTRIBUTION WIDTH 15.2 % (11.6-16.5); WHITE BLOOD COUNT 7.9 X10^3/uL (3.6-10.0)
[2021-03-03 07:48] LABS: ALANINE AMINOTRANSFERASE 37 Units/L (12-78); ALKALINE PHOSPHATASE 97 Units/L (46-116); ASPARTATE AMINO TRANSFERASE 63 Units/L (15-37); BLOOD UREA NITROGEN 12 mg/dL (7-18); CALCIUM 8.7 mg/dL (8.5-10.1); CARBON DIOXIDE 28.8 mmol/L (21-32); CHLORIDE 107 mmol/L (98-107); COR CA(FOR HYPOALB) 9.5 mg/dL (8.5-10.1); COR NA(FOR HYPERGLY) 143 mmol/L (136-145); CREATINE KINASE 937 Units/L (39-308); CREATININE 0.76 mg/dL (0.70-1.30); SODIUM 143 mmol/L (136-145); TOTAL PROTEIN 6.2 g/dL (6.4-8.2); TROPONIN I < 0.02 ng/mL (0-1.5); eGFR NON BLACK RACES > 60 (>60)
[2021-03-03 07:57] LABS: CREATINE KINASE MB 9.5 ng/mL (0-4.0)
[2021-03-03] MEDS ORDERED: POTASSIUM CHLORIDE LIQ 20 MEQ UDC PO PRN (08:30)
[2021-03-03] MEDS ORDERED: MICRO K EXTEN CAP 10 MEQ PO PRN (08:30)
[2021-03-03] MEDS ORDERED: POTASSIUM CHL 40 MEQ/NS 0.45% 500 ML IV PRN (08:30)
[2021-03-03] MEDS ORDERED: K-RIDER 10 MEQ/NS 100 ML 10 MEQ/100 ML BAG IV PRN (08:30)
[2021-03-03] MEDS ORDERED: POTASSIUM CHL 60 MEQ/NS 0.45% 500 ML IV PRN (08:30)
[2021-03-03] MEDS ORDERED: KLOR-CON PO PRN (08:30)
[2021-03-03] MEDS: LOVENOX INJ 40 MG SYR SC SCH (09:36)
[2021-03-03] MEDS: PLAVIX PO SCH (09:36)
[2021-03-03] MEDS: K-DUR TAB 20 MEQ PO PRN (09:36)
[2021-03-03] MEDS: ASPIRIN EC 81 MG PO SCH (09:36)
[2021-03-03] MEDS: HumuLIN R SC PRN (12:01)
--- NOTE | 2021-03-03 17:58 | PCM.PROG ---
Progress Note - Progress Note for Day of Date of Exam: 03/03/21 - Subjective Subjective: IS A 60 YEAR OLD PATIENT OF . HE WAS ADMITTED FOR TREATMENT OF RHABDOMYOLYSIS, DEHYDRATION, UTI, AND ALTERED MENTAL STATUS. PMH OF CVA, SEIZURES, BLE AMPUTATIONS, DM II. STAFF REPORTS THAT HE HAS LIMITED VERBAL RESPONSES, WHICH IS NORMAL FOR HIM. STAFF ALSO REPORTS THAT HE HAS HAD A DECREASED APPETITE. ON MORNING ROUNDS, HE IS ALERT, LYING IN BED ON MORNING ROUNDS. HE DOES AKNOWLEDGE OUR PRESENCE AND NODDED HEAD NO WHEN ASKED IF HE WAS IN PAIN OR NEEDED ANYTHING. ON EXAMINATION, HEART IS REGULAR IN RATE AND RHYTHM. BILATERAL LUNGS NOTED WITH DIMINISHED LUNG SOUNDS THROUGHOUT. HEART REGULAR IN RATE AND RHYTHM. ABDOMNE FLAT, SOFT, AND NON-TENDER. NO WITHDRAWLS TO PAIN. BOWEL SOUNDS NOTED IN ALL QUADRANTS. CASTILLO CATHETER NOTED TO BEDSIDE DRAINAGE. BILATERAL BELOW THE KNEE AMPUTATIONS. VITALS THIS MORNING ARE: 97.2-91-18-98%-101/53. LABS WERE OBTAINED. ABNORMAL LAB VALUES INCLUDE THE FOLLOWING: RBC 3.68, HGB 10.8, HCT 30.3, POTASSIUM 3.2, GLUCOSE 115, AST 63, CREATINE KINASE 937, CK-MB 9.5, TOTAL PROTEIN 6.2, ALBUMIN 3.0. URINE AND BLOOD CULTURES ARE PENDING. HE IS CURRENTLY RECEIVING D5W AT 75 ML/HR, LOVENOX 40MG SC DAILY, HUMULIN R SLIDING SCALE, THE POTASSIUM PROTOCOLS, ASPIRIN, PLAVIX, DILANTIN, AND ZOCOR. WE WILL CONTINUE WITH CURRENT PLAN OF CARE TODAY. OTHERWISE, WE WILL FOLLOW UP WITH AM LABS AND CONTINUE TO MONITOR. TIME SPENT ON CLINICAL ASSESSMENT, REVIEWING LABS AND IMAGING, DECISION MAKING, AND DOCUMENTATION WAS GREATER THAN 45 MINUTES. - Past Medical Family Social History Past Med/Fam/Surg Hx: No changes since H&P Allergies: Allergies No Known Drug Allergies Allergy (Verified 06/07/18 15:20) - Review of Systems ROS: No change since H&P - Vital Signs and I&O's Vital Signs: Temperature 97.6 F Pulse Rate [Bilateral Apical] 89 Pulse Rate 96 Respiratory Rate 18 Blood Pressure [Right Arm] 111/55 Blood Pressure [Left Arm] 142/84 Blood Pressure 142/84 O2 Sat by Pulse Oximetry 99 Intake and Output: Intake & Output 03/01/21 03/02/21 03/03/21 03/04/21 11:59 11:59 11:59 11:59 Intake Total 250 / 250 85 / 85 360 / 360 Output Total 800 / 800 1730 / 1730 650 / 650 Balance -550 / -550 -1645 / -1645 -290 / -290 - Physical Exam Oriented: Unable to test Eyes: Blurred Vision Ear: Normal Nose: Normal Throat: Dry Respiratory: Generalized, Diminished Cardiovascular: Normal : Normal Auscultation: Bowel Sounds: Normal Palpation: Normal Tenderness: Normal Skin: Decreased Turgur Musculoskeletal: Deformity, Motor Deficit Mood Description: Calm Affect: Normal Speech Pattern: Aphasic - Laboratory and Diagnostics Result Diagrams: 03/03/21 06:23 03/03/21 06:23 Labs: 03/02/21 16:35 Urine,Clean Catch Urine Culture - Preliminary 03/01/21 14:32 Blood Blood Culture - Preliminary 03/01/21 14:13 Blood Blood Culture - Preliminary Laboratory WBC 7.9 X10^3/uL (3.6-10.0) 03/03/21 06:23 RBC 3.68 X10^6/uL (4.7-6.0) L 03/03/21 06:23 Hgb 10.8 g/dL (13.5-18.0) L 03/03/21 06:23 Hct 30.3 % (42.0-54.0) L 03/03/21 06:23 MCV 82.1 fL (80.0-100.0) 03/03/21 06:23 MCH 29.4 pg (27.0-34.0) 03/03/21 06:23 MCHC 35.7 g/dL (33.0-35.0) H 03/03/21 06:23 RDW 15.2 % (11.6-16.5) 03/03/21 06:23 Plt Count 244 X10^3/uL (150.0-450.0) 03/03/21 06:23 MPV 8.9 fL (7.4-11.0) 03/03/21 06:23 Neut % (Auto) 71.1 % (42.0-75.0) 03/03/21 06:23 Lymph % (Auto) 21.7 % (21.0-51.0) 07/10/21 06:23 [place] % (Auto) 6.4 % (0.0-13.0) 03/03/21 06:23 Eos % (Auto) 0.5 % (0.9-2.9) L 03/03/21 06:23 Baso % (Auto) 0.3 % (0.2-1.0) 03/03/21 06:23 Neut # (Auto) 5.6 x10^3/uL (2.2-4.8) H 03/03/21 06:23 Lymph # (Auto) 1.7 X10^3/uL (1.3-2.9) 03/03/21 06:23 [place] # (Auto) 0.5 x10^3/uL (0.3-0.8) 03/03/21 06:23 Eos # (Auto) 0.0 x10^3/uL (0.0-0.2) 03/03/21 06:23 Baso # (Auto) 0.0 X10^3/uL (0.0-0.1) 03/03/21 06:23 Absolute Nucleated RBC 0.0 /100WBC 03/03/21 06:23 PT 12.7 SECONDS (11.8-14.3) 03/02/21 05:30 INR Target Range - 03/02/21 05:30 INR 1.00 (0.8-1.3) 03/02/21 05:30 APTT 30.9 SECONDS (22.9-36.5) 03/02/21 05:30 PTT Comment - 03/02/21 05:30 Sodium 143 mmol/L (136-145) 03/03/21 06:23 Corrected Sodium 143 mmol/L (136-145) 03/03/21 06:23 Potassium 3.2 mmol/L (3.5-5.1) L 03/03/21 06:23 Chloride 107 mmol/L (98-107) 03/03/21 06:23 Carbon Dioxide 28.8 mmol/L (21-32) 03/03/21 06:23 BUN 12 mg/dL (7-18) 03/03/21 06:23 Creatinine 0.76 mg/dL (0.70-1.30) 03/03/21 06:23 Est GFR (MDRD) Af Amer > 60 (>60) 03/03/21 06:23 Est GFR (MDRD) Non-Af > 60 (>60) 03/03/21 06:23 Glucose 115 mg/dL (65-99) H 03/03/21 06:23 POC Glucose (mg/dL) 156 mg/dL (65-99) H 03/03/21 17:22 Lactic Acid 1.0 mmol/L (0.4-2.0) 03/01/21 14:32 Calcium 8.7 mg/dL (8.5-10.1) 03/03/21 06:23 Corrected Calcium 9.5 mg/dL (8.5-10.1) 03/03/21 06:23 Magnesium 2.1 mg/dL (1.7-2.9) 03/03/21 06:23 Total Bilirubin 0.30 mg/dL (0.2-1.0) 03/03/21 06:23 AST 63 Units/L (15-37) H 03/03/21 06:23 ALT 37 Units/L (12-78) 03/03/21 06:23 Alkaline Phosphatase 97 Units/L (46-116) 03/03/21 06:23 Creatine Kinase 937 Units/L (39-308) H 03/03/21 06:23 CK-MB (CK-2) 9.5 ng/mL (0-4.0) H* 03/03/21 06:23 CK/CKMB % Calc 1.0 % (<4) 03/03/21 06:23 Troponin I < 0.02 ng/mL (0-1.5) 03/03/21 06:23 Total Protein 6.2 g/dL (6.4-8.2) L 03/03/21 06:23 Albumin 3.0 g/dL (3.4-5.0) L 03/03/21 06:23 Globulin 3.2 g/dL (2.5-4.5) 03/03/21 06:23 Albumin/Globulin Ratio 0.9 Ratio (1.1-2.1) L 03/03/21 06:23 Specimen Type Catherized urine 03/01/21 16:15 Urine Color Straw (YELLOW) 03/01/21 16:15 Urine Appearance Clear (CLEAR) 03/01/21 16:15 Urine pH 5.0 (5.0 - 8.0) 03/01/21 16:15 Ur Specific [place] 1.020 (1.000-1.030) 03/01/21 16:15 Urine Protein Negative (NEGATIVE) 03/01/21 16:15 Urine Glucose (UA) Negative (NEGATIVE) 03/01/21 16:15 Urine Ketones 1+ (NEGATIVE) 03/01/21 16:15 Urine Occult Blood 2+ (NEGATIVE) 03/01/21 16:15 Urine Nitrite Negative (NEGATIVE) 03/01/21 16:15 Urine Bilirubin Negative (NEGATIVE) 03/01/21 16:15 Urine Urobilinogen Normal (NORMAL) 03/01/21 16:15 Ur Leukocyte Esterase Negative (NEGATIVE) 03/01/21 16:15 Urine RBC 0-2 /HPF (0-3) 03/01/21 16:15 Urine WBC None seen /HPF (0-5) 03/01/21 16:15 Ur Squamous Epith Cells Rare /HPF (NEGATIVE) 03/01/21 16:15 Urine Bacteria Negative /HPF (NEGATIVE) 03/01/21 16:15 Ur Culture Indicated? No/not indicated 03/01/21 16:15 Phenytoin 0.9 ug/mL (10-20) L 03/02/21 05:30 SARS CoV-2 RNA Rapid SADE Negative (NEGATIVE) 03/01/21 18:09 - Plan (1) Rhabdomyolysis Status: Acute Qualifiers: Rhabdomyolysis type: non-traumatic Qualified Code(s): M62.82 - Rhabdomyolysis (2) Dehydration Status: Acute (3) UTI (urinary tract infection) Status: Acute Qualifiers: Urinary tract infection type: site unspecified Hematuria presence: with hematuria Qualified Code(s): N39.0 - Urinary tract infection, site not specified; R31.9 - Hematuria, unspecified; R31.9 - Hematuria, unspecified (4) AMS (altered mental status) Status: Acute Qualifiers: Altered mental status type: transient alteration of awareness Qualified Code(s): R40.4 - Transient alteration of awareness (5) Diabetes Status: Chronic Qualifiers: Diabetes mellitus type: type 2 Diabetes mellitus residential insulin use: unspecified residential insulin use status Diabetes mellitus complication status: with hyperglycemia Qualified Code(s): E11.65 - Type 2 diabetes mellitus with hyperglycemia (6) Anemia Status: Chronic Qualifiers: Anemia type: unspecified type Qualified Code(s): D64.9 - Anemia, unspecified
[2021-03-03] MEDS: ZOCOR TAB 10 MG PO SCH (21:13)
[2021-03-04] MEDS: D5W 1000 ML IV 1,000 ML IV SCH ×3 (02:15→14:43)
[2021-03-04] MEDS: DILANTIN CAP 100 MG EXT REL PO SCH ×3 (05:48→21:24)
[2021-03-04 06:30] LABS: BASOPHILS % (AUTO) 0.5 % (0.2-1.0); EOSINOPHILS # (AUTO) 0.1 x10^3/uL (0.0-0.2); EOSINOPHILS % (AUTO) 0.9 % (0.9-2.9); HEMATOCRIT 30.4 % (42.0-54.0); HEMOGLOBIN 10.5 g/dL (13.5-18.0); LYMPHOCYTES # (AUTO) 1.6 X10^3/uL (1.3-2.9); LYMPHOCYTES % (AUTO) 25.4 % (21.0-51.0); MEAN CORPUSCULAR HEMOGLOBIN 29.1 pg (27.0-34.0); MEAN CORPUSCULAR HGB CONC 34.7 g/dL (33.0-35.0); MEAN CORPUSCULAR VOLUME 83.9 fL (80.0-100.0); MEAN PLATELET VOLUME 8.2 fL (7.4-11.0); MONOCYTES # (AUTO) 0.4 x10^3/uL (0.3-0.8); MONOCYTES % (AUTO) 6.8 % (0.0-13.0); NEUTROPHILS # (AUTO) 4.3 x10^3/uL (2.2-4.8); NEUTROPHILS % (AUTO) 66.4 % (42.0-75.0); PLATELET COUNT 211 X10^3/uL (150.0-450.0); RED BLOOD COUNT 3.62 X10^6/uL (4.7-6.0); RED CELL DISTRIBUTION WIDTH 15.2 % (11.6-16.5); WHITE BLOOD COUNT 6.4 X10^3/uL (3.6-10.0)
[2021-03-04 06:55] LABS: ALANINE AMINOTRANSFERASE 36 Units/L (12-78); ALBUMIN 2.8 g/dL (3.4-5.0); ALKALINE PHOSPHATASE 108 Units/L (46-116); ASPARTATE AMINO TRANSFERASE 39 Units/L (15-37); BLOOD UREA NITROGEN 7 mg/dL (7-18); CALCIUM 8.8 mg/dL (8.5-10.1); CARBON DIOXIDE 32.5 mmol/L (21-32); CHLORIDE 107 mmol/L (98-107); CKMB % 0.8 % (<4); COR CA(FOR HYPOALB) 9.8 mg/dL (8.5-10.1); CREATINE KINASE 508 Units/L (39-308); CREATINE KINASE MB 3.8 ng/mL (0-4.0); CREATININE 0.85 mg/dL (0.70-1.30); SODIUM 144 mmol/L (136-145); TOTAL PROTEIN 6.3 g/dL (6.4-8.2); TROPONIN I < 0.02 ng/mL (0-1.5); eGFR NON BLACK RACES > 60 (>60)
[2021-03-04] MEDS: K-DUR TAB 20 MEQ PO PRN (09:15)
[2021-03-04] MEDS: LOVENOX INJ 40 MG SYR SC SCH (09:54)
[2021-03-04] MEDS: ASPIRIN EC 81 MG PO SCH (09:54)
[2021-03-04] MEDS: PLAVIX PO SCH (09:54)
--- NOTE | 2021-03-04 11:39 | PCM.PROG ---
Progress Note - Progress Note for Day of Date of Exam: 03/04/21 - Subjective Subjective: IS A 60 YEAR OLD PATIENT OF . HE WAS ADMITTED FOR TREATMENT OF RHABDOMYOLYSIS, DEHYDRATION, UTI, AND ALTERED MENTAL STATUS. PMH OF CVA, SEIZURES, BLE AMPUTATIONS, DM II. STAFF REPORTS THAT HE HAS LIMITED VERBAL RESPONSES, WHICH IS NORMAL FOR HIM. STAFF ALSO REPORTS THAT HE HAS HAD A DECREASED APPETITE. ON MORNING ROUNDS, HE IS ALERT, LYING IN BED ON MORNING ROUNDS. HE DOES AKNOWLEDGE OUR PRESENCE AND NODDED HEAD NO WHEN ASKED IF HE WAS IN PAIN OR NEEDED ANYTHING. ON EXAMINATION, HEART IS REGULAR IN RATE AND RHYTHM. BILATERAL LUNGS NOTED WITH DIMINISHED LUNG SOUNDS THROUGHOUT. HEART REGULAR IN RATE AND RHYTHM. ABDOMNE FLAT, SOFT, AND NON-TENDER. NO WITHDRAWLS TO PAIN. BOWEL SOUNDS NOTED IN ALL QUADRANTS. CASTILLO CATHETER NOTED TO BEDSIDE DRAINAGE. BILATERAL BELOW THE KNEE AMPUTATIONS. VITALS THIS MORNING ARE: 96.6-86-18-100%-157/67 LABS WERE OBTAINED. ABNORMAL LAB VALUES INCLUDE THE FOLLOWING: RBC 3.62, HGB 10.5, HCT 30.4, POTASSIUM 3.4, CARBON DIOXIDE 32.5, AST 39, CREATINE KINASE 508, TOTAL PROTEIN 6.3, ALBUMIN 2.8. URINE AND BLOOD CULTURES ARE PENDING. HE IS CURRENTLY RECEIVING D5W AT 75 ML/HR, LOVENOX 40MG SC DAILY, HUMULIN R SLIDING SCALE, THE POTASSIUM PROTOCOLS, ASPIRIN, PLAVIX, DILANTIN, AND ZOCOR. WE WILL CONTINUE WITH CURRENT PLAN OF CARE TODAY. OTHERWISE, WE WILL FOLLOW UP WITH AM LABS AND CONTINUE TO MONITOR. TIME SPENT ON CLINICAL ASSESSMENT, REVIEWING LABS AND IMAGING, DECISION MAKING, AND DOCUMENTATION WAS GREATER THAN 45 MINUTES. - Past Medical Family Social History Past Med/Fam/Surg Hx: No changes since H&P Allergies: Allergies No Known Drug Allergies Allergy (Verified 06/07/18 15:20) - Review of Systems ROS: No change since H&P - Vital Signs and I&O's Vital Signs: Temperature 96.6 F Pulse Rate [Bilateral Apical] 86 Pulse Rate 96 Respiratory Rate 18 Blood Pressure [Right Arm] 157/67 Blood Pressure [Left Arm] 142/84 Blood Pressure 142/84 O2 Sat by Pulse Oximetry 100 Intake and Output: Intake & Output 07/08/21 03/02/21 03/03/21 03/04/21 11:59 11:59 11:59 11:59 Intake Total 250 / 250 85 / 85 3164 / 3164 Output Total 800 / 800 1730 / 1730 2570 / 2570 Balance -550 / -550 -1645 / -1645 594 / 594 - Physical Exam Oriented: Unable to test Eyes: Blurred Vision Ear: Normal Nose: Normal Throat: Dry Respiratory: Generalized, Diminished Cardiovascular: Normal : Normal Auscultation: Bowel Sounds: Normal Tenderness: Normal Skin: Decreased Turgur Musculoskeletal: Deformity, Motor Deficit Mood Description: Calm Affect: Normal Speech Pattern: Aphasic - Laboratory and Diagnostics Result Diagrams: 03/04/21 05:50 03/04/21 05:50 Labs: 03/02/21 16:35 Urine,Clean Catch Urine Culture - Final 03/01/21 14:32 Blood Blood Culture - Preliminary 03/01/21 14:13 Blood Blood Culture - Preliminary Laboratory WBC 6.4 X10^3/uL (3.6-10.0) 03/04/21 05:50 RBC 3.62 X10^6/uL (4.7-6.0) L 03/04/21 05:50 Hgb 10.5 g/dL (13.5-18.0) L 03/04/21 05:50 Hct 30.4 % (42.0-54.0) L 03/04/21 05:50 MCV 83.9 fL (80.0-100.0) 03/04/21 05:50 MCH 29.1 pg (27.0-34.0) 03/04/21 05:50 MCHC 34.7 g/dL (33.0-35.0) 03/04/21 05:50 RDW 15.2 % (11.6-16.5) 03/04/21 05:50 Plt Count 211 X10^3/uL (150.0-450.0) 03/04/21 05:50 MPV 8.2 fL (7.4-11.0) 03/04/21 05:50 Neut % (Auto) 66.4 % (42.0-75.0) 03/04/21 05:50 Lymph % (Auto) 25.4 % (21.0-51.0) 03/04/21 05:50 [place] % (Auto) 6.8 % (0.0-13.0) 03/04/21 05:50 Eos % (Auto) 0.9 % (0.9-2.9) 03/04/21 05:50 Baso % (Auto) 0.5 % (0.2-1.0) 03/04/21 05:50 Neut # (Auto) 4.3 x10^3/uL (2.2-4.8) 03/04/21 05:50 Lymph # (Auto) 1.6 X10^3/uL (1.3-2.9) 03/04/21 05:50 [place] # (Auto) 0.4 x10^3/uL (0.3-0.8) 03/04/21 05:50 Eos # (Auto) 0.1 x10^3/uL (0.0-0.2) 03/04/21 05:50 Baso # (Auto) 0.0 X10^3/uL (0.0-0.1) 03/04/21 05:50 Absolute Nucleated RBC 0.0 /100WBC 03/04/21 05:50 PT 12.7 SECONDS (11.8-14.3) 03/02/21 05:30 INR Target Range - 03/02/21 05:30 INR 1.00 (0.8-1.3) 03/02/21 05:30 APTT 30.9 SECONDS (22.9-36.5) 03/02/21 05:30 PTT Comment - 03/02/21 05:30 Sodium 144 mmol/L (136-145) 03/04/21 05:50 Corrected Sodium TNP 03/04/21 05:50 Potassium 3.4 mmol/L (3.5-5.1) L 03/04/21 05:50 Chloride 107 mmol/L (98-107) 03/04/21 05:50 Carbon Dioxide 32.5 mmol/L (21-32) H 03/04/21 05:50 BUN 7 mg/dL (7-18) 03/04/21 05:50 Creatinine 0.85 mg/dL (0.70-1.30) 03/04/21 05:50 Est GFR (MDRD) Af Amer > 60 (>60) 03/04/21 05:50 Est GFR (MDRD) Non-Af > 60 (>60) 03/04/21 05:50 Glucose 99 mg/dL (65-99) 03/04/21 05:50 POC Glucose (mg/dL) 100 mg/dL (65-99) H 03/04/21 05:20 Lactic Acid 1.0 mmol/L (0.4-2.0) 03/01/21 14:32 Calcium 8.8 mg/dL (8.5-10.1) 03/04/21 05:50 Corrected Calcium 9.8 mg/dL (8.5-10.1) 03/04/21 05:50 Magnesium 2.1 mg/dL (1.7-2.9) 03/04/21 05:56 Total Bilirubin 0.20 mg/dL (0.2-1.0) 03/04/21 05:50 AST 39 Units/L (15-37) H 03/04/21 05:50 ALT 36 Units/L (12-78) 03/04/21 05:50 Alkaline Phosphatase 108 Units/L (46-116) 03/04/21 05:50 Creatine Kinase 508 Units/L (39-308) H 03/04/21 05:50 CK-MB (CK-2) 3.8 ng/mL (0-4.0) 03/04/21 05:50 CK/CKMB % Calc 0.8 % (<4) 03/04/21 05:50 Troponin I < 0.02 ng/mL (0-1.5) 03/04/21 05:50 Total Protein 6.3 g/dL (6.4-8.2) L 03/04/21 05:50 Albumin 2.8 g/dL (3.4-5.0) L 03/04/21 05:50 Globulin 3.5 g/dL (2.5-4.5) 03/04/21 05:50 Albumin/Globulin Ratio 0.8 Ratio (1.1-2.1) L 03/04/21 05:50 Specimen Type Catherized urine 03/01/21 16:15 Urine Color Straw (YELLOW) 03/01/21 16:15 Urine Appearance Clear (CLEAR) 03/01/21 16:15 Urine pH 5.0 (5.0 - 8.0) 03/01/21 16:15 Ur Specific [place] 1.020 (1.000-1.030) 03/01/21 16:15 Urine Protein Negative (NEGATIVE) 03/01/21 16:15 Urine Glucose (UA) Negative (NEGATIVE) 03/01/21 16:15 Urine Ketones 1+ (NEGATIVE) 03/01/21 16:15 Urine Occult Blood 2+ (NEGATIVE) 03/01/21 16:15 Urine Nitrite Negative (NEGATIVE) 03/01/21 16:15 Urine Bilirubin Negative (NEGATIVE) 03/01/21 16:15 Urine Urobilinogen Normal (NORMAL) 03/01/21 16:15 Ur Leukocyte Esterase Negative (NEGATIVE) 03/01/21 16:15 Urine RBC 0-2 /HPF (0-3) 03/01/21 16:15 Urine WBC None seen /HPF (0-5) 03/01/21 16:15 Ur Squamous Epith Cells Rare /HPF (NEGATIVE) 03/01/21 16:15 Urine Bacteria Negative /HPF (NEGATIVE) 03/01/21 16:15 Ur Culture Indicated? No/not indicated 03/01/21 16:15 Phenytoin 0.9 ug/mL (10-20) L 03/02/21 05:30 SARS CoV-2 RNA Rapid SADE Negative (NEGATIVE) 03/01/21 18:09 - Plan (1) Rhabdomyolysis Status: Acute Qualifiers: Rhabdomyolysis type: non-traumatic Qualified Code(s): M62.82 - Rhabdomyolysis (2) Dehydration Status: Acute (3) UTI (urinary tract infection) Status: Acute Qualifiers: Urinary tract infection type: site unspecified Hematuria presence: with hematuria Qualified Code(s): N39.0 - Urinary tract infection, site not specified; R31.9 - Hematuria, unspecified; R31.9 - Hematuria, unspecified (4) AMS (altered mental status) Status: Acute Qualifiers: Altered mental status type: transient alteration of awareness Qualified Code(s): R40.4 - Transient alteration of awareness (5) Diabetes Status: Chronic Qualifiers: Diabetes mellitus type: type 2 Diabetes mellitus 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
[2021-03-04] MEDS: HumuLIN R SC PRN (11:55)
[2021-03-04] MEDS: ZOCOR TAB 10 MG PO SCH (21:24)
[2021-03-04] MEDS ORDERED: NORCO 5/325 MG TAB PO ONE (22:24)
[2021-03-05] MEDS: D5W 1000 ML IV 1,000 ML IV SCH ×2 (02:15→16:35)
[2021-03-05] MEDS: DILANTIN CAP 100 MG EXT REL PO SCH ×3 (06:30→21:35)
[2021-03-05 06:32] LABS: BASOPHILS % (AUTO) 0.3 % (0.2-1.0); EOSINOPHILS # (AUTO) 0.1 x10^3/uL (0.0-0.2); HEMATOCRIT 29.1 % (42.0-54.0); HEMOGLOBIN 10.1 g/dL (13.5-18.0); LYMPHOCYTES # (AUTO) 1.3 X10^3/uL (1.3-2.9); LYMPHOCYTES % (AUTO) 18.9 % (21.0-51.0); MEAN CORPUSCULAR HEMOGLOBIN 29.1 pg (27.0-34.0); MEAN CORPUSCULAR HGB CONC 34.6 g/dL (33.0-35.0); MEAN CORPUSCULAR VOLUME 84.1 fL (80.0-100.0); MEAN PLATELET VOLUME 8.2 fL (7.4-11.0); MONOCYTES # (AUTO) 0.5 x10^3/uL (0.3-0.8); MONOCYTES % (AUTO) 7.6 % (0.0-13.0); NEUTROPHILS % (AUTO) 72.2 % (42.0-75.0); PLATELET COUNT 210 X10^3/uL (150.0-450.0); RED BLOOD COUNT 3.46 X10^6/uL (4.7-6.0)
[2021-03-05 06:46] LABS: ALANINE AMINOTRANSFERASE 33 Units/L (12-78); ALBUMIN 2.8 g/dL (3.4-5.0); ALKALINE PHOSPHATASE 99 Units/L (46-116); ASPARTATE AMINO TRANSFERASE 31 Units/L (15-37); BLOOD UREA NITROGEN 8 mg/dL (7-18); CALCIUM 8.5 mg/dL (8.5-10.1); CARBON DIOXIDE 31.2 mmol/L (21-32); CHLORIDE 106 mmol/L (98-107); COR CA(FOR HYPOALB) 9.5 mg/dL (8.5-10.1); COR NA(FOR HYPERGLY) 145 mmol/L (136-145); CREATININE 0.71 mg/dL (0.70-1.30); SODIUM 143 mmol/L (136-145); TOTAL PROTEIN 6.2 g/dL (6.4-8.2); eGFR NON BLACK RACES > 60 (>60)
[2021-03-05] MEDS: ASPIRIN EC 81 MG PO SCH (09:15)
[2021-03-05] MEDS: PLAVIX PO SCH (09:15)
[2021-03-05] MEDS: MAGNESIUM SULFATE 1 GRAM/100 mL PREMIX 1 GM/100 ML BAG IV PRN ×2 (10:15→11:34)
[2021-03-05] MEDS: HumuLIN R SC PRN (12:36)
[2021-03-05] MEDS: LOVENOX INJ 40 MG SYR SC SCH (13:50)
[2021-03-05] MEDS: ZOCOR TAB 10 MG PO SCH (21:35)
[2021-03-06] MEDS: D5W 1000 ML IV 1,000 ML IV SCH ×2 (05:35→08:50)
[2021-03-06] MEDS: DILANTIN CAP 100 MG EXT REL PO SCH (05:35)
[2021-03-06 06:15] LABS: BASOPHILS # (AUTO) 0.1 X10^3/uL (0.0-0.1); BASOPHILS % (AUTO) 0.6 % (0.2-1.0); EOSINOPHILS # (AUTO) 0.1 x10^3/uL (0.0-0.2); EOSINOPHILS % (AUTO) 1.5 % (0.9-2.9); HEMATOCRIT 28.1 % (42.0-54.0); HEMOGLOBIN 9.8 g/dL (13.5-18.0); LYMPHOCYTES # (AUTO) 1.8 X10^3/uL (1.3-2.9); LYMPHOCYTES % (AUTO) 22.4 % (21.0-51.0); MEAN CORPUSCULAR HEMOGLOBIN 29.6 pg (27.0-34.0); MEAN CORPUSCULAR HGB CONC 34.9 g/dL (33.0-35.0); MEAN CORPUSCULAR VOLUME 84.7 fL (80.0-100.0); MEAN PLATELET VOLUME 8.9 fL (7.4-11.0); MONOCYTES # (AUTO) 0.5 x10^3/uL (0.3-0.8); MONOCYTES % (AUTO) 6.3 % (0.0-13.0); NEUTROPHILS # (AUTO) 5.6 x10^3/uL (2.2-4.8); NEUTROPHILS % (AUTO) 69.2 % (42.0-75.0); PLATELET COUNT 229 X10^3/uL (150.0-450.0); RED BLOOD COUNT 3.32 X10^6/uL (4.7-6.0); RED CELL DISTRIBUTION WIDTH 15.1 % (11.6-16.5); WHITE BLOOD COUNT 8.1 X10^3/uL (3.6-10.0)
[2021-03-06 06:44] LABS: ALANINE AMINOTRANSFERASE 33 Units/L (12-78); ALBUMIN 2.6 g/dL (3.4-5.0); ALKALINE PHOSPHATASE 112 Units/L (46-116); ASPARTATE AMINO TRANSFERASE 27 Units/L (15-37); BLOOD UREA NITROGEN 6 mg/dL (7-18); CALCIUM 8.4 mg/dL (8.5-10.1); CARBON DIOXIDE 31.2 mmol/L (21-32); CHLORIDE 106 mmol/L (98-107); COR CA(FOR HYPOALB) 9.5 mg/dL (8.5-10.1); COR NA(FOR HYPERGLY) 146 mmol/L (136-145); CREATINE KINASE 209 Units/L (39-308); MAGNESIUM 2.2 mg/dL (1.7-2.9); SODIUM 143 mmol/L (136-145); eGFR NON BLACK RACES > 60 (>60)
[2021-03-06] MEDS: PLAVIX PO SCH (08:48)
[2021-03-06] MEDS: ASPIRIN EC 81 MG PO SCH (08:50)
[2021-03-06] MEDS: LOVENOX INJ 40 MG SYR SC SCH (08:50)
--- NOTE | 2021-03-06 11:54 | RAD ---
HISTORYCHEST CONGESTIONSTUDYCHEST, 1 VIEWCOMPARISONPortable chest March 01, 2021FINDINGSThe trachea is midline. The cardiac silhouette is unremarkable . The lungs are clear without focal infiltrate or effusion. The bony thorax is unremarkable other than old healed right posterior 7th and 8th rib fractures and old left posterior 5th and 6 rib fractures.IMPRESSIONNo acute cardiopulmonary disease and no change from recent chest film March 01, 2021..Electronically signed by: HANS THOMAS (Mar 06, 2021 11:52:27)
[2021-03-06] MEDS: HumuLIN R SC PRN (11:57)
[2021-03-06 12:54] VITALS: BP 129/61
== END 2021-03-06 12:10 | disposition home health service (06) | DRG 558 ==
LOC: ER 13:12 → MED/SURG 19:06
PROVIDERS: ADMIT Internal Medicine; ATTEND Internal Medicine
DX: R62.7 Adult failure to thrive; E11.65 Type 2 diabetes mellitus with hyperglycemia; R41.82 Altered mental status, unspecified; Z89.511 Acquired absence of right leg below knee; M62.82 Rhabdomyolysis; Y92.002 Bathroom of unspecified non-institutional (private) residence as the place of occurrence of the external cause; Z91.81 History of falling; W18.39XA Other fall on same level, initial encounter; N39.0 Urinary tract infection, site not specified; I69.398 Other sequelae of cerebral infarction; Z74.01 Bed confinement status; Z20.822 Contact with and (suspected) exposure to COVID-19; E86.0 Dehydration; R26.89 Other abnormalities of gait and mobility; D64.89 Other specified anemias; Z89.512 Acquired absence of left leg below knee

== ENCOUNTER 2021-03-13 00:07 | Inpatient (IN) ==
[2021-03-13] MEDS ORDERED: NS 1000 ML 1,000 ML IV ONE ×2 (00:17→03:59)
[2021-03-13] MEDS ORDERED: NS 1000 ML 1,000 ML ONE ×2 (00:25→04:05)
--- NOTE | 2021-03-13 00:27 | DR.AMS ---
HPI Time Seen Time Seen by Provider: 03/13/21 00:16 Complaint Cheif Complaint Doctors Comments: 60 y/o male, brought in via EMS for altered mental status. Pr reportedly was seen here early yesterday am for a seizure. He was treated with ativan and discharged to home. Per EMS, pt has not been drinking or eating since returning home. Having decreased level of alertness. Reviewed Nurses Notes Reviewed: Yes Source History Provided: EMS Mode of Arrival Mode of Arrival: EMS Timing Came On: Gradually Symptoms: Worsening Quality Quality: Decreased Alertness and Not Eating Severity Severity: Severe Associated Signs and Symptoms Associated Signs and Symptoms: Generalized Weakness and Decreased LOC PMH PMH Past Medical History: Arthritis, CVA, Dementia, Diabetes, Hypertension and Seizures Past Surgical History: Yes Surgical History: Ortho Surgery Family History Family Medical History: Diabetes Mellitus and Cancer Social History Do you use any recreational Drugs:: No ROS Review of Systems Unable to Obtain Due To: Altered mental status PE Vitals Vital Signs: Temp Pulse Pulse Resp BP BP BP 03/13/21 04:20 110 H 128/81 03/13/21 03:00 117 H 17 139/84 03/13/21 02:31 116 H 14 146/86 03/13/21 02:13 118 H 14 144/89 03/13/21 01:52 119 H 14 137/85 03/13/21 01:48 100.8 F H 118 H 22 137/81 03/13/21 01:30 120 H 14 03/13/21 01:15 119 H 18 03/13/21 01:00 118 H 16 03/13/21 00:45 119 H 17 03/13/21 00:30 120 H 17 03/13/21 00:20 120 H 11 L 137/81 03/13/21 00:19 120 H 15 03/13/21 00:07 98.2 F 120 H 16 137/81 03/11/21 11:44 106/57 03/06/21 12:00 129/61 03/06/21 04:00 135/71 04/21/20 06:00 123/69 Pulse Ox 03/13/21 04:20 100 03/13/21 03:00 100 03/13/21 02:31 99 03/13/21 02:13 100 03/13/21 01:52 99 03/13/21 01:48 98 03/13/21 01:30 99 03/13/21 01:15 98 03/13/21 01:00 98 03/13/21 00:45 99 03/13/21 00:30 98 03/13/21 00:20 99 03/13/21 00:19 98 03/13/21 00:07 99 03/11/21 11:44 03/06/21 12:00 03/06/21 04:00 04/21/20 06:00 General Limitations: Altered Mental Status General Appearance: In No Apparent Distress Head Head Exam: Normal Inspection and Atraumatic ENT ENT Exam: Mucous Membranes Dry Neck Neck Exam: Normal Inspection Chest Chest Inspection: Normal Inspection Respiratory Respiratory Exam: Normal Lung Sounds Bilat Cardiovascular Cardiovascular Exam: Regular Rate, Tachycardia, Irregular Rhythm and Normal Heart Sounds Abdominal Exam Abdominal Exam: Normal Bowel Sounds and Soft Extremities Extremities Exam: Other (L AKA, R BKA. Pt appears cachectic.) Skin Skin Exam: Warm and Dry Other Exam Other Exam: Pt awake, but non verbal. Has generalized weakness, no spontaneous movments. MDM Differential Diagnosis Metabolic: Dehydration Structural: CVA Infectious: Sepsis COURSE Treatment Treatment: Pt with decreased PO intake and altered mental status, worsening over the past 2 days. Given IV fluids. W/u initiated. 0400 - Vitals improving, becoming more responsive to family. W/u shows elevated CK c/w rhabomyolysis. Does have ketones in his urine c/w volume depletion. Given additional IV fluids. Will discuss admission with the hospitalist. 0425 - Added abdominal series per Dr. Lyles's request, has nonspecific bowel gas pattern. Will admit for rhabomyolysis and altered mental status. ROR Labs Reviewed Result Diagrams: 03/13/21 00:30 03/13/21 00:30 Laboratory: WBC 15.8 X10^3/uL (3.6-10.0) H 03/13/21 00:30 RBC 4.01 X10^6/uL (4.7-6.0) L 03/13/21 00:30 Hgb 11.5 g/dL (13.5-18.0) L 03/13/21 00:30 Hct 34.5 % (42.0-54.0) L 03/13/21 00:30 MCV 86.0 fL (80.0-100.0) 03/13/21 00:30 MCH 28.7 pg (27.0-34.0) 03/13/21 00:30 MCHC 33.4 g/dL (33.0-35.0) 03/13/21 00:30 RDW 14.6 % (11.6-16.5) 03/13/21 00:30 Plt Count 384 X10^3/uL (150.0-450.0) 03/13/21 00:30 Plt Count Comment Adequate (ADEQUATE) 03/13/21 00:30 MPV 7.5 fL (7.4-11.0) 03/13/21 00:30 Neut % (Auto) 87.3 % (42.0-75.0) H 03/13/21 00:30 Lymph % (Auto) 6.9 % (21.0-51.0) L 03/13/21 00:30 [place] % (Auto) 5.0 % (0.0-13.0) 03/13/21 00:30 Eos % (Auto) 0.1 % (0.9-2.9) L 03/13/21 00:30 Baso % (Auto) 0.7 % (0.2-1.0) 03/13/21 00:30 Neut # (Auto) 13.7 x10^3/uL (2.2-4.8) H 03/13/21 00:30 Lymph # (Auto) 1.1 X10^3/uL (1.3-2.9) L 03/13/21 00:30 [place] # (Auto) 0.8 x10^3/uL (0.3-0.8) 03/13/21 00:30 Eos # (Auto) 0.0 x10^3/uL (0.0-0.2) 03/13/21 00:30 Baso # (Auto) 0.1 X10^3/uL (0.0-0.1) 03/13/21 00:30 Absolute Nucleated RBC 0.0 /100WBC 03/13/21 00:30 Total Counted 100 03/13/21 00:30 Neutrophils % (Manual) 86 % (39-76) H 03/13/21 00:30 Band Neutrophils % 2 % (0-10) 03/13/21 00:30 Lymphocytes % (Manual) 9 % (13-43) L 03/13/21 00:30 Monocytes % (Manual) 3 % (4-9) L 03/13/21 00:30 Plt Morphology Comment Normal (NORMAL) 03/13/21 00:30 RBC Morphology Abnormal (NORMAL) 03/13/21 00:30 Ovalocytes Present 03/13/21 00:30 Sodium 140 mmol/L (136-145) 03/13/21 00:30 Corrected Sodium 146 mmol/L (136-145) H 03/13/21 00:30 Potassium 4.2 mmol/L (3.5-5.1) 03/13/21 00:30 Chloride 102 mmol/L (98-107) 03/13/21 00:30 Carbon Dioxide 30.2 mmol/L (21-32) 03/13/21 00:30 BUN 25 mg/dL (7-18) H 03/13/21 00:30 Creatinine 1.48 mg/dL (0.70-1.30) H 03/13/21 00:30 Est GFR (MDRD) Af Amer > 60 (>60) 03/13/21 00:30 Est GFR (MDRD) Non-Af 52 (>60) L 03/13/21 00:30 Glucose 340 mg/dL (65-99) H 03/13/21 00:30 Lactic Acid 1.5 mmol/L (0.4-2.0) 03/13/21 00:30 Calcium 9.1 mg/dL (8.5-10.1) 03/13/21 00:30 Corrected Calcium TNP 03/13/21 00:30 Total Bilirubin 0.30 mg/dL (0.2-1.0) 03/13/21 00:30 AST 33 Units/L (15-37) 03/13/21 00:30 ALT 25 Units/L (12-78) 03/13/21 00:30 Alkaline Phosphatase 110 Units/L (46-116) 03/13/21 00:30 Creatine Kinase 1096 Units/L (39-308) H 03/13/21 00:30 CK-MB (CK-2) 3.0 ng/mL (0-4.0) 03/13/21 00:30 CK/CKMB % Calc 0.3 % (<4) 03/13/21 00:30 Troponin I < 0.02 ng/mL (0-1.5) 03/13/21 00:30 Total Protein 7.7 g/dL (6.4-8.2) 03/13/21 00:30 Albumin 3.4 g/dL (3.4-5.0) 03/13/21 00:30 Globulin 4.3 g/dL (2.5-4.5) 03/13/21 00:30 Albumin/Globulin Ratio 0.8 Ratio (1.1-2.1) L 03/13/21 00:30 Specimen Type Catherized urine 03/13/21 01:45 Urine Color Pale yellow (YELLOW) 03/13/21 01:45 Urine Appearance Clear (CLEAR) 03/13/21 01:45 Urine pH 5.0 (5.0 - 8.0) 03/13/21 01:45 Ur Specific [place] 1.020 (1.000-1.030) 03/13/21 01:45 Urine Protein 2+ (NEGATIVE) 03/13/21 01:45 Urine Glucose (UA) 3+ (NEGATIVE) 03/13/21 01:45 Urine Ketones 3+ (NEGATIVE) 03/13/21 01:45 Urine Occult Blood 4+ (NEGATIVE) 03/13/21 01:45 Urine Nitrite Negative (NEGATIVE) 03/13/21 01:45 Urine Bilirubin Negative (NEGATIVE) 03/13/21 01:45 Urine Urobilinogen Normal (NORMAL) 03/13/21 01:45 Ur Leukocyte Esterase 1+ (NEGATIVE) 03/13/21 01:45 Urine RBC 0-2 /HPF (0-3) 03/13/21 01:45 Urine WBC 0-2 /HPF (0-5) 03/13/21 01:45 Ur Squamous Epith Cells Rare /HPF (NEGATIVE) 03/13/21 01:45 Urine Bacteria Negative /HPF (NEGATIVE) 03/13/21 01:45 Ur Culture Indicated? No/not indicated 03/13/21 01:45 Urine Opiates Screen Negative (NEG=<300) 03/13/21 01:45 Urine Methadone Screen Negative (NEG=<300) 03/13/21 01:45 Ur Barbiturates Screen Negative (NEG=<200) 03/13/21 01:45 Ur Phencyclidine Scrn Negative (NEG=<25) 03/13/21 01:45 Ur Amphetamines Screen Negative (NEG=<1000) 03/13/21 01:45 U Benzodiazepines Scrn Negative (NEG=<200) 03/13/21 01:45 Urine Cocaine Screen Negative (NEG=<300) 03/13/21 01:45 U Marijuana (THC) Screen Negative (NEG=<50) 03/13/21 01:45 SARS-CoV-2 (PCR) Negative (NEGATIVE) 03/13/21 01:35 Influenza Type A (PCR) Negative (NEGATIVE) 03/13/21 01:35 Influenza Type B (PCR) Negative (NEGATIVE) 03/13/21 01:35 RSV (PCR) Negative (NEGATIVE) 03/13/21 01:35 Other Results Comments: WBC elevated to 15K. + marked elevated total CK, c/w rh abdomyolysis. XRAY XRAY Interpreted by: Self X-ray Results: CXR - with COPD changes, no obvious infiltrate. CT head - with chronic changes, no acute bleed. EKG Rate: 119 [place]: Normal Rhythm: ST ST: Nonsp Opioid Opioid Risk Tool Age (Nikolai box if 16-45): No History of Preadolescent Sexual Abuse: No Total: 0 Total Score Risk Category: Low Risk Copyright: Thomas MORGAN predicting aberrant behaviors Diagnosis Discharge Problem: Rhabdomyolysis, Altered mental status
[2021-03-13 00:46] LABS: BASOPHILS # (AUTO) 0.1 X10^3/uL (0.0-0.1); BASOPHILS % (AUTO) 0.7 % (0.2-1.0); EOSINOPHILS % (AUTO) 0.1 % (0.9-2.9); HEMATOCRIT 34.5 % (42.0-54.0); HEMOGLOBIN 11.5 g/dL (13.5-18.0); LYMPHOCYTES # (AUTO) 1.1 X10^3/uL (1.3-2.9); LYMPHOCYTES % (AUTO) 6.9 % (21.0-51.0); MEAN CORPUSCULAR HEMOGLOBIN 28.7 pg (27.0-34.0); MEAN CORPUSCULAR HGB CONC 33.4 g/dL (33.0-35.0); MEAN PLATELET VOLUME 7.5 fL (7.4-11.0); MONOCYTES # (AUTO) 0.8 x10^3/uL (0.3-0.8); NEUTROPHILS # (AUTO) 13.7 x10^3/uL (2.2-4.8); NEUTROPHILS % (AUTO) 87.3 % (42.0-75.0); PLATELET COUNT 384 X10^3/uL (150.0-450.0); RED BLOOD COUNT 4.01 X10^6/uL (4.7-6.0); RED CELL DISTRIBUTION WIDTH 14.6 % (11.6-16.5); WHITE BLOOD COUNT 15.8 X10^3/uL (3.6-10.0)
[2021-03-13 01:03] LABS: LACTIC ACID 1.5 mmol/L (0.4-2.0)
[2021-03-13 01:05] LABS: BAND NEUTROPHILS % 2 % (0-10); PLATELET MORPHOLOGY COMMENT NORMAL (NORMAL)
[2021-03-13 01:06] LABS: OVALOCYTES PRESENT
[2021-03-13 01:09] LABS: ALANINE AMINOTRANSFERASE 25 Units/L (12-78); ALBUMIN 3.4 g/dL (3.4-5.0); ALKALINE PHOSPHATASE 110 Units/L (46-116); ASPARTATE AMINO TRANSFERASE 33 Units/L (15-37); BLOOD UREA NITROGEN 25 mg/dL (7-18); CALCIUM 9.1 mg/dL (8.5-10.1); CARBON DIOXIDE 30.2 mmol/L (21-32); CHLORIDE 102 mmol/L (98-107); COR NA(FOR HYPERGLY) 146 mmol/L (136-145); CREATININE 1.48 mg/dL (0.70-1.30); SODIUM 140 mmol/L (136-145); TOTAL PROTEIN 7.7 g/dL (6.4-8.2); TROPONIN I < 0.02 ng/mL (0-1.5); eGFR NON BLACK RACES 52 (>60)
--- NOTE | 2021-03-13 01:23 | CT ---
PROCEDURE: CT Head without Contrast .HISTORY: Altered mental status.TECHNIQUE: Axial images were performed through the head without the administration of IV contrast with multiplanar reformations . Dose reduction techniques including Automated Exposure Control (AEC) and adjustment of mA and kV were utilized .COMPARISON: 03/01/2021.TECHNICAL QUALITY: Satisfactory .FINDINGS:Brain shows no mass, hemorrhage, or acute stroke.Severe periventricular old micro ischemic changes. Some encephalomalacia both frontal lobes. Moderate diffuse cerebral and cerebellar atrophy. Mild basal ganglia calcifications bilaterally.Ventricles are normal size for patient's age.No acute skull or scalp abnormality.Visualized sinuses and mastoids are clear.IMPRESSION:1. No acute intracranial abnormality.2. Senescent changes.Electronically signed by: Walker Whitmore (Mar 13, 2021 01:21:11)
[2021-03-13 01:27] LABS: CKMB % 0.3 % (<4); CREATINE KINASE 1096 Units/L (39-308)
[2021-03-13 01:58] LABS: BILIRUBIN,URINE NEGATIVE (NEGATIVE); BLOOD/HEMOGLOBIN,URINE 4+ (NEGATIVE); GLUCOSE, URINE 3+ (NEGATIVE); KETONES,URINE 3+ (NEGATIVE); LEUKOCYTE ESTERASE ,URINE 1+ (NEGATIVE); NITRITES,URINE NEGATIVE (NEGATIVE); PROTEIN,URINE 2+ (NEGATIVE); UROBILINOGEN,URINE NORMAL (NORMAL)
[2021-03-13 02:01] LABS: APPEARANCE,URINE CLEAR (CLEAR); COLOR,URINE PALE YELLOW (YELLOW)
[2021-03-13 02:02] LABS: BACTERIA,URINE NEGATIVE /HPF (NEGATIVE); RBC,URINE 0-2 /HPF (0-3); SQUAMOUS EPITHELIAL CELL,UR RARE /HPF (NEGATIVE)
--- NOTE | 2021-03-13 03:19 | RAD ---
PROCEDURE: Chest X-ray 1 View .HISTORY: Altered mental status.TECHNIQUE: AP view .COMPARISON: 03/11/2021.TECHNICAL QUALITY: Satisfactory .FINDINGS:Normal size heart .Mediastinum and hilar regions show no masses or lymphadenopathy .Normal central vascularity .No pulmonary consolidation, masses, pleural fluid, or pneumothorax .No acute bony abnormality. Pole rib fractures posteriorly with some bony deformity.IMPRESSION:No active cardiopulmonary disease .Electronically signed by: Walker Whitmore (Mar 13, 2021 03:16:29)
[2021-03-13] MEDS ORDERED: HumuLIN R IV ONE (04:29)
--- NOTE | 2021-03-13 04:36 | RAD ---
PROCEDURE: Acute Abdomen Series .HISTORY: Lethargy and dehydration.TECHNIQUE: AP supine and upright abdomen with AP chest x-ray views .COMPARISON: 03/12/2021 chest x-ray and 04/19/2020 abdomen.TECHNICAL QUALITY: Satisfactory .FINDINGS:Clear lungs and normal size heart.No pneumoperitoneum.Scattered gas and feces in the colon without distention. No obstruction or ileus.No organomegaly.No abnormal calcifications.No bony abnormality.IMPRESSION:1. Nonspecific bowel gas pattern.2. No active cardiopulmonary disease.Electronically signed by: Walker Whitmore (Mar 13, 2021 04:34:31)
[2021-03-13] MEDS ORDERED: HumuLIN R ONE ×2 (05:03→05:08)
[2021-03-13 05:52] VITALS: BMI 22.4
[2021-03-13] MEDS ORDERED: LINZESS PO SCH (09:00)
[2021-03-13] MEDS ORDERED: DILANTIN CAP 100 MG EXT REL PO SCH (10:00)
[2021-03-13 10:11] LABS: CREATINE KINASE MB 2.2 ng/mL (0-4.0); TROPONIN I < 0.02 ng/mL (0-1.5)
[2021-03-13 10:12] LABS: CKMB % 0.1 % (<4); CREATINE KINASE 1742 Units/L (39-308)
[2021-03-13] MEDS ORDERED: NS 1/2 1000 ML IV 1,000 ML IV ONE (10:20)
[2021-03-13] MEDS: NS 1/2 1000 ML IV 1,000 ML IV SCH ×2 (10:22→23:40)
[2021-03-13] MEDS: LEVAQUIN PREMIX IV 500 MG 500 MG/100 ML BAG IV SCH (14:10)
[2021-03-13] MEDS: DILANTIN INJ 100 MG VIAL IVP SCH ×2 (14:21→22:15)
[2021-03-13 15:38] LABS: BLOOD UREA NITROGEN 21 mg/dL (7-18); CALCIUM 8.9 mg/dL (8.5-10.1); CARBON DIOXIDE 28.2 mmol/L (21-32); CHLORIDE 107 mmol/L (98-107); COR NA(FOR HYPERGLY) 148 mmol/L (136-145); CREATININE 1.13 mg/dL (0.70-1.30); SODIUM 144 mmol/L (136-145); eGFR NON BLACK RACES > 60 (>60)
[2021-03-13 16:20] LABS: CKMB % 0.1 % (<4); CREATINE KINASE 1372 Units/L (39-308); CREATINE KINASE MB 1.5 ng/mL (0-4.0); TROPONIN I < 0.02 ng/mL (0-1.5)
[2021-03-13] MEDS ORDERED: HYDROGEN PEROXIDE 3% ONE (18:15)
--- NOTE | 2021-03-13 18:59 | DR.H&P ---
H&P - History & Physical for Day of: H&P Date: 03/13/21 - Chief Complaint Chief Complaint: AMS - History of Present Illness History of Present Illness: 60 y/o male, brought in via EMS for altered mental status. Pr reportedly was seen here early yesterday am for a seizure. He was treated with ativan and discharged to home. Per EMS, pt has not been drinking or eating since returning home. Having decreased level of alertness. - Past Medical History Past Medical History: Hypertension, Diabetes, Dementia, CVA, Seizures, Arthritis Additional Medical History: BLINDNESS - Past Surgical History Surgical History: Ortho Surgery Additional Surgical History: BILATERAL LOWER EXTREMITY AMPUTATION - Family History Family Medical History: Diabetes Mellitus, Cancer - Social History Does patient currently use any type of tobacco product: No Have you used tobacco products in the last 12 months: No Type of Tobacco Use: None Does any household member use tobacco: No Alcohol Use: None Drug Use: None Risks, benefits, and alternatives of opioids discussed: No Prescription drug monitoring program results: PDMP reviewed and no concerns identified - Medications Home Medications: No Known Drug Allergies Allergy (Verified 03/13/21 04:33) CONTINUE taking the following medications cephalexin 500 mg PO Q6H 03/13/21 [History] mupirocin 1 applic TOPICAL BID 03/13/21 [History] - Review of Systems Constitutional: Malaise Eyes: Vision Change (CHRONIC VISION IMPAIRMENT) Respiratory: No Symptoms Reported Cardiovascular: No Symptoms Reported Gastrointestinal: No Symptoms Reported Genitourinary: Incontinence Musculoskeletal: No Symptoms Reported Skin: Wound (RIGHT STUMP) Neurological: Weakness, Confusion - Physical Exam Vital Signs: Temperature 99.7 F Pulse Rate [Right Brachial] 104 Pulse Rate 119 Respiratory Rate 20 Blood Pressure [Right Arm] 128/81 Blood Pressure [Left Arm] 113/65 Blood Pressure [Right Arm] 123/69 Blood Pressure 137/85 O2 Sat by Pulse Oximetry 97 Oriented: Not Oriented Eyes: Blurred Vision (CHRONIC) Ear: Normal Nose: Normal Throat: Normal Respiratory: RLL Diminished, LLL Diminished Cardiovascular: Normal. negative: Edema : Normal Auscultation: Bowel Sounds: Normal Palpation: Normal Tenderness: Normal Skin: Decreased [place], Wound Musculoskeletal: Deformity, Motor Deficit Speech Pattern: Aphasic - Assessment/Plan (1) Altered mental state Status: Acute Plan: BC AND LACTIC ACID ON ADMISSION. RO DKA, CXR AND ABD ON ADMISSION. IV HYDRATION CE AND BP CONTROL. EKG ON ADMISSION, CT HEAD IN ER. BS MONITORING, VERIFY HOME MEDICATION. SEIZURE PRECAUTIONS. STRICT I&OS, WOUND ASSESSMENT, SPEECH CONSULT (2) Hypertension Status: Chronic (3) Diabetes Qualifiers: Status: Chronic (4) Pressure ulcer of below knee amputation stump, stage 1 Status: Acute (5) Rhabdomyolysis Status: Acute - Allergies Allergies/Adverse Reactions: Allergies Allergy/AdvReac Type Severity Reaction Status Date / Time No Known Drug Allergies Allergy Verified 03/13/21 04:33
[2021-03-13 19:13] LABS: ALANINE AMINOTRANSFERASE 27 Units/L (12-78); ALBUMIN 2.8 g/dL (3.4-5.0); ALKALINE PHOSPHATASE 89 Units/L (46-116); ASPARTATE AMINO TRANSFERASE 40 Units/L (15-37); COR CA(FOR HYPOALB) 9.9 mg/dL (8.5-10.1); TOTAL PROTEIN 6.6 g/dL (6.4-8.2)
[2021-03-13 19:58] LABS: AMMONIA < 10 umol/L (11-32)
[2021-03-13] MEDS: PROTONIX INJ 40 MG VIAL IVP SCH (20:52)
[2021-03-13 21:42] LABS: CREATINE KINASE MB 1.2 ng/mL (0-4.0); TROPONIN I < 0.02 ng/mL (0-1.5)
[2021-03-13 21:43] LABS: CKMB % 0.1 % (<4); CREATINE KINASE 1103 Units/L (39-308)
[2021-03-13 22:53] LABS: BILIRUBIN,URINE NEGATIVE (NEGATIVE); BLOOD/HEMOGLOBIN,URINE 3+ (NEGATIVE); GLUCOSE, URINE 1+ (NEGATIVE); KETONES,URINE 2+ (NEGATIVE); LEUKOCYTE ESTERASE ,URINE NEGATIVE (NEGATIVE); NITRITES,URINE NEGATIVE (NEGATIVE); PROTEIN,URINE 2+ (NEGATIVE); UROBILINOGEN,URINE NORMAL (NORMAL)
[2021-03-13 23:05] LABS: APPEARANCE,URINE HAZY (CLEAR); BACTERIA,URINE TRACE /HPF (NEGATIVE); COLOR,URINE YELLOW (YELLOW); MUCUS,URINE FEW /HPF (NEGATIVE); SQUAMOUS EPITHELIAL CELL,UR FEW /HPF (NEGATIVE); URIC ACID CRYSTALS,URINE MANY /HPF (NEGATIVE)
[2021-03-14] MEDS ORDERED: NS 1/2 1000 ML IV 1,000 ML IV ONE ×2 (05:14→19:04)
[2021-03-14 05:21] LABS: BASOPHILS % (AUTO) 0.2 % (0.2-1.0); EOSINOPHILS % (AUTO) 0.1 % (0.9-2.9); HEMATOCRIT 26.6 % (42.0-54.0); LYMPHOCYTES # (AUTO) 2.2 X10^3/uL (1.3-2.9); LYMPHOCYTES % (AUTO) 18.6 % (21.0-51.0); MEAN CORPUSCULAR HEMOGLOBIN 29.5 pg (27.0-34.0); MEAN CORPUSCULAR HGB CONC 34.8 g/dL (33.0-35.0); MEAN CORPUSCULAR VOLUME 84.9 fL (80.0-100.0); MEAN PLATELET VOLUME 8.2 fL (7.4-11.0); MONOCYTES # (AUTO) 0.6 x10^3/uL (0.3-0.8); MONOCYTES % (AUTO) 5.3 % (0.0-13.0); NEUTROPHILS # (AUTO) 9.2 x10^3/uL (2.2-4.8); NEUTROPHILS % (AUTO) 75.8 % (42.0-75.0); PLATELET COUNT 337 X10^3/uL (150.0-450.0); RED BLOOD COUNT 3.14 X10^6/uL (4.7-6.0); RED CELL DISTRIBUTION WIDTH 14.6 % (11.6-16.5); WHITE BLOOD COUNT 12.1 X10^3/uL (3.6-10.0)
[2021-03-14] MEDS: DILANTIN INJ 100 MG VIAL IVP SCH ×3 (05:21→21:42)
[2021-03-14 05:26] LABS: ALANINE AMINOTRANSFERASE 21 Units/L (12-78); ALBUMIN 2.6 g/dL (3.4-5.0); ALKALINE PHOSPHATASE 85 Units/L (46-116); ASPARTATE AMINO TRANSFERASE 27 Units/L (15-37); BLOOD UREA NITROGEN 17 mg/dL (7-18); CALCIUM 8.4 mg/dL (8.5-10.1); CHLORIDE 107 mmol/L (98-107); COR CA(FOR HYPOALB) 9.5 mg/dL (8.5-10.1); COR NA(FOR HYPERGLY) 146 mmol/L (136-145); CREATININE 0.94 mg/dL (0.70-1.30); SODIUM 143 mmol/L (136-145); TOTAL PROTEIN 6.3 g/dL (6.4-8.2); eGFR NON BLACK RACES > 60 (>60)
[2021-03-14 05:30] LABS: HEMOGLOBIN 9.3 g/dL (13.5-18.0)
--- NOTE | 2021-03-14 06:30 | RAD ---
[id number]/20/2021FINDINGSThe abdominal gas pattern is nonspecific and n onobstructive. No abnormal masses or abnormal calcifications are identified. There has been a slight decrease in the rectal stool burden when compared with the prior examination. There is a catheter wit hin the bladder. Regional skeleton is intact.IMPRESSIONNo acute findingsDecreasing rectal stool burde nElectronically signed by: MARTHA HUERTA (Mar 14, 2021 06:28:03)
[2021-03-14] MEDS ORDERED: DULCOLAX SUPPOSITORY 10 MG RECTAL ONE (07:48)
[2021-03-14] MEDS ORDERED: TYLENOL SUPP 650 MG PR PRN (08:11)
[2021-03-14 08:13] LABS: SERUM ACETONE SMALL (NEGATIVE)
[2021-03-14 08:40] LABS: MAGNESIUM 2.3 mg/dL (1.7-2.9)
[2021-03-14] MEDS: LEVAQUIN PREMIX IV 500 MG 500 MG/100 ML BAG IV SCH (09:32)
[2021-03-14] MEDS: PROTONIX INJ 40 MG VIAL IVP SCH (09:34)
[2021-03-14] MEDS: NS 1/2 1000 ML IV 1,000 ML IV SCH (19:13)
[2021-03-15] MEDS: DILANTIN INJ 100 MG VIAL IVP SCH ×2 (06:14→08:40)
[2021-03-15] MEDS: LEVAQUIN PREMIX IV 500 MG 500 MG/100 ML BAG IV SCH (09:29)
[2021-03-15] MEDS: PROTONIX INJ 40 MG VIAL IVP SCH (09:29)
[2021-03-15 10:12] LABS: BASOPHILS % (AUTO) 0.3 % (0.2-1.0); EOSINOPHILS # (AUTO) 0.2 x10^3/uL (0.0-0.2); EOSINOPHILS % (AUTO) 1.6 % (0.9-2.9); HEMATOCRIT 25.6 % (42.0-54.0); HEMOGLOBIN 8.7 g/dL (13.5-18.0); LYMPHOCYTES # (AUTO) 1.5 X10^3/uL (1.3-2.9); LYMPHOCYTES % (AUTO) 15.1 % (21.0-51.0); MEAN CORPUSCULAR HEMOGLOBIN 29.2 pg (27.0-34.0); MEAN CORPUSCULAR HGB CONC 34.1 g/dL (33.0-35.0); MEAN CORPUSCULAR VOLUME 85.6 fL (80.0-100.0); MEAN PLATELET VOLUME 8.1 fL (7.4-11.0); MONOCYTES # (AUTO) 0.3 x10^3/uL (0.3-0.8); MONOCYTES % (AUTO) 3.4 % (0.0-13.0); NEUTROPHILS # (AUTO) 8.1 x10^3/uL (2.2-4.8); NEUTROPHILS % (AUTO) 79.6 % (42.0-75.0); PLATELET COUNT 268 X10^3/uL (150.0-450.0); RED BLOOD COUNT 2.99 X10^6/uL (4.7-6.0); RED CELL DISTRIBUTION WIDTH 14.1 % (11.6-16.5); WHITE BLOOD COUNT 10.1 X10^3/uL (3.6-10.0)
[2021-03-15 10:35] LABS: ALANINE AMINOTRANSFERASE 21 Units/L (12-78); ALBUMIN 2.4 g/dL (3.4-5.0); ALKALINE PHOSPHATASE 84 Units/L (46-116); ASPARTATE AMINO TRANSFERASE 27 Units/L (15-37); BLOOD UREA NITROGEN 11 mg/dL (7-18); CALCIUM 7.9 mg/dL (8.5-10.1); CARBON DIOXIDE 30.9 mmol/L (21-32); CHLORIDE 103 mmol/L (98-107); CKMB % 0.3 % (<4); COR CA(FOR HYPOALB) 9.2 mg/dL (8.5-10.1); COR NA(FOR HYPERGLY) 142 mmol/L (136-145); CREATINE KINASE 591 Units/L (39-308); CREATINE KINASE MB 1.8 ng/mL (0-4.0); SODIUM 138 mmol/L (136-145); TOTAL PROTEIN 5.9 g/dL (6.4-8.2); TROPONIN I < 0.02 ng/mL (0-1.5); eGFR NON BLACK RACES > 60 (>60)
[2021-03-15] MEDS: NS 1/2 1000 ML IV 1,000 ML IV SCH ×2 (15:45→22:24)
[2021-03-15] MEDS: DILANTIN CAP 100 MG EXT REL PO SCH ×2 (15:46→22:24)
[2021-03-15] MEDS ORDERED: NS 1/2 1000 ML IV 1,000 ML IV ONE (22:18)
[2021-03-16 05:44] LABS: BASOPHILS % (AUTO) 0.2 % (0.2-1.0); EOSINOPHILS # (AUTO) 0.1 x10^3/uL (0.0-0.2); EOSINOPHILS % (AUTO) 0.4 % (0.9-2.9); HEMATOCRIT 24.4 % (42.0-54.0); HEMOGLOBIN 8.4 g/dL (13.5-18.0); LYMPHOCYTES # (AUTO) 1.5 X10^3/uL (1.3-2.9); LYMPHOCYTES % (AUTO) 10.5 % (21.0-51.0); MEAN CORPUSCULAR HEMOGLOBIN 29.2 pg (27.0-34.0); MEAN CORPUSCULAR HGB CONC 34.6 g/dL (33.0-35.0); MEAN CORPUSCULAR VOLUME 84.2 fL (80.0-100.0); MEAN PLATELET VOLUME 8.3 fL (7.4-11.0); MONOCYTES # (AUTO) 0.3 x10^3/uL (0.3-0.8); MONOCYTES % (AUTO) 2.1 % (0.0-13.0); NEUTROPHILS # (AUTO) 12.2 x10^3/uL (2.2-4.8); NEUTROPHILS % (AUTO) 86.8 % (42.0-75.0); PLATELET COUNT 247 X10^3/uL (150.0-450.0); RED BLOOD COUNT 2.89 X10^6/uL (4.7-6.0); RED CELL DISTRIBUTION WIDTH 13.8 % (11.6-16.5)
[2021-03-16] MEDS: DILANTIN CAP 100 MG EXT REL PO SCH ×3 (05:49→22:12)
[2021-03-16 06:01] LABS: ALANINE AMINOTRANSFERASE 20 Units/L (12-78); ALBUMIN 2.3 g/dL (3.4-5.0); ALKALINE PHOSPHATASE 81 Units/L (46-116); ASPARTATE AMINO TRANSFERASE 20 Units/L (15-37); BLOOD UREA NITROGEN 7 mg/dL (7-18); CALCIUM 7.7 mg/dL (8.5-10.1); CARBON DIOXIDE 30.7 mmol/L (21-32); CHLORIDE 104 mmol/L (98-107); COR CA(FOR HYPOALB) 9.1 mg/dL (8.5-10.1); COR NA(FOR HYPERGLY) 141 mmol/L (136-145); CREATININE 0.81 mg/dL (0.70-1.30); SODIUM 139 mmol/L (136-145); TOTAL PROTEIN 5.8 g/dL (6.4-8.2); eGFR NON BLACK RACES > 60 (>60)
[2021-03-16] MEDS ORDERED: MICRO K EXTEN CAP 10 MEQ PO PRN (07:03)
[2021-03-16] MEDS ORDERED: K-RIDER 10 MEQ/NS 100 ML 10 MEQ/100 ML BAG IV PRN (07:03)
[2021-03-16] MEDS ORDERED: POTASSIUM CHL 40 MEQ/NS 0.45% 500 ML IV PRN (07:03)
[2021-03-16] MEDS ORDERED: POTASSIUM CHLORIDE LIQ 20 MEQ UDC PO PRN (07:03)
[2021-03-16] MEDS ORDERED: KLOR-CON PO PRN (07:03)
[2021-03-16] MEDS ORDERED: POTASSIUM CHL 60 MEQ/NS 0.45% 500 ML IV PRN (07:03)
[2021-03-16] MEDS ORDERED: K-DUR TAB 20 MEQ PO PRN (07:03)
[2021-03-16] MEDS: NS 1/2 + KCL 20 MEQ/L 1,000 ML IV SCH ×2 (10:07→22:13)
[2021-03-16] MEDS: LEVAQUIN PREMIX IV 500 MG 500 MG/100 ML BAG IV SCH (10:07)
[2021-03-16] MEDS: PROTONIX INJ 40 MG VIAL IVP SCH (10:07)
[2021-03-16] MEDS: HEMOCYTE-PLUS PO SCH (10:08)
--- NOTE | 2021-03-16 11:51 | RAD ---
HISTORYCHEST CONGESTIONSTUDYCHEST, 1 VIEWCOMPARISONOne-view chest March 13, 2021FINDINGSThe trachea is midline. The cardiac silhouette is unremarkable . The lungs are clear without focal infiltrate or effusion. The bony thorax is unremarkable. Old healed right posterior 7th 8 rib fractures are observed.IMPRESSIONNo acute cardiopulmonary disease and no change from the last study of March 131Electronically signed by: HANS THOMAS (Mar 16, 2021 11:49:17)
[2021-03-16] MEDS ORDERED: PHARMACY COMMENT IV ONE (13:00)
[2021-03-16] MEDS: HumuLIN R SUBCUT PRN ×2 (16:18→22:13)
[2021-03-16] MEDS ORDERED: SNACK - Diabetic Appropriate PO SCH (20:00)
[2021-03-17 06:07] LABS: BASOPHILS % (AUTO) 0.2 % (0.2-1.0); EOSINOPHILS # (AUTO) 0.1 x10^3/uL (0.0-0.2); EOSINOPHILS % (AUTO) 0.8 % (0.9-2.9); HEMOGLOBIN 8.4 g/dL (13.5-18.0); LYMPHOCYTES # (AUTO) 1.8 X10^3/uL (1.3-2.9); LYMPHOCYTES % (AUTO) 13.6 % (21.0-51.0); MEAN CORPUSCULAR HEMOGLOBIN 28.5 pg (27.0-34.0); MEAN CORPUSCULAR HGB CONC 33.7 g/dL (33.0-35.0); MEAN CORPUSCULAR VOLUME 84.7 fL (80.0-100.0); MEAN PLATELET VOLUME 8.1 fL (7.4-11.0); MONOCYTES # (AUTO) 0.3 x10^3/uL (0.3-0.8); MONOCYTES % (AUTO) 2.5 % (0.0-13.0); NEUTROPHILS % (AUTO) 82.9 % (42.0-75.0); PLATELET COUNT 243 X10^3/uL (150.0-450.0); RED BLOOD COUNT 2.95 X10^6/uL (4.7-6.0); RED CELL DISTRIBUTION WIDTH 14.2 % (11.6-16.5); WHITE BLOOD COUNT 13.3 X10^3/uL (3.6-10.0)
[2021-03-17] MEDS: DILANTIN CAP 100 MG EXT REL PO SCH ×2 (06:16→13:25)
[2021-03-17 06:34] LABS: ALANINE AMINOTRANSFERASE 34 Units/L (12-78); ALBUMIN 2.3 g/dL (3.4-5.0); ALKALINE PHOSPHATASE 94 Units/L (46-116); ASPARTATE AMINO TRANSFERASE 35 Units/L (15-37); BLOOD UREA NITROGEN 8 mg/dL (7-18); CALCIUM 7.9 mg/dL (8.5-10.1); CARBON DIOXIDE 28.2 mmol/L (21-32); CHLORIDE 107 mmol/L (98-107); COR CA(FOR HYPOALB) 9.3 mg/dL (8.5-10.1); COR NA(FOR HYPERGLY) 143 mmol/L (136-145); CREATINE KINASE 230 Units/L (39-308); CREATININE 0.77 mg/dL (0.70-1.30); SODIUM 142 mmol/L (136-145); TOTAL PROTEIN 6.3 g/dL (6.4-8.2); eGFR NON BLACK RACES > 60 (>60)
[2021-03-17] MEDS: PROTONIX INJ 40 MG VIAL IVP SCH (09:06)
[2021-03-17] MEDS: LEVAQUIN PREMIX IV 500 MG 500 MG/100 ML BAG IV SCH (09:06)
[2021-03-17] MEDS: HEMOCYTE-PLUS PO SCH (09:06)
[2021-03-17] MEDS: NS 1/2 + KCL 20 MEQ/L 1,000 ML IV SCH (11:28)
[2021-03-17 12:17] VITALS: BP 108/57
[2021-03-17] MEDS ORDERED: STERILE WATER IRRIGATION IR ONE (12:33)
[2021-03-17] MEDS ORDERED: NS IRRIGATION* 1,000 ML IR ONE (14:34)
[2021-03-18] MEDS ORDERED: PROTONIX TAB 40 MG PO SCH (09:00)
== END 2021-03-17 16:30 | disposition home or self-care (01) | DRG 558 ==
LOC: MED/SURG 00:07 → ER 00:07 → MED/SURG 05:10
PROVIDERS: ADMIT Obstetrics & Gynecology Obstetrics; ATTEND Internal Medicine
DX: E87.6 Hypokalemia; D64.9 Anemia, unspecified; R41.82 Altered mental status, unspecified; Z20.822 Contact with and (suspected) exposure to COVID-19; R10.9 Unspecified abdominal pain; K59.00 Constipation, unspecified; B95.7 Other staphylococcus as the cause of diseases classified elsewhere; L89.892 Pressure ulcer of other site, stage 2; N39.0 Urinary tract infection, site not specified; H54.7 Unspecified visual loss; M62.82 Rhabdomyolysis; E10.9 Type 1 diabetes mellitus without complications; R56.9 Unspecified convulsions; E86.0 Dehydration; R89.2 Abnormal level of other drugs, medicaments and biological substances in specimens from other organs, systems and tissues; Z89.511 Acquired absence of right leg below knee; Z16.39 Resistance to other specified antimicrobial drug; Z89.512 Acquired absence of left leg below knee